=== PATIENT | male | born 1970 | race Hispanic/Latino ===

== ENCOUNTER 2019-02-14 12:53 | Inpatient (IN) | payer BC ==
[~2019-02-14] VITALS: Ht 172.7 cm; Wt 72.7 kg
[2019-02-14] MEDS ORDERED: GLIPIZIDE5 MG PO (13:34)
[2019-02-14] MEDS ORDERED: METFORMIN HCL1000 MG PO (13:34)
[2019-02-14] MEDS ORDERED: SODIUM CHLORIDE 0.9% 1000ML 1,000 ML IV STA ×4 (13:39→18:41)
[2019-02-14] MEDS ORDERED: PIPER-TAZ 3.375 GM 50 ML IV ONE (13:45)
[2019-02-14 14:05] LABS: BASOPHILS # (AUTO) 0.1 (0.0-0.1); BASOPHILS % 0.3 % (0.0-1.0); EOSINOPHILS # (AUTO) 0.1 (0.0-0.4); EOSINOPHILS % 0.4 % (0.0-6.0); HEMATOCRIT 36.3 % (38.2-49.6); HEMOGLOBIN 12.7 g/dL (14.0-18.0); LYMPHOCYTES # (AUTO) 1.1 (1.0-3.2); MEAN CORPUSCULAR HEMOGLOBIN 30.7 pg (28-32); MEAN CORPUSCULAR VOLUME 87.7 fL (81-99); MONOCYTES # (AUTO) 0.9 (0.2-0.8); MONOCYTES % 5.7 % (4.4-11.3); NEUTROPHILS # (AUTO) 13.9 (2.1-6.9); NEUTROPHILS % 85.9 % (38.7-80.0); PLATELET COUNT 245 x10e3/uL (140-360); RED BLOOD COUNT 4.14 x10e6/uL (4.3-5.7); RED CELL DISTRIBUTION WIDTH 11.2 % (11.7-14.4)
--- NOTE | 2019-02-14 14:12 | Diagnostic Imaging Report ---
Right foot, 3 views. History: Ulcer in the dorsolateral aspect of the foot. Findings: Vascular classifications are present. There is mild focal soft tissue swelling overlying the base of the fifth metatarsal. No air is seen within the soft tissues. Bone mineralization is normal. There is no evidence of fracture or dislocation. There is no visible erosion or periosteal reaction. The joint spaces are within normal limits. IMPRESSION: Lateral soft tissue swelling without underlying osseous abnormality. A nuclear medicine bone scan or MRI would be more sensitive for detection of early osteomyelitis. Signed by: Roverto Herrera on 02/14/2019 2:09 PM
[2019-02-14 14:23] LABS: ALANINE AMINOTRANSFERASE 28 IU/L (0-55); ALBUMIN 2.7 g/dL (3.5-5.0); ALBUMIN/GLOBULIN RATIO 0.6 (0.8-2.0); ALKALINE PHOSPHATASE 154 IU/L (40-150); ANION GAP 17.3 mmol/L (8-16); BLOOD UREA NITROGEN 17 mg/dL (7-26); BUN/CREATININE RATIO 13 (6-25); CALCIUM 9.3 mg/dL (8.4-10.2); CARBON DIOXIDE 23 mmol/L (22-29); CHLORIDE 94 mmol/L (98-107); CREATININE, SERUM 1.26 mg/dL (0.72-1.25); EST GLOMERULAR FILTRATION RATE > 60 ML/MIN (60-); POTASSIUM 4.3 mmol/L (3.5-5.1); SODIUM 130 mmol/L (136-145)
[2019-02-14 14:26] LABS: GLUCOSE 532 mg/dL (74-118)
[2019-02-14] MEDS ORDERED: MORPHINE SULFATE INJ 4 MG/ML INJ 1ML IV ONE (14:35)
[2019-02-14] MEDS ORDERED: VANCOMYCIN 1GM/NS 250 ML 250 ML IV ONE (14:35)
[2019-02-14] MEDS ORDERED: ONDANSETRON HCL INJ 2MG/ML 2ML 2 MG/ML VIAL IV ONE (14:35)
[2019-02-14] MEDS ORDERED: VANCOMYCIN 1GM/NS 250 ML 250 ML IV STA (14:38)
[2019-02-14] MEDS: SODIUM CHLORIDE 0.9% 1000ML 1,000 ML IV SCH (14:40)
[2019-02-14] MEDS ORDERED: ONDANSETRON HCL INJ 2MG/ML 2ML 2 MG/ML VIAL IV PRN (14:45)
[2019-02-14] MEDS ORDERED: TETANUS/DIPHTHERIA TOX ADULT 0.5 ML SYR IM ONE ×2 (14:45→19:30)
[2019-02-14] MEDS ORDERED: DEXTROSE 50% SYRINGE 50 ML IV PRN ×2 (14:45→17:30)
[2019-02-14] MEDS ORDERED: ACETAMINOPHEN 325 MG TAB PO PRN (14:45)
[2019-02-14] MEDS ORDERED: MORPHINE SULFATE 2 MG/ML SYR 1ML IV PRN (14:50)
[2019-02-14] MEDS ORDERED: INSULIN REGULAR, HUMAN 100 UNIT/1 ML 3ML VIAL IV ONE ×2 (15:00→16:30)
[2019-02-14] MEDS ORDERED: MORPHINE SULFATE INJ 4 MG/ML INJ 1ML IV PRN (15:00)
[2019-02-14 15:19] LABS: INR 1.02; PROTHROMBIN TIME 13.9 seconds (11.9-14.5)
[2019-02-14 15:20] LABS: PARTIAL THROMBOPLASTIN TIME 34.9 seconds (23.8-35.5)
--- NOTE | 2019-02-14 15:21 | Diagnostic Imaging Report ---
Chest, 1 view, 02/14/2019. History: Diabetic foot ulcer. Comparison: None available. Findings: The cardiomediastinal silhouette and pulmonary vasculature are within normal limits for a portable exam. There is no focal consolidation or pleural effusion. There are no acute osseous or soft tissue abnormalities. Impression: No acute cardiopulmonary abnormality. Signed by: Roverto Herrera on 02/14/2019 3:17 PM
[2019-02-14 15:23] LABS: MAGNESIUM 1.7 MG/DL (1.3-2.1)
[2019-02-14 15:30] LABS: CREATINE KINASE MB 2.5 ng/mL (0-5.0)
--- OUTSIDE RECORDS SUMMARY | 2019-02-14 15:46 | XMS REPORT ---
Author Author [facility] Address Unknown Phone Unavailable Care Team Providers Care Pot Liner Name Role Phone MJ WAGGONER Unavailable Unavailable Problems This patient has no known problems. Allergies, Adverse Reactions, Alerts This patient has no known allergies or adverse reactions. Medications This patient has no known medications. Results Test Description Test Time Test Comments Text Results Atomic Results Result Comments CHEST SINGLE (PORTABLE) 2019-02-14 15:17:00 [place] [address] Patient Name: HERBERTH DONIS MR #: [id number] : 1970 Age/Sex: 48/M Req #: [id number] Adm Physician: Ordered by: MJ WAGGONER MD, MD Report #: [id number] Location: ER Room/Bed: Procedure: [id number] DX/CHEST SINGLE (PORTABLE) Exam Date: 02/14/19 Exam Time: 1450 REPORT STATUS: Signed Chest, 1 view, 02/14/2019. History: Diabetic foot ulcer. Comparison: None available. Findings: The cardiomediastinal silhouette and pulmonary vasculature are within normal limits for a portable exam. There is no focal consolidation or pleural effusion. There are no acute osseous or soft tissue abnormalities. Impression: No acute cardiopulmonary abnormality. Signed by: Hernandez Herrera on 02/14/2019 3:17 PM Dictated By: HERNANDEZ HERRERA MD 16 Transcribed By: DAVI on 02/14/191516 COPY TO: MJ WAGGONER FOOT RIGHT COMPLETE 2019-02-14 14:05:00 [place] [address] Patient Name: HERBERTH DONIS MR #: [id number] : 1970 Age/Sex: 48/M Req #: [id number] Adm Physician: Ordered by: HERNANDEZ SHAW NP Report #: [id number] Location: ER Room/Bed: Procedure: [id number] DX/FOOT RIGHT COMPLETE Exam Date: 02/14/19 Exam Time: 1350 REPORT STATUS: Signed Right foot, 3 views. History: Ulcer in the dorsolateral aspect of the foot. Findings: Vascular classifications are present. There is mild focal soft tissue swelling overlying the base of the fifth metatarsal. No air is seen within the soft tissues. Bone mineralization is normal. There is no evidence of fracture or dislocation. There is no visible erosion or periosteal reaction. The joint spaces are within normal limits. IMPRESSION: Lateral soft tissue swelling without underlying osseous abnormality. A nuclear medicine bone scan or MRI would be more sensitive for detection of early osteomyelitis. Signed by: Hernandez Herrera on 02/14/2019 2:09 PM Dictated By: HERNANDEZ HERRERA MD 08 Transcribed By: DAVI on 02/14/191408 COPY TO: HERNANDEZ SHAW QUALITY OFFICER
[2019-02-14] MEDS: FAMOTIDINE 20 MG/2 ML VIAL IV SCH (17:02)
--- NOTE | 2019-02-14 17:05 | Consultation ---
DATE OF CONSULTATION: 02/14/2019 HISTORY OF PRESENT ILLNESS: The patient is a 48-year-old diabetic male, admitted to the hospital complaining of a blister in the right foot on the lateral part of the heel that developed about a week ago. The patient did not seek medical attention until today at which time he presented to the emergency room and was found to have a gangrenous patch of skin with full thickness in that location. His blood sugars were in the 500. The patient's white count was 16,000. PAST MEDICAL HISTORY: Significant for diabetes and hypertension. PAST SURGICAL HISTORY: He has no previous surgery. ALLERGIES: HE HAS NO KNOW ALLERGIES. PHYSICAL EXAMINATION: GENERAL: A 48-year-old male, awake, alert, is in no acute distress. VITAL SIGNS: temperature is 99.2. vital signs are stable. HEAD, EYES, EARS, NOSE AND THROAT: Reveals no acute process. ABDOMEN: Soft. EXTREMITIES: Examination of the extremities reveal palpable femoral and popliteal pulses. I can barely palpate any dorsalis pedis or tibialis posterior pulses. Examination of the feet reveals on the right side over the lateral upper after of the heel in the area of the malleolus and, lateral. There is full thickness necrosis. There is no abscess. There is surrounding erythema consistent with cellulitis. ASSESSMENT: Diabetic foot with gangrene of the right lateral aspect with full-thickness necrosis of skin and soft tissue. This is secondary to the diabetic neuropathy from ill-fitting shoes. PLAN: The plan is to admit the patient give intravenous antibiotics. Control his blood sugar which is over 500 again. We will get a and nuclear medicine scan to rule out the possibility of osteomyelitis. We will do arterial Dopplers to evaluate his peripheral disease. 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 This has been discussed with Dr. Lema and the patient and the family. MD KENNA Amato/ANTONY /[id number]
[2019-02-14] MEDS ORDERED: CLONIDINE HCL 0.1 MG TAB PO PRN (17:30)
[2019-02-14 17:44] LABS: BILIRUBIN,URINE NEGATIVE (NEGATIVE); CLARITY,URINE SL CLOUDY (CLEAR); COLOR,URINE YELLOW (YELLOW); KETONES,URINE NEGATIVE (NEGATIVE); LEUKOCYTE ESTERASE ,URINE NEGATIVE (NEGATIVE); NITRITE,URINE NEGATIVE (NEGATIVE); PROTEIN,URINE DIPSTICK NEGATIVE (NEGATIVE); URINE UROBILINOGEN 0.2 mg/dL (0.2 - 1)
[2019-02-14] MEDS ORDERED: PIPER-TAZ 3.375 GM 50 ML IV SCH (18:00)
[2019-02-14 18:04] LABS: BACTERIA,URINE FEW /HPF; RBC,URINE 0-5 /HPF (0-5)
--- NOTE | 2019-02-14 18:42 | NUR ---
HAD CONVERSATION WITH DR WAGGONER REGARDING LACTIC NOT CHANGING, DR WAGGONER ORDERED AN ADDITIONAL LITER OF NORMAL SALINE
--- NOTE | 2019-02-14 19:05 | NUR ---
MARGOT FROM NUCLEAR MEDICINE REMINDED OF STAT ORDERS FOR BONE SCAN
[2019-02-14] MEDS: INSULIN REGULAR, HUMAN 100 UNIT/1 ML 3ML VIAL SQ SCH (21:00)
[2019-02-14] MEDS: INSULIN GLARGINE 100 UNITS/ML VIAL SQ SCH (21:00)
[2019-02-14 22:03] VITALS: BP 156/87
--- NOTE | 2019-02-14 22:30 | NUR ---
RECEIVED PATIENT FROM ER AOX4, NO SIGNS OF DISTRESS NOTED. PATIENT'S IS AT BEDSIDE AND PATIENT VOICES NO PAIN AT THIS TIME. WOUND ON RIGHT FOOT HAS BEEN ASSESSED AND PATIENT IS AWARE OF NPO AFTER MIDNIGHT. BED IS IN LOWEST POSITION, BOTH SIDE RAILS ARE UP, CALL LIGHT WITHIN REACH, WILL CONTINUE TO MONITOR.
--- NOTE | 2019-02-14 23:00 | NUR ---
IR HAS COME TO CONSUMER ANALYST PATIENT FOR PROCEDURE.
[2019-02-15] VITALS (9 sets, daily range): BP systolic 117–197; BP diastolic 61–87
--- NOTE | 2019-02-15 | NUR ---
PATIENT HAS RETURNED FROM IR IN STABLE CONDITION.
--- NOTE | 2019-02-15 00:07 | History and Physical ---
PRIMARY CARE PHYSICIAN: Elbert Orellnaa MD CHIEF COMPLAINT: Right lower extremity diabetic ulcer. HISTORY OF PRESENT ILLNESS: This is a 48-year-old male with past medical history of diabetes and high cholesterol, presented with right foot, right lateral side diabetic ulcer. According to the patient, he does not have feeling in the foot due to his diabetes, but noted that he was having a small blister, which continued to worsen. He went to see his PCP, was not available, so went to the ER where they gave him Bactrim and increased his metformin to 1000 b.i.d. He has been soaking it and taking Bactrim for about 5-6 days with no improvement and now is black underneath the blister with increasing redness to the foot. No drainage noted. He reports subjective fever. He denies any chest pain, nausea, or vomiting. In the ER, surgeon has been consulted, and started on IV antibiotics. PAST MEDICAL HISTORY: 1. Diabetes. 2. High cholesterol. PAST SURGICAL HISTORY: None. FAMILY MEDICAL HISTORY: Both mother and father had diabetes and father of heart disease. SOCIAL HISTORY: He denies any tobacco, alcohol, or drug use. Currently employed and . ALLERGIES: NO KNOWN ALLERGIES. REVIEW OF SYSTEMS: GENERAL: Fatigue and subjective fever. HEENT: No head trauma. LUNGS: No shortness of breath. CARDIOVASCULAR: No chest pain or palpitations. GI: No abdominal pain. NEUROLOGIC: Alert and oriented. SKIN: Right foot ulcer, possible necrosis. PHYSICAL EXAMINATION: VITAL SIGNS: Temperature is 99.5, pulse is 113, respirations are 20, blood pressure is 152/88, pulse ox is 100% on room air. GENERAL: No acute distress. HEENT: Normocephalic and atraumatic. NECK: Supple. LUNGS: Clear to auscultation. CARDIOVASCULAR: Regular rate and rhythm. NEUROLOGIC: Alert, awake, and oriented x3. ABDOMEN: Soft and nontender. MUSCULOSKELETAL: Moves all extremities. SKIN: Noted right foot ulcer likely with eschar to the right lateral side underneath the blister and redness extending to the dorsalis pedis. PSYCH: Calm. LABORATORY DATA: WBC is 16.15, hemoglobin is 12.7, and platelet is 245. ESR is 90. Sodium is 130, potassium is 4.3, creatinine is 1.26, estimated GFR greater than 60, glucose is 532, lactic acid is 2.9, and magnesium is 1.7. AST 18, ALT 28, and alkaline phosphatase 154. Troponin is 0.003. BNP is 23.3. PT 13.9, INR 1.02, APTT 34.9. Foot x-ray shows lateral soft tissue swelling without underlying osseous abnormalities. Chest x-ray is no abnormality. IMPRESSION AND PLAN: 1. Severe sepsis due to right foot diabetic ulcer. We will continue with Zosyn and vancomycin renal dosed. Pending bone scan to rule out osteomyelitis. Venous Doppler to rule out DVT. Surgery has been consulted for debridement. 2. Uncontrolled diabetes. Blood sugar upon arrival is 532. We will continue with sliding scale insulin and add Lantus at bedtime. 3. Acute kidney injury. Creatinine is 1.26. We will hydrate and repeat blood work in the morning. 4. High cholesterol. We will continue statin per home dose. 5. Deep vein thrombosis prophylaxis. No chemical anticoagulation due to possible surgery tomorrow. Dictated by HINA Gupta Damien Josue MD MY/MODL /[id number] Seen and examined on 02/14/19, getting an arterial doppler instead of venous to rule out PVD, diabetes with hyperglycemia. Agree with the findings and plan as documented by HINA Hayes. MTDD
[2019-02-15] MEDS: PIPER-TAZ 3.375 GM 50 ML IV SCH ×4 (00:29→21:21)
[2019-02-15] MEDS: SODIUM CHLORIDE 0.9% 1000ML 1,000 ML IV SCH ×3 (00:29→13:47)
--- NOTE | 2019-02-15 00:47 | Diagnostic Imaging Report ---
Bone Scan, three-phase - feet and ankles Reason for exam: Cellulitis of right ankle Radiopharmaceutical: Tc-99m MDP 25 mCi IV LAC Comparison: Right foot radiograph 02/14/2019 Following intravenous administration of the radiopharmaceutical, dynamic flow and immediate blood pool images of the feet and ankles followed by delayed spot images were obtained. Flow and blood pool images show diffuse markedly increased tracer activity to the right foot and ankle compared to the left with focal increased tracer in the right ankle. The 3-hour delayed images focal increased tracer activity in the medial and lateral malleoli of the right ankle. Impression: Scan findings are very worrisome for osteomyelitis of the right ankle, however, 3-phase bone scan lacks specificity in the setting of cellulitis in the diabetic foot. A labeled white blood cell study is recommended to add specificity to the evaluation. Signed by: Dr. Cris Paula M.D. on 02/15/2019 6:32 PM
[2019-02-15 01:27] LABS: CREATINE KINASE MB 2.2 ng/mL (0-5.0)
[2019-02-15 05:04] LABS: BASOPHILS # (AUTO) 0.1 (0.0-0.1); BASOPHILS % 0.5 % (0.0-1.0); EOSINOPHILS # (AUTO) 0.2 (0.0-0.4); EOSINOPHILS % 1.9 % (0.0-6.0); HEMATOCRIT 31.5 % (38.2-49.6); HEMOGLOBIN 10.8 g/dL (14.0-18.0); LYMPHOCYTES # (AUTO) 1.4 (1.0-3.2); LYMPHOCYTES % 12.7 % (18.0-39.1); MEAN CORPUSCULAR HGB CONC 34.3 g/dL (31-35); MEAN CORPUSCULAR VOLUME 87.5 fL (81-99); MONOCYTES # (AUTO) 0.7 (0.2-0.8); MONOCYTES % 6.8 % (4.4-11.3); NEUTROPHILS # (AUTO) 8.3 (2.1-6.9); NEUTROPHILS % 77.5 % (38.7-80.0); PLATELET COUNT 232 x10e3/uL (140-360); RED CELL DISTRIBUTION WIDTH 11.1 % (11.7-14.4)
[2019-02-15] MEDS: VANCOMYCIN 1GM/NS 250 ML 250 ML IV SCH ×2 (05:17→14:30)
[2019-02-15 05:23] LABS: ALANINE AMINOTRANSFERASE 27 IU/L (0-55); ALBUMIN 2.1 g/dL (3.5-5.0); ALBUMIN/GLOBULIN RATIO 0.6 (0.8-2.0); ALKALINE PHOSPHATASE 136 IU/L (40-150); ANION GAP 12.7 mmol/L (8-16); BLOOD UREA NITROGEN 12 mg/dL (7-26); BUN/CREATININE RATIO 16 (6-25); CALCIUM 8.2 mg/dL (8.4-10.2); CARBON DIOXIDE 23 mmol/L (22-29); CHLORIDE 103 mmol/L (98-107); CREATININE, SERUM 0.75 mg/dL (0.72-1.25); EST GLOMERULAR FILTRATION RATE > 60 ML/MIN (60-); GLUCOSE 229 mg/dL (74-118); MAGNESIUM 1.7 MG/DL (1.3-2.1); PHOSPHORUS 2.8 MG/DL (2.3-4.7); POTASSIUM 3.7 mmol/L (3.5-5.1); SODIUM 135 mmol/L (136-145)
--- NOTE | 2019-02-15 07:07 | NUR ---
pt alert resp even and unlabored at this time no distress noted, pt able to make needs known, call light in reach , pt family member at bedside.
[2019-02-15] MEDS ORDERED: GABAPENTIN300 MG PO (08:14)
[2019-02-15] MEDS ORDERED: BACTRIM DS TAB1 EACH PO (08:14)
[2019-02-15] MEDS ORDERED: TRADJENTA5 MG PO (08:14)
[2019-02-15] MEDS: FAMOTIDINE 20 MG/2 ML VIAL IV SCH ×2 (08:39→17:00)
[2019-02-15] MEDS: INSULIN REGULAR, HUMAN 100 UNIT/1 ML 3ML VIAL SQ SCH ×4 (10:03→21:22)
[2019-02-15] MEDS ORDERED: HYDROGEN PEROXIDE 120 ML BTL ONE (10:24)
[2019-02-15] MEDS ORDERED: BACITRACIN 50,000 UNIT VIAL ONE (10:32)
[2019-02-15] MEDS ORDERED: ONDANSETRON HCL INJ 2MG/ML 2ML 2 MG/ML VIAL IV PRN (11:15)
[2019-02-15] MEDS ORDERED: HYDROCODONE/APAP 7.5MG-325MG 1 EA TAB PO PRN (11:15)
--- NOTE | 2019-02-15 12:20 | NUR ---
pt return to room resp even and unlabored at this time no distress , no pain when asked, call light in reach family member at bedside.
--- NOTE | 2019-02-15 15:50 | NUR ---
Spoke with Dr. Villareal who states he is going to try to set up IV abx thru his office.
[2019-02-15] MEDS ORDERED: DEXAMETHASONE SOD PHOS INJ 4 MG/ML VIAL ONE (18:05)
[2019-02-15] MEDS ORDERED: ONDANSETRON HCL INJ 2MG/ML 2ML 2 MG/ML VIAL ONE (18:05)
[2019-02-15] MEDS ORDERED: PROPOFOL IV EMULSION 10 MG/ML 20 ML VIAL ONE (18:05)
[2019-02-15] MEDS ORDERED: SEVOFLURANE INHAL SOLN 250 ML PEN BTL ONE (18:05)
[2019-02-15] MEDS ORDERED: LIDOCAINE HCL 2% LOCAL INJ 5 ML SDV VIAL INJ ONE (18:05)
[2019-02-15] MEDS ORDERED: ACETAMINOPHEN 1000 MG/100 ML IV ONE (18:05)
[2019-02-15] MEDS ORDERED: MIDAZOLAM HCL 2 MG/2 ML VIAL ONE (18:13)
[2019-02-15] MEDS ORDERED: FENTANYL CITRATE/PF 100MCG/2 ML INJ ONE (18:13)
[2019-02-15] MEDS ORDERED: SODIUM CHLORIDE 0.9% 1000ML 1,000 ML IV SCH (18:58)
--- NOTE | 2019-02-15 19:01 | NUR ---
Report given to oncoming nurse pt stable at this time.
--- NOTE | 2019-02-15 19:26 | Progress Note ---
DATE: 02/15/2019 CONSULTANTS: Dr. Sanchez with Cardiology, Dr. Villareal with Infectious Disease and Dr. Womack with Surgery. CHIEF COMPLAINT: Right foot diabetic ulcers. SUBJECTIVE: The patient seen sitting up in status post debridement by surgical team earlier. He denies any pain, any fever, chills. Right foot dressing is intact, able to move with no pain. OBJECTIVE: VITAL SIGNS: Temperature 97.8, pulse of 86, respirations 18, blood pressure 128/64, pulse ox is 98% on room air. GENERAL: No acute distress. HEENT: Normocephalic, atraumatic. NECK: Supple. CARDIOVASCULAR: Regular rate and rhythm. LUNGS: Clear to auscultation. ABDOMEN: Soft and nontender. NEUROLOGIC: Alert, awake, and oriented x3. MUSCULOSKELETAL: Moves all extremities. No edema. SKIN: Right foot diabetic ulcer, status post I and D. Dressing intact. LABORATORY DATA: WBC 10.63, hemoglobin is 10.8, hematocrit is 31, and platelets are 232. ESR is 90. Sodium is 135, potassium is 3.7, and creatinine 0.75. Estimated GFR greater than 60. Blood glucose 329. Hemoglobin A1c 13.2. Lactic acid is 0.7. Troponin negative x3. Urine is cloudy, but otherwise unremarkable. Wound culture and urine culture pending. ASSESSMENT/PLAN: 1. Severe sepsis due to right foot diabetic ulcer, status post debridement this morning. Continue with Zosyn and vancomycin. Bone scan and arterial Doppler done. Bone scan shows soft tissue and osseous uptake in the right heel, which is concerning for osteomyelitis. ID has been consulted. 2. Uncontrolled diabetes. Hemoglobin A1c is 13.2. We will continue with sliding scale insulin and add Lantus at bedtime 15 units. 3. Possible osteomyelitis per bone scan. We will continue with Zosyn and vancomycin. ID has been consulted. 4. Acute kidney injury. Resolved with IV fluid hydration. 5. High cholesterol. We will continue on statin. 6. Deep vein thrombosis prophylaxis. No chemical anticoagulation due to recent surgery. PLAN: We will continue with IV antibiotics. Await on wound culture. May need long-term IV antibiotics for osteomyelitis per ID. Dictated by HINA Gupta Damien Josue MD MY/MODL /[id number] Seen and examined, consulted Dr. Sanchez for PVD and possible peripheral revascularization, discussed with Dr. Sanchez. Agree with the findings and plan as documented by HINA Hayes. [facility]
[2019-02-15] MEDS: INSULIN GLARGINE 100 UNITS/ML VIAL SQ SCH (21:21)
[2019-02-15] MEDS: ASPIRIN 81 MG CHEW TAB PO SCH (21:21)
--- NOTE | 2019-02-15 23:42 | History and Physical ---
REASON FOR ADMISSION: Infection of the foot, osteomyelitis of the right foot, recommendation of antibiotic. HISTORY OF PRESENT ILLNESS: This patient who is a very pleasant 48-year-old Nigerian male, who has diabetes mellitus for more than 20 years, history of neuropathy. He developed an ulcer on his foot a few weeks ago. He went to see his PCP. He was given oral antibiotic. He had a small blister, but it was getting progressively worse. He went to the emergency room. He was given Bactrim and is still getting worse. Few days later, there was redness and swelling and drainage, he was sent to the emergency room where he was admitted on IV antibiotic, underwent debridement today, lying in bed comfortably. I was asked to see him. The patient is currently lying in bed comfortably. He had surgery this morning. The patient who does have a history of diabetes mellitus, hypercholesteremia, diabetes with neuropathy. PAST SURGICAL HISTORY: Denies. ALLERGIES: NKA. SOCIAL HISTORY: He denies smoking, drug abuse, or alcohol abuse. He is and has kids. MEDICATIONS: He is currently on Zosyn and vancomycin. So far the wound culture is still pending. The patient had a bone scan on February 14, 2019, which showed positive for osteomyelitis. He had a foot x-ray which showed left sacral tissue swelling without underlying deformity, but the bone scan was positive as mentioned above. Chest x-ray with no acute finding. REVIEW OF SYSTEMS: At the present time: HEENT: Negative. PULMONARY: Negative. CARDIAC: Negative. PHYSICAL EXAMINATION: GENERAL: He is currently alert, oriented, does not seem to be in acute distress. VITAL SIGNS: Stable, currently afebrile. HEENT: Normocephalic, not icteric. NECK: Supple. No JVD. No lymphadenopathy or thyromegaly. CHEST: Clear bilaterally. COR: S1 and S2. No S3, S4, or murmur. ABDOMEN: Soft. Bowel sounds present. No tenderness. No hepatosplenomegaly. EXTREMITIES: No edema. The right foot is wrapped. LABORATORY DATA: Reviewed. His white count when he first came was 16.4, it came down to 10. His sedimentation rate is 90. His sodium is 135, potassium 3.7 and creatinine 0.75. IMPRESSION: I think the patient has osteomyelitis, failing medical treatment, underwent debridement today. We will get a PICC line. We will arrange IV antibiotics. I agree with choice of antibiotic for the time being. He will probably end up with 6 weeks of IV antibiotic depending on clinical progress. We would need weekly CBC, weekly chem panel which we are going to arrange. We will follow with you. Further recommendations to follow. Discussed with the patient. Discussed with the family. MD ESTEFANI Fong/ANTONY /[id number]
[2019-02-16] VITALS (8 sets, daily range): BP systolic 121–180; BP diastolic 68–87
--- NOTE | 2019-02-16 00:09 | Diagnostic Imaging Report ---
EXAMINATION: CHEST XRAY LINE PLACEMENT INDICATION: ^NEW PICC LINE INSERTION ^[id number] ^[id number] COMPARISON: 02/14/2019 FINDINGS: AP view TUBES and LINES: Right PICC in place with tip projecting over cavoatrial junction. LUNGS: Low lung volumes. There is no evidence of pneumonia or pulmonary edema. PLEURA: No pleural effusion or pneumothorax. HEART AND MEDIASTINUM: The cardiomediastinal silhouette is unremarkable. BONES AND SOFT TISSUES: No acute osseous lesion. Soft tissues are unremarkable. UPPER ABDOMEN: No free air under the diaphragm. IMPRESSION: Status post right PICC placement with tip projecting over cavoatrial junction. No visible pneumothorax. Signed by: Dr. Devang Potter MD on 02/16/2019 12:06 AM
[2019-02-16] MEDS: VANCOMYCIN 1GM/NS 250 ML 250 ML IV SCH ×2 (02:20→15:35)
--- NOTE | 2019-02-16 04:39 | Operative Report ---
DATE OF PROCEDURE: 02/15/2019 SURGEON: Konrad Womack MD PREOPERATIVE DIAGNOSIS: Uncontrolled blood sugars with gangrene of the right foot and peripheral neuropathy. PROCEDURE PERFORMED: Debridement of necrotic tissue of the right foot. ANESTHESIA: General. ESTIMATED BLOOD LOSS: Minimal. DRAINS: None. COMPLICATIONS: None. INDICATION AND FINDINGS: The patient is a 48-year-old diabetic male, admitted with gangrene of the right foot and cellulitis. This started as a blister on the lateral aspect of the right heel region due to ill-fitting shoes. The patient upon admission had uncontrolled sugar of over 500. The patient was treated for his uncontrolled blood sugar, hydrated, stabilized, given intravenous antibiotic. He was taken urgently to the operating room the next morning for debridement of necrotic tissue. Preoperatively, he had a bone scan that revealed osteomyelitis of the right foot over the lateral aspect of the heel and ankle area. INTRAOPERATIVE FINDINGS: Necrotic tissue over the area of the lateral part of the right heel and ankle region with full necrosis and eschar formation all the way down to the soft tissues. There was minimal involvement of the fascia. This was all mainly confined to the soft tissues. There was a defect that probably measured at the end of the procedure, round about 5 cm in diameter. The wound was debrided down to viable tissue. The cultures and sensitivities were taken both of the tissue and then the deeper soft tissues were swabbed. DESCRIPTION OF PROCEDURE: With the patient lying on the operative table in the supine position after administration of general endotracheal anesthesia, he was prepped and draped for debridement of necrotic tissue of the right foot. The area with the necrotic tissue as previously described was debrided down to viable tissue with the resultant defect as previously noted. There was no gross involvement of the muscles of the foot in that area. The wound irrigated. Minor bleeding points were cauterized. Then, the wound was packed with Betadine sponge and dressed with sterile dressing. The patient tolerated the procedure well, taken to recovery room in stable condition. MD KENNA Amato/MATILDEL /[id number]
--- NOTE | 2019-02-16 05:05 | Consultation ---
DATE OF CONSULTATION: 02/15/2019 Cardiology Consultation. CONSULTING PHYSICIAN: Juan Kuo MD, Interventional Cardiology. REASON FOR CONSULTATION: Peripheral arterial disease. HISTORY OF PRESENT ILLNESS: A 48-year-old man with history of more than 10-year diabetes mellitus, uncontrolled number, hyperlipidemia, hypertension, presents with right lateral plantar aspect of foot diabetic ulceration for which he is undergoing debridement. Arterial Dopplers were remarkable for [id number] level significant disease. We have been asked to evaluate further. Cecilio denies any chest discomfort or shortness of breath. He has no current complaints other than mild discomfort at wound site. OBJECTIVE: VITAL SIGNS: Temperature 97.8, heart rate 86, respiratory rate 18, O2 saturation 98%, BMI 24, blood pressure 128/64. GENERAL: No acute distress. Alert. NECK: No JVD. No carotid bruit. CHEST: Clear to auscultation. CARDIOVASCULAR: Regular rate and rhythm. Normal S1, S2. No S3 or S4. No murmurs or rubs. ABDOMEN: Soft, nontender. Bowel sounds positive. EXTREMITIES: No cyanosis. No edema. Abnormal dorsalis pedis and posterior tibial pulses bilaterally. SKIN: With hyperpigmented spider lesions to lower extremities and lateral grade 4 ulceration with clean base, status post recent debridement approximately 1-1/2 to 2 inches diameter, exposed bone and tendons. CARDIOVASCULAR MEDICATIONS: Reviewed. Clonidine 0.1 mg t.i.d. Also on vancomycin and Zosyn antibiotics. STUDIES: Reviewed. Sodium 135, potassium 3.7, chloride 103, bicarbonate 23, BUN 12, creatinine 0.75, glucose 229. White blood cells 10.6, hemoglobin 10.8, platelets 232. PT 13.9, PTT 34.9, INR 1.02. AST 20, ALT 27, total bilirubin 0.7, alkaline phosphatase 136. ASSESSMENT AND PLAN: 1. A 48-year-old man with uncontrolled diabetes, dyslipidemia and anemia presents with right lateral foot wound status post debridement. Arterial Doppler is concerning for significant gyjbv-[id number] level PAD, which is also suspected by clinical grounds, on exam abnormal dorsalis pedis and posterior tibial pulses. 2. Significant neuropathy and retinopathy related to diabetes complications. Discussed the indications, alternatives, risks, and benefits for above and possible endovascular revascularization for limb salvage in the setting of critical limb ischemia. Aspirin 81 mg daily starting. 3. Hydration. 4. Diabetes optimization. 5. Guarded foot prognosis. Thank you for the opportunity to participate in the care of Mr. Canchola. MD LAXMI Hoffman/MODL /[id number]
--- NOTE | 2019-02-16 05:20 | NUR ---
Non-working left AC PIV discontinued, catheter tip intact, no bleeding noted.
[2019-02-16 06:14] LABS: BASOPHILS # (AUTO) 0.1 (0.0-0.1); BASOPHILS % 0.4 % (0.0-1.0); EOSINOPHILS # (AUTO) 0.1 (0.0-0.4); EOSINOPHILS % 0.5 % (0.0-6.0); HEMOGLOBIN 11.1 g/dL (14.0-18.0); LYMPHOCYTES # (AUTO) 1.5 (1.0-3.2); LYMPHOCYTES % 9.9 % (18.0-39.1); MEAN CORPUSCULAR HEMOGLOBIN 31.2 pg (28-32); MEAN CORPUSCULAR HGB CONC 35.8 g/dL (31-35); MEAN CORPUSCULAR VOLUME 87.1 fL (81-99); MONOCYTES # (AUTO) 0.8 (0.2-0.8); MONOCYTES % 5.1 % (4.4-11.3); NEUTROPHILS # (AUTO) 13.1 (2.1-6.9); NEUTROPHILS % 83.6 % (38.7-80.0); PLATELET COUNT 253 x10e3/uL (140-360); RED BLOOD COUNT 3.56 x10e6/uL (4.3-5.7)
[2019-02-16] MEDS: PIPER-TAZ 3.375 GM 50 ML IV SCH ×3 (06:22→21:15)
[2019-02-16 06:33] LABS: ALANINE AMINOTRANSFERASE 24 IU/L (0-55); ALBUMIN 2.1 g/dL (3.5-5.0); ALBUMIN/GLOBULIN RATIO 0.6 (0.8-2.0); ALKALINE PHOSPHATASE 155 IU/L (40-150); ANION GAP 10.4 mmol/L (8-16); BLOOD UREA NITROGEN 13 mg/dL (7-26); BUN/CREATININE RATIO 19 (6-25); CALCIUM 8.5 mg/dL (8.4-10.2); CARBON DIOXIDE 24 mmol/L (22-29); CHLORIDE 104 mmol/L (98-107); EST GLOMERULAR FILTRATION RATE > 60 ML/MIN (60-); GLUCOSE 211 mg/dL (74-118); POTASSIUM 3.4 mmol/L (3.5-5.1); SODIUM 135 mmol/L (136-145)
--- NOTE | 2019-02-16 06:50 | NUR ---
Received patient lying in bed with eyes open. Respiration even and unlabored without SOB. Call light in reach.
[2019-02-16] MEDS: INSULIN REGULAR, HUMAN 100 UNIT/1 ML 3ML VIAL SQ SCH (07:30)
[2019-02-16] MEDS: ASPIRIN 81 MG CHEW TAB PO SCH (09:00)
[2019-02-16] MEDS ORDERED: VERAPAMIL HCL 2.5 MG/ML 2 ML VIAL ONE (09:03)
[2019-02-16] MEDS ORDERED: HEPARIN SOD (PORCINE) 1000 UNIT/ML 30ML ONE (09:03)
[2019-02-16] MEDS ORDERED: FENTANYL CITRATE/PF 100MCG/2 ML INJ ONE (09:04)
[2019-02-16] MEDS ORDERED: MIDAZOLAM HCL 2 MG/2 ML VIAL ONE (09:04)
[2019-02-16] MEDS ORDERED: LIDOCAINE HCL 2% LOCAL 20 ML VIAL ONE (09:04)
[2019-02-16] MEDS ORDERED: HEPARIN SOD/SOD CHLORIDE 2,000 ML ONE (09:05)
[2019-02-16] MEDS ORDERED: NITROGLYCERIN/D5W 200 MCG/ML 250 ML ONE (09:05)
[2019-02-16] MEDS ORDERED: IOPAMIDOL 370 MG/ML 200 ML INFUS..BTL INJ ONE (09:05)
[2019-02-16] MEDS ORDERED: SODIUM CHLORIDE 0.9% 1000ML 1,000 ML ONE ×2 (09:05→09:16)
--- NOTE | 2019-02-16 09:10 | NUR ---
Patient is transported for procedure at this time.
--- NOTE | 2019-02-16 09:15 | NUR ---
Patient is transported for angiogram at this time.
[2019-02-16] MEDS ORDERED: ASPIRIN 325 MG TAB ONE (10:26)
[2019-02-16] MEDS ORDERED: CLOPIDOGREL BISULFATE 75 MG TAB ONE (10:26)
[2019-02-16] MEDS: SODIUM CHLORIDE 0.9% 1000ML 1,000 ML IV SCH (10:28)
--- NOTE | 2019-02-16 10:45 | NUR ---
Patient is back from the procedure. left groin dressing intact, no bleeding noted, no hematoma noted. Patient is advised to lay flat for 3 hours as ordered.
[2019-02-16] MEDS ORDERED: POTASSIUM CHLORIDE 20 MEQ TAB CR PO NR (13:00)
--- NOTE | 2019-02-16 13:12 | Progress Note ---
DATE: Cardiology Progress Note SUBJECTIVE: Denies any chest pain or shortness of breath. OBJECTIVE: VITAL SIGNS: Temperature 99.1, heart rate 83, blood pressure 172/72, respiratory rate 18, O2 saturation 95%. GENERAL: In no acute distress, alert. NECK: No JVD. CHEST: Clear to auscultation. CARDIOVASCULAR: Regular rate and rhythm. Normal S1, S2. No S3 or S4. ABDOMEN: Soft. Bowel sounds positive. EXTREMITIES: No edema. Right foot wound covered with dressings. CARDIOVASCULAR MEDICATIONS: Reviewed. Aspirin 81 mg daily, clopidogrel 75 mg daily, atorvastatin 40 mg at bedtime, clonidine 0.1 mg t.i.d. p.r.n. LABORATORY STUDIES: Reviewed. Sodium 135, potassium 3.4, chloride 104, bicarbonate 24, BUN 13, creatinine 0.7, glucose 211. White blood cells 15.6, hemoglobin 11.1, platelets 253. INR 1, PT 13.9, PTT 34.9. AST 16, ALT 24, alkaline phosphatase 155, total bilirubin 0.4. ASSESSMENT AND PLAN: 1. A 48-year-old man presents with right diabetic foot wound, status post debridement. 2. Peripheral artery disease, status post right anterior tibial NET DEVELOPER today with severe outflow disease, small vessel disease at foot level. 3. Uncontrolled diabetes mellitus type 2. 4. Dyslipidemia, recommend IV fluids. 5. Aspirin and Plavix. 6. Guarded limb and overall prognosis. 7. Intensive diabetes optimization strongly encouraged. MD LAXMI Hoffman/ANTONY /[id number]
--- NOTE | 2019-02-16 14:29 | NUR ---
Spoke to Dr. Jani Womack regarding outpatient wound care. He states pt may need to follow up at outpatient clinic with Dr. Ramon and he has already spoke to him about pt. Dr. Womack said he will set up outpatient wound care, if needed. He will teach pt's how to do dressing changes. He will let CM know if anything needs to be set up.
[2019-02-16] MEDS: INSULIN LISPRO 100 UNIT/1 ML 3ML VIAL SQ SCH ×2 (17:00→21:30)
--- NOTE | 2019-02-16 17:01 | NUR ---
RD received consult for diabetic diet education Nutrition Education Learner(s): pt Time spent: 5 minutes Barriers: No barriers identified. Cultural/Language Modifications: Pt speaks Belarusian; therefore, a handout in the Belarusian language was provided. Readiness: acceptance Method: handout/verbal explanation Topics: Diabetic diet/Carbohydrate counting handouts Understanding/Compliance: Pt verbalized understanding
--- NOTE | 2019-02-16 19:00 | NUR ---
Received patient awake, not in distress, call light within easy reach, advised to call for assistance anytime when needed. Will continue to monitor
--- NOTE | 2019-02-16 19:27 | NUR ---
Report given to cheese production supervisor. Patient lying in bed with eyes open. Respiration even and unlabored without SOB. Call light in reach
[2019-02-16] MEDS: INSULIN GLARGINE 100 UNITS/ML VIAL SQ SCH (21:30)
[2019-02-16] MEDS: ATORVASTATIN 40 MG TAB PO SCH (21:51)
[2019-02-17] VITALS (12 sets, daily range): BP systolic 129–163; BP diastolic 72–86
--- NOTE | 2019-02-17 00:20 | NUR ---
patient called, assess left groin site, noted a golf ball size hematoma, hard, pressure applied, pedal pulses intact, BP 155/79, HR 83
--- NOTE | 2019-02-17 00:23 | NUR ---
paged Dr. Sanchez thru answering service to relay events, awaiting call back
--- NOTE | 2019-02-17 00:30 | NUR ---
Continues pressure applied to the left groin access site, hematoma is slightly resolving, BURLESQUE DANCER came and assess patient, pressure applied continuously
--- NOTE | 2019-02-17 00:38 | NUR ---
Pressure wedge applied to site with foam tape applied tightly for effective pressure, patient instructed to lay flat for 2 hours more, patient verbalized understanding and agreed. Will continue to monitor patient closely
--- NOTE | 2019-02-17 00:45 | Operative Report ---
DATE OF PROCEDURE: 02/16/2019 SURGEON: Juan Kuo MD STUDY: Cardiac catheterization PROCEDURE INDICATION: Critical limb ischemia with diabetic foot wound, status post on debridement and abnormal arterial Dopplers. IRRIGATOR GRAVITY FLOW: Juan Kuo MD, Interventional Cardiology. PROCEDURE PERFORMED: 1. Abdominal aortogram. 2. Selective lower extremity angiography, bilateral. 3. Third-order catheter placement from left common femoral artery to right common femoral artery. 4. Additional third-order catheter placement from left common femoral artery to right popliteal artery. 5. Additional third-order catheter placement from left common femoral artery to the left anterior tibial artery. 6. Right anterior tibial artery MARKETING LIAISON with 2.5 x 220 Ultraverse balloon with serial inflations. 7. Left common femoral artery 6-Bur[place]ian Angio-Seal closure. PROCEDURE COMPLICATIONS: None. ESTIMATED BLOOD LOSS: Less than 15 mL. PROCEDURE SUMMARY: After consent was obtained, the patient was prepped and draped in a sterile fashion. The left femoral site was locally infiltrated with 2% lidocaine and access was obtained with micropuncture kit. A 6-Bur[place]ian sheath was placed. An Omni Flush catheter was positioned in the distal descending abdominal aorta and abdominal aortogram with digital subtraction was performed revealing patent renal arteries and less than 30% stenosis across the infrarenal aorta and iliac vessels. Each of the lower extremity were separately evaluated with selective angiography. Catheter positioned in the right femoral artery, right popliteal artery, right anterior tibial artery and left external iliac artery. The following findings were noted. Common femoral arteries, profunda femoris and SFA and popliteal arteries bilaterally revealed less than 30% calcific stenosis. There was severe tandem 90% areas of stenosis with mild to moderate calcifications of the right anterior tibial, the TP trunk peroneal artery and the posterior tibial artery have less than 30% stenosis. There was severe outflow of small vessel disease to the digital arteries, DP artery, inflammatory arteries of the right lower extremity. The left lower extremity [id number] vessels are briefly seen, not well visualized, seemed to be proximally at least patent in the anterior tibial and peroneal. An 0.14 wire was used with 0.35 support catheter to cross the anterior tibial artery areas of stenosis and exchanged for a Ultraverse 2.5 x 220 balloon inflation was performed, 12 atmospheres serially inflated with residual less than 10% stenosis, BLAIR-3 flow, no flow-limiting dissections or perforations and good result across the treated vessel however with severe residual diabetic foot outflow disease. Of note, heparin was used to maintain an ACT over 250. Aspirin and Plavix already were administered. CONCLUSIONS: 1. The patient is status post right anterior tibial artery MARKETING LIAISON with residual severe outflow disease. 2. Continue aspirin and Plavix for diabetes optimization and aggressive wound care. Juan Kuo MD AFV/MODL /[id number] MTDD
--- NOTE | 2019-02-17 01:52 | NUR ---
Dr. Sanchez called back, updated with the events. Continue pressure to the left groin, will closely monitor the patient
[2019-02-17] MEDS: VANCOMYCIN 1GM/NS 250 ML 250 ML IV SCH ×2 (02:35→13:56)
[2019-02-17] MEDS: SODIUM CHLORIDE 0.9% 1000ML 1,000 ML IV SCH (02:36)
--- NOTE | 2019-02-17 04:25 | NUR ---
took off pressure wedge, hematoma subsided, no complaints of pain, VS stable, will continue to monitor
[2019-02-17] MEDS: PIPER-TAZ 3.375 GM 50 ML IV SCH ×3 (05:48→21:49)
--- NOTE | 2019-02-17 07:00 | NUR ---
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 No complaints of pain, Will continue to monitor closely
[2019-02-17] MEDS: INSULIN LISPRO 100 UNIT/1 ML 3ML VIAL SQ SCH ×4 (07:30→21:00)
[2019-02-17 08:09] LABS: BASOPHILS # (AUTO) 0.1 (0.0-0.1); BASOPHILS % 0.4 % (0.0-1.0); EOSINOPHILS # (AUTO) 0.1 (0.0-0.4); EOSINOPHILS % 1.2 % (0.0-6.0); HEMOGLOBIN 10.8 g/dL (14.0-18.0); LYMPHOCYTES # (AUTO) 1.4 (1.0-3.2); MEAN CORPUSCULAR HEMOGLOBIN 31.2 pg (28-32); MEAN CORPUSCULAR VOLUME 86.7 fL (81-99); MONOCYTES # (AUTO) 0.7 (0.2-0.8); MONOCYTES % 5.6 % (4.4-11.3); NEUTROPHILS # (AUTO) 9.3 (2.1-6.9); NEUTROPHILS % 79.9 % (38.7-80.0); PLATELET COUNT 273 x10e3/uL (140-360); RED BLOOD COUNT 3.46 x10e6/uL (4.3-5.7); RED CELL DISTRIBUTION WIDTH 11.3 % (11.7-14.4)
[2019-02-17 08:30] LABS: ANION GAP 11.5 mmol/L (8-16); BLOOD UREA NITROGEN 7 mg/dL (7-26); BUN/CREATININE RATIO 10 (6-25); CALCIUM 8.4 mg/dL (8.4-10.2); CARBON DIOXIDE 26 mmol/L (22-29); CHLORIDE 103 mmol/L (98-107); CREATININE, SERUM 0.68 mg/dL (0.72-1.25); EST GLOMERULAR FILTRATION RATE > 60 ML/MIN (60-); GLUCOSE 169 mg/dL (74-118); POTASSIUM 3.5 mmol/L (3.5-5.1); SODIUM 137 mmol/L (136-145)
[2019-02-17] MEDS: ASPIRIN 81 MG CHEW TAB PO SCH (08:46)
[2019-02-17] MEDS: CLOPIDOGREL BISULFATE 75 MG TAB PO SCH (08:46)
[2019-02-17] MEDS ORDERED: ATORVASTATIN 20 MG TAB PO SCH (09:00)
[2019-02-17] MEDS ORDERED: LACTULOSE SYRUP 20 GM/30 ML UDC PO ONE (13:00)
--- NOTE | 2019-02-17 13:11 | Progress Note ---
DATE: 02/17/2019 Cardiology progress note. SUBJECTIVE: Has no chest pain or shortness of breath. Minor bleeding at the left femoral site treated with additional manual pressure. No residual hematoma. OBJECTIVE: VITAL SIGNS: Temperature 99.1, heart rate 89, respiratory rate 20, blood pressure 156/81, O2 saturation 97%. GENERAL: In no acute distress, alert. NECK: No JVD. CHEST: Clear to auscultation. CARDIOVASCULAR: Regular rate and rhythm. Normal S1, S2. No S3 or S4. ABDOMEN: Soft. Bowel sounds positive. EXTREMITIES: No edema. abnormal dorsalis pedis and posterior tibial pulses. Right foot wound covered with dressings. CARDIOVASCULAR MEDICATIONS: Reviewed. Aspirin 81 mg daily, clopidogrel 75 mg daily, clonidine 0.1 mg p.r.n. and has not been administered so far in the hospital, atorvastatin 40 mg at bedtime. STUDIES: Reviewed. Sodium 137, potassium 3.5, chloride 103, bicarbonate 26, BUN 7, creatinine 0.68, glucose 169. White blood cells 11.6, hemoglobin 10.8, platelets 273. PT 13.9, PTT 34.9, INR 1.02. AST 16, ALT 24, alkaline phosphatase 155, total bilirubin 0.4. ASSESSMENT AND PLAN: A 48-year-old man presents with, 1. Right diabetic foot, status post debridement, PAD, status post right anterior tibial revascularization, uncontrolled diabetes mellitus and dyslipidemia. Recommend obtain echocardiogram to assess ventricular systolic function in the setting of considering hyperbaric candidacy. 2. Continue wound care. 3. Antibiotics per primary service. 4. Dual antiplatelet therapy and statin therapy. 5. Diabetes optimization. MD LAXMI Hoffman/ANTONY /[id number]
[2019-02-17] MEDS: LOSARTAN POTASSIUM 100 MG TAB PO SCH (14:14)
--- NOTE | 2019-02-17 19:05 | NUR ---
Bedside report completed with morning nurse. Pt alert and orient to name, lying in bed HOB 60 degrees. Denies pain at this time. Call light within reach. Bed low and locked.
[2019-02-17] MEDS: ATORVASTATIN 40 MG TAB PO SCH (20:52)
[2019-02-17] MEDS: INSULIN GLARGINE 100 UNITS/ML VIAL SQ SCH (21:00)
--- NOTE | 2019-02-17 23:30 | NUR ---
Report given to oncoming night nurse. Pt alert and orient. Lying in bed. No acute distress noted.
[2019-02-18] VITALS (7 sets, daily range): BP systolic 140–159; BP diastolic 80–87
[2019-02-18] MEDS: VANCOMYCIN 1GM/NS 250 ML 250 ML IV SCH (02:58)
[2019-02-18] MEDS: PIPER-TAZ 3.375 GM 50 ML IV SCH ×3 (05:13→21:46)
--- NOTE | 2019-02-18 06:53 | NUR ---
report given to morning nurse. patient is resting comfortably in bed. bed is in lowest position and call cee is within reach. will continue to monitor patient.
[2019-02-18] MEDS: LOSARTAN POTASSIUM 100 MG TAB PO SCH (09:15)
[2019-02-18] MEDS: ASPIRIN 81 MG CHEW TAB PO SCH (09:15)
[2019-02-18] MEDS: CLOPIDOGREL BISULFATE 75 MG TAB PO SCH (09:15)
[2019-02-18] MEDS: INSULIN LISPRO 100 UNIT/1 ML 3ML VIAL SQ SCH ×4 (09:19→21:47)
[2019-02-18] MEDS ORDERED: CITRATE OF MAGNESIA 300ML BOTTLE PO ONE (11:30)
[2019-02-18] MEDS: METFORMIN HCL 500 MG TAB CR PO SCH ×2 (11:52→17:01)
[2019-02-18] MEDS: LOSARTAN POTASSIUM 25 MG TAB PO SCH (17:01)
--- NOTE | 2019-02-18 19:05 | NUR ---
Received report from day nurse. Patient is resting comfortably in bed. Bed is in lowest position and call cee is within reach. Will continue to monitor patient.
[2019-02-18] MEDS: ATORVASTATIN 40 MG TAB PO SCH (21:46)
[2019-02-19] VITALS: BP 126/77
--- NOTE | 2019-02-19 03:51 | Progress Note ---
DATE: 02/18/2019 Cardiology Progress Note SUBJECTIVE: Denies chest pain or shortness of breath. No new complaints. OBJECTIVE: VITAL SIGNS: Temperature 98.4, heart rate is 79, blood pressure 153/87, O2 saturation 99%, respiratory rate 18. GENERAL: No acute distress, alert. NECK: No JVD. CHEST: Clear to auscultation. CARDIOVASCULAR: Regular rate and rhythm. Normal S1 and S2. ABDOMEN: Soft. Bowel sounds positive. EXTREMITIES: No edema. Right foot covered with dressings. CARDIOVASCULAR MEDICATIONS: Reviewed; clopidogrel, clonidine, atorvastatin, losartan, aspirin. STUDIES: Reviewed, remarkable for creatinine of 0.6. Hemoglobin 10.8, platelets 273. ASSESSMENT AND PLAN: A 48-year-old man presents with, 1. Peripheral artery disease, status post right. 2. anterior tibial percutaneous transluminal angioplasty with severe residual small vessel outflow disease, status post diabetic foot wound debridement. 3. Diabetes mellitus, uncontrolled. 4. Hypertension. 5. Dyslipidemia. RECOMMEND: Continue current cardiovascular medications. Outpatient followup advised in 3 to 4 weeks post discharge. MD MayV/MATILDEL /[id number]
[2019-02-19 04:00] VITALS: BP 138/78
[2019-02-19] MEDS: PIPER-TAZ 3.375 GM 50 ML IV SCH ×2 (05:28→14:00)
--- NOTE | 2019-02-19 07:04 | NUR ---
report given to day nurse. patient is resting comfortably in bed. bed is in lowest position and call cee is within reach.
--- NOTE | 2019-02-19 07:05 | NUR ---
RCD PT AT BED PT IS ALERT AND ORIENTED PT RESTING ON BED NO SIGNS OF ANY DISTRESS NOTED IV PATENT BY SALINE FLUSH BED LOW AND LOCKED CALL LIGHT IN REACH
[2019-02-19] MEDS ORDERED: INSULIN GLARGINE 100 UNITS/ML VIAL SQ SCH (07:30)
[2019-02-19] MEDS: INSULIN LISPRO 100 UNIT/1 ML 3ML VIAL SQ SCH ×3 (07:30→16:16)
[2019-02-19] MEDS: METFORMIN HCL 500 MG TAB CR PO SCH ×2 (08:00→16:16)
[2019-02-19 08:02] VITALS: BP 130/69
[2019-02-19 08:41] VITALS: BP 130/69
[2019-02-19] MEDS: ASPIRIN 81 MG CHEW TAB PO SCH (09:00)
[2019-02-19] MEDS: LOSARTAN POTASSIUM 25 MG TAB PO SCH ×2 (09:00→16:16)
[2019-02-19] MEDS: CLOPIDOGREL BISULFATE 75 MG TAB PO SCH (09:00)
--- NOTE | 2019-02-19 10:18 | NUR ---
Spoke with Dr. Womack this morning regarding outpatient wound care. He stated he would like for CM to set up outpatient wound care at the clinic with Dr. Ramon. He also stated that pt will possibly need HBO. CM spoke to pt at bedside and pt is agreeable to wound care at [facility] outpatient wound clinic. Choice letter signed and placed in front of chart. Copy given to pt with wound clinic's office number. CM business card given to pt for any questions/concerns. Pt's facesheet and order was faxed. Yary with wound care informed of referral.
--- NOTE | 2019-02-19 10:39 | NUR ---
Spoke with Dr. Villareal's nurse Mikala regarding IV abx. She states they have received auth, but pt has a $1k deductible. CM spoke to pt at bedside and pt stated deductible is not a problem. Mikala states if pt discharges today, he can come to the clinic at 2pm or tomorrow at 10am. CM will update her with discharge date after MDs round.
[2019-02-19 12:00] VITALS: BP 116/65
--- NOTE | 2019-02-19 12:00 | Progress Note ---
DATE: 02/19/2019 Cardiology Progress Note SUBJECTIVE: No complaints. OBJECTIVE: VITAL SIGNS: Temperature 98.5, heart rate 98, respiratory rate 20, blood pressure 130/69, and O2 saturation 94%. GENERAL: In no acute distress, alert. NECK: No JVD. CHEST: Clear to auscultation. CARDIOVASCULAR: Regular rate and rhythm. Normal S1, S2. ABDOMEN: Soft. Bowel sounds positive. EXTREMITIES: No edema. Right foot covered with dressings. CARDIOVASCULAR MEDICATIONS: Reviewed. Clonidine 0.1 mg t.i.d., clopidogrel 75 mg daily, atorvastatin 40 mg at bedtime, losartan 50 mg b.i.d., and aspirin 81 mg daily. STUDIES: Reviewed. Sodium 137, potassium 3.5, creatinine 0.6, hemoglobin 10.8, and platelets 273. White blood cells 11.6. Normal transaminases. ASSESSMENT AND PLAN: 1. A 48-year-old man with peripheral vascular disease, status post right anterior tibial revascularization, severe outflow disease in the setting of uncontrolled diabetes and diabetic foot. 2. Hypertension. 3. Dyslipidemia. RECOMMEND: 1. Continue current cardiovascular medication. 2. Wound care. 3. Consider hyperbarics as outpatient. MD LAXMI Hoffman/ANTONY /[id number]
[2019-02-19] MEDS ORDERED: Atorvastatin PO (14:36)
[2019-02-19] MEDS ORDERED: PLAVIX75 MG PO (14:36)
[2019-02-19] MEDS ORDERED: COZAAR25 MG PO (14:36)
--- NOTE | 2019-02-19 15:40 | NUR ---
AC TO DR COLLADO PT IS NOT A CANDIDATE FOR HYPERBARIC O2 EVALUATION
--- NOTE | 2019-02-19 15:49 | NUR ---
Spoke with Dr. Jani Womack and informed him that wound clinic said Dr. Ramon will not be in clinic again until Tuesday. Dr. Womack said he spoke with Dr. Ramon himself and he will come by the hospital today to evaluate to see if pt is a candidate for HBO therapy. If Dr. Ramon does not think pt needs HBO, then Dr. Womack states to cancel outpatient wound clinic referral and he will follow up with him in clinic on . Dr. Ramon came and evaluated pt. He informed CM that pt is not a HBO therapy pt at this time since the wound has not been there at least 30 days. Pt to follow up with in in clinic. CM called and spoke to Yolis at outpatient wound clinic. She stated that Dr. Ramon notified them that he wants to see pt at the wound clinic. Appointment for next Tuesday at 8am. Dr. Villareal to pt's bedside. Dr. Villareal informed pt of $[address] Villareal said can be made in 4 payments. Pt wants us to talk to his to make sure they can pay that. CM called pt's Daniella [phone]. Spoke with her regarding copay. Pt's agreeable to copays. CM informed pt's of appointments and times. Informed her that CM will print out all appointment information and give it to her . Follow up for IV abx at Dr. Villareal's office, tomorrow 02/20/19 @ 3pm [address] [facility] [address] [place] [address] Jani Womack on 10/23/[address], [facility] [address] [place] [address] Pt instructed to call the office for an appointment time Follow up wound care appointment on 02/26/19 @ 8am [address] [place] [address] All appointment information was printed and given to pt at bedside. Addendum: 02/19/19 at [address] Jani Womack called and CM updated him on dc follow ups. He states he will talk to Dr. Ramon and they will discuss outpatient treatment plan for pt.
[2019-02-19 16:00] VITALS: BP 132/63
[2019-02-19] MEDS ORDERED: CEFTRIAXONE SOD 2 GM/NS 100 ML 100 ML IV SCH (16:15)
--- NOTE | 2019-02-19 18:40 | NUR ---
PT WENT HOME IN SAFE CONDITION WITH HIS
--- NOTE | 2019-02-19 18:40 | NUR ---
FOLLOW UP INSTRUCTION GIVEN TO LUXEMBOURGISH BY CRISTI TO THE PT HE SAID HE UNDERSTOOD
--- NOTE | 2019-02-19 19:00 | NUR ---
Nutrition Screen Note RD Recommendation for Physician: -Continue ADA diet Plan of Care: RD following, monitoring for tolerance and adequacy Nutrition reason for involvement: length of stay Primary Diagnose(s): cellulitis and diabetic ulcer right foot, diabetes, type 2 multiple endocrine neoplasia, and fever PMH: diabetes, high cholesterol Ht:68 in Wt:160.38lb BMI: 24.4 kg/m2 IBW:[address] Assessment: (02/19/19) Chart reviewed. Labs and meds reviewed. Unable to gather much information from patient due to language barrier. Pt reports he has been eating well. It is documented that pt has been eating 75-100% of meals during admission. There are no previous weights in chart. Will continue to monitor. Current Diet: ADA diet Malnutrition Evaluation (02/19/19) The patient does not meet criteria for a specified degree of malnutrition at this time. Will re-evaluate at follow-up as appropriate. Diet Education Needs Assessment: Diabetic diet education was provided on 02/16/19 Nutrition Care Level: low Signed: Lee Ann Lim, RD, LD
--- NOTE | 2019-02-19 19:13 | Progress Note ---
DATE: SUBJECTIVE: Mr. Canchola is feeling better. No new complaint. Discussed with surgery the patient who underwent debridement. He does have osteomyelitis of his foot, underwent debridement. IMPRESSION: Right osteo of the ankle. The patient with diabetes mellitus, peripheral vascular disease. His culture is showing Serratia marcescens. We will put him on cefepime 2 g daily. We will panel on 6 weeks. We will discuss with the patient. We will arrange for IV antibiotic and to be discharged home soon. MD ESTEFANI Fong/MODL /[id number]
--- NOTE | 2019-02-20 13:22 | Discharge Summary ---
PRIMARY CARE PHYSICIAN: Elbert Orellana MD FINAL DIAGNOSES: 1. Severe sepsis due to right foot diabetic ulcer. 2. Peripheral vascular disease status post angioplasty. 3. Uncontrolled diabetes. 4. Uncontrolled hypertension. 5. Acute kidney injury. 6. Osteomyelitis, acute. CONSULTANTS: 1. Dr. Womack with Surgery. 2. Dr. Sanchez with Cardiovascular. 3. Dr. Villareal with Infectious Disease. PROCEDURES: 1. Angioplasty of the right lower extremity. 2. Debridement of right heel. HISTORY: Per HPI. HOSPITAL COURSE: This is a 48-year-old male with past medical history of hypertension, diabetes, high cholesterol, presented with right heel ulcer that has been present for a few weeks. He was noted to be on severe sepsis. Surgical team was consulted and Cardiology for vascular workup. He also underwent debridement in the OR by the surgical team. Recommended IV antibiotics, guarded limb overall, imaging showed acute osteomyelitis. We will continue with IV Zosyn per ID and wound care daily at the patient [facility]. Echo was normal with estimated EF of 60%. We will discharge home on aspirin, Plavix, statin, and IV antibiotics at Dr. Villareal's office. PHYSICAL EXAMINATION: VITAL SIGNS: Temperature 97.6, pulse is 89, respirations 19, blood pressure 116/65, pulse ox is 98% on room air. GENERAL: No acute distress. HEENT: Normocephalic, atraumatic. NECK: Supple. LUNGS: Clear to auscultation. CARDIOVASCULAR: Regular rate and rhythm. ABDOMEN: Soft and nontender. MUSCULOSKELETAL: Moves all extremities. SKIN: Right foot ulcer. Dressing intact. PSYCH: Calm. CONDITION AT DISCHARGE: Improved. DISCHARGE MEDICATIONS: See medication reconciliation list. FOLLOWUP: Follow up with PCP and Dr. Villareal tomorrow. TIME SPENT: Total discharge time is 35 minutes. Dictated by HINA Gupta Damien Josue MD MY/MODL /[id number]
== END 2019-02-19 18:40 | disposition home or self-care (01) | DRG 854 ==
LOC: ER 12:53 → ERHOLD 15:43 → MED/SURG2 21:56
PROVIDERS: ADMIT Internal Medicine; ATTEND Internal Medicine
PROC: 02HV33Z Insertion of Infusion Device into Superior Vena Cava, Percutaneous Approach (ICD-10-PCS; principal; 2019-02-14)
PROC: 0JBQ0ZZ Excision of Right Foot Subcutaneous Tissue and Fascia, Open Approach (ICD-10-PCS; 2019-02-15)
PROC: 047P3Z1 Dilation of Right Anterior Tibial Artery using Drug-Coated Balloon, Percutaneous Approach (ICD-10-PCS; 2019-02-16)
PROC: B41D1ZZ Fluoroscopy of Aorta and Bilateral Lower Extremity Arteries using Low Osmolar Contrast (ICD-10-PCS; 2019-02-16)
DX: A41.9 Sepsis, unspecified organism (principal); E87.0 Hyperosmolality and hypernatremia; N17.9 Acute kidney failure, unspecified; M86.171 Other acute osteomyelitis, right ankle and foot; E11.69 Type 2 diabetes mellitus with other specified complication; R65.20 Severe sepsis without septic shock; Z79.4 Long term (current) use of insulin; E78.00 Pure hypercholesterolemia, unspecified; E11.40 Type 2 diabetes mellitus with diabetic neuropathy, unspecified; E87.5 Hyperkalemia; E11.51 Type 2 diabetes mellitus with diabetic peripheral angiopathy without gangrene; I70.211 Atherosclerosis of native arteries of extremities with intermittent claudication, right leg; E11.65 Type 2 diabetes mellitus with hyperglycemia; I10 Essential (primary) hypertension
CPT/HCPCS: 36415; 36569; 37228; 71045; 75625; 75710; 78315; 80048; 80053; 80202; 81001; 82550; 82553; 82948; 83036; 83605; 83735; 83880; 84100; 84484; 85025; 85610; 85651; 85730; 87071; 87075; 87086; 87186; 87205; 88304; 90471; 90714; 93306; 93925; 99152; 99153; 99284; A9503; C1725; C1760; C1769; C1887; J0696; J1100; J1644; J1815; J1817; J2001; J2250; J2405; J2543; J3010; J3370; J7030; Q9967

== ENCOUNTER → 2019-02-26 | Outpatient (CLI) | payer BC ==
[~2019-02-26] MED LIST: Atorvastatin PO; BACTRIM DS TAB1 EACH PO; COZAAR25 MG PO; GABAPENTIN300 MG PO; GLIPIZIDE5 MG PO; HUMALOG100 UNIT/1 SQ; LOSARTAN POTASS50 MG PO; METFORMIN HCL1000 MG PO; PLAVIX75 MG PO; TOUJEO SOL300 UNIT/1 SQ; TRADJENTA5 MG PO
== END ==
LOC: WCC 15:56
PROVIDERS: ATTEND Plastic Surgery
DX: T81.89XA Other complications of procedures, not elsewhere classified, initial encounter (principal); Y84.8 Other medical procedures as the cause of abnormal reaction of the patient, or of later complication, without mention of misadventure at the time of the procedure; E11.65 Type 2 diabetes mellitus with hyperglycemia; M86.171 Other acute osteomyelitis, right ankle and foot; A41.9 Sepsis, unspecified organism; I10 Essential (primary) hypertension; I73.89 Other specified peripheral vascular diseases; S90.821A Blister (nonthermal), right foot, initial encounter; A49.8 Other bacterial infections of unspecified site; E78.00 Pure hypercholesterolemia, unspecified; L08.89 Other specified local infections of the skin and subcutaneous tissue
CPT/HCPCS: 36415; 82948

== ENCOUNTER → 2019-03-05 | Outpatient (CLI) | payer BC | LOC: WCC 10:23 | PROVIDERS: ATTEND Plastic Surgery | DX: T81.89XA Other complications of procedures, not elsewhere classified, initial encounter (principal); Y84.8 Other medical procedures as the cause of abnormal reaction of the patient, or of later complication, without mention of misadventure at the time of the procedure; A41.9 Sepsis, unspecified organism; M86.171 Other acute osteomyelitis, right ankle and foot; E11.65 Type 2 diabetes mellitus with hyperglycemia; L08.89 Other specified local infections of the skin and subcutaneous tissue; I10 Essential (primary) hypertension; I73.89 Other specified peripheral vascular diseases; A49.8 Other bacterial infections of unspecified site; G90.09 Other idiopathic peripheral autonomic neuropathy; E78.00 Pure hypercholesterolemia, unspecified; S90.821A Blister (nonthermal), right foot, initial encounter ==

== ENCOUNTER → 2019-04-11 | Outpatient (CLI) | payer BC | LOC: WCC 14:24 | PROVIDERS: ATTEND Plastic Surgery | DX: T81.89XA Other complications of procedures, not elsewhere classified, initial encounter (principal); Y84.8 Other medical procedures as the cause of abnormal reaction of the patient, or of later complication, without mention of misadventure at the time of the procedure; M86.171 Other acute osteomyelitis, right ankle and foot; A41.9 Sepsis, unspecified organism; E11.65 Type 2 diabetes mellitus with hyperglycemia; G90.09 Other idiopathic peripheral autonomic neuropathy; I73.89 Other specified peripheral vascular diseases; L08.9 Local infection of the skin and subcutaneous tissue, unspecified; S90.821A Blister (nonthermal), right foot, initial encounter; I10 Essential (primary) hypertension; A49.8 Other bacterial infections of unspecified site; E78.00 Pure hypercholesterolemia, unspecified ==

== ENCOUNTER → 2019-04-13 | Outpatient (CLI) | payer BC | LOC: WCC 13:41 | PROVIDERS: ATTEND Plastic Surgery | DX: T81.89XA Other complications of procedures, not elsewhere classified, initial encounter (principal); Y84.8 Other medical procedures as the cause of abnormal reaction of the patient, or of later complication, without mention of misadventure at the time of the procedure; A41.9 Sepsis, unspecified organism; M86.171 Other acute osteomyelitis, right ankle and foot; E11.65 Type 2 diabetes mellitus with hyperglycemia; L08.9 Local infection of the skin and subcutaneous tissue, unspecified; S90.821A Blister (nonthermal), right foot, initial encounter; I10 Essential (primary) hypertension; G90.09 Other idiopathic peripheral autonomic neuropathy; A49.8 Other bacterial infections of unspecified site; I73.89 Other specified peripheral vascular diseases; E78.00 Pure hypercholesterolemia, unspecified ==

== ENCOUNTER → 2019-04-16 | Outpatient (CLI) | payer BC | LOC: WCC 15:45 | PROVIDERS: ATTEND Plastic Surgery | DX: T81.89XA Other complications of procedures, not elsewhere classified, initial encounter (principal); Y84.8 Other medical procedures as the cause of abnormal reaction of the patient, or of later complication, without mention of misadventure at the time of the procedure; E11.65 Type 2 diabetes mellitus with hyperglycemia; M86.171 Other acute osteomyelitis, right ankle and foot; A41.9 Sepsis, unspecified organism; S90.821A Blister (nonthermal), right foot, initial encounter; L08.9 Local infection of the skin and subcutaneous tissue, unspecified; I73.89 Other specified peripheral vascular diseases; G90.09 Other idiopathic peripheral autonomic neuropathy; A49.8 Other bacterial infections of unspecified site; I10 Essential (primary) hypertension; E78.00 Pure hypercholesterolemia, unspecified | CPT/HCPCS: 36415; 82948 ==

== ENCOUNTER → 2019-04-18 | Outpatient (CLI) | payer BC | LOC: WCC 14:28 | PROVIDERS: ATTEND Plastic Surgery | DX: T81.89XA Other complications of procedures, not elsewhere classified, initial encounter (principal); Y84.8 Other medical procedures as the cause of abnormal reaction of the patient, or of later complication, without mention of misadventure at the time of the procedure; A41.9 Sepsis, unspecified organism; M86.171 Other acute osteomyelitis, right ankle and foot; E11.65 Type 2 diabetes mellitus with hyperglycemia; L08.9 Local infection of the skin and subcutaneous tissue, unspecified; I73.89 Other specified peripheral vascular diseases; S90.821A Blister (nonthermal), right foot, initial encounter; I10 Essential (primary) hypertension; G90.09 Other idiopathic peripheral autonomic neuropathy; A49.8 Other bacterial infections of unspecified site; E78.00 Pure hypercholesterolemia, unspecified ==

== ENCOUNTER → 2019-04-20 | Outpatient (CLI) | payer BC | LOC: WCC 13:02 | PROVIDERS: ATTEND Plastic Surgery | DX: T81.89XA Other complications of procedures, not elsewhere classified, initial encounter (principal); Y84.8 Other medical procedures as the cause of abnormal reaction of the patient, or of later complication, without mention of misadventure at the time of the procedure; A41.9 Sepsis, unspecified organism; M86.171 Other acute osteomyelitis, right ankle and foot; E11.65 Type 2 diabetes mellitus with hyperglycemia; G90.09 Other idiopathic peripheral autonomic neuropathy; L08.9 Local infection of the skin and subcutaneous tissue, unspecified; I73.89 Other specified peripheral vascular diseases; S90.821A Blister (nonthermal), right foot, initial encounter; I10 Essential (primary) hypertension; A49.8 Other bacterial infections of unspecified site; E78.00 Pure hypercholesterolemia, unspecified ==

== ENCOUNTER → 2019-04-23 | Outpatient (CLI) | payer BC | LOC: WCC 15:29 | PROVIDERS: ATTEND Plastic Surgery | DX: T81.89XA Other complications of procedures, not elsewhere classified, initial encounter (principal); Y84.8 Other medical procedures as the cause of abnormal reaction of the patient, or of later complication, without mention of misadventure at the time of the procedure; M86.171 Other acute osteomyelitis, right ankle and foot; A41.9 Sepsis, unspecified organism; I73.89 Other specified peripheral vascular diseases; L08.89 Other specified local infections of the skin and subcutaneous tissue; S90.821A Blister (nonthermal), right foot, initial encounter; E11.65 Type 2 diabetes mellitus with hyperglycemia; I10 Essential (primary) hypertension; A49.8 Other bacterial infections of unspecified site; G90.09 Other idiopathic peripheral autonomic neuropathy; E78.00 Pure hypercholesterolemia, unspecified ==

== ENCOUNTER → 2019-04-25 | Outpatient (CLI) | payer BC | LOC: WCC 14:54 | PROVIDERS: ATTEND Plastic Surgery | DX: T81.89XA Other complications of procedures, not elsewhere classified, initial encounter (principal); Y84.8 Other medical procedures as the cause of abnormal reaction of the patient, or of later complication, without mention of misadventure at the time of the procedure; A41.9 Sepsis, unspecified organism; M86.171 Other acute osteomyelitis, right ankle and foot; E11.65 Type 2 diabetes mellitus with hyperglycemia; S90.821A Blister (nonthermal), right foot, initial encounter; L08.9 Local infection of the skin and subcutaneous tissue, unspecified; I10 Essential (primary) hypertension; G90.09 Other idiopathic peripheral autonomic neuropathy; A49.8 Other bacterial infections of unspecified site; I73.89 Other specified peripheral vascular diseases; E78.00 Pure hypercholesterolemia, unspecified ==

== ENCOUNTER → 2019-04-27 | Outpatient (CLI) | payer BC | LOC: WCC 15:25 | PROVIDERS: ATTEND Plastic Surgery | DX: T81.89XA Other complications of procedures, not elsewhere classified, initial encounter (principal); Y84.8 Other medical procedures as the cause of abnormal reaction of the patient, or of later complication, without mention of misadventure at the time of the procedure; A41.9 Sepsis, unspecified organism; E11.65 Type 2 diabetes mellitus with hyperglycemia; M86.171 Other acute osteomyelitis, right ankle and foot; G90.09 Other idiopathic peripheral autonomic neuropathy; A49.8 Other bacterial infections of unspecified site; S90.821A Blister (nonthermal), right foot, initial encounter; L08.9 Local infection of the skin and subcutaneous tissue, unspecified; I73.89 Other specified peripheral vascular diseases; I10 Essential (primary) hypertension; E78.00 Pure hypercholesterolemia, unspecified ==

== ENCOUNTER → 2019-04-30 | Outpatient (CLI) | payer BC | LOC: WCC 13:03 | PROVIDERS: ATTEND Plastic Surgery | DX: T81.89XA Other complications of procedures, not elsewhere classified, initial encounter (principal); Y84.8 Other medical procedures as the cause of abnormal reaction of the patient, or of later complication, without mention of misadventure at the time of the procedure; A41.9 Sepsis, unspecified organism; M86.171 Other acute osteomyelitis, right ankle and foot; E11.65 Type 2 diabetes mellitus with hyperglycemia; I10 Essential (primary) hypertension; S90.821A Blister (nonthermal), right foot, initial encounter; A49.8 Other bacterial infections of unspecified site; G90.09 Other idiopathic peripheral autonomic neuropathy; E78.00 Pure hypercholesterolemia, unspecified; I73.89 Other specified peripheral vascular diseases; Z01.810 Encounter for preprocedural cardiovascular examination ==

== ENCOUNTER → 2019-05-02 | Outpatient (CLI) | payer BC ==
--- NOTE | 2019-05-02 12:01 | Diagnostic Imaging Report ---
EXAM: CHEST 2 VIEWS DATE: 05/02/2019 10:16 AM INDICATION: Preprocedure evaluation COMPARISON: 02/15/2019 FINDINGS: The trachea is midline. The lungs are symmetrically expanded without evidence for large focal consolidation, pneumothorax, or significant pleural effusion. The cardiomediastinal silhouette and pulmonary vasculature are within normal limits. No acute osseous abnormality is identified. The surrounding soft tissues are unremarkable. IMPRESSION: No acute cardiopulmonary process identified. Signed by: Dr. Chong Lindsay MD on 05/02/2019 11:59 AM
== END ==
LOC: RAD 10:00
PROVIDERS: ATTEND Plastic Surgery
DX: Z01.810 Encounter for preprocedural cardiovascular examination (principal)
CPT/HCPCS: 71046; 93005; 93306

== ENCOUNTER → 2019-05-02 | Outpatient (CLI) | payer BC | LOC: WCC 15:16 | PROVIDERS: ATTEND Plastic Surgery | DX: T81.89XA Other complications of procedures, not elsewhere classified, initial encounter (principal); Y84.8 Other medical procedures as the cause of abnormal reaction of the patient, or of later complication, without mention of misadventure at the time of the procedure; E11.65 Type 2 diabetes mellitus with hyperglycemia; A41.9 Sepsis, unspecified organism; M86.171 Other acute osteomyelitis, right ankle and foot; I73.89 Other specified peripheral vascular diseases; S90.821A Blister (nonthermal), right foot, initial encounter; L08.9 Local infection of the skin and subcutaneous tissue, unspecified; G90.09 Other idiopathic peripheral autonomic neuropathy; I10 Essential (primary) hypertension; A49.8 Other bacterial infections of unspecified site; E78.00 Pure hypercholesterolemia, unspecified; Z01.810 Encounter for preprocedural cardiovascular examination ==

== ENCOUNTER → 2019-05-04 | Outpatient (CLI) | payer BC | LOC: WCC 15:23 | PROVIDERS: ATTEND Plastic Surgery | DX: T81.89XA Other complications of procedures, not elsewhere classified, initial encounter (principal); Y84.8 Other medical procedures as the cause of abnormal reaction of the patient, or of later complication, without mention of misadventure at the time of the procedure; A41.9 Sepsis, unspecified organism; E11.65 Type 2 diabetes mellitus with hyperglycemia; M86.171 Other acute osteomyelitis, right ankle and foot; S90.821A Blister (nonthermal), right foot, initial encounter; L08.9 Local infection of the skin and subcutaneous tissue, unspecified; I73.89 Other specified peripheral vascular diseases; A49.8 Other bacterial infections of unspecified site; G90.09 Other idiopathic peripheral autonomic neuropathy; I10 Essential (primary) hypertension; E78.00 Pure hypercholesterolemia, unspecified; Z01.810 Encounter for preprocedural cardiovascular examination ==

== ENCOUNTER → 2019-05-07 | Outpatient (CLI) | payer BC | LOC: WCC 13:47 | PROVIDERS: ATTEND Plastic Surgery | DX: T81.89XA Other complications of procedures, not elsewhere classified, initial encounter (principal); Y84.8 Other medical procedures as the cause of abnormal reaction of the patient, or of later complication, without mention of misadventure at the time of the procedure; M86.171 Other acute osteomyelitis, right ankle and foot; A41.9 Sepsis, unspecified organism; E11.65 Type 2 diabetes mellitus with hyperglycemia; L08.89 Other specified local infections of the skin and subcutaneous tissue; I73.89 Other specified peripheral vascular diseases; S90.821A Blister (nonthermal), right foot, initial encounter; I10 Essential (primary) hypertension; A49.8 Other bacterial infections of unspecified site; G90.09 Other idiopathic peripheral autonomic neuropathy; E78.00 Pure hypercholesterolemia, unspecified; Z01.810 Encounter for preprocedural cardiovascular examination ==

== ENCOUNTER → 2019-05-09 | Outpatient (CLI) | payer BC | LOC: WCC 14:40 | PROVIDERS: ATTEND Plastic Surgery | DX: T81.89XA Other complications of procedures, not elsewhere classified, initial encounter (principal); Y84.8 Other medical procedures as the cause of abnormal reaction of the patient, or of later complication, without mention of misadventure at the time of the procedure; E11.65 Type 2 diabetes mellitus with hyperglycemia; A41.9 Sepsis, unspecified organism; M86.171 Other acute osteomyelitis, right ankle and foot; G90.09 Other idiopathic peripheral autonomic neuropathy; S90.821A Blister (nonthermal), right foot, initial encounter; L08.9 Local infection of the skin and subcutaneous tissue, unspecified; A49.8 Other bacterial infections of unspecified site; I73.89 Other specified peripheral vascular diseases; I10 Essential (primary) hypertension; E78.00 Pure hypercholesterolemia, unspecified; Z01.810 Encounter for preprocedural cardiovascular examination ==

== ENCOUNTER → 2019-05-14 | Outpatient (CLI) | payer BC ==
[~2019-05-14] MED LIST changes: +COLLAGENASE OINTMENT 30 GM TUBE ONE
== END ==
LOC: WCC 13:41
PROVIDERS: ATTEND Plastic Surgery
DX: T81.89XA Other complications of procedures, not elsewhere classified, initial encounter (principal); Y84.8 Other medical procedures as the cause of abnormal reaction of the patient, or of later complication, without mention of misadventure at the time of the procedure; A41.9 Sepsis, unspecified organism; M86.171 Other acute osteomyelitis, right ankle and foot; E11.65 Type 2 diabetes mellitus with hyperglycemia; E11.621 Type 2 diabetes mellitus with foot ulcer; L97.416 Non-pressure chronic ulcer of right heel and midfoot with bone involvement without evidence of necrosis; S90.821A Blister (nonthermal), right foot, initial encounter; I73.89 Other specified peripheral vascular diseases; L08.89 Other specified local infections of the skin and subcutaneous tissue; A49.8 Other bacterial infections of unspecified site; G90.09 Other idiopathic peripheral autonomic neuropathy; E78.00 Pure hypercholesterolemia, unspecified; I10 Essential (primary) hypertension; Z01.810 Encounter for preprocedural cardiovascular examination

== ENCOUNTER → 2019-05-21 | Outpatient (CLI) | payer BC ==
[~2019-05-21] MED LIST changes: -COLLAGENASE OINTMENT 30 GM TUBE ONE
== END ==
LOC: WCC 09:32
PROVIDERS: ATTEND Plastic Surgery
DX: E11.621 Type 2 diabetes mellitus with foot ulcer (principal); E11.65 Type 2 diabetes mellitus with hyperglycemia; A41.9 Sepsis, unspecified organism; M86.171 Other acute osteomyelitis, right ankle and foot; Y84.8 Other medical procedures as the cause of abnormal reaction of the patient, or of later complication, without mention of misadventure at the time of the procedure; L97.416 Non-pressure chronic ulcer of right heel and midfoot with bone involvement without evidence of necrosis; I73.89 Other specified peripheral vascular diseases; L08.89 Other specified local infections of the skin and subcutaneous tissue; S90.821A Blister (nonthermal), right foot, initial encounter; G90.09 Other idiopathic peripheral autonomic neuropathy; I10 Essential (primary) hypertension; A49.8 Other bacterial infections of unspecified site; E78.00 Pure hypercholesterolemia, unspecified; Z01.810 Encounter for preprocedural cardiovascular examination

== ENCOUNTER → 2019-05-23 | Outpatient (CLI) | payer BC | LOC: WCC 08:49 | PROVIDERS: ATTEND Plastic Surgery | DX: E11.621 Type 2 diabetes mellitus with foot ulcer (principal); E11.65 Type 2 diabetes mellitus with hyperglycemia; A41.9 Sepsis, unspecified organism; M86.171 Other acute osteomyelitis, right ankle and foot; Y84.8 Other medical procedures as the cause of abnormal reaction of the patient, or of later complication, without mention of misadventure at the time of the procedure; L97.416 Non-pressure chronic ulcer of right heel and midfoot with bone involvement without evidence of necrosis; L08.9 Local infection of the skin and subcutaneous tissue, unspecified; A49.8 Other bacterial infections of unspecified site; S90.821A Blister (nonthermal), right foot, initial encounter; I73.89 Other specified peripheral vascular diseases; G90.09 Other idiopathic peripheral autonomic neuropathy; I10 Essential (primary) hypertension; E78.00 Pure hypercholesterolemia, unspecified; Z01.810 Encounter for preprocedural cardiovascular examination | CPT/HCPCS: 97605; G0277 ==

== ENCOUNTER → 2019-05-24 | Outpatient (CLI) | payer BC | LOC: WCC 09:13 | PROVIDERS: ATTEND Plastic Surgery | DX: E11.621 Type 2 diabetes mellitus with foot ulcer (principal); E11.65 Type 2 diabetes mellitus with hyperglycemia; M86.171 Other acute osteomyelitis, right ankle and foot; A41.9 Sepsis, unspecified organism; L97.416 Non-pressure chronic ulcer of right heel and midfoot with bone involvement without evidence of necrosis; I73.89 Other specified peripheral vascular diseases; S90.821A Blister (nonthermal), right foot, initial encounter; L08.9 Local infection of the skin and subcutaneous tissue, unspecified; G90.09 Other idiopathic peripheral autonomic neuropathy; A49.8 Other bacterial infections of unspecified site; I10 Essential (primary) hypertension; E78.00 Pure hypercholesterolemia, unspecified ==

== ENCOUNTER → 2019-05-25 | Outpatient (CLI) | payer BC | LOC: WCC 09:30 | PROVIDERS: ATTEND Plastic Surgery | DX: E11.621 Type 2 diabetes mellitus with foot ulcer (principal); E11.65 Type 2 diabetes mellitus with hyperglycemia; Y84.8 Other medical procedures as the cause of abnormal reaction of the patient, or of later complication, without mention of misadventure at the time of the procedure; M86.171 Other acute osteomyelitis, right ankle and foot; A41.9 Sepsis, unspecified organism; L97.416 Non-pressure chronic ulcer of right heel and midfoot with bone involvement without evidence of necrosis; S90.821A Blister (nonthermal), right foot, initial encounter; L08.9 Local infection of the skin and subcutaneous tissue, unspecified; A49.8 Other bacterial infections of unspecified site; I73.89 Other specified peripheral vascular diseases; I10 Essential (primary) hypertension; G90.09 Other idiopathic peripheral autonomic neuropathy; E78.00 Pure hypercholesterolemia, unspecified | CPT/HCPCS: 97605; G0277 ==

== ENCOUNTER → 2019-05-28 | Outpatient (CLI) | payer BC | LOC: WCC 13:30 | PROVIDERS: ATTEND Plastic Surgery | DX: E11.621 Type 2 diabetes mellitus with foot ulcer (principal); E11.65 Type 2 diabetes mellitus with hyperglycemia; A41.9 Sepsis, unspecified organism; M86.171 Other acute osteomyelitis, right ankle and foot; Y84.8 Other medical procedures as the cause of abnormal reaction of the patient, or of later complication, without mention of misadventure at the time of the procedure; L97.416 Non-pressure chronic ulcer of right heel and midfoot with bone involvement without evidence of necrosis; G90.09 Other idiopathic peripheral autonomic neuropathy; S90.821A Blister (nonthermal), right foot, initial encounter; I73.89 Other specified peripheral vascular diseases; L08.9 Local infection of the skin and subcutaneous tissue, unspecified; A49.8 Other bacterial infections of unspecified site; I10 Essential (primary) hypertension; E78.00 Pure hypercholesterolemia, unspecified; Z01.810 Encounter for preprocedural cardiovascular examination ==

== ENCOUNTER → 2019-05-29 | Outpatient (CLI) | payer BC | LOC: WCC 12:25 | PROVIDERS: ATTEND Plastic Surgery | DX: E11.621 Type 2 diabetes mellitus with foot ulcer (principal); E11.65 Type 2 diabetes mellitus with hyperglycemia; M86.171 Other acute osteomyelitis, right ankle and foot; A41.9 Sepsis, unspecified organism; L97.416 Non-pressure chronic ulcer of right heel and midfoot with bone involvement without evidence of necrosis; S90.821A Blister (nonthermal), right foot, initial encounter; L08.9 Local infection of the skin and subcutaneous tissue, unspecified; I73.89 Other specified peripheral vascular diseases; G90.09 Other idiopathic peripheral autonomic neuropathy; A49.8 Other bacterial infections of unspecified site; Y84.8 Other medical procedures as the cause of abnormal reaction of the patient, or of later complication, without mention of misadventure at the time of the procedure; I10 Essential (primary) hypertension; E78.00 Pure hypercholesterolemia, unspecified; Z01.810 Encounter for preprocedural cardiovascular examination ==

== ENCOUNTER → 2019-05-30 | Outpatient (CLI) | payer BC | LOC: WCC 15:14 | PROVIDERS: ATTEND Plastic Surgery | DX: E11.621 Type 2 diabetes mellitus with foot ulcer (principal); E11.65 Type 2 diabetes mellitus with hyperglycemia; Y84.8 Other medical procedures as the cause of abnormal reaction of the patient, or of later complication, without mention of misadventure at the time of the procedure; A41.9 Sepsis, unspecified organism; M86.171 Other acute osteomyelitis, right ankle and foot; L97.416 Non-pressure chronic ulcer of right heel and midfoot with bone involvement without evidence of necrosis; S90.821A Blister (nonthermal), right foot, initial encounter; I73.89 Other specified peripheral vascular diseases; L08.9 Local infection of the skin and subcutaneous tissue, unspecified; A49.8 Other bacterial infections of unspecified site; I10 Essential (primary) hypertension; G90.09 Other idiopathic peripheral autonomic neuropathy; E78.00 Pure hypercholesterolemia, unspecified; Z01.810 Encounter for preprocedural cardiovascular examination | CPT/HCPCS: 97602; G0277 ==

== ENCOUNTER → 2019-05-31 | Outpatient (CLI) | payer BC | LOC: WCC 11:03 | PROVIDERS: ATTEND Plastic Surgery | DX: E11.621 Type 2 diabetes mellitus with foot ulcer (principal); E11.65 Type 2 diabetes mellitus with hyperglycemia; Y84.8 Other medical procedures as the cause of abnormal reaction of the patient, or of later complication, without mention of misadventure at the time of the procedure; A41.9 Sepsis, unspecified organism; M86.171 Other acute osteomyelitis, right ankle and foot; L97.416 Non-pressure chronic ulcer of right heel and midfoot with bone involvement without evidence of necrosis; I73.89 Other specified peripheral vascular diseases; L08.9 Local infection of the skin and subcutaneous tissue, unspecified; A49.8 Other bacterial infections of unspecified site; S90.821A Blister (nonthermal), right foot, initial encounter; I10 Essential (primary) hypertension; G90.09 Other idiopathic peripheral autonomic neuropathy; Z01.810 Encounter for preprocedural cardiovascular examination; E78.00 Pure hypercholesterolemia, unspecified | CPT/HCPCS: 97602; G0277 ==

== ENCOUNTER → 2019-06-01 | Outpatient (CLI) | payer BC | LOC: WCC 14:14 | PROVIDERS: ATTEND Plastic Surgery | DX: E11.621 Type 2 diabetes mellitus with foot ulcer (principal); E11.65 Type 2 diabetes mellitus with hyperglycemia; M86.171 Other acute osteomyelitis, right ankle and foot; A41.9 Sepsis, unspecified organism; Y84.8 Other medical procedures as the cause of abnormal reaction of the patient, or of later complication, without mention of misadventure at the time of the procedure; L97.416 Non-pressure chronic ulcer of right heel and midfoot with bone involvement without evidence of necrosis; S90.821A Blister (nonthermal), right foot, initial encounter; L08.9 Local infection of the skin and subcutaneous tissue, unspecified; I73.89 Other specified peripheral vascular diseases; G90.09 Other idiopathic peripheral autonomic neuropathy; A49.8 Other bacterial infections of unspecified site; I10 Essential (primary) hypertension; E78.00 Pure hypercholesterolemia, unspecified ==

== ENCOUNTER → 2019-06-06 | Outpatient (CLI) | payer BC | LOC: WCC 09:56 | PROVIDERS: ATTEND Plastic Surgery | DX: E11.621 Type 2 diabetes mellitus with foot ulcer (principal); E11.65 Type 2 diabetes mellitus with hyperglycemia; Y84.8 Other medical procedures as the cause of abnormal reaction of the patient, or of later complication, without mention of misadventure at the time of the procedure; A41.9 Sepsis, unspecified organism; M86.171 Other acute osteomyelitis, right ankle and foot; L97.416 Non-pressure chronic ulcer of right heel and midfoot with bone involvement without evidence of necrosis; L08.9 Local infection of the skin and subcutaneous tissue, unspecified; A49.8 Other bacterial infections of unspecified site; S90.821A Blister (nonthermal), right foot, initial encounter; G90.09 Other idiopathic peripheral autonomic neuropathy; I73.89 Other specified peripheral vascular diseases; I10 Essential (primary) hypertension; E78.00 Pure hypercholesterolemia, unspecified | CPT/HCPCS: 97605; 99213; G0277 ==

== ENCOUNTER → 2019-06-07 | Outpatient (CLI) | payer BC | LOC: WCC 08:37 | PROVIDERS: ATTEND Plastic Surgery | DX: E11.621 Type 2 diabetes mellitus with foot ulcer (principal); E11.65 Type 2 diabetes mellitus with hyperglycemia; A41.9 Sepsis, unspecified organism; M86.171 Other acute osteomyelitis, right ankle and foot; Y84.8 Other medical procedures as the cause of abnormal reaction of the patient, or of later complication, without mention of misadventure at the time of the procedure; L97.416 Non-pressure chronic ulcer of right heel and midfoot with bone involvement without evidence of necrosis; G90.09 Other idiopathic peripheral autonomic neuropathy; A49.8 Other bacterial infections of unspecified site; L08.9 Local infection of the skin and subcutaneous tissue, unspecified; S90.821A Blister (nonthermal), right foot, initial encounter; I73.89 Other specified peripheral vascular diseases; I10 Essential (primary) hypertension; E78.00 Pure hypercholesterolemia, unspecified ==

== ENCOUNTER → 2019-06-08 | Outpatient (CLI) | payer BC | LOC: WCC 14:25 | PROVIDERS: ATTEND Plastic Surgery | DX: E11.621 Type 2 diabetes mellitus with foot ulcer (principal); E11.65 Type 2 diabetes mellitus with hyperglycemia; A41.9 Sepsis, unspecified organism; M86.171 Other acute osteomyelitis, right ankle and foot; Y84.8 Other medical procedures as the cause of abnormal reaction of the patient, or of later complication, without mention of misadventure at the time of the procedure; L08.9 Local infection of the skin and subcutaneous tissue, unspecified; L97.416 Non-pressure chronic ulcer of right heel and midfoot with bone involvement without evidence of necrosis; G90.09 Other idiopathic peripheral autonomic neuropathy; I73.89 Other specified peripheral vascular diseases; S90.821A Blister (nonthermal), right foot, initial encounter; I10 Essential (primary) hypertension; A49.8 Other bacterial infections of unspecified site; E78.00 Pure hypercholesterolemia, unspecified; Z01.810 Encounter for preprocedural cardiovascular examination | CPT/HCPCS: 97602; 99212; G0277 ==

== ENCOUNTER → 2019-06-11 | Outpatient (CLI) | payer BC | LOC: WCC 13:13 | PROVIDERS: ATTEND Plastic Surgery | DX: E11.621 Type 2 diabetes mellitus with foot ulcer (principal); E11.65 Type 2 diabetes mellitus with hyperglycemia; A41.9 Sepsis, unspecified organism; M86.171 Other acute osteomyelitis, right ankle and foot; Y84.8 Other medical procedures as the cause of abnormal reaction of the patient, or of later complication, without mention of misadventure at the time of the procedure; L97.416 Non-pressure chronic ulcer of right heel and midfoot with bone involvement without evidence of necrosis; I73.89 Other specified peripheral vascular diseases; L08.9 Local infection of the skin and subcutaneous tissue, unspecified; S90.821A Blister (nonthermal), right foot, initial encounter; I10 Essential (primary) hypertension; G90.09 Other idiopathic peripheral autonomic neuropathy; A49.8 Other bacterial infections of unspecified site; E78.00 Pure hypercholesterolemia, unspecified; Z01.810 Encounter for preprocedural cardiovascular examination | CPT/HCPCS: 97602; 97605; 99213; G0277 ==

== ENCOUNTER → 2019-06-12 | Outpatient (CLI) | payer BC | LOC: WCC 13:47 | PROVIDERS: ATTEND Plastic Surgery | DX: E11.621 Type 2 diabetes mellitus with foot ulcer (principal); E11.65 Type 2 diabetes mellitus with hyperglycemia; A41.9 Sepsis, unspecified organism; L97.416 Non-pressure chronic ulcer of right heel and midfoot with bone involvement without evidence of necrosis; Y84.8 Other medical procedures as the cause of abnormal reaction of the patient, or of later complication, without mention of misadventure at the time of the procedure; M86.171 Other acute osteomyelitis, right ankle and foot; I73.89 Other specified peripheral vascular diseases; G90.09 Other idiopathic peripheral autonomic neuropathy; L08.9 Local infection of the skin and subcutaneous tissue, unspecified; A49.8 Other bacterial infections of unspecified site; S90.821A Blister (nonthermal), right foot, initial encounter; I10 Essential (primary) hypertension; E78.00 Pure hypercholesterolemia, unspecified ==

== ENCOUNTER → 2019-06-13 | Outpatient (CLI) | payer BC ==
[~2019-06-13] MED LIST changes: +COLLAGENASE OINTMENT 30 GM TUBE ONE; +MUPIROCIN 2% OINT 22 GM TUBE ONE
== END ==
LOC: WCC 10:04
PROVIDERS: ATTEND Plastic Surgery
DX: E11.621 Type 2 diabetes mellitus with foot ulcer (principal); E11.65 Type 2 diabetes mellitus with hyperglycemia; A41.9 Sepsis, unspecified organism; M86.171 Other acute osteomyelitis, right ankle and foot; Y84.8 Other medical procedures as the cause of abnormal reaction of the patient, or of later complication, without mention of misadventure at the time of the procedure; L97.416 Non-pressure chronic ulcer of right heel and midfoot with bone involvement without evidence of necrosis; L08.9 Local infection of the skin and subcutaneous tissue, unspecified; S90.821A Blister (nonthermal), right foot, initial encounter; I73.89 Other specified peripheral vascular diseases; A49.8 Other bacterial infections of unspecified site; I10 Essential (primary) hypertension; G90.09 Other idiopathic peripheral autonomic neuropathy; E78.00 Pure hypercholesterolemia, unspecified; Z01.810 Encounter for preprocedural cardiovascular examination
CPT/HCPCS: 36415; 82948; 97605; 99212; G0277 ×2

== ENCOUNTER → 2019-06-20 | Outpatient (CLI) | payer BC ==
[~2019-06-20] MED LIST changes: -COLLAGENASE OINTMENT 30 GM TUBE ONE; -MUPIROCIN 2% OINT 22 GM TUBE ONE
== END ==
LOC: WCC 10:46
PROVIDERS: ATTEND Plastic Surgery
DX: E11.621 Type 2 diabetes mellitus with foot ulcer (principal); E11.65 Type 2 diabetes mellitus with hyperglycemia; A41.9 Sepsis, unspecified organism; M86.171 Other acute osteomyelitis, right ankle and foot; Y84.8 Other medical procedures as the cause of abnormal reaction of the patient, or of later complication, without mention of misadventure at the time of the procedure; L97.416 Non-pressure chronic ulcer of right heel and midfoot with bone involvement without evidence of necrosis; L08.9 Local infection of the skin and subcutaneous tissue, unspecified; A49.8 Other bacterial infections of unspecified site; S90.821A Blister (nonthermal), right foot, initial encounter; I73.89 Other specified peripheral vascular diseases; I10 Essential (primary) hypertension; G90.09 Other idiopathic peripheral autonomic neuropathy; E78.00 Pure hypercholesterolemia, unspecified; Z01.810 Encounter for preprocedural cardiovascular examination
CPT/HCPCS: 97602; 99212; G0277

== ENCOUNTER → 2019-06-21 | Outpatient (CLI) | payer BC | LOC: WCC 14:09 | PROVIDERS: ATTEND Plastic Surgery | DX: E11.621 Type 2 diabetes mellitus with foot ulcer (principal); E11.65 Type 2 diabetes mellitus with hyperglycemia; A41.9 Sepsis, unspecified organism; M86.171 Other acute osteomyelitis, right ankle and foot; Y84.8 Other medical procedures as the cause of abnormal reaction of the patient, or of later complication, without mention of misadventure at the time of the procedure; L97.416 Non-pressure chronic ulcer of right heel and midfoot with bone involvement without evidence of necrosis; I73.89 Other specified peripheral vascular diseases; S90.821A Blister (nonthermal), right foot, initial encounter; L08.9 Local infection of the skin and subcutaneous tissue, unspecified; A49.8 Other bacterial infections of unspecified site; I10 Essential (primary) hypertension; G90.09 Other idiopathic peripheral autonomic neuropathy; E78.00 Pure hypercholesterolemia, unspecified ==

== ENCOUNTER → 2019-06-22 | Outpatient (CLI) | payer BC | LOC: WCC 11:39 | PROVIDERS: ATTEND Plastic Surgery | DX: E11.621 Type 2 diabetes mellitus with foot ulcer (principal); E11.65 Type 2 diabetes mellitus with hyperglycemia; M86.171 Other acute osteomyelitis, right ankle and foot; A41.9 Sepsis, unspecified organism; Y84.8 Other medical procedures as the cause of abnormal reaction of the patient, or of later complication, without mention of misadventure at the time of the procedure; L97.416 Non-pressure chronic ulcer of right heel and midfoot with bone involvement without evidence of necrosis; S90.821A Blister (nonthermal), right foot, initial encounter; L08.9 Local infection of the skin and subcutaneous tissue, unspecified; A49.8 Other bacterial infections of unspecified site; I73.89 Other specified peripheral vascular diseases; I10 Essential (primary) hypertension; G90.09 Other idiopathic peripheral autonomic neuropathy; E78.00 Pure hypercholesterolemia, unspecified | CPT/HCPCS: 97605; G0277 ×2 ==

== ENCOUNTER → 2019-06-25 | Outpatient (CLI) | payer BC | LOC: WCC 12:52 | PROVIDERS: ATTEND Plastic Surgery | DX: E11.621 Type 2 diabetes mellitus with foot ulcer (principal); E11.65 Type 2 diabetes mellitus with hyperglycemia; A41.9 Sepsis, unspecified organism; M86.171 Other acute osteomyelitis, right ankle and foot; Y84.8 Other medical procedures as the cause of abnormal reaction of the patient, or of later complication, without mention of misadventure at the time of the procedure; L97.416 Non-pressure chronic ulcer of right heel and midfoot with bone involvement without evidence of necrosis; S90.821A Blister (nonthermal), right foot, initial encounter; L08.9 Local infection of the skin and subcutaneous tissue, unspecified; G90.09 Other idiopathic peripheral autonomic neuropathy; A49.8 Other bacterial infections of unspecified site; I73.89 Other specified peripheral vascular diseases; I10 Essential (primary) hypertension; E78.00 Pure hypercholesterolemia, unspecified | CPT/HCPCS: 97605; G0277 ==

== ENCOUNTER → 2019-06-27 | Outpatient (CLI) | payer BC | LOC: WCC 11:01 | PROVIDERS: ATTEND Plastic Surgery | DX: E11.621 Type 2 diabetes mellitus with foot ulcer (principal); E11.65 Type 2 diabetes mellitus with hyperglycemia; A41.9 Sepsis, unspecified organism; Y84.8 Other medical procedures as the cause of abnormal reaction of the patient, or of later complication, without mention of misadventure at the time of the procedure; M86.171 Other acute osteomyelitis, right ankle and foot; L97.416 Non-pressure chronic ulcer of right heel and midfoot with bone involvement without evidence of necrosis; S90.821A Blister (nonthermal), right foot, initial encounter; L08.9 Local infection of the skin and subcutaneous tissue, unspecified; I73.89 Other specified peripheral vascular diseases; G90.09 Other idiopathic peripheral autonomic neuropathy; A49.8 Other bacterial infections of unspecified site; I10 Essential (primary) hypertension; E78.00 Pure hypercholesterolemia, unspecified; Z01.810 Encounter for preprocedural cardiovascular examination | CPT/HCPCS: 97605; G0277 ==

== ENCOUNTER → 2019-06-28 | Outpatient (CLI) | payer BC | LOC: WCC 09:59 | PROVIDERS: ATTEND Plastic Surgery | DX: E11.621 Type 2 diabetes mellitus with foot ulcer (principal); E11.65 Type 2 diabetes mellitus with hyperglycemia; Y84.8 Other medical procedures as the cause of abnormal reaction of the patient, or of later complication, without mention of misadventure at the time of the procedure; A41.9 Sepsis, unspecified organism; M86.171 Other acute osteomyelitis, right ankle and foot; L97.416 Non-pressure chronic ulcer of right heel and midfoot with bone involvement without evidence of necrosis; I73.89 Other specified peripheral vascular diseases; G90.09 Other idiopathic peripheral autonomic neuropathy; A49.8 Other bacterial infections of unspecified site; S90.821A Blister (nonthermal), right foot, initial encounter; L08.9 Local infection of the skin and subcutaneous tissue, unspecified; I10 Essential (primary) hypertension; E78.00 Pure hypercholesterolemia, unspecified; Z01.810 Encounter for preprocedural cardiovascular examination ==

== ENCOUNTER → 2019-06-29 | Outpatient (CLI) | payer BC | LOC: WCC 10:50 | PROVIDERS: ATTEND Plastic Surgery | DX: E11.621 Type 2 diabetes mellitus with foot ulcer (principal); E11.65 Type 2 diabetes mellitus with hyperglycemia; A41.9 Sepsis, unspecified organism; M86.171 Other acute osteomyelitis, right ankle and foot; Y84.8 Other medical procedures as the cause of abnormal reaction of the patient, or of later complication, without mention of misadventure at the time of the procedure; L97.416 Non-pressure chronic ulcer of right heel and midfoot with bone involvement without evidence of necrosis; L08.9 Local infection of the skin and subcutaneous tissue, unspecified; A49.8 Other bacterial infections of unspecified site; S90.821A Blister (nonthermal), right foot, initial encounter; I73.89 Other specified peripheral vascular diseases; I10 Essential (primary) hypertension; G90.09 Other idiopathic peripheral autonomic neuropathy; E78.00 Pure hypercholesterolemia, unspecified; Z01.810 Encounter for preprocedural cardiovascular examination | CPT/HCPCS: 97605; G0277 ==

== ENCOUNTER → 2019-07-02 | Outpatient (CLI) | payer BC | LOC: WCC 09:16 | PROVIDERS: ATTEND Plastic Surgery | DX: E11.621 Type 2 diabetes mellitus with foot ulcer (principal); E11.65 Type 2 diabetes mellitus with hyperglycemia; A41.9 Sepsis, unspecified organism; M86.171 Other acute osteomyelitis, right ankle and foot; Y84.8 Other medical procedures as the cause of abnormal reaction of the patient, or of later complication, without mention of misadventure at the time of the procedure; L97.416 Non-pressure chronic ulcer of right heel and midfoot with bone involvement without evidence of necrosis; S90.821A Blister (nonthermal), right foot, initial encounter; L08.9 Local infection of the skin and subcutaneous tissue, unspecified; A49.8 Other bacterial infections of unspecified site; I73.89 Other specified peripheral vascular diseases; G90.09 Other idiopathic peripheral autonomic neuropathy; I10 Essential (primary) hypertension; E78.00 Pure hypercholesterolemia, unspecified; Z01.810 Encounter for preprocedural cardiovascular examination | CPT/HCPCS: 97607; G0277 ==

== ENCOUNTER → 2019-07-04 | Outpatient (CLI) | payer BC | LOC: WCC 09:16 | PROVIDERS: ATTEND Plastic Surgery | DX: E11.621 Type 2 diabetes mellitus with foot ulcer (principal); E11.65 Type 2 diabetes mellitus with hyperglycemia; M86.171 Other acute osteomyelitis, right ankle and foot; A41.9 Sepsis, unspecified organism; Y84.8 Other medical procedures as the cause of abnormal reaction of the patient, or of later complication, without mention of misadventure at the time of the procedure; L97.416 Non-pressure chronic ulcer of right heel and midfoot with bone involvement without evidence of necrosis; L08.9 Local infection of the skin and subcutaneous tissue, unspecified; S90.821A Blister (nonthermal), right foot, initial encounter; I73.89 Other specified peripheral vascular diseases; A49.8 Other bacterial infections of unspecified site; I10 Essential (primary) hypertension; E78.00 Pure hypercholesterolemia, unspecified; Z01.810 Encounter for preprocedural cardiovascular examination ==

== ENCOUNTER → 2019-07-05 | Outpatient (CLI) | payer BC | LOC: WCC 11:17 | PROVIDERS: ATTEND Plastic Surgery | DX: E11.621 Type 2 diabetes mellitus with foot ulcer (principal); E11.65 Type 2 diabetes mellitus with hyperglycemia; A41.9 Sepsis, unspecified organism; M86.171 Other acute osteomyelitis, right ankle and foot; Y84.8 Other medical procedures as the cause of abnormal reaction of the patient, or of later complication, without mention of misadventure at the time of the procedure; L97.416 Non-pressure chronic ulcer of right heel and midfoot with bone involvement without evidence of necrosis; I73.89 Other specified peripheral vascular diseases; S90.821A Blister (nonthermal), right foot, initial encounter; L08.9 Local infection of the skin and subcutaneous tissue, unspecified; A49.8 Other bacterial infections of unspecified site; G90.09 Other idiopathic peripheral autonomic neuropathy; I10 Essential (primary) hypertension; E78.00 Pure hypercholesterolemia, unspecified; Z01.810 Encounter for preprocedural cardiovascular examination | CPT/HCPCS: 97605; G0277 ==

== ENCOUNTER → 2019-07-06 | Outpatient (CLI) | payer BC | LOC: WCC 11:03 | PROVIDERS: ATTEND Plastic Surgery | DX: E11.621 Type 2 diabetes mellitus with foot ulcer (principal); E11.65 Type 2 diabetes mellitus with hyperglycemia; A41.9 Sepsis, unspecified organism; M86.171 Other acute osteomyelitis, right ankle and foot; Y84.8 Other medical procedures as the cause of abnormal reaction of the patient, or of later complication, without mention of misadventure at the time of the procedure; L97.416 Non-pressure chronic ulcer of right heel and midfoot with bone involvement without evidence of necrosis; L08.9 Local infection of the skin and subcutaneous tissue, unspecified; S90.521A Blister (nonthermal), right ankle, initial encounter; S90.821A Blister (nonthermal), right foot, initial encounter; I73.89 Other specified peripheral vascular diseases; G90.09 Other idiopathic peripheral autonomic neuropathy; A49.8 Other bacterial infections of unspecified site; I10 Essential (primary) hypertension; E78.00 Pure hypercholesterolemia, unspecified; Z01.810 Encounter for preprocedural cardiovascular examination ==

== ENCOUNTER → 2019-07-09 | Outpatient (CLI) | payer BC | LOC: WCC 11:16 | PROVIDERS: ATTEND Plastic Surgery | DX: E11.621 Type 2 diabetes mellitus with foot ulcer (principal); E11.65 Type 2 diabetes mellitus with hyperglycemia; A41.9 Sepsis, unspecified organism; Y84.8 Other medical procedures as the cause of abnormal reaction of the patient, or of later complication, without mention of misadventure at the time of the procedure; M86.171 Other acute osteomyelitis, right ankle and foot; L97.416 Non-pressure chronic ulcer of right heel and midfoot with bone involvement without evidence of necrosis; I73.89 Other specified peripheral vascular diseases; S90.821A Blister (nonthermal), right foot, initial encounter; S90.521A Blister (nonthermal), right ankle, initial encounter; L08.9 Local infection of the skin and subcutaneous tissue, unspecified; A49.8 Other bacterial infections of unspecified site; G90.09 Other idiopathic peripheral autonomic neuropathy; I10 Essential (primary) hypertension; E78.00 Pure hypercholesterolemia, unspecified; Z01.810 Encounter for preprocedural cardiovascular examination | CPT/HCPCS: 97602; G0277 ==

== ENCOUNTER → 2019-07-10 | Outpatient (CLI) | payer BC | LOC: WCC 11:44 | PROVIDERS: ATTEND Plastic Surgery | DX: E11.621 Type 2 diabetes mellitus with foot ulcer (principal); E11.65 Type 2 diabetes mellitus with hyperglycemia; A41.9 Sepsis, unspecified organism; Y84.8 Other medical procedures as the cause of abnormal reaction of the patient, or of later complication, without mention of misadventure at the time of the procedure; M86.171 Other acute osteomyelitis, right ankle and foot; L97.416 Non-pressure chronic ulcer of right heel and midfoot with bone involvement without evidence of necrosis; S90.521A Blister (nonthermal), right ankle, initial encounter; L08.9 Local infection of the skin and subcutaneous tissue, unspecified; A49.8 Other bacterial infections of unspecified site; G90.09 Other idiopathic peripheral autonomic neuropathy; S90.821A Blister (nonthermal), right foot, initial encounter; I73.89 Other specified peripheral vascular diseases; I10 Essential (primary) hypertension; E78.00 Pure hypercholesterolemia, unspecified; Z01.810 Encounter for preprocedural cardiovascular examination | CPT/HCPCS: 97602; G0277 ==

== ENCOUNTER → 2019-07-11 | Outpatient (CLI) | payer BC | LOC: WCC 08:58 | PROVIDERS: ATTEND Plastic Surgery | DX: E11.621 Type 2 diabetes mellitus with foot ulcer (principal); E11.65 Type 2 diabetes mellitus with hyperglycemia; A41.9 Sepsis, unspecified organism; Y84.8 Other medical procedures as the cause of abnormal reaction of the patient, or of later complication, without mention of misadventure at the time of the procedure; M86.171 Other acute osteomyelitis, right ankle and foot; L97.416 Non-pressure chronic ulcer of right heel and midfoot with bone involvement without evidence of necrosis; I73.89 Other specified peripheral vascular diseases; S90.521A Blister (nonthermal), right ankle, initial encounter; S90.821A Blister (nonthermal), right foot, initial encounter; L08.9 Local infection of the skin and subcutaneous tissue, unspecified; A49.8 Other bacterial infections of unspecified site; G90.09 Other idiopathic peripheral autonomic neuropathy; I10 Essential (primary) hypertension; E78.00 Pure hypercholesterolemia, unspecified; Z01.810 Encounter for preprocedural cardiovascular examination ==

== ENCOUNTER → 2019-07-12 | Outpatient (CLI) | payer BC | LOC: WCC 10:36 | PROVIDERS: ATTEND Plastic Surgery | DX: E11.621 Type 2 diabetes mellitus with foot ulcer (principal); E11.65 Type 2 diabetes mellitus with hyperglycemia; Y84.8 Other medical procedures as the cause of abnormal reaction of the patient, or of later complication, without mention of misadventure at the time of the procedure; M86.171 Other acute osteomyelitis, right ankle and foot; A41.9 Sepsis, unspecified organism; L97.416 Non-pressure chronic ulcer of right heel and midfoot with bone involvement without evidence of necrosis; I73.89 Other specified peripheral vascular diseases; S90.521A Blister (nonthermal), right ankle, initial encounter; S90.821A Blister (nonthermal), right foot, initial encounter; L08.9 Local infection of the skin and subcutaneous tissue, unspecified; A49.8 Other bacterial infections of unspecified site; G90.09 Other idiopathic peripheral autonomic neuropathy; I10 Essential (primary) hypertension; E78.00 Pure hypercholesterolemia, unspecified; Z01.810 Encounter for preprocedural cardiovascular examination | CPT/HCPCS: 97602 ×2; 99213; G0277 ==

== ENCOUNTER → 2019-07-13 | Outpatient (CLI) | payer BC ==
[~2019-07-13] MED LIST changes: +COLLAGENASE OINTMENT 30 GM TUBE ONE; +MUPIROCIN 2% OINT 22 GM TUBE ONE
== END ==
LOC: WCC 11:05
PROVIDERS: ATTEND Plastic Surgery
DX: E11.621 Type 2 diabetes mellitus with foot ulcer (principal); E11.65 Type 2 diabetes mellitus with hyperglycemia; A41.9 Sepsis, unspecified organism; Y84.8 Other medical procedures as the cause of abnormal reaction of the patient, or of later complication, without mention of misadventure at the time of the procedure; M86.171 Other acute osteomyelitis, right ankle and foot; L97.416 Non-pressure chronic ulcer of right heel and midfoot with bone involvement without evidence of necrosis; S90.521A Blister (nonthermal), right ankle, initial encounter; S90.821A Blister (nonthermal), right foot, initial encounter; I73.89 Other specified peripheral vascular diseases; L08.9 Local infection of the skin and subcutaneous tissue, unspecified; A49.8 Other bacterial infections of unspecified site; I10 Essential (primary) hypertension; G90.09 Other idiopathic peripheral autonomic neuropathy; E78.00 Pure hypercholesterolemia, unspecified
CPT/HCPCS: 36415; 82948; G0277

== ENCOUNTER → 2019-07-16 | Outpatient (CLI) | payer BC ==
[~2019-07-16] MED LIST changes: -COLLAGENASE OINTMENT 30 GM TUBE ONE; -MUPIROCIN 2% OINT 22 GM TUBE ONE
== END ==
LOC: WCC 14:27
PROVIDERS: ATTEND Plastic Surgery
DX: E11.621 Type 2 diabetes mellitus with foot ulcer (principal); E11.65 Type 2 diabetes mellitus with hyperglycemia; A41.9 Sepsis, unspecified organism; M86.171 Other acute osteomyelitis, right ankle and foot; L97.416 Non-pressure chronic ulcer of right heel and midfoot with bone involvement without evidence of necrosis; S90.821A Blister (nonthermal), right foot, initial encounter; I73.89 Other specified peripheral vascular diseases; I10 Essential (primary) hypertension; A49.8 Other bacterial infections of unspecified site; G90.09 Other idiopathic peripheral autonomic neuropathy; Y81.8 Miscellaneous general- and plastic-surgery devices associated with adverse incidents, not elsewhere classified; E78.00 Pure hypercholesterolemia, unspecified; Z01.810 Encounter for preprocedural cardiovascular examination
CPT/HCPCS: 97602; 97605; 99212; G0277

== ENCOUNTER → 2019-07-17 | Outpatient (CLI) | payer BC | LOC: WCC 13:26 | PROVIDERS: ATTEND Plastic Surgery | DX: E11.621 Type 2 diabetes mellitus with foot ulcer (principal); E11.65 Type 2 diabetes mellitus with hyperglycemia; A41.9 Sepsis, unspecified organism; M86.171 Other acute osteomyelitis, right ankle and foot; Y84.8 Other medical procedures as the cause of abnormal reaction of the patient, or of later complication, without mention of misadventure at the time of the procedure; L97.416 Non-pressure chronic ulcer of right heel and midfoot with bone involvement without evidence of necrosis; S90.821A Blister (nonthermal), right foot, initial encounter; I73.89 Other specified peripheral vascular diseases; L08.9 Local infection of the skin and subcutaneous tissue, unspecified; A49.8 Other bacterial infections of unspecified site; I10 Essential (primary) hypertension; G90.09 Other idiopathic peripheral autonomic neuropathy; E78.00 Pure hypercholesterolemia, unspecified; Z01.810 Encounter for preprocedural cardiovascular examination ==

== ENCOUNTER → 2019-07-18 | Outpatient (CLI) | payer BC | LOC: WCC 07-17 13:30 | PROVIDERS: ATTEND Plastic Surgery | DX: E11.621 Type 2 diabetes mellitus with foot ulcer (principal); E11.65 Type 2 diabetes mellitus with hyperglycemia; A41.9 Sepsis, unspecified organism; Y84.8 Other medical procedures as the cause of abnormal reaction of the patient, or of later complication, without mention of misadventure at the time of the procedure; M86.171 Other acute osteomyelitis, right ankle and foot; L97.416 Non-pressure chronic ulcer of right heel and midfoot with bone involvement without evidence of necrosis; I73.89 Other specified peripheral vascular diseases; S90.821A Blister (nonthermal), right foot, initial encounter; L08.9 Local infection of the skin and subcutaneous tissue, unspecified; A49.8 Other bacterial infections of unspecified site; I10 Essential (primary) hypertension; G90.09 Other idiopathic peripheral autonomic neuropathy; E78.00 Pure hypercholesterolemia, unspecified; Z01.810 Encounter for preprocedural cardiovascular examination | CPT/HCPCS: 97605; G0277 ==

== ENCOUNTER → 2019-07-19 | Outpatient (CLI) | payer BC | LOC: WCC 13:07 | PROVIDERS: ATTEND Plastic Surgery | DX: E11.621 Type 2 diabetes mellitus with foot ulcer (principal); E11.65 Type 2 diabetes mellitus with hyperglycemia; A41.9 Sepsis, unspecified organism; Y84.8 Other medical procedures as the cause of abnormal reaction of the patient, or of later complication, without mention of misadventure at the time of the procedure; M86.171 Other acute osteomyelitis, right ankle and foot; L97.416 Non-pressure chronic ulcer of right heel and midfoot with bone involvement without evidence of necrosis; S90.821A Blister (nonthermal), right foot, initial encounter; L08.9 Local infection of the skin and subcutaneous tissue, unspecified; I73.89 Other specified peripheral vascular diseases; A49.8 Other bacterial infections of unspecified site; I10 Essential (primary) hypertension; G90.09 Other idiopathic peripheral autonomic neuropathy; E78.00 Pure hypercholesterolemia, unspecified; Z01.810 Encounter for preprocedural cardiovascular examination ==

== ENCOUNTER → 2019-07-20 | Outpatient (CLI) | payer BC | LOC: WCC 14:58 | PROVIDERS: ATTEND Plastic Surgery | DX: E11.621 Type 2 diabetes mellitus with foot ulcer (principal); E11.65 Type 2 diabetes mellitus with hyperglycemia; A41.9 Sepsis, unspecified organism; M86.171 Other acute osteomyelitis, right ankle and foot; Y84.8 Other medical procedures as the cause of abnormal reaction of the patient, or of later complication, without mention of misadventure at the time of the procedure; L97.416 Non-pressure chronic ulcer of right heel and midfoot with bone involvement without evidence of necrosis; S90.821A Blister (nonthermal), right foot, initial encounter; I73.89 Other specified peripheral vascular diseases; L08.9 Local infection of the skin and subcutaneous tissue, unspecified; A49.8 Other bacterial infections of unspecified site; G90.09 Other idiopathic peripheral autonomic neuropathy; I10 Essential (primary) hypertension; E78.00 Pure hypercholesterolemia, unspecified; Z01.810 Encounter for preprocedural cardiovascular examination | CPT/HCPCS: 97605; G0277 ==

== ENCOUNTER → 2019-07-23 | Outpatient (CLI) | payer BC | LOC: WCC 09:48 | PROVIDERS: ATTEND Plastic Surgery | DX: E11.621 Type 2 diabetes mellitus with foot ulcer (principal); E11.65 Type 2 diabetes mellitus with hyperglycemia; A41.9 Sepsis, unspecified organism; M86.171 Other acute osteomyelitis, right ankle and foot; Y84.8 Other medical procedures as the cause of abnormal reaction of the patient, or of later complication, without mention of misadventure at the time of the procedure; L97.416 Non-pressure chronic ulcer of right heel and midfoot with bone involvement without evidence of necrosis; I73.89 Other specified peripheral vascular diseases; S90.821A Blister (nonthermal), right foot, initial encounter; L08.9 Local infection of the skin and subcutaneous tissue, unspecified; A49.8 Other bacterial infections of unspecified site; I10 Essential (primary) hypertension; G90.09 Other idiopathic peripheral autonomic neuropathy; E78.00 Pure hypercholesterolemia, unspecified; Z01.810 Encounter for preprocedural cardiovascular examination | CPT/HCPCS: 97605; G0277 ==

== ENCOUNTER → 2019-07-25 | Outpatient (CLI) | payer BC | LOC: WCC 13:42 | PROVIDERS: ATTEND Plastic Surgery | DX: E11.621 Type 2 diabetes mellitus with foot ulcer (principal); E11.65 Type 2 diabetes mellitus with hyperglycemia; A41.9 Sepsis, unspecified organism; M86.171 Other acute osteomyelitis, right ankle and foot; Y84.8 Other medical procedures as the cause of abnormal reaction of the patient, or of later complication, without mention of misadventure at the time of the procedure; L97.416 Non-pressure chronic ulcer of right heel and midfoot with bone involvement without evidence of necrosis; S90.821A Blister (nonthermal), right foot, initial encounter; L08.9 Local infection of the skin and subcutaneous tissue, unspecified; G90.09 Other idiopathic peripheral autonomic neuropathy; A49.8 Other bacterial infections of unspecified site; I73.89 Other specified peripheral vascular diseases; I10 Essential (primary) hypertension; E78.00 Pure hypercholesterolemia, unspecified; Z01.810 Encounter for preprocedural cardiovascular examination | CPT/HCPCS: 97605; G0277 ==

== ENCOUNTER → 2019-07-26 | Outpatient (CLI) | payer BC | LOC: WCC 11:06 | PROVIDERS: ATTEND Plastic Surgery | DX: E11.621 Type 2 diabetes mellitus with foot ulcer (principal); E11.65 Type 2 diabetes mellitus with hyperglycemia; A41.9 Sepsis, unspecified organism; M86.171 Other acute osteomyelitis, right ankle and foot; Y84.8 Other medical procedures as the cause of abnormal reaction of the patient, or of later complication, without mention of misadventure at the time of the procedure; L97.416 Non-pressure chronic ulcer of right heel and midfoot with bone involvement without evidence of necrosis; I73.89 Other specified peripheral vascular diseases; S90.821A Blister (nonthermal), right foot, initial encounter; L08.9 Local infection of the skin and subcutaneous tissue, unspecified; A49.8 Other bacterial infections of unspecified site; I10 Essential (primary) hypertension; G90.09 Other idiopathic peripheral autonomic neuropathy; E78.00 Pure hypercholesterolemia, unspecified; Z01.810 Encounter for preprocedural cardiovascular examination ==

== ENCOUNTER → 2019-07-27 | Outpatient (CLI) | payer BC | LOC: WCC 10:58 | PROVIDERS: ATTEND Plastic Surgery | DX: E11.621 Type 2 diabetes mellitus with foot ulcer (principal); E11.65 Type 2 diabetes mellitus with hyperglycemia; A41.9 Sepsis, unspecified organism; M86.171 Other acute osteomyelitis, right ankle and foot; Y84.8 Other medical procedures as the cause of abnormal reaction of the patient, or of later complication, without mention of misadventure at the time of the procedure; L97.416 Non-pressure chronic ulcer of right heel and midfoot with bone involvement without evidence of necrosis; S90.821A Blister (nonthermal), right foot, initial encounter; L08.9 Local infection of the skin and subcutaneous tissue, unspecified; A49.8 Other bacterial infections of unspecified site; I73.89 Other specified peripheral vascular diseases; G90.09 Other idiopathic peripheral autonomic neuropathy; I10 Essential (primary) hypertension; E78.00 Pure hypercholesterolemia, unspecified; Z01.810 Encounter for preprocedural cardiovascular examination | CPT/HCPCS: 97602; G0277 ==

== ENCOUNTER → 2019-07-30 | Outpatient (CLI) | payer BC | LOC: WCC 13:21 | PROVIDERS: ATTEND Plastic Surgery | DX: E11.621 Type 2 diabetes mellitus with foot ulcer (principal); E11.65 Type 2 diabetes mellitus with hyperglycemia; A41.9 Sepsis, unspecified organism; Y84.8 Other medical procedures as the cause of abnormal reaction of the patient, or of later complication, without mention of misadventure at the time of the procedure; M86.171 Other acute osteomyelitis, right ankle and foot; L97.416 Non-pressure chronic ulcer of right heel and midfoot with bone involvement without evidence of necrosis; S90.821A Blister (nonthermal), right foot, initial encounter; I73.89 Other specified peripheral vascular diseases; L08.89 Other specified local infections of the skin and subcutaneous tissue; A49.8 Other bacterial infections of unspecified site; G90.09 Other idiopathic peripheral autonomic neuropathy; I10 Essential (primary) hypertension; E78.00 Pure hypercholesterolemia, unspecified; Z01.810 Encounter for preprocedural cardiovascular examination | CPT/HCPCS: 97602; 99213; G0277 ==

== ENCOUNTER → 2019-07-31 | Outpatient (CLI) | payer BC ==
[~2019-07-31] MED LIST changes: +ASPIR 8181 MG PO; +LIPITOR10 MG PO
== END ==
LOC: WCC 13:05
PROVIDERS: ATTEND Plastic Surgery
DX: E11.621 Type 2 diabetes mellitus with foot ulcer (principal); E11.65 Type 2 diabetes mellitus with hyperglycemia; Y84.8 Other medical procedures as the cause of abnormal reaction of the patient, or of later complication, without mention of misadventure at the time of the procedure; A41.9 Sepsis, unspecified organism; M86.171 Other acute osteomyelitis, right ankle and foot; L97.416 Non-pressure chronic ulcer of right heel and midfoot with bone involvement without evidence of necrosis; S90.821A Blister (nonthermal), right foot, initial encounter; L08.9 Local infection of the skin and subcutaneous tissue, unspecified; A49.8 Other bacterial infections of unspecified site; I10 Essential (primary) hypertension; G90.09 Other idiopathic peripheral autonomic neuropathy; I73.89 Other specified peripheral vascular diseases; E78.00 Pure hypercholesterolemia, unspecified; Z01.810 Encounter for preprocedural cardiovascular examination
CPT/HCPCS: 97602; G0277

== ENCOUNTER → 2019-08-01 | Outpatient (CLI) | payer BC | LOC: WCC 13:18 | PROVIDERS: ATTEND Plastic Surgery | DX: E11.621 Type 2 diabetes mellitus with foot ulcer (principal); E11.65 Type 2 diabetes mellitus with hyperglycemia; A41.9 Sepsis, unspecified organism; M86.171 Other acute osteomyelitis, right ankle and foot; Y84.8 Other medical procedures as the cause of abnormal reaction of the patient, or of later complication, without mention of misadventure at the time of the procedure; L97.416 Non-pressure chronic ulcer of right heel and midfoot with bone involvement without evidence of necrosis; I73.89 Other specified peripheral vascular diseases; S90.821A Blister (nonthermal), right foot, initial encounter; L08.9 Local infection of the skin and subcutaneous tissue, unspecified; A49.8 Other bacterial infections of unspecified site; G90.09 Other idiopathic peripheral autonomic neuropathy; I10 Essential (primary) hypertension; E78.00 Pure hypercholesterolemia, unspecified; Z01.810 Encounter for preprocedural cardiovascular examination | CPT/HCPCS: 97605; G0277 ==

== ENCOUNTER → 2019-08-02 | Outpatient (CLI) | payer BC | LOC: WCC 10:41 | PROVIDERS: ATTEND Plastic Surgery | DX: E11.621 Type 2 diabetes mellitus with foot ulcer (principal); E11.65 Type 2 diabetes mellitus with hyperglycemia; A41.9 Sepsis, unspecified organism; M86.171 Other acute osteomyelitis, right ankle and foot; Y84.8 Other medical procedures as the cause of abnormal reaction of the patient, or of later complication, without mention of misadventure at the time of the procedure; L97.416 Non-pressure chronic ulcer of right heel and midfoot with bone involvement without evidence of necrosis; S90.821A Blister (nonthermal), right foot, initial encounter; I73.89 Other specified peripheral vascular diseases; L08.9 Local infection of the skin and subcutaneous tissue, unspecified; A49.8 Other bacterial infections of unspecified site; I10 Essential (primary) hypertension; G90.09 Other idiopathic peripheral autonomic neuropathy; E78.00 Pure hypercholesterolemia, unspecified ==

== ENCOUNTER → 2019-08-03 | Outpatient (CLI) | payer BC | LOC: WCC 12:14 | PROVIDERS: ATTEND Plastic Surgery | DX: E11.621 Type 2 diabetes mellitus with foot ulcer (principal); E11.65 Type 2 diabetes mellitus with hyperglycemia; A41.9 Sepsis, unspecified organism; Y84.8 Other medical procedures as the cause of abnormal reaction of the patient, or of later complication, without mention of misadventure at the time of the procedure; M86.171 Other acute osteomyelitis, right ankle and foot; L97.416 Non-pressure chronic ulcer of right heel and midfoot with bone involvement without evidence of necrosis; G90.09 Other idiopathic peripheral autonomic neuropathy; A49.8 Other bacterial infections of unspecified site; L08.9 Local infection of the skin and subcutaneous tissue, unspecified; S90.821A Blister (nonthermal), right foot, initial encounter; I73.89 Other specified peripheral vascular diseases; I10 Essential (primary) hypertension; E78.00 Pure hypercholesterolemia, unspecified; Z01.810 Encounter for preprocedural cardiovascular examination ==

== ENCOUNTER → 2019-08-07 | Day surgery (SDC) | payer BC ==
[2019-08-03 14:04] LABS: BASOPHILS # (AUTO) 0.1 (0.0-0.1); BASOPHILS % 0.9 % (0.0-1.0); EOSINOPHILS # (AUTO) 0.3 (0.0-0.4); EOSINOPHILS % 4.3 % (0.0-6.0); HEMATOCRIT 32.9 % (38.2-49.6); HEMOGLOBIN 11.1 g/dL (14.0-18.0); LYMPHOCYTES # (AUTO) 1.8 (1.0-3.2); LYMPHOCYTES % 23.8 % (18.0-39.1); MEAN CORPUSCULAR HEMOGLOBIN 29.6 pg (28-32); MEAN CORPUSCULAR HGB CONC 33.7 g/dL (31-35); MEAN CORPUSCULAR VOLUME 87.7 fL (81-99); MONOCYTES # (AUTO) 0.5 (0.2-0.8); MONOCYTES % 6.2 % (4.4-11.3); NEUTROPHILS # (AUTO) 4.8 (2.1-6.9); NEUTROPHILS % 64.4 % (38.7-80.0); PLATELET COUNT 235 x10e3/uL (140-360); RED BLOOD COUNT 3.75 x10e6/uL (4.3-5.7); RED CELL DISTRIBUTION WIDTH 12.5 % (11.7-14.4)
[~2019-08-07] MED LIST changes: +CEFAZOLIN SOD 1 GM/NS 50ML 50 ML IV ONE; +EPHEDRINE SULFATE INJ 50 MG/ML VIAL ONE; +LIDOCAINE HCL 2% LOCAL INJ 5 ML SDV VIAL INJ ONE; +PROPOFOL IV EMULSION 10 MG/ML 20 ML VIAL ONE; +SEVOFLURANE INHAL SOLN 250 ML PEN BTL ONE
[2019-08-07 11:15] VITALS: BP 154/90
--- NOTE | 2019-08-07 14:30 | Operative Report ---
DATE OF PROCEDURE: 08/07/2019 SURGEON: Roney Ramon MD PREOPERATIVE DIAGNOSIS: Wound, right foot 25 cm2. POSTOPERATIVE DIAGNOSIS: Wound, right foot 25 cm2. PROCEDURES: 1. Excisional preparation of wound, right foot 25 cm2 for split-thickness skin grafting. 2. Split-thickness skin grafting right foot wound, 25 cm2. ANESTHESIA: General. HISTORY: The patient is a 49-year-old male who is diabetic and underwent debridement of a diabetic foot ulcer back in March of 2019. The patient's wound has been treated at the [facility] with hyperbaric oxygen and is now amenable for split-thickness skin grafting. The risks, benefits, and alternatives of treatment were discussed with the patient and he is prepared to undergo the procedure as outlined. PROCEDURE IN DETAIL: The patient was marked preoperatively in the holding area. He was brought to the operating theater and after the induction of adequate general anesthesia, he was prepped and draped in a supine position. A time-out was performed. The procedure was begun by excising the edge of the wound first for approximately 0.5 cm and then curetting the wound of all the colonized granulation tissue. The wound was then pulse lavaged with antibiotic-containing solution. At this point, the wound was made hemostatic using the electrocautery. A split-thickness skin graft was then harvested from the right anterior lateral thigh of approximately 12 to 13 thousands of an inch thickness. It was then meshed in a 1-1/2 to 1 fashion and placed onto the wound and secured using surgical clips. Bactroban ointment and Xeroform gauze were applied. The wound Care team comes in and places a VAC set at 125 mm of continuous negative pressure. The donor site on the thigh is dressed with Bactroban ointment, Xeroform gauze, sterile dressings. The estimated blood loss of procedure is 10 to 20 mL. The patient tolerated the procedure well and was brought to recovery room in satisfactory condition and discharged with a postoperative instruction sheet as well as a followup appointment. MD NICK Banks/MODL /[id number]
--- NOTE | 2019-08-07 14:42 | NUR ---
WOUNDCARE CONSULT FOR VAC PLACEMENT TO RIGHT HEEL POST GRAFT PLACEMENT IN PACU VAC APPLIED TO RT HEEL XEROFORM COVERING WOUND BASE BLACK FOAM PLACED SETTING 125MMHG CONTINUOUS PATIENT WITHOUT C/O PAIN AND UNDERSTANDS DRESSING TO STAY IN PLACE UNTIL WOUND CLINIC ON TUESDAY Addendum: 08/07/19 at 1447 by Erasto Arevalo RN Amended: Links added.
== END | disposition home or self-care (01) ==
LOC: OR 05:14
PROVIDERS: ATTEND Plastic Surgery
DX: E11.621 Type 2 diabetes mellitus with foot ulcer (principal); I10 Essential (primary) hypertension; K21.9 Gastro-esophageal reflux disease without esophagitis; F41.9 Anxiety disorder, unspecified; Z01.810 Encounter for preprocedural cardiovascular examination; Z01.812 Encounter for preprocedural laboratory examination; Z11.59 Encounter for screening for other viral diseases; Z79.84 Long term (current) use of oral hypoglycemic drugs; Z79.02 Long term (current) use of antithrombotics/antiplatelets; Z79.82 Long term (current) use of aspirin; Z79.4 Long term (current) use of insulin
CPT/HCPCS: 15004; 15120; 36415 ×2; 82948; 85025; 87635; 93005; 97605; 99251; J0690; J2001; J2704

== ENCOUNTER → 2019-08-08 | Outpatient (CLI) | payer BC ==
[~2019-08-08] MED LIST changes: -CEFAZOLIN SOD 1 GM/NS 50ML 50 ML IV ONE; -EPHEDRINE SULFATE INJ 50 MG/ML VIAL ONE; -LIDOCAINE HCL 2% LOCAL INJ 5 ML SDV VIAL INJ ONE; -PROPOFOL IV EMULSION 10 MG/ML 20 ML VIAL ONE; -SEVOFLURANE INHAL SOLN 250 ML PEN BTL ONE
== END ==
LOC: WCC 14:19
PROVIDERS: ATTEND Plastic Surgery
DX: E11.621 Type 2 diabetes mellitus with foot ulcer (principal); E11.65 Type 2 diabetes mellitus with hyperglycemia; A41.9 Sepsis, unspecified organism; M86.171 Other acute osteomyelitis, right ankle and foot; Y84.8 Other medical procedures as the cause of abnormal reaction of the patient, or of later complication, without mention of misadventure at the time of the procedure; L97.416 Non-pressure chronic ulcer of right heel and midfoot with bone involvement without evidence of necrosis; S90.821A Blister (nonthermal), right foot, initial encounter; I73.89 Other specified peripheral vascular diseases; L08.9 Local infection of the skin and subcutaneous tissue, unspecified; A49.8 Other bacterial infections of unspecified site; I10 Essential (primary) hypertension; G90.09 Other idiopathic peripheral autonomic neuropathy; E78.00 Pure hypercholesterolemia, unspecified; Z01.810 Encounter for preprocedural cardiovascular examination
CPT/HCPCS: 99212; G0277

== ENCOUNTER → 2019-08-09 | Outpatient (CLI) | payer BC | LOC: WCC 10:49 | PROVIDERS: ATTEND Plastic Surgery | DX: E11.621 Type 2 diabetes mellitus with foot ulcer (principal); E11.65 Type 2 diabetes mellitus with hyperglycemia; A41.9 Sepsis, unspecified organism; M86.171 Other acute osteomyelitis, right ankle and foot; Y84.8 Other medical procedures as the cause of abnormal reaction of the patient, or of later complication, without mention of misadventure at the time of the procedure; L97.416 Non-pressure chronic ulcer of right heel and midfoot with bone involvement without evidence of necrosis; S90.821A Blister (nonthermal), right foot, initial encounter; I73.89 Other specified peripheral vascular diseases; L08.9 Local infection of the skin and subcutaneous tissue, unspecified; A49.8 Other bacterial infections of unspecified site; I10 Essential (primary) hypertension; G90.09 Other idiopathic peripheral autonomic neuropathy; E78.00 Pure hypercholesterolemia, unspecified; Z01.810 Encounter for preprocedural cardiovascular examination ==

== ENCOUNTER → 2019-08-10 | Outpatient (CLI) | payer BC | LOC: WCC 13:06 | PROVIDERS: ATTEND Plastic Surgery | DX: E11.621 Type 2 diabetes mellitus with foot ulcer (principal); E11.65 Type 2 diabetes mellitus with hyperglycemia; A41.9 Sepsis, unspecified organism; M86.171 Other acute osteomyelitis, right ankle and foot; Y84.8 Other medical procedures as the cause of abnormal reaction of the patient, or of later complication, without mention of misadventure at the time of the procedure; L97.416 Non-pressure chronic ulcer of right heel and midfoot with bone involvement without evidence of necrosis; S90.821A Blister (nonthermal), right foot, initial encounter; L08.9 Local infection of the skin and subcutaneous tissue, unspecified; I73.89 Other specified peripheral vascular diseases; A49.8 Other bacterial infections of unspecified site; I10 Essential (primary) hypertension; G90.09 Other idiopathic peripheral autonomic neuropathy; E78.00 Pure hypercholesterolemia, unspecified; Z01.810 Encounter for preprocedural cardiovascular examination ==

== ENCOUNTER → 2019-08-13 | Outpatient (CLI) | payer BC | LOC: WCC 11:10 | PROVIDERS: ATTEND Plastic Surgery | DX: E11.621 Type 2 diabetes mellitus with foot ulcer (principal); E11.65 Type 2 diabetes mellitus with hyperglycemia; A41.9 Sepsis, unspecified organism; M86.171 Other acute osteomyelitis, right ankle and foot; Z94.5 Skin transplant status; Y84.8 Other medical procedures as the cause of abnormal reaction of the patient, or of later complication, without mention of misadventure at the time of the procedure; L97.416 Non-pressure chronic ulcer of right heel and midfoot with bone involvement without evidence of necrosis; I73.89 Other specified peripheral vascular diseases; S90.821A Blister (nonthermal), right foot, initial encounter; L08.89 Other specified local infections of the skin and subcutaneous tissue; A49.8 Other bacterial infections of unspecified site; I10 Essential (primary) hypertension; G90.09 Other idiopathic peripheral autonomic neuropathy; E78.00 Pure hypercholesterolemia, unspecified; Z01.810 Encounter for preprocedural cardiovascular examination | CPT/HCPCS: 36415; 82948; 97605; 99212; G0277 ==

== ENCOUNTER → 2019-08-14 | Outpatient (CLI) | payer BC | LOC: WCC 12:18 | PROVIDERS: ATTEND Plastic Surgery | DX: E11.621 Type 2 diabetes mellitus with foot ulcer (principal); E11.65 Type 2 diabetes mellitus with hyperglycemia; Z94.5 Skin transplant status; Y84.8 Other medical procedures as the cause of abnormal reaction of the patient, or of later complication, without mention of misadventure at the time of the procedure; A41.9 Sepsis, unspecified organism; M86.171 Other acute osteomyelitis, right ankle and foot; L97.416 Non-pressure chronic ulcer of right heel and midfoot with bone involvement without evidence of necrosis; I73.89 Other specified peripheral vascular diseases; S90.821A Blister (nonthermal), right foot, initial encounter; L08.89 Other specified local infections of the skin and subcutaneous tissue; I10 Essential (primary) hypertension; A49.8 Other bacterial infections of unspecified site; G90.09 Other idiopathic peripheral autonomic neuropathy; E78.00 Pure hypercholesterolemia, unspecified; Z01.810 Encounter for preprocedural cardiovascular examination ==

== ENCOUNTER → 2019-08-15 | Outpatient (CLI) | payer BC | LOC: WCC 10:46 | PROVIDERS: ATTEND Plastic Surgery | DX: E11.65 Type 2 diabetes mellitus with hyperglycemia (principal); Z94.5 Skin transplant status; A41.9 Sepsis, unspecified organism; Y84.8 Other medical procedures as the cause of abnormal reaction of the patient, or of later complication, without mention of misadventure at the time of the procedure; M86.171 Other acute osteomyelitis, right ankle and foot; G90.09 Other idiopathic peripheral autonomic neuropathy; A49.8 Other bacterial infections of unspecified site; S90.821A Blister (nonthermal), right foot, initial encounter; L08.9 Local infection of the skin and subcutaneous tissue, unspecified; I73.89 Other specified peripheral vascular diseases; I10 Essential (primary) hypertension; E78.00 Pure hypercholesterolemia, unspecified; Z01.810 Encounter for preprocedural cardiovascular examination ==

== ENCOUNTER → 2019-08-16 | Outpatient (CLI) | payer BC | LOC: WCC 14:34 | PROVIDERS: ATTEND Plastic Surgery | DX: E11.65 Type 2 diabetes mellitus with hyperglycemia (principal); Z94.5 Skin transplant status; A41.9 Sepsis, unspecified organism; Y84.8 Other medical procedures as the cause of abnormal reaction of the patient, or of later complication, without mention of misadventure at the time of the procedure; M86.171 Other acute osteomyelitis, right ankle and foot; I73.89 Other specified peripheral vascular diseases; S90.821A Blister (nonthermal), right foot, initial encounter; L08.9 Local infection of the skin and subcutaneous tissue, unspecified; A49.8 Other bacterial infections of unspecified site; I10 Essential (primary) hypertension; G90.09 Other idiopathic peripheral autonomic neuropathy; E78.00 Pure hypercholesterolemia, unspecified; Z01.810 Encounter for preprocedural cardiovascular examination ==

== ENCOUNTER → 2019-08-17 | Outpatient (CLI) | payer BC | LOC: WCC 12:21 | PROVIDERS: ATTEND Plastic Surgery | DX: E11.65 Type 2 diabetes mellitus with hyperglycemia (principal); Z94.5 Skin transplant status; A41.9 Sepsis, unspecified organism; M86.171 Other acute osteomyelitis, right ankle and foot; Y84.8 Other medical procedures as the cause of abnormal reaction of the patient, or of later complication, without mention of misadventure at the time of the procedure; G90.09 Other idiopathic peripheral autonomic neuropathy; A49.8 Other bacterial infections of unspecified site; S90.821A Blister (nonthermal), right foot, initial encounter; L08.9 Local infection of the skin and subcutaneous tissue, unspecified; I73.89 Other specified peripheral vascular diseases; I10 Essential (primary) hypertension; E78.00 Pure hypercholesterolemia, unspecified; Z01.810 Encounter for preprocedural cardiovascular examination | CPT/HCPCS: 97605; G0277 ==

== ENCOUNTER → 2019-08-20 | Outpatient (CLI) | payer BC ==
[2019-08-20 14:49] LABS: BASOPHILS # (AUTO) 0.1 (0.0-0.1); BASOPHILS % 0.8 % (0.0-1.0); EOSINOPHILS # (AUTO) 0.3 (0.0-0.4); EOSINOPHILS % 4.3 % (0.0-6.0); HEMATOCRIT 34.7 % (38.2-49.6); HEMOGLOBIN 11.6 g/dL (14.0-18.0); LYMPHOCYTES # (AUTO) 1.6 (1.0-3.2); LYMPHOCYTES % 21.8 % (18.0-39.1); MEAN CORPUSCULAR HEMOGLOBIN 29.4 pg (28-32); MEAN CORPUSCULAR HGB CONC 33.4 g/dL (31-35); MEAN CORPUSCULAR VOLUME 87.8 fL (81-99); MONOCYTES # (AUTO) 0.4 (0.2-0.8); MONOCYTES % 5.6 % (4.4-11.3); NEUTROPHILS # (AUTO) 4.8 (2.1-6.9); NEUTROPHILS % 67.1 % (38.7-80.0); PLATELET COUNT 232 x10e3/uL (140-360); RED BLOOD COUNT 3.95 x10e6/uL (4.3-5.7); RED CELL DISTRIBUTION WIDTH 12.5 % (11.7-14.4)
[2019-08-20 15:10] LABS: ALBUMIN 3.6 g/dL (3.5-5.0); ALBUMIN/GLOBULIN RATIO 0.9 (0.8-2.0); ANION GAP 16.5 mmol/L (8-16); CALCIUM 9.6 mg/dL (8.4-10.2); CREATININE, SERUM 1.4 mg/dL (0.72-1.25); POTASSIUM 4.5 mmol/L (3.5-5.1)
== END ==
LOC: WCC 13:03
PROVIDERS: ATTEND Plastic Surgery
DX: E11.621 Type 2 diabetes mellitus with foot ulcer (principal); E11.65 Type 2 diabetes mellitus with hyperglycemia; A41.9 Sepsis, unspecified organism; M86.171 Other acute osteomyelitis, right ankle and foot; Z94.5 Skin transplant status; Y84.8 Other medical procedures as the cause of abnormal reaction of the patient, or of later complication, without mention of misadventure at the time of the procedure; L97.421 Non-pressure chronic ulcer of left heel and midfoot limited to breakdown of skin; I73.89 Other specified peripheral vascular diseases; S90.821A Blister (nonthermal), right foot, initial encounter; I10 Essential (primary) hypertension; L08.89 Other specified local infections of the skin and subcutaneous tissue; A49.8 Other bacterial infections of unspecified site; G90.09 Other idiopathic peripheral autonomic neuropathy; E78.00 Pure hypercholesterolemia, unspecified; Z01.810 Encounter for preprocedural cardiovascular examination
CPT/HCPCS: 36415; 80053; 83036; 84134; 85025; 85651; 86140; 87071; 87075; 87205; 97605; 99212; G0277; 87186

== ENCOUNTER → 2019-08-20 | Outpatient (CLI) | payer BC ==
[~2019-08-20] MED LIST changes: +COLLAGENASE OINTMENT 30 GM TUBE ONE; +MUPIROCIN 2% OINT 22 GM TUBE ONE
== END ==
LOC: WCC 13:11 → EDSTATUS 13:29 → WCC 13:29
PROVIDERS: ATTEND Podiatrist Foot & Ankle Surgery
DX: E11.621 Type 2 diabetes mellitus with foot ulcer (principal); E11.65 Type 2 diabetes mellitus with hyperglycemia; A41.9 Sepsis, unspecified organism; M86.171 Other acute osteomyelitis, right ankle and foot; Z94.5 Skin transplant status; Y84.8 Other medical procedures as the cause of abnormal reaction of the patient, or of later complication, without mention of misadventure at the time of the procedure; L97.421 Non-pressure chronic ulcer of left heel and midfoot limited to breakdown of skin; I73.89 Other specified peripheral vascular diseases; S90.821A Blister (nonthermal), right foot, initial encounter; L08.89 Other specified local infections of the skin and subcutaneous tissue; A49.8 Other bacterial infections of unspecified site; I10 Essential (primary) hypertension; G90.09 Other idiopathic peripheral autonomic neuropathy; E78.00 Pure hypercholesterolemia, unspecified; Z01.810 Encounter for preprocedural cardiovascular examination

== ENCOUNTER → 2019-08-21 | Outpatient (CLI) | payer BC ==
[~2019-08-21] MED LIST changes: -COLLAGENASE OINTMENT 30 GM TUBE ONE; -MUPIROCIN 2% OINT 22 GM TUBE ONE
== END ==
LOC: WCC 13:08
PROVIDERS: ATTEND Plastic Surgery
DX: E11.621 Type 2 diabetes mellitus with foot ulcer (principal); E11.65 Type 2 diabetes mellitus with hyperglycemia; A41.9 Sepsis, unspecified organism; Z94.5 Skin transplant status; M86.171 Other acute osteomyelitis, right ankle and foot; Y84.8 Other medical procedures as the cause of abnormal reaction of the patient, or of later complication, without mention of misadventure at the time of the procedure; L97.421 Non-pressure chronic ulcer of left heel and midfoot limited to breakdown of skin; S90.821A Blister (nonthermal), right foot, initial encounter; I73.89 Other specified peripheral vascular diseases; L08.9 Local infection of the skin and subcutaneous tissue, unspecified; A49.8 Other bacterial infections of unspecified site; G90.09 Other idiopathic peripheral autonomic neuropathy; I10 Essential (primary) hypertension; E78.00 Pure hypercholesterolemia, unspecified; Z01.810 Encounter for preprocedural cardiovascular examination
CPT/HCPCS: 99212; G0277

== ENCOUNTER → 2019-08-22 | Outpatient (CLI) | payer BC | LOC: WCC 10:37 | PROVIDERS: ATTEND Plastic Surgery | DX: E11.621 Type 2 diabetes mellitus with foot ulcer (principal); E11.65 Type 2 diabetes mellitus with hyperglycemia; Z94.5 Skin transplant status; A41.9 Sepsis, unspecified organism; M86.171 Other acute osteomyelitis, right ankle and foot; Y84.8 Other medical procedures as the cause of abnormal reaction of the patient, or of later complication, without mention of misadventure at the time of the procedure; L97.421 Non-pressure chronic ulcer of left heel and midfoot limited to breakdown of skin; I73.89 Other specified peripheral vascular diseases; S90.821A Blister (nonthermal), right foot, initial encounter; L08.9 Local infection of the skin and subcutaneous tissue, unspecified; A49.8 Other bacterial infections of unspecified site; I10 Essential (primary) hypertension; G90.09 Other idiopathic peripheral autonomic neuropathy; E78.00 Pure hypercholesterolemia, unspecified; Z01.810 Encounter for preprocedural cardiovascular examination | CPT/HCPCS: 97605; 99213; G0277 ==

== ENCOUNTER → 2019-08-23 | Outpatient (CLI) | payer BC | LOC: WCC 10:51 | PROVIDERS: ATTEND Plastic Surgery | DX: E11.621 Type 2 diabetes mellitus with foot ulcer (principal); E11.65 Type 2 diabetes mellitus with hyperglycemia; Z94.5 Skin transplant status; A41.9 Sepsis, unspecified organism; M86.171 Other acute osteomyelitis, right ankle and foot; Y84.8 Other medical procedures as the cause of abnormal reaction of the patient, or of later complication, without mention of misadventure at the time of the procedure; L97.421 Non-pressure chronic ulcer of left heel and midfoot limited to breakdown of skin; S90.821A Blister (nonthermal), right foot, initial encounter; L08.9 Local infection of the skin and subcutaneous tissue, unspecified; A49.8 Other bacterial infections of unspecified site; G90.09 Other idiopathic peripheral autonomic neuropathy; I73.89 Other specified peripheral vascular diseases; I10 Essential (primary) hypertension; E78.00 Pure hypercholesterolemia, unspecified; Z01.810 Encounter for preprocedural cardiovascular examination ==

== ENCOUNTER → 2019-08-27 | Outpatient (CLI) | payer BC | LOC: WCC 12:25 | PROVIDERS: ATTEND Plastic Surgery | DX: E11.621 Type 2 diabetes mellitus with foot ulcer (principal); E11.65 Type 2 diabetes mellitus with hyperglycemia; A41.9 Sepsis, unspecified organism; M86.171 Other acute osteomyelitis, right ankle and foot; Z94.5 Skin transplant status; Y84.8 Other medical procedures as the cause of abnormal reaction of the patient, or of later complication, without mention of misadventure at the time of the procedure; L97.421 Non-pressure chronic ulcer of left heel and midfoot limited to breakdown of skin; I73.89 Other specified peripheral vascular diseases; S90.821A Blister (nonthermal), right foot, initial encounter; L08.89 Other specified local infections of the skin and subcutaneous tissue; A49.8 Other bacterial infections of unspecified site; I10 Essential (primary) hypertension; A49.02 Methicillin resistant Staphylococcus aureus infection, unspecified site; G90.09 Other idiopathic peripheral autonomic neuropathy; E78.00 Pure hypercholesterolemia, unspecified; Z01.810 Encounter for preprocedural cardiovascular examination | CPT/HCPCS: 99212; G0277 ==

== ENCOUNTER → 2019-08-28 | Outpatient (CLI) | payer BC | LOC: WCC 14:05 | PROVIDERS: ATTEND Plastic Surgery | DX: E11.621 Type 2 diabetes mellitus with foot ulcer (principal); E11.65 Type 2 diabetes mellitus with hyperglycemia; L97.421 Non-pressure chronic ulcer of left heel and midfoot limited to breakdown of skin; A41.9 Sepsis, unspecified organism; Y84.8 Other medical procedures as the cause of abnormal reaction of the patient, or of later complication, without mention of misadventure at the time of the procedure; Z94.5 Skin transplant status; M86.171 Other acute osteomyelitis, right ankle and foot; I73.89 Other specified peripheral vascular diseases; S90.821A Blister (nonthermal), right foot, initial encounter; L08.9 Local infection of the skin and subcutaneous tissue, unspecified; A49.8 Other bacterial infections of unspecified site; I10 Essential (primary) hypertension; G90.09 Other idiopathic peripheral autonomic neuropathy; A49.02 Methicillin resistant Staphylococcus aureus infection, unspecified site; E78.00 Pure hypercholesterolemia, unspecified; Z01.810 Encounter for preprocedural cardiovascular examination | CPT/HCPCS: 99212; G0277 ==

== ENCOUNTER → 2019-08-29 | Outpatient (CLI) | payer BC | LOC: WCC 14:09 | PROVIDERS: ATTEND Plastic Surgery | DX: E11.621 Type 2 diabetes mellitus with foot ulcer (principal); E11.65 Type 2 diabetes mellitus with hyperglycemia; Z94.5 Skin transplant status; M86.171 Other acute osteomyelitis, right ankle and foot; A41.9 Sepsis, unspecified organism; Y84.8 Other medical procedures as the cause of abnormal reaction of the patient, or of later complication, without mention of misadventure at the time of the procedure; L97.421 Non-pressure chronic ulcer of left heel and midfoot limited to breakdown of skin; S90.821A Blister (nonthermal), right foot, initial encounter; I73.89 Other specified peripheral vascular diseases; L08.9 Local infection of the skin and subcutaneous tissue, unspecified; A49.8 Other bacterial infections of unspecified site; I10 Essential (primary) hypertension; A49.02 Methicillin resistant Staphylococcus aureus infection, unspecified site; G90.09 Other idiopathic peripheral autonomic neuropathy; E78.00 Pure hypercholesterolemia, unspecified; Z01.810 Encounter for preprocedural cardiovascular examination ==

== ENCOUNTER → 2019-08-30 | Outpatient (CLI) | payer BC | LOC: WCC 10:45 | PROVIDERS: ATTEND Plastic Surgery | DX: E11.621 Type 2 diabetes mellitus with foot ulcer (principal); E11.65 Type 2 diabetes mellitus with hyperglycemia; Z94.5 Skin transplant status; M86.171 Other acute osteomyelitis, right ankle and foot; A41.9 Sepsis, unspecified organism; Y84.8 Other medical procedures as the cause of abnormal reaction of the patient, or of later complication, without mention of misadventure at the time of the procedure; L97.421 Non-pressure chronic ulcer of left heel and midfoot limited to breakdown of skin; I73.89 Other specified peripheral vascular diseases; S90.821A Blister (nonthermal), right foot, initial encounter; L08.9 Local infection of the skin and subcutaneous tissue, unspecified; A49.8 Other bacterial infections of unspecified site; I10 Essential (primary) hypertension; A49.02 Methicillin resistant Staphylococcus aureus infection, unspecified site; G90.09 Other idiopathic peripheral autonomic neuropathy; E78.00 Pure hypercholesterolemia, unspecified; Z01.810 Encounter for preprocedural cardiovascular examination ==

== ENCOUNTER → 2019-08-31 | Outpatient (CLI) | payer BC | LOC: WCC 13:07 | PROVIDERS: ATTEND Plastic Surgery | DX: E11.621 Type 2 diabetes mellitus with foot ulcer (principal); E11.65 Type 2 diabetes mellitus with hyperglycemia; A41.9 Sepsis, unspecified organism; M86.171 Other acute osteomyelitis, right ankle and foot; Z94.5 Skin transplant status; Y84.8 Other medical procedures as the cause of abnormal reaction of the patient, or of later complication, without mention of misadventure at the time of the procedure; L97.421 Non-pressure chronic ulcer of left heel and midfoot limited to breakdown of skin; I73.89 Other specified peripheral vascular diseases; S90.821A Blister (nonthermal), right foot, initial encounter; L08.89 Other specified local infections of the skin and subcutaneous tissue; I10 Essential (primary) hypertension; A49.02 Methicillin resistant Staphylococcus aureus infection, unspecified site; A49.8 Other bacterial infections of unspecified site; G90.09 Other idiopathic peripheral autonomic neuropathy; E78.00 Pure hypercholesterolemia, unspecified; Z01.810 Encounter for preprocedural cardiovascular examination ==

== ENCOUNTER → 2019-09-03 | Outpatient (CLI) | payer BC | LOC: WCC 13:14 | PROVIDERS: ATTEND Plastic Surgery | DX: E11.621 Type 2 diabetes mellitus with foot ulcer (principal); E11.65 Type 2 diabetes mellitus with hyperglycemia; A41.9 Sepsis, unspecified organism; M86.171 Other acute osteomyelitis, right ankle and foot; Z94.5 Skin transplant status; Y84.8 Other medical procedures as the cause of abnormal reaction of the patient, or of later complication, without mention of misadventure at the time of the procedure; L97.421 Non-pressure chronic ulcer of left heel and midfoot limited to breakdown of skin; S90.821A Blister (nonthermal), right foot, initial encounter; I73.89 Other specified peripheral vascular diseases; G90.09 Other idiopathic peripheral autonomic neuropathy; L08.9 Local infection of the skin and subcutaneous tissue, unspecified; A49.8 Other bacterial infections of unspecified site; I10 Essential (primary) hypertension; A49.02 Methicillin resistant Staphylococcus aureus infection, unspecified site; E78.00 Pure hypercholesterolemia, unspecified; Z01.810 Encounter for preprocedural cardiovascular examination ==

== ENCOUNTER → 2019-09-04 | Outpatient (CLI) | payer BC ==
--- NOTE | 2019-09-04 12:19 | NUR ---
arrived at [address] scheduled PICC line, pt just arrived, nurse still needs to consent pt with interpreting services, no current lab work, nurse just now sending off labs, anticipated wait time greater than 45 minutes, educated nurse Tiffany Dhillon to call DIT back once consent obtained, labs results, and pt ready and appropriate for PICC placement
[2019-09-04 12:24] LABS: INR 0.93
[2019-09-04 12:25] LABS: PARTIAL THROMBOPLASTIN TIME 28.6 seconds (23.8-35.5)
[2019-09-04 12:28] LABS: CREATININE, SERUM 1.97 mg/dL (0.72-1.25)
== END ==
LOC: DX 11:44
PROVIDERS: ATTEND Internal Medicine Infectious Disease
DX: E11.621 Type 2 diabetes mellitus with foot ulcer (principal); L97.421 Non-pressure chronic ulcer of left heel and midfoot limited to breakdown of skin
CPT/HCPCS: 36415; 82565; 84520; 85610; 85730

== ENCOUNTER → 2019-09-04 | Outpatient (CLI) | payer BC | LOC: WCC 09:23 | PROVIDERS: ATTEND Plastic Surgery | DX: E11.621 Type 2 diabetes mellitus with foot ulcer (principal); E11.65 Type 2 diabetes mellitus with hyperglycemia; A41.9 Sepsis, unspecified organism; M86.171 Other acute osteomyelitis, right ankle and foot; Z94.5 Skin transplant status; L97.421 Non-pressure chronic ulcer of left heel and midfoot limited to breakdown of skin; I73.89 Other specified peripheral vascular diseases; S90.821A Blister (nonthermal), right foot, initial encounter; A49.8 Other bacterial infections of unspecified site; L08.89 Other specified local infections of the skin and subcutaneous tissue; I10 Essential (primary) hypertension; G90.09 Other idiopathic peripheral autonomic neuropathy; A49.02 Methicillin resistant Staphylococcus aureus infection, unspecified site; E78.00 Pure hypercholesterolemia, unspecified; Y84.8 Other medical procedures as the cause of abnormal reaction of the patient, or of later complication, without mention of misadventure at the time of the procedure; Z01.810 Encounter for preprocedural cardiovascular examination ==

== ENCOUNTER → 2019-09-05 | Outpatient (CLI) | payer BC | LOC: WCC 10:12 | PROVIDERS: ATTEND Plastic Surgery | DX: E11.621 Type 2 diabetes mellitus with foot ulcer (principal); E11.65 Type 2 diabetes mellitus with hyperglycemia; Z94.5 Skin transplant status; M86.171 Other acute osteomyelitis, right ankle and foot; Y84.8 Other medical procedures as the cause of abnormal reaction of the patient, or of later complication, without mention of misadventure at the time of the procedure; A41.9 Sepsis, unspecified organism; L97.421 Non-pressure chronic ulcer of left heel and midfoot limited to breakdown of skin; I73.89 Other specified peripheral vascular diseases; S90.821A Blister (nonthermal), right foot, initial encounter; L08.9 Local infection of the skin and subcutaneous tissue, unspecified; A49.8 Other bacterial infections of unspecified site; A49.02 Methicillin resistant Staphylococcus aureus infection, unspecified site; G90.09 Other idiopathic peripheral autonomic neuropathy; I10 Essential (primary) hypertension; E78.00 Pure hypercholesterolemia, unspecified; Z01.810 Encounter for preprocedural cardiovascular examination ==

== ENCOUNTER → 2019-09-05 | Outpatient (CLI) | payer BC ==
[2019-09-05 08:35] LABS: CREATININE, SERUM 1.8 mg/dL (0.72-1.25)
--- NOTE | 2019-09-05 09:35 | Diagnostic Imaging Report ---
EXAM: CHEST X-RAY LINE PLACEMENT DATE: 09/05/2019 8:45 AM INDICATION: PICC line placement COMPARISON: 05/02/2019 FINDINGS: There is been interval placement of a right-sided PICC line with catheter tip terminating appropriately over the mid SVC. The trachea is midline. The lungs are symmetrically expanded without evidence for large focal consolidation, pneumothorax, or significant pleural effusion. The cardiomediastinal silhouette is stable in appearance. No acute osseous abnormality is identified. IMPRESSION: Right-sided PICC line identified with tip projecting over the SVC. Signed by: Dr. Chong Lindsay MD on 09/05/2019 9:32 AM
== END ==
LOC: DX 07:13
PROVIDERS: ATTEND Internal Medicine Infectious Disease
DX: E11.621 Type 2 diabetes mellitus with foot ulcer (principal); L97.421 Non-pressure chronic ulcer of left heel and midfoot limited to breakdown of skin
CPT/HCPCS: 36415; 36569; 71045; 82565; 84520

== ENCOUNTER → 2019-09-06 | Outpatient (CLI) | payer BC | LOC: WCC 11:53 | PROVIDERS: ATTEND Plastic Surgery | DX: E11.621 Type 2 diabetes mellitus with foot ulcer (principal); E11.65 Type 2 diabetes mellitus with hyperglycemia; A41.9 Sepsis, unspecified organism; Z94.5 Skin transplant status; Y84.8 Other medical procedures as the cause of abnormal reaction of the patient, or of later complication, without mention of misadventure at the time of the procedure; M86.171 Other acute osteomyelitis, right ankle and foot; L97.421 Non-pressure chronic ulcer of left heel and midfoot limited to breakdown of skin; I73.89 Other specified peripheral vascular diseases; S90.821A Blister (nonthermal), right foot, initial encounter; L08.9 Local infection of the skin and subcutaneous tissue, unspecified; A49.8 Other bacterial infections of unspecified site; I10 Essential (primary) hypertension; A49.02 Methicillin resistant Staphylococcus aureus infection, unspecified site; G90.09 Other idiopathic peripheral autonomic neuropathy; Z01.810 Encounter for preprocedural cardiovascular examination; E78.00 Pure hypercholesterolemia, unspecified ==

== ENCOUNTER → 2019-09-07 | Outpatient (CLI) | payer BC ==
--- NOTE | 2019-09-07 11:21 | Diagnostic Imaging Report ---
MRI of the left forefoot without contrast. History: Foot pain. Diabetic ulcer. Osteomyelitis of the big toe. Ulcer. Decreased range of motion. Technique: Multiplanar multisequence MRI of the forefoot without contrast Comparison: None Findings: Skin ulceration with abnormal soft tissue edema and underlying bone marrow edema in the distal medial aspect of the first metatarsal and adjacent proximal first toe. No well-formed drainable fluid collection/abscess is seen. The findings are consistent with osteomyelitis. Scattered degenerative change about the remaining visualized osseous structures. No acute fracture, dislocation or evidence of avascular necrosis. No ligamentous or tendon tear. The visualized muscles are normal in size, signal intensity and morphology. The visualized neurovascular bundles are intact. The hindfoot was not imaged. Impression: Skin ulceration with abnormal soft tissue edema and underlying bone marrow edema in the distal medial aspect of the first metatarsal and adjacent proximal first toe. No well-formed drainable fluid collection/abscess is seen. The findings are consistent with osteomyelitis. The hindfoot was not imaged. Signed by: Dr. Tristan Saravia M.D. on 09/07/2019 11:18 AM
== END ==
LOC: MRI 10:15
PROVIDERS: ATTEND Internal Medicine Infectious Disease
DX: E11.621 Type 2 diabetes mellitus with foot ulcer (principal); L97.421 Non-pressure chronic ulcer of left heel and midfoot limited to breakdown of skin

== ENCOUNTER → 2019-09-07 | Outpatient (CLI) | payer BC | LOC: WCC 10:52 | PROVIDERS: ATTEND Plastic Surgery | DX: E11.621 Type 2 diabetes mellitus with foot ulcer (principal); E11.65 Type 2 diabetes mellitus with hyperglycemia; Z94.5 Skin transplant status; A41.9 Sepsis, unspecified organism; Y84.8 Other medical procedures as the cause of abnormal reaction of the patient, or of later complication, without mention of misadventure at the time of the procedure; M86.171 Other acute osteomyelitis, right ankle and foot; L97.421 Non-pressure chronic ulcer of left heel and midfoot limited to breakdown of skin; S90.821A Blister (nonthermal), right foot, initial encounter; I73.89 Other specified peripheral vascular diseases; L08.9 Local infection of the skin and subcutaneous tissue, unspecified; A49.8 Other bacterial infections of unspecified site; I10 Essential (primary) hypertension; A49.02 Methicillin resistant Staphylococcus aureus infection, unspecified site; G90.09 Other idiopathic peripheral autonomic neuropathy; E78.00 Pure hypercholesterolemia, unspecified; Z01.810 Encounter for preprocedural cardiovascular examination ==

== ENCOUNTER → 2019-09-10 | Outpatient (CLI) | payer BC | LOC: WCC 10:11 | PROVIDERS: ATTEND Plastic Surgery | DX: E11.621 Type 2 diabetes mellitus with foot ulcer (principal); E11.65 Type 2 diabetes mellitus with hyperglycemia; Z94.5 Skin transplant status; M86.171 Other acute osteomyelitis, right ankle and foot; Y84.8 Other medical procedures as the cause of abnormal reaction of the patient, or of later complication, without mention of misadventure at the time of the procedure; L97.421 Non-pressure chronic ulcer of left heel and midfoot limited to breakdown of skin; I73.89 Other specified peripheral vascular diseases; S90.821A Blister (nonthermal), right foot, initial encounter; L08.9 Local infection of the skin and subcutaneous tissue, unspecified; A49.8 Other bacterial infections of unspecified site; I10 Essential (primary) hypertension; A49.02 Methicillin resistant Staphylococcus aureus infection, unspecified site; G90.09 Other idiopathic peripheral autonomic neuropathy; E78.00 Pure hypercholesterolemia, unspecified ==

== ENCOUNTER → 2019-09-11 | Outpatient (CLI) | payer BC, OTHER | LOC: WCC 10:10 | PROVIDERS: ATTEND Plastic Surgery | DX: E11.621 Type 2 diabetes mellitus with foot ulcer (principal); E11.65 Type 2 diabetes mellitus with hyperglycemia; A41.9 Sepsis, unspecified organism; Z94.5 Skin transplant status; Y84.8 Other medical procedures as the cause of abnormal reaction of the patient, or of later complication, without mention of misadventure at the time of the procedure; M86.171 Other acute osteomyelitis, right ankle and foot; L97.421 Non-pressure chronic ulcer of left heel and midfoot limited to breakdown of skin; S90.821A Blister (nonthermal), right foot, initial encounter; I73.89 Other specified peripheral vascular diseases; L08.9 Local infection of the skin and subcutaneous tissue, unspecified; A49.8 Other bacterial infections of unspecified site; G90.09 Other idiopathic peripheral autonomic neuropathy; I10 Essential (primary) hypertension; A49.02 Methicillin resistant Staphylococcus aureus infection, unspecified site; E78.00 Pure hypercholesterolemia, unspecified; Z01.810 Encounter for preprocedural cardiovascular examination ==

== ENCOUNTER → 2019-09-12 | Outpatient (CLI) | payer BC, OTHER ==
[~2019-09-12] MED LIST changes: +MINERAL OIL/PETROLAT/GLYCERI 6OZ BTL ONE
== END ==
LOC: WCC 10:59
PROVIDERS: ATTEND Plastic Surgery
DX: E11.621 Type 2 diabetes mellitus with foot ulcer (principal); E11.65 Type 2 diabetes mellitus with hyperglycemia; A41.9 Sepsis, unspecified organism; Z94.5 Skin transplant status; Y84.8 Other medical procedures as the cause of abnormal reaction of the patient, or of later complication, without mention of misadventure at the time of the procedure; M86.171 Other acute osteomyelitis, right ankle and foot; M86.8X7 Other osteomyelitis, ankle and foot; L97.421 Non-pressure chronic ulcer of left heel and midfoot limited to breakdown of skin; S90.821A Blister (nonthermal), right foot, initial encounter; I73.89 Other specified peripheral vascular diseases; L08.9 Local infection of the skin and subcutaneous tissue, unspecified; I10 Essential (primary) hypertension; A49.02 Methicillin resistant Staphylococcus aureus infection, unspecified site; G90.09 Other idiopathic peripheral autonomic neuropathy; E78.00 Pure hypercholesterolemia, unspecified; Z01.810 Encounter for preprocedural cardiovascular examination

== ENCOUNTER → 2019-09-13 | Outpatient (CLI) | payer BC, OTHER ==
[~2019-09-13] MED LIST changes: -MINERAL OIL/PETROLAT/GLYCERI 6OZ BTL ONE
== END ==
LOC: WCC 10:39
PROVIDERS: ATTEND Plastic Surgery
DX: E11.621 Type 2 diabetes mellitus with foot ulcer (principal); E11.65 Type 2 diabetes mellitus with hyperglycemia; Z94.5 Skin transplant status; A41.9 Sepsis, unspecified organism; Y84.8 Other medical procedures as the cause of abnormal reaction of the patient, or of later complication, without mention of misadventure at the time of the procedure; M86.8X7 Other osteomyelitis, ankle and foot; L97.421 Non-pressure chronic ulcer of left heel and midfoot limited to breakdown of skin; I73.89 Other specified peripheral vascular diseases; S90.821A Blister (nonthermal), right foot, initial encounter; L08.9 Local infection of the skin and subcutaneous tissue, unspecified; A49.8 Other bacterial infections of unspecified site; I10 Essential (primary) hypertension; A49.02 Methicillin resistant Staphylococcus aureus infection, unspecified site; G90.09 Other idiopathic peripheral autonomic neuropathy; E78.00 Pure hypercholesterolemia, unspecified; Z01.810 Encounter for preprocedural cardiovascular examination

== ENCOUNTER → 2019-09-14 | Day surgery (SDC) | payer BC, OTHER ==
[2019-09-10 13:37] LABS: BASOPHILS # (AUTO) 0.1 (0.0-0.1); BASOPHILS % 0.6 % (0.0-1.0); EOSINOPHILS # (AUTO) 0.3 (0.0-0.4); EOSINOPHILS % 2.7 % (0.0-6.0); HEMATOCRIT 29.7 % (38.2-49.6); HEMOGLOBIN 9.7 g/dL (14.0-18.0); LYMPHOCYTES # (AUTO) 1.6 (1.0-3.2); LYMPHOCYTES % 12.4 % (18.0-39.1); MEAN CORPUSCULAR HEMOGLOBIN 29.2 pg (28-32); MEAN CORPUSCULAR HGB CONC 32.7 g/dL (31-35); MEAN CORPUSCULAR VOLUME 89.5 fL (81-99); MONOCYTES # (AUTO) 0.7 (0.2-0.8); MONOCYTES % 5.9 % (4.4-11.3); NEUTROPHILS # (AUTO) 9.8 (2.1-6.9); NEUTROPHILS % 77.7 % (38.7-80.0); PLATELET COUNT 338 x10e3/uL (140-360); RED BLOOD COUNT 3.32 x10e6/uL (4.3-5.7); RED CELL DISTRIBUTION WIDTH 11.9 % (11.7-14.4)
[2019-09-10 14:04] LABS: ALANINE AMINOTRANSFERASE 16 IU/L (0-55); ALBUMIN/GLOBULIN RATIO 0.6 (0.8-2.0); ALKALINE PHOSPHATASE 140 IU/L (40-150); BLOOD UREA NITROGEN 27 mg/dL (7-26); BUN/CREATININE RATIO 22 (6-25); CARBON DIOXIDE 27 mmol/L (22-29); CHLORIDE 103 mmol/L (98-107); CREATININE, SERUM 1.25 mg/dL (0.72-1.25); EST GLOMERULAR FILTRATION RATE > 60 ML/MIN (60-); GLUCOSE 264 mg/dL (74-118); SODIUM 139 mmol/L (136-145)
[2019-09-14] VITALS (16 sets, daily range): BP systolic 128–180; BP diastolic 66–108
[~2019-09-14] VITALS: Ht 172.7 cm; Wt 71.7 kg
[~2019-09-14] MED LIST changes: +ADENOSINE 6MG/2ML 1 ML ONE; +ALPRAZOLAM 0.5 MG TAB ONE; +ASPIRIN 325 MG TAB ONE; +CEFAZOLIN SOD 1 GM VIAL ONE; +DIPHENHYDRAMINE HCL 25 MG CAP ONE; +FENTANYL CITRATE/PF 100MCG/2 ML INJ ONE; +HEPARIN SOD/SOD CHLORIDE 2,000 ML ONE; +IOPAMIDOL 300MG/ML 100 ML INFUS..BTL IV ONE; +LIDOCAINE HCL 2% LOCAL 20 ML VIAL ONE; +MIDAZOLAM HCL 2 MG/2 ML VIAL ONE; +PRASUGREL 10 MG TAB ONE; +SODIUM CHLORIDE 0.9% 1000ML 1,000 ML ONE; +SODIUM CHLORIDE 0.9% 50ML 50 ML ONE; +VERAPAMIL HCL 2.5 MG/ML 2 ML VIAL ONE
--- NOTE | 2019-09-14 12:12 | NUR ---
1212pm RECEIVING NOTE UTILITY LOCATE TECHNICIAN RECOVERY DEPT............................................................... Bedside report received from Laurie SILVA. Identifierx2. Alert oriented and appropriate, PERRLA, respirations even and unlabored to room air. Pulses x4 extremities equal and strong. Pedal pulses PT/DP X4 and marked. Cap fill brisk < 3 sec. Left sheath on place No gross issues pain pallor pressure or dysrhythmia.Act due at 1245 then sheath pull and dc 5hrs post stasis. Skin warm and dry integrity appears D/I IV 20g to left arm iv infusing, presents healthy w/o s/s of infiltration or complaint.Rt picc line intact w/o s/s of issues.1 gram ANCEF ivpb.. Abdomen soft and supple. pt offered toileting, denies need to urinate or defecate. No personal affects with patient. Family at bedside.. Pt and family verbalizes understanding of POC. Currently w/o complaint of pain or need. ds/rn
--- NOTE | 2019-09-14 12:29 | Operative Report ---
DATE OF PROCEDURE: 09/14/2019 SURGEON: Rolando Davenport MD INDICATION: Peripheral arterial disease, ulceration, and critical limb ischemia of the left lower extremity. PROCEDURES PERFORMED: 1. Conscious sedation, 65 minutes. 2. Ultrasound-guided access with sheath placement. 3. Angiographic third-order catheter placement in the left lower extremity with unilateral extremity angiogram. 4. Atherectomy and angioplasty of the left anterior tibial artery. 5. Secondary thrombectomy of the left anterior tibial artery. COMPLICATIONS: None. BLOOD LOSS: 5 mL. RECOMMENDATIONS: Dual antiplatelet therapy for life. DESCRIPTION OF PROCEDURE: Access obtained in the left common femoral artery using ultrasound guidance. A 6-Chinese 23 cm sheath was placed. The patient received 8000 units of intravenous heparin, oral aspirin, and prasugrel for anticoagulation. Complete occlusion of the distal left posterior tibial artery, complete occlusion of the entire length of the left anterior tibial artery. Femoral-popliteal arteries had no peripheral arterial disease. The chronic total occlusion of the left anterior tibial artery was crossed using a whisper wire. The wire was exchanged to a ViperWire. Orbital atherectomy was performed. Large amounts of visible thrombus. Manual aspiration thrombectomy using an export catheter. Balloon angioplasty with 2.5 mm balloon. Excellent end result with flow into the left dorsalis pedis artery. No complications. Sheath removed under manual pressure. The patient discharged home. Rolando Davenport MD KSB/MODL /[id number]
--- NOTE | 2019-09-14 12:45 | NUR ---
1245 ACT resulted reported to technologist. ds/rn
--- NOTE | 2019-09-14 13:19 | NUR ---
1319p Jaydon SILVA at bedside. Pulled sheath. RICARDO Sullivan at standby.NO gross issues pain,pallor,pressure or dysrhythmia.Stasis achieved at 1345p 15minute hold and d-stat and clear Tegaderm dressing. Unable to assess pulses Bilateral dressing intact.No gross issues with bleeding. 1319p AK 78, R-18,B/p131/86 manual pressure in progress NO issues 1320p AK 89,R-20,B/p 150/87 " " " " " " 1325p AK 78,R-22,B/p 137/87 " " " " " " 1330p AK 78,R-18,B/p 133/74 " " " " " " 1335p AK 77,R-20,B/p 143/77 " " " " " " STASIS ACHIEVED ok DC home at 1835pm, sc teaching done with and papers signed and given to her. 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
--- NOTE | 2019-09-14 18:35 | NUR ---
1835pm TEXTILE COLORIST FORMULATOR RECOVERY DISCHARGE NURSING NOTE Pt meets DC criteria. Left groin assessed for s/s of complication and presence of hematoma. Skin warm, dry, no discolor, and pulses present. IV removed from left wrist Distal tip appears intact.PICC intact and dressing remains in place. VS WNL. Pt denies pain, sob, or need at this time. Family at XXXXX. Review of discharge paperwork and follow up instructions. verbalized understanding. Pt to wheelchair and transported to front of hospital. Transferred to private vehicle under own strength w/o incident with DC paperwork in hand. - ds/rn
== END | disposition home or self-care (01) ==
LOC: CATH LAB 08:17
PROVIDERS: ATTEND Internal Medicine Interventional Cardiology
DX: I70.249 Atherosclerosis of native arteries of left leg with ulceration of unspecified site (principal); I70.92 Chronic total occlusion of artery of the extremities; I20.8 Other forms of angina pectoris; E11.52 Type 2 diabetes mellitus with diabetic peripheral angiopathy with gangrene; I96 Gangrene, not elsewhere classified; E78.00 Pure hypercholesterolemia, unspecified; Z01.812 Encounter for preprocedural laboratory examination; Z11.59 Encounter for screening for other viral diseases; Z79.02 Long term (current) use of antithrombotics/antiplatelets; Z79.82 Long term (current) use of aspirin; Z79.84 Long term (current) use of oral hypoglycemic drugs; Z82.49 Family history of ischemic heart disease and other diseases of the circulatory system
CPT/HCPCS: 36415; 37186; 37229; 76937; 80053; 85025; C1724; C1725; C1757; C1766; C1769 ×3; C1887; J0153; J0690; J2001; J2250; J3010; J7030; Q9967; U0002; 36247; 37228; 75710; 99152; 99153

== ENCOUNTER → 2019-09-17 | Outpatient (CLI) | payer BC, OTHER ==
[~2019-09-17] MED LIST changes: -ADENOSINE 6MG/2ML 1 ML ONE; -ALPRAZOLAM 0.5 MG TAB ONE; -ASPIRIN 325 MG TAB ONE; -CEFAZOLIN SOD 1 GM VIAL ONE; -DIPHENHYDRAMINE HCL 25 MG CAP ONE; -FENTANYL CITRATE/PF 100MCG/2 ML INJ ONE; -HEPARIN SOD/SOD CHLORIDE 2,000 ML ONE; -IOPAMIDOL 300MG/ML 100 ML INFUS..BTL IV ONE; -LIDOCAINE HCL 2% LOCAL 20 ML VIAL ONE; -MIDAZOLAM HCL 2 MG/2 ML VIAL ONE; -PRASUGREL 10 MG TAB ONE; -SODIUM CHLORIDE 0.9% 1000ML 1,000 ML ONE; -SODIUM CHLORIDE 0.9% 50ML 50 ML ONE; -VERAPAMIL HCL 2.5 MG/ML 2 ML VIAL ONE
== END ==
LOC: WCC 13:36
PROVIDERS: ATTEND Plastic Surgery
DX: E11.621 Type 2 diabetes mellitus with foot ulcer (principal); E11.65 Type 2 diabetes mellitus with hyperglycemia; Z94.5 Skin transplant status; A41.9 Sepsis, unspecified organism; Y84.8 Other medical procedures as the cause of abnormal reaction of the patient, or of later complication, without mention of misadventure at the time of the procedure; M86.8X7 Other osteomyelitis, ankle and foot; L97.421 Non-pressure chronic ulcer of left heel and midfoot limited to breakdown of skin; I73.89 Other specified peripheral vascular diseases; S90.821A Blister (nonthermal), right foot, initial encounter; L08.89 Other specified local infections of the skin and subcutaneous tissue; I10 Essential (primary) hypertension; A49.02 Methicillin resistant Staphylococcus aureus infection, unspecified site; A49.8 Other bacterial infections of unspecified site; G90.09 Other idiopathic peripheral autonomic neuropathy; E78.00 Pure hypercholesterolemia, unspecified; Z01.810 Encounter for preprocedural cardiovascular examination

== ENCOUNTER → 2019-09-18 | Outpatient (CLI) | payer BC, OTHER | LOC: WCC 11:10 | PROVIDERS: ATTEND Plastic Surgery | DX: E11.621 Type 2 diabetes mellitus with foot ulcer (principal); E11.65 Type 2 diabetes mellitus with hyperglycemia; Z94.5 Skin transplant status; A41.9 Sepsis, unspecified organism; M86.8X7 Other osteomyelitis, ankle and foot; Y84.8 Other medical procedures as the cause of abnormal reaction of the patient, or of later complication, without mention of misadventure at the time of the procedure; L97.421 Non-pressure chronic ulcer of left heel and midfoot limited to breakdown of skin; S90.821A Blister (nonthermal), right foot, initial encounter; L08.9 Local infection of the skin and subcutaneous tissue, unspecified; A49.8 Other bacterial infections of unspecified site; G90.09 Other idiopathic peripheral autonomic neuropathy; I73.89 Other specified peripheral vascular diseases; I10 Essential (primary) hypertension; A49.02 Methicillin resistant Staphylococcus aureus infection, unspecified site; E78.00 Pure hypercholesterolemia, unspecified; Z01.810 Encounter for preprocedural cardiovascular examination ==

== ENCOUNTER → 2019-09-19 | Outpatient (CLI) | payer BC, OTHER | LOC: WCC 08:53 | PROVIDERS: ATTEND Plastic Surgery | DX: E11.621 Type 2 diabetes mellitus with foot ulcer (principal); E11.65 Type 2 diabetes mellitus with hyperglycemia; Z94.5 Skin transplant status; A41.9 Sepsis, unspecified organism; Y84.8 Other medical procedures as the cause of abnormal reaction of the patient, or of later complication, without mention of misadventure at the time of the procedure; M86.8X7 Other osteomyelitis, ankle and foot; L97.421 Non-pressure chronic ulcer of left heel and midfoot limited to breakdown of skin; I73.89 Other specified peripheral vascular diseases; S90.821A Blister (nonthermal), right foot, initial encounter; L08.9 Local infection of the skin and subcutaneous tissue, unspecified; A49.8 Other bacterial infections of unspecified site; A49.02 Methicillin resistant Staphylococcus aureus infection, unspecified site; I10 Essential (primary) hypertension; G90.09 Other idiopathic peripheral autonomic neuropathy; E78.00 Pure hypercholesterolemia, unspecified; Z01.810 Encounter for preprocedural cardiovascular examination ==

== ENCOUNTER → 2019-09-20 | Outpatient (CLI) | payer BC, OTHER | LOC: WCC 12:34 | PROVIDERS: ATTEND Family Medicine Adult Medicine | DX: E11.621 Type 2 diabetes mellitus with foot ulcer (principal); E11.65 Type 2 diabetes mellitus with hyperglycemia; A41.9 Sepsis, unspecified organism; Z94.5 Skin transplant status; M86.8X7 Other osteomyelitis, ankle and foot; L97.421 Non-pressure chronic ulcer of left heel and midfoot limited to breakdown of skin; L89.896 Pressure-induced deep tissue damage of other site; I73.89 Other specified peripheral vascular diseases; S90.821A Blister (nonthermal), right foot, initial encounter; L08.9 Local infection of the skin and subcutaneous tissue, unspecified; A49.8 Other bacterial infections of unspecified site; A49.02 Methicillin resistant Staphylococcus aureus infection, unspecified site; G90.09 Other idiopathic peripheral autonomic neuropathy; I10 Essential (primary) hypertension; E78.00 Pure hypercholesterolemia, unspecified; Z74.01 Bed confinement status; Z01.810 Encounter for preprocedural cardiovascular examination ==

== ENCOUNTER → 2019-09-21 | Outpatient (CLI) | payer BC, OTHER | LOC: WCC 12:23 | PROVIDERS: ATTEND Plastic Surgery | DX: E11.621 Type 2 diabetes mellitus with foot ulcer (principal); E11.65 Type 2 diabetes mellitus with hyperglycemia; A41.9 Sepsis, unspecified organism; Z94.5 Skin transplant status; M86.8X7 Other osteomyelitis, ankle and foot; L89.896 Pressure-induced deep tissue damage of other site; L97.421 Non-pressure chronic ulcer of left heel and midfoot limited to breakdown of skin; I73.89 Other specified peripheral vascular diseases; S90.821A Blister (nonthermal), right foot, initial encounter; L08.9 Local infection of the skin and subcutaneous tissue, unspecified; A49.8 Other bacterial infections of unspecified site; A49.02 Methicillin resistant Staphylococcus aureus infection, unspecified site; I10 Essential (primary) hypertension; G90.09 Other idiopathic peripheral autonomic neuropathy; E78.00 Pure hypercholesterolemia, unspecified; Z74.01 Bed confinement status; Z01.810 Encounter for preprocedural cardiovascular examination ==

== ENCOUNTER → 2019-09-24 | Outpatient (CLI) | payer BC, OTHER | LOC: WCC 14:17 | PROVIDERS: ATTEND Plastic Surgery | DX: E11.621 Type 2 diabetes mellitus with foot ulcer (principal); E11.65 Type 2 diabetes mellitus with hyperglycemia; Z94.5 Skin transplant status; A41.9 Sepsis, unspecified organism; M86.8X7 Other osteomyelitis, ankle and foot; Y84.8 Other medical procedures as the cause of abnormal reaction of the patient, or of later complication, without mention of misadventure at the time of the procedure; L89.896 Pressure-induced deep tissue damage of other site; L97.421 Non-pressure chronic ulcer of left heel and midfoot limited to breakdown of skin; S90.821A Blister (nonthermal), right foot, initial encounter; I73.89 Other specified peripheral vascular diseases; A49.02 Methicillin resistant Staphylococcus aureus infection, unspecified site; A49.8 Other bacterial infections of unspecified site; L08.9 Local infection of the skin and subcutaneous tissue, unspecified; G90.09 Other idiopathic peripheral autonomic neuropathy; I10 Essential (primary) hypertension; E78.00 Pure hypercholesterolemia, unspecified; Z01.810 Encounter for preprocedural cardiovascular examination; Z74.01 Bed confinement status ==

== ENCOUNTER → 2019-09-25 | Day surgery (SDC) | payer BC, OTHER ==
[2019-09-21 13:50] LABS: BASOPHILS # (AUTO) 0.1 (0.0-0.1); BASOPHILS % 0.7 % (0.0-1.0); EOSINOPHILS # (AUTO) 0.9 (0.0-0.4); EOSINOPHILS % 6.8 % (0.0-6.0); HEMOGLOBIN 9.7 g/dL (14.0-18.0); LYMPHOCYTES % 15.4 % (18.0-39.1); MEAN CORPUSCULAR HEMOGLOBIN 28.6 pg (28-32); MEAN CORPUSCULAR HGB CONC 32.3 g/dL (31-35); MEAN CORPUSCULAR VOLUME 88.5 fL (81-99); MONOCYTES # (AUTO) 0.9 (0.2-0.8); MONOCYTES % 7.2 % (4.4-11.3); NEUTROPHILS # (AUTO) 8.8 (2.1-6.9); NEUTROPHILS % 69.2 % (38.7-80.0); PLATELET COUNT 304 x10e3/uL (140-360); RED BLOOD COUNT 3.39 x10e6/uL (4.3-5.7); RED CELL DISTRIBUTION WIDTH 11.9 % (11.7-14.4)
[2019-09-21 14:18] LABS: ANION GAP 14.1 mmol/L (8-16); CALCIUM 9.5 mg/dL (8.4-10.2); CREATININE, SERUM 1.31 mg/dL (0.72-1.25); POTASSIUM 5.1 mmol/L (3.5-5.1)
[~2019-09-25] MED LIST changes: +BACITRACIN 50,000 UNIT VIAL ONE; +BUPIVACAINE HCL 0.5% INJ 30 ML VIAL INJ ONE; +CEFAZOLIN SOD 1 GM/NS 50ML 100 ML IV ONE; +EPHEDRINE SULFATE INJ 50 MG/ML VIAL ONE; +INSULIN REGULAR, HUMAN 100 UNIT/1 ML 3ML VIAL ONE; +LIDOCAINE HCL 2% LOCAL INJ 5 ML SDV VIAL INJ ONE; +ONDANSETRON HCL INJ 2MG/ML 2ML 2 MG/ML VIAL ONE; +PROPOFOL IV EMULSION 10 MG/ML 20 ML VIAL ONE; +SEVOFLURANE INHAL SOLN 250 ML PEN BTL ONE
[2019-09-25 12:30] VITALS: BP 147/93
--- NOTE | 2019-09-25 17:26 | NUR ---
WOUND CARE INITIAL CONSULT FOR 49 YO MALE ADMITTED TO [facility] FOR A LEFT FIRST MET HEAD SURGICAL DEBRIDEMENT AND GRAFT APPLICATION AND KCI WOUND VAC APPLICATION. WBC 12.73 HGB 9.7 GLUCOSE 218 RECEIVED PT FROM OR TO PACU BAY 7 ON STRETCHER TO APPLY A KCI WOUND VAC TO LEFT FIRST MET HEAD POST SURGICAL DEBRIDEMENT AND GRAFT APPLICATION BY DR. HERNANDEZ. DR. HERNANDEZ PROTECTED GRAFT APPLICATION TO WOUND WITH ADAPTIC AND SECURED WITH SURGICAL MACK IN PLACE. PERIWOUND AND GOOD SKIN PROTECTED WITH DRAPE; BLACK SPONGE APPLIED TO BASE OF PROTECTIVE ADAPTIC; SEALED AND APPLIED NEGATIVE PRESSURE WOUND THERAPY AT 125 mmgh CONTINUOUSLY. SEALED ACHIEVED. PT TOLERATED PROCEDURE WELL. PT IS INSTRUCTED TO CHARGE WOUND VAC WHILE AT HOME , TO SEAL WITH PROVIDED TAPE IF A LEAK IS PRESENT, IF UNABLE TO MAINTAIN A SEAL FOR MORE THAN 2 HOURS; NOTIFY MD AND OUT PATIENT WOUND CARE CENTER; REMOVE DRESSING AND TO APPLY A DRY DRESSING. PT AND PRESENT VERBALIZED UNDERSTANDING. APPLIED FOAM TO LEFT 5TH LATERAL MET HEAD CALLUS AREA. PT IS INSTRUCTED TO LEAVE WOUND VAC FOR 7 [address]IL SEEN AT [facility] OUTPATIENT WOUND CARE CENTER. THANK YOU FOR THIS CONSULTATION. Addendum: 09/25/19 at 1730 by Tracie Barrientos RN Amended: Links added.
--- NOTE | 2019-09-25 19:46 | Operative Report ---
DATE OF PROCEDURE: 09/25/2019 SURGEON: Naomi Lopez DPM PREOPERATIVE DIAGNOSES: 1. Gangrene, diabetic foot ulcer, grade 4, left foot. 2. 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 POSTOPERATIVE DIAGNOSES: 1. Gangrene, diabetic foot ulcer, grade 4, left foot. 2. 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 PROCEDURES: Debridement of the 1st metatarsal to include bone with application of AmnioFill and wound VAC, left foot. PATHOLOGY: Bone cultures and sensitivities. ANESTHESIA: General anesthetic. HEMOSTASIS: None. ESTIMATED BLOOD LOSS: Less than 10 mL. MATERIALS: AmnioFill 2000 mg, expires 12/12/2022. COMPLICATIONS: None. CONDITION: Stable. PROCEDURE IN DETAIL: Under mild sedation, the patient was brought to the operating room, placed on the operating table in supine position. Following IV sedation, anesthesia was obtained with a general anesthetic. At this point, the left foot scrubbed, prepped, and draped in the usual aseptic manner; it was then low were to the table. Attention was directed to the medial aspect of the left foot, where utilizing a combination of #15 blade and bone rongeur, all nonviable tissue to include bone was removed. The area was then cleaned down to clean viable granular tissue. Bone cultures and sensitivity were taken. Copious irrigation was then performed with pressure plug saw operator. After the area was debrided down to clean viable tissue, AmnioFill was then used to fill the void, it was then secured with Adaptic and a skin stapler. Dressing consisting a wound VAC will be a PACU in the OR, 4x4s, Kerlix, and an Rashi bandage. The patient tolerated the procedure and anesthesia well without complications, was transported to recovery room with vital signs stable and vascular status intact on change. The patient was discharged home when he meets criteria. He was given instructions to be nonweightbearing, to follow up with me in the office in Wound Care, to call the office if any questions, concerns, or new problems arise. Naomi Lopez DPM ER/MODL /[id number]
== END | disposition home or self-care (01) ==
LOC: OR 08:51
PROVIDERS: ATTEND Podiatrist Foot & Ankle Surgery
DX: E11.40 Type 2 diabetes mellitus with diabetic neuropathy, unspecified (principal); I96 Gangrene, not elsewhere classified; E11.621 Type 2 diabetes mellitus with foot ulcer; E11.52 Type 2 diabetes mellitus with diabetic peripheral angiopathy with gangrene; I11.0 Hypertensive heart disease with heart failure; I50.9 Heart failure, unspecified; K21.9 Gastro-esophageal reflux disease without esophagitis; Z01.812 Encounter for preprocedural laboratory examination; Z11.59 Encounter for screening for other viral diseases; Z79.84 Long term (current) use of oral hypoglycemic drugs; Z79.02 Long term (current) use of antithrombotics/antiplatelets; Z79.82 Long term (current) use of aspirin; Z79.4 Long term (current) use of insulin
CPT/HCPCS: 11044; 36415 ×2; 80048; 82948; 85025; 87071; 87075; 87186; 87205; 97606; J0690; J2001; J2405; J2704; Q4100; U0002; J1817

== ENCOUNTER → 2019-09-27 | Outpatient (CLI) | payer BC, OTHER ==
[~2019-09-27] MED LIST changes: -BACITRACIN 50,000 UNIT VIAL ONE; -BUPIVACAINE HCL 0.5% INJ 30 ML VIAL INJ ONE; -CEFAZOLIN SOD 1 GM/NS 50ML 100 ML IV ONE; -EPHEDRINE SULFATE INJ 50 MG/ML VIAL ONE; -INSULIN REGULAR, HUMAN 100 UNIT/1 ML 3ML VIAL ONE; -LIDOCAINE HCL 2% LOCAL INJ 5 ML SDV VIAL INJ ONE; -ONDANSETRON HCL INJ 2MG/ML 2ML 2 MG/ML VIAL ONE; -PROPOFOL IV EMULSION 10 MG/ML 20 ML VIAL ONE; -SEVOFLURANE INHAL SOLN 250 ML PEN BTL ONE
== END ==
LOC: WCC 09:55
PROVIDERS: ATTEND Plastic Surgery
DX: E11.621 Type 2 diabetes mellitus with foot ulcer (principal); E11.65 Type 2 diabetes mellitus with hyperglycemia; A41.9 Sepsis, unspecified organism; Z94.5 Skin transplant status; M86.8X7 Other osteomyelitis, ankle and foot; L89.896 Pressure-induced deep tissue damage of other site; L97.421 Non-pressure chronic ulcer of left heel and midfoot limited to breakdown of skin; I73.89 Other specified peripheral vascular diseases; A49.8 Other bacterial infections of unspecified site; L08.9 Local infection of the skin and subcutaneous tissue, unspecified; G90.09 Other idiopathic peripheral autonomic neuropathy; S90.821A Blister (nonthermal), right foot, initial encounter; I10 Essential (primary) hypertension; A49.02 Methicillin resistant Staphylococcus aureus infection, unspecified site; E78.00 Pure hypercholesterolemia, unspecified; Z74.01 Bed confinement status; Z01.810 Encounter for preprocedural cardiovascular examination
CPT/HCPCS: 99212; G0277

== ENCOUNTER → 2019-09-28 | Outpatient (CLI) | payer BC, OTHER | LOC: WCC 11:01 | PROVIDERS: ATTEND Plastic Surgery | DX: E11.621 Type 2 diabetes mellitus with foot ulcer (principal); E11.65 Type 2 diabetes mellitus with hyperglycemia; Z94.5 Skin transplant status; A41.9 Sepsis, unspecified organism; M86.8X7 Other osteomyelitis, ankle and foot; Y84.8 Other medical procedures as the cause of abnormal reaction of the patient, or of later complication, without mention of misadventure at the time of the procedure; L89.896 Pressure-induced deep tissue damage of other site; L97.421 Non-pressure chronic ulcer of left heel and midfoot limited to breakdown of skin; I73.89 Other specified peripheral vascular diseases; S90.821A Blister (nonthermal), right foot, initial encounter; L08.89 Other specified local infections of the skin and subcutaneous tissue; A49.8 Other bacterial infections of unspecified site; G90.09 Other idiopathic peripheral autonomic neuropathy; I10 Essential (primary) hypertension; A49.02 Methicillin resistant Staphylococcus aureus infection, unspecified site; E78.00 Pure hypercholesterolemia, unspecified; Z01.810 Encounter for preprocedural cardiovascular examination; Z74.01 Bed confinement status | CPT/HCPCS: 99212; G0277 ==

== ENCOUNTER → 2019-10-01 | Outpatient (CLI) | payer BC, OTHER | LOC: WCC 12:52 | PROVIDERS: ATTEND Plastic Surgery | DX: E11.621 Type 2 diabetes mellitus with foot ulcer (principal); E11.65 Type 2 diabetes mellitus with hyperglycemia; Z94.5 Skin transplant status; L89.896 Pressure-induced deep tissue damage of other site; A41.9 Sepsis, unspecified organism; Y84.8 Other medical procedures as the cause of abnormal reaction of the patient, or of later complication, without mention of misadventure at the time of the procedure; M86.8X7 Other osteomyelitis, ankle and foot; L97.421 Non-pressure chronic ulcer of left heel and midfoot limited to breakdown of skin; I73.89 Other specified peripheral vascular diseases; S90.821A Blister (nonthermal), right foot, initial encounter; G90.09 Other idiopathic peripheral autonomic neuropathy; L08.89 Other specified local infections of the skin and subcutaneous tissue; I10 Essential (primary) hypertension; B96.5 Pseudomonas (aeruginosa) (mallei) (pseudomallei) as the cause of diseases classified elsewhere; E78.00 Pure hypercholesterolemia, unspecified; Z01.810 Encounter for preprocedural cardiovascular examination; Z74.01 Bed confinement status | CPT/HCPCS: 99212; G0277 ==

== ENCOUNTER → 2019-10-02 | Outpatient (CLI) | payer BC, OTHER ==
[2019-10-02 12:41] LABS: BASOPHILS # (AUTO) 0.1 (0.0-0.1); BASOPHILS % 0.9 % (0.0-1.0); EOSINOPHILS # (AUTO) 0.4 (0.0-0.4); HEMOGLOBIN 10.1 g/dL (14.0-18.0); LYMPHOCYTES # (AUTO) 1.9 (1.0-3.2); LYMPHOCYTES % 15.9 % (18.0-39.1); MEAN CORPUSCULAR HEMOGLOBIN 28.9 pg (28-32); MEAN CORPUSCULAR HGB CONC 32.6 g/dL (31-35); MEAN CORPUSCULAR VOLUME 88.6 fL (81-99); MONOCYTES # (AUTO) 0.8 (0.2-0.8); MONOCYTES % 6.6 % (4.4-11.3); NEUTROPHILS # (AUTO) 8.7 (2.1-6.9); NEUTROPHILS % 73.1 % (38.7-80.0); PLATELET COUNT 334 x10e3/uL (140-360); RED CELL DISTRIBUTION WIDTH 11.7 % (11.7-14.4)
[2019-10-02 12:57] LABS: BLOOD UREA NITROGEN 29 mg/dL (7-26); BUN/CREATININE RATIO 25 (6-25); CREATINE KINASE 69 IU/L (30-200); CREATININE, SERUM 1.18 mg/dL (0.72-1.25); EST GLOMERULAR FILTRATION RATE > 60 ML/MIN (60-)
== END ==
LOC: WCC 09:34
PROVIDERS: ATTEND Podiatrist Foot & Ankle Surgery
DX: E11.621 Type 2 diabetes mellitus with foot ulcer (principal); E11.65 Type 2 diabetes mellitus with hyperglycemia; A41.9 Sepsis, unspecified organism; Z94.5 Skin transplant status; L89.896 Pressure-induced deep tissue damage of other site; M86.8X7 Other osteomyelitis, ankle and foot; L97.421 Non-pressure chronic ulcer of left heel and midfoot limited to breakdown of skin; I73.89 Other specified peripheral vascular diseases; B96.5 Pseudomonas (aeruginosa) (mallei) (pseudomallei) as the cause of diseases classified elsewhere; S90.821A Blister (nonthermal), right foot, initial encounter; L08.9 Local infection of the skin and subcutaneous tissue, unspecified; I10 Essential (primary) hypertension; G90.09 Other idiopathic peripheral autonomic neuropathy; E78.00 Pure hypercholesterolemia, unspecified; Z74.01 Bed confinement status; Z01.810 Encounter for preprocedural cardiovascular examination
CPT/HCPCS: 36415; 82550; 82565; 83036; 84520; 85025; 99212; G0277

== ENCOUNTER → 2019-10-03 | Outpatient (CLI) | payer BC, OTHER | LOC: WCC 11:21 | PROVIDERS: ATTEND Plastic Surgery | DX: E11.621 Type 2 diabetes mellitus with foot ulcer (principal); E11.65 Type 2 diabetes mellitus with hyperglycemia; A41.9 Sepsis, unspecified organism; Z94.5 Skin transplant status; Y84.8 Other medical procedures as the cause of abnormal reaction of the patient, or of later complication, without mention of misadventure at the time of the procedure; L89.896 Pressure-induced deep tissue damage of other site; M86.8X7 Other osteomyelitis, ankle and foot; I73.9 Peripheral vascular disease, unspecified; I73.89 Other specified peripheral vascular diseases; G90.09 Other idiopathic peripheral autonomic neuropathy; S90.821A Blister (nonthermal), right foot, initial encounter; L08.89 Other specified local infections of the skin and subcutaneous tissue; I10 Essential (primary) hypertension; B96.5 Pseudomonas (aeruginosa) (mallei) (pseudomallei) as the cause of diseases classified elsewhere; L97.423 Non-pressure chronic ulcer of left heel and midfoot with necrosis of muscle; E78.00 Pure hypercholesterolemia, unspecified; I25.10 Atherosclerotic heart disease of native coronary artery without angina pectoris; Z01.810 Encounter for preprocedural cardiovascular examination; Z74.01 Bed confinement status | CPT/HCPCS: 99212; G0277 ==

== ENCOUNTER → 2019-10-05 | Outpatient (CLI) | payer BC, OTHER | LOC: WCC 11:05 | PROVIDERS: ATTEND Podiatrist Foot & Ankle Surgery | DX: E11.621 Type 2 diabetes mellitus with foot ulcer (principal); E11.65 Type 2 diabetes mellitus with hyperglycemia; L89.896 Pressure-induced deep tissue damage of other site; Z94.5 Skin transplant status; A41.9 Sepsis, unspecified organism; Y84.8 Other medical procedures as the cause of abnormal reaction of the patient, or of later complication, without mention of misadventure at the time of the procedure; M86.8X7 Other osteomyelitis, ankle and foot; L97.423 Non-pressure chronic ulcer of left heel and midfoot with necrosis of muscle; I73.9 Peripheral vascular disease, unspecified; I73.89 Other specified peripheral vascular diseases; S90.821A Blister (nonthermal), right foot, initial encounter; L08.89 Other specified local infections of the skin and subcutaneous tissue; G90.09 Other idiopathic peripheral autonomic neuropathy; I10 Essential (primary) hypertension; B96.5 Pseudomonas (aeruginosa) (mallei) (pseudomallei) as the cause of diseases classified elsewhere; E78.00 Pure hypercholesterolemia, unspecified; I25.10 Atherosclerotic heart disease of native coronary artery without angina pectoris; Z01.810 Encounter for preprocedural cardiovascular examination; Z74.01 Bed confinement status | CPT/HCPCS: 36415; 82948; 99212; G0277 ==

== ENCOUNTER → 2019-10-08 | Outpatient (CLI) | payer BC, OTHER | LOC: WCC 12:55 | PROVIDERS: ATTEND Podiatrist Foot & Ankle Surgery | DX: E11.621 Type 2 diabetes mellitus with foot ulcer (principal); E11.65 Type 2 diabetes mellitus with hyperglycemia; A41.9 Sepsis, unspecified organism; Z94.5 Skin transplant status; Y84.8 Other medical procedures as the cause of abnormal reaction of the patient, or of later complication, without mention of misadventure at the time of the procedure; L89.896 Pressure-induced deep tissue damage of other site; M86.8X7 Other osteomyelitis, ankle and foot; L97.423 Non-pressure chronic ulcer of left heel and midfoot with necrosis of muscle; I73.9 Peripheral vascular disease, unspecified; I73.89 Other specified peripheral vascular diseases; S90.821A Blister (nonthermal), right foot, initial encounter; L08.89 Other specified local infections of the skin and subcutaneous tissue; I10 Essential (primary) hypertension; B96.5 Pseudomonas (aeruginosa) (mallei) (pseudomallei) as the cause of diseases classified elsewhere; G90.09 Other idiopathic peripheral autonomic neuropathy; E78.00 Pure hypercholesterolemia, unspecified; I25.10 Atherosclerotic heart disease of native coronary artery without angina pectoris; Z01.810 Encounter for preprocedural cardiovascular examination; Z74.01 Bed confinement status | CPT/HCPCS: 99213; G0277 ==

== ENCOUNTER → 2019-10-11 | Outpatient (CLI) | payer BC, OTHER | LOC: WCC 12:16 | PROVIDERS: ATTEND Podiatrist Foot & Ankle Surgery | DX: E11.621 Type 2 diabetes mellitus with foot ulcer (principal); E11.65 Type 2 diabetes mellitus with hyperglycemia; Z94.5 Skin transplant status; M86.8X7 Other osteomyelitis, ankle and foot; L89.896 Pressure-induced deep tissue damage of other site; L97.423 Non-pressure chronic ulcer of left heel and midfoot with necrosis of muscle; I73.9 Peripheral vascular disease, unspecified; I73.89 Other specified peripheral vascular diseases; S90.821A Blister (nonthermal), right foot, initial encounter; G90.09 Other idiopathic peripheral autonomic neuropathy; L08.9 Local infection of the skin and subcutaneous tissue, unspecified; I10 Essential (primary) hypertension; B96.5 Pseudomonas (aeruginosa) (mallei) (pseudomallei) as the cause of diseases classified elsewhere; M14.671 Charcot's joint, right ankle and foot; E78.00 Pure hypercholesterolemia, unspecified; I25.10 Atherosclerotic heart disease of native coronary artery without angina pectoris | CPT/HCPCS: 99213; G0277 ==

== ENCOUNTER → 2019-10-12 | Outpatient (CLI) | payer BC, OTHER | LOC: WCC 14:16 | PROVIDERS: ATTEND Podiatrist Foot & Ankle Surgery | DX: E11.621 Type 2 diabetes mellitus with foot ulcer (principal); E11.65 Type 2 diabetes mellitus with hyperglycemia; Z94.5 Skin transplant status; M86.8X7 Other osteomyelitis, ankle and foot; L89.896 Pressure-induced deep tissue damage of other site; L97.423 Non-pressure chronic ulcer of left heel and midfoot with necrosis of muscle; I73.89 Other specified peripheral vascular diseases; I73.9 Peripheral vascular disease, unspecified; L08.9 Local infection of the skin and subcutaneous tissue, unspecified; S90.821A Blister (nonthermal), right foot, initial encounter; B96.5 Pseudomonas (aeruginosa) (mallei) (pseudomallei) as the cause of diseases classified elsewhere; I10 Essential (primary) hypertension; M14.671 Charcot's joint, right ankle and foot; G90.09 Other idiopathic peripheral autonomic neuropathy; E78.00 Pure hypercholesterolemia, unspecified; I25.10 Atherosclerotic heart disease of native coronary artery without angina pectoris ==

== ENCOUNTER → 2019-10-15 | Outpatient (CLI) | payer BC, OTHER | LOC: WCC 14:31 | PROVIDERS: ATTEND Podiatrist Foot & Ankle Surgery | DX: E11.621 Type 2 diabetes mellitus with foot ulcer (principal); E11.65 Type 2 diabetes mellitus with hyperglycemia; A41.9 Sepsis, unspecified organism; Z94.5 Skin transplant status; M86.8X7 Other osteomyelitis, ankle and foot; Y84.8 Other medical procedures as the cause of abnormal reaction of the patient, or of later complication, without mention of misadventure at the time of the procedure; L89.896 Pressure-induced deep tissue damage of other site; L97.423 Non-pressure chronic ulcer of left heel and midfoot with necrosis of muscle; I73.9 Peripheral vascular disease, unspecified; I73.89 Other specified peripheral vascular diseases; S90.821A Blister (nonthermal), right foot, initial encounter; L08.89 Other specified local infections of the skin and subcutaneous tissue; B96.5 Pseudomonas (aeruginosa) (mallei) (pseudomallei) as the cause of diseases classified elsewhere; G90.09 Other idiopathic peripheral autonomic neuropathy; M14.671 Charcot's joint, right ankle and foot; I10 Essential (primary) hypertension; E78.00 Pure hypercholesterolemia, unspecified; I25.10 Atherosclerotic heart disease of native coronary artery without angina pectoris; Z01.810 Encounter for preprocedural cardiovascular examination; Z74.01 Bed confinement status | CPT/HCPCS: 11042; 11045; 99213 ×2; G0277 ==

== ENCOUNTER → 2019-10-16 | Outpatient (CLI) | payer BC, OTHER ==
[2019-10-16 12:07] LABS: BASOPHILS # (AUTO) 0.1 (0.0-0.1); BASOPHILS % 0.9 % (0.0-1.0); EOSINOPHILS # (AUTO) 0.4 (0.0-0.4); EOSINOPHILS % 3.7 % (0.0-6.0); HEMATOCRIT 26.5 % (38.2-49.6); HEMOGLOBIN 8.6 g/dL (14.0-18.0); LYMPHOCYTES # (AUTO) 1.7 (1.0-3.2); LYMPHOCYTES % 18.3 % (18.0-39.1); MEAN CORPUSCULAR HGB CONC 32.5 g/dL (31-35); MEAN CORPUSCULAR VOLUME 86.3 fL (81-99); MONOCYTES # (AUTO) 0.6 (0.2-0.8); MONOCYTES % 6.9 % (4.4-11.3); NEUTROPHILS # (AUTO) 6.5 (2.1-6.9); NEUTROPHILS % 69.7 % (38.7-80.0); PLATELET COUNT 318 x10e3/uL (140-360); RED BLOOD COUNT 3.07 x10e6/uL (4.3-5.7); RED CELL DISTRIBUTION WIDTH 12.3 % (11.7-14.4)
[2019-10-16 12:27] LABS: ALBUMIN 2.8 g/dL (3.5-5.0); ALBUMIN/GLOBULIN RATIO 0.6 (0.8-2.0); ANION GAP 12.7 mmol/L (8-16); CALCIUM 9.2 mg/dL (8.4-10.2); CREATININE, SERUM 1.42 mg/dL (0.72-1.25); POTASSIUM 4.7 mmol/L (3.5-5.1)
== END ==
LOC: WCC 09:26
PROVIDERS: ATTEND Surgery
DX: E11.621 Type 2 diabetes mellitus with foot ulcer (principal); E11.65 Type 2 diabetes mellitus with hyperglycemia; Z94.5 Skin transplant status; L89.896 Pressure-induced deep tissue damage of other site; M86.8X7 Other osteomyelitis, ankle and foot; L97.423 Non-pressure chronic ulcer of left heel and midfoot with necrosis of muscle; I73.89 Other specified peripheral vascular diseases; I73.9 Peripheral vascular disease, unspecified; S90.821A Blister (nonthermal), right foot, initial encounter; G90.09 Other idiopathic peripheral autonomic neuropathy; B96.5 Pseudomonas (aeruginosa) (mallei) (pseudomallei) as the cause of diseases classified elsewhere; M14.671 Charcot's joint, right ankle and foot; E78.00 Pure hypercholesterolemia, unspecified; I10 Essential (primary) hypertension; I25.10 Atherosclerotic heart disease of native coronary artery without angina pectoris; L08.9 Local infection of the skin and subcutaneous tissue, unspecified
CPT/HCPCS: 36415; 80048; 80053; 82550; 83036; 85025; G0277

== ENCOUNTER → 2019-10-17 | Outpatient (CLI) | payer BC, OTHER | LOC: WCC 13:54 | PROVIDERS: ATTEND Podiatrist Foot & Ankle Surgery | DX: E11.621 Type 2 diabetes mellitus with foot ulcer (principal); E11.65 Type 2 diabetes mellitus with hyperglycemia; A41.9 Sepsis, unspecified organism; Z94.5 Skin transplant status; M86.8X7 Other osteomyelitis, ankle and foot; L89.896 Pressure-induced deep tissue damage of other site; I73.9 Peripheral vascular disease, unspecified; I73.89 Other specified peripheral vascular diseases; L97.423 Non-pressure chronic ulcer of left heel and midfoot with necrosis of muscle; S90.821A Blister (nonthermal), right foot, initial encounter; L08.9 Local infection of the skin and subcutaneous tissue, unspecified; I10 Essential (primary) hypertension; B96.5 Pseudomonas (aeruginosa) (mallei) (pseudomallei) as the cause of diseases classified elsewhere; M14.671 Charcot's joint, right ankle and foot; E78.00 Pure hypercholesterolemia, unspecified; I25.10 Atherosclerotic heart disease of native coronary artery without angina pectoris | CPT/HCPCS: 99211; G0277 ==

== ENCOUNTER → 2019-10-18 | Outpatient (CLI) | payer BC, OTHER | LOC: WCC 09:03 | PROVIDERS: ATTEND Podiatrist Foot & Ankle Surgery | DX: E11.621 Type 2 diabetes mellitus with foot ulcer (principal); E11.65 Type 2 diabetes mellitus with hyperglycemia; A41.9 Sepsis, unspecified organism; M86.8X7 Other osteomyelitis, ankle and foot; Z94.5 Skin transplant status; L89.896 Pressure-induced deep tissue damage of other site; L97.423 Non-pressure chronic ulcer of left heel and midfoot with necrosis of muscle; I73.9 Peripheral vascular disease, unspecified; I73.89 Other specified peripheral vascular diseases; S90.821A Blister (nonthermal), right foot, initial encounter; L08.9 Local infection of the skin and subcutaneous tissue, unspecified; I10 Essential (primary) hypertension; M14.671 Charcot's joint, right ankle and foot; B96.5 Pseudomonas (aeruginosa) (mallei) (pseudomallei) as the cause of diseases classified elsewhere; E78.00 Pure hypercholesterolemia, unspecified; I25.10 Atherosclerotic heart disease of native coronary artery without angina pectoris | CPT/HCPCS: 99213; G0277 ==

== ENCOUNTER → 2019-10-19 | Outpatient (CLI) | payer BC, OTHER | LOC: WCC 11:40 | PROVIDERS: ATTEND Podiatrist Foot & Ankle Surgery | DX: E11.621 Type 2 diabetes mellitus with foot ulcer (principal); E11.65 Type 2 diabetes mellitus with hyperglycemia; Y84.8 Other medical procedures as the cause of abnormal reaction of the patient, or of later complication, without mention of misadventure at the time of the procedure; A41.9 Sepsis, unspecified organism; L89.896 Pressure-induced deep tissue damage of other site; Z94.5 Skin transplant status; M86.8X7 Other osteomyelitis, ankle and foot; L97.423 Non-pressure chronic ulcer of left heel and midfoot with necrosis of muscle; I73.9 Peripheral vascular disease, unspecified; I73.89 Other specified peripheral vascular diseases; S90.821A Blister (nonthermal), right foot, initial encounter; L08.89 Other specified local infections of the skin and subcutaneous tissue; I10 Essential (primary) hypertension; B96.5 Pseudomonas (aeruginosa) (mallei) (pseudomallei) as the cause of diseases classified elsewhere; M14.671 Charcot's joint, right ankle and foot; E78.00 Pure hypercholesterolemia, unspecified; I25.10 Atherosclerotic heart disease of native coronary artery without angina pectoris; Z01.810 Encounter for preprocedural cardiovascular examination; Z74.01 Bed confinement status | CPT/HCPCS: 99213; G0277 ==

== ENCOUNTER → 2019-10-22 | Outpatient (CLI) | payer BC, OTHER | LOC: WCC 13:42 | PROVIDERS: ATTEND Podiatrist Foot & Ankle Surgery | DX: E11.621 Type 2 diabetes mellitus with foot ulcer (principal); E11.65 Type 2 diabetes mellitus with hyperglycemia; A41.9 Sepsis, unspecified organism; L89.896 Pressure-induced deep tissue damage of other site; Z94.5 Skin transplant status; M86.8X7 Other osteomyelitis, ankle and foot; L97.423 Non-pressure chronic ulcer of left heel and midfoot with necrosis of muscle; I73.9 Peripheral vascular disease, unspecified; I73.89 Other specified peripheral vascular diseases; S90.821A Blister (nonthermal), right foot, initial encounter; L08.9 Local infection of the skin and subcutaneous tissue, unspecified; I10 Essential (primary) hypertension; B96.5 Pseudomonas (aeruginosa) (mallei) (pseudomallei) as the cause of diseases classified elsewhere; M14.671 Charcot's joint, right ankle and foot; E78.00 Pure hypercholesterolemia, unspecified; I25.10 Atherosclerotic heart disease of native coronary artery without angina pectoris | CPT/HCPCS: 99213; G0277 ==

== ENCOUNTER → 2019-10-24 | Outpatient (CLI) | payer BC, OTHER ==
[2019-10-24 12:26] LABS: BASOPHILS # (AUTO) 0.1 (0.0-0.1); BASOPHILS % 0.8 % (0.0-1.0); EOSINOPHILS # (AUTO) 0.3 (0.0-0.4); EOSINOPHILS % 3.4 % (0.0-6.0); HEMATOCRIT 27.2 % (38.2-49.6); HEMOGLOBIN 8.6 g/dL (14.0-18.0); LYMPHOCYTES # (AUTO) 1.7 (1.0-3.2); LYMPHOCYTES % 19.6 % (18.0-39.1); MEAN CORPUSCULAR HEMOGLOBIN 27.3 pg (28-32); MEAN CORPUSCULAR HGB CONC 31.6 g/dL (31-35); MEAN CORPUSCULAR VOLUME 86.3 fL (81-99); MONOCYTES # (AUTO) 0.5 (0.2-0.8); MONOCYTES % 5.7 % (4.4-11.3); NEUTROPHILS # (AUTO) 5.9 (2.1-6.9); NEUTROPHILS % 69.8 % (38.7-80.0); PLATELET COUNT 303 x10e3/uL (140-360); RED BLOOD COUNT 3.15 x10e6/uL (4.3-5.7); RED CELL DISTRIBUTION WIDTH 12.5 % (11.7-14.4)
[2019-10-24 12:43] LABS: CREATININE, SERUM 1.23 mg/dL (0.72-1.25)
== END ==
LOC: WCC 12:47
PROVIDERS: ATTEND Podiatrist Foot & Ankle Surgery
DX: E11.621 Type 2 diabetes mellitus with foot ulcer (principal); E11.65 Type 2 diabetes mellitus with hyperglycemia; A41.9 Sepsis, unspecified organism; L89.896 Pressure-induced deep tissue damage of other site; Z94.5 Skin transplant status; M86.8X7 Other osteomyelitis, ankle and foot; L97.423 Non-pressure chronic ulcer of left heel and midfoot with necrosis of muscle; I73.9 Peripheral vascular disease, unspecified; I73.89 Other specified peripheral vascular diseases; S90.821A Blister (nonthermal), right foot, initial encounter; L08.9 Local infection of the skin and subcutaneous tissue, unspecified; I10 Essential (primary) hypertension; B96.5 Pseudomonas (aeruginosa) (mallei) (pseudomallei) as the cause of diseases classified elsewhere; M14.671 Charcot's joint, right ankle and foot; E78.00 Pure hypercholesterolemia, unspecified; I25.10 Atherosclerotic heart disease of native coronary artery without angina pectoris
CPT/HCPCS: 36415; 82550; 82565; 84520; 85025; 99213; G0277

== ENCOUNTER → 2019-10-25 | Outpatient (CLI) | payer BC, OTHER | LOC: WCC 14:09 | PROVIDERS: ATTEND Family Medicine Adult Medicine | DX: E11.621 Type 2 diabetes mellitus with foot ulcer (principal); E11.65 Type 2 diabetes mellitus with hyperglycemia; A41.9 Sepsis, unspecified organism; Y84.8 Other medical procedures as the cause of abnormal reaction of the patient, or of later complication, without mention of misadventure at the time of the procedure; M86.8X7 Other osteomyelitis, ankle and foot; Z94.5 Skin transplant status; L89.896 Pressure-induced deep tissue damage of other site; L97.423 Non-pressure chronic ulcer of left heel and midfoot with necrosis of muscle; I73.9 Peripheral vascular disease, unspecified; I73.89 Other specified peripheral vascular diseases; S90.821A Blister (nonthermal), right foot, initial encounter; L08.89 Other specified local infections of the skin and subcutaneous tissue; I10 Essential (primary) hypertension; B96.5 Pseudomonas (aeruginosa) (mallei) (pseudomallei) as the cause of diseases classified elsewhere; M14.671 Charcot's joint, right ankle and foot; E78.00 Pure hypercholesterolemia, unspecified; I25.10 Atherosclerotic heart disease of native coronary artery without angina pectoris; Z01.810 Encounter for preprocedural cardiovascular examination; Z74.01 Bed confinement status | CPT/HCPCS: 99212; G0277 ==

== ENCOUNTER → 2019-10-26 | Outpatient (CLI) | payer BC, OTHER ==
[2019-10-29 11:01] LABS: BASOPHILS # (AUTO) 0.1 (0.0-0.1); BASOPHILS % 0.6 % (0.0-1.0); EOSINOPHILS # (AUTO) 0.3 (0.0-0.4); EOSINOPHILS % 2.4 % (0.0-6.0); HEMATOCRIT 28.8 % (38.2-49.6); HEMOGLOBIN 9.2 g/dL (14.0-18.0); LYMPHOCYTES % 19.1 % (18.0-39.1); MEAN CORPUSCULAR HEMOGLOBIN 27.7 pg (28-32); MEAN CORPUSCULAR HGB CONC 31.9 g/dL (31-35); MEAN CORPUSCULAR VOLUME 86.7 fL (81-99); MONOCYTES # (AUTO) 0.8 (0.2-0.8); MONOCYTES % 7.2 % (4.4-11.3); NEUTROPHILS # (AUTO) 7.3 (2.1-6.9); NEUTROPHILS % 69.7 % (38.7-80.0); PLATELET COUNT 289 x10e3/uL (140-360); RED BLOOD COUNT 3.32 x10e6/uL (4.3-5.7); RED CELL DISTRIBUTION WIDTH 12.6 % (11.7-14.4)
[2019-10-29 11:21] LABS: CREATININE, SERUM 1.5 mg/dL (0.72-1.25)
== END ==
LOC: WCC 10:38
PROVIDERS: ATTEND Podiatrist Foot & Ankle Surgery
DX: E11.621 Type 2 diabetes mellitus with foot ulcer (principal); E11.65 Type 2 diabetes mellitus with hyperglycemia; A41.9 Sepsis, unspecified organism; Y84.8 Other medical procedures as the cause of abnormal reaction of the patient, or of later complication, without mention of misadventure at the time of the procedure; Z94.5 Skin transplant status; L89.896 Pressure-induced deep tissue damage of other site; M86.8X7 Other osteomyelitis, ankle and foot; L97.123 Non-pressure chronic ulcer of left thigh with necrosis of muscle; I73.9 Peripheral vascular disease, unspecified; I73.89 Other specified peripheral vascular diseases; S90.821A Blister (nonthermal), right foot, initial encounter; L08.89 Other specified local infections of the skin and subcutaneous tissue; I10 Essential (primary) hypertension; B96.5 Pseudomonas (aeruginosa) (mallei) (pseudomallei) as the cause of diseases classified elsewhere; M14.671 Charcot's joint, right ankle and foot; E78.00 Pure hypercholesterolemia, unspecified; I25.10 Atherosclerotic heart disease of native coronary artery without angina pectoris; Z01.810 Encounter for preprocedural cardiovascular examination; Z74.01 Bed confinement status
CPT/HCPCS: 36415; 82550; 82565; 84520; 85025; 99213; G0277

== ENCOUNTER → 2019-10-29 | Outpatient (CLI) | payer BC, OTHER | LOC: WCC 15:46 | PROVIDERS: ATTEND Podiatrist Foot & Ankle Surgery | DX: E11.621 Type 2 diabetes mellitus with foot ulcer (principal); E11.65 Type 2 diabetes mellitus with hyperglycemia; Z94.5 Skin transplant status; A41.9 Sepsis, unspecified organism; L97.423 Non-pressure chronic ulcer of left heel and midfoot with necrosis of muscle; L89.896 Pressure-induced deep tissue damage of other site; M86.8X7 Other osteomyelitis, ankle and foot; I73.9 Peripheral vascular disease, unspecified; I73.89 Other specified peripheral vascular diseases; S90.821A Blister (nonthermal), right foot, initial encounter; L08.9 Local infection of the skin and subcutaneous tissue, unspecified; I10 Essential (primary) hypertension; B96.5 Pseudomonas (aeruginosa) (mallei) (pseudomallei) as the cause of diseases classified elsewhere; M14.671 Charcot's joint, right ankle and foot; E78.00 Pure hypercholesterolemia, unspecified; I25.10 Atherosclerotic heart disease of native coronary artery without angina pectoris | CPT/HCPCS: 99213; G0277 ==

== ENCOUNTER → 2019-10-30 | Outpatient (CLI) | payer BC, OTHER | LOC: WCC 11:15 | PROVIDERS: ATTEND Podiatrist Foot & Ankle Surgery | DX: E11.621 Type 2 diabetes mellitus with foot ulcer (principal); E11.65 Type 2 diabetes mellitus with hyperglycemia; Y84.8 Other medical procedures as the cause of abnormal reaction of the patient, or of later complication, without mention of misadventure at the time of the procedure; A41.9 Sepsis, unspecified organism; Z94.5 Skin transplant status; L89.896 Pressure-induced deep tissue damage of other site; L97.423 Non-pressure chronic ulcer of left heel and midfoot with necrosis of muscle; M86.8X7 Other osteomyelitis, ankle and foot; I73.89 Other specified peripheral vascular diseases; I73.9 Peripheral vascular disease, unspecified; S90.821A Blister (nonthermal), right foot, initial encounter; L08.89 Other specified local infections of the skin and subcutaneous tissue; I10 Essential (primary) hypertension; B96.5 Pseudomonas (aeruginosa) (mallei) (pseudomallei) as the cause of diseases classified elsewhere; M14.671 Charcot's joint, right ankle and foot; E78.00 Pure hypercholesterolemia, unspecified; I25.10 Atherosclerotic heart disease of native coronary artery without angina pectoris; Z01.810 Encounter for preprocedural cardiovascular examination; Z74.01 Bed confinement status | CPT/HCPCS: 99213; G0277 ==

== ENCOUNTER → 2019-11-02 | Outpatient (CLI) | payer BC, OTHER | LOC: WCC 14:36 | PROVIDERS: ATTEND Podiatrist Foot & Ankle Surgery | DX: E11.621 Type 2 diabetes mellitus with foot ulcer (principal); E11.65 Type 2 diabetes mellitus with hyperglycemia; Z94.5 Skin transplant status; A41.9 Sepsis, unspecified organism; Y84.8 Other medical procedures as the cause of abnormal reaction of the patient, or of later complication, without mention of misadventure at the time of the procedure; M86.8X7 Other osteomyelitis, ankle and foot; L89.896 Pressure-induced deep tissue damage of other site; L97.411 Non-pressure chronic ulcer of right heel and midfoot limited to breakdown of skin; L97.423 Non-pressure chronic ulcer of left heel and midfoot with necrosis of muscle; I73.9 Peripheral vascular disease, unspecified; I73.89 Other specified peripheral vascular diseases; S90.821A Blister (nonthermal), right foot, initial encounter; L08.9 Local infection of the skin and subcutaneous tissue, unspecified; I10 Essential (primary) hypertension; M14.671 Charcot's joint, right ankle and foot; A49.02 Methicillin resistant Staphylococcus aureus infection, unspecified site; E78.00 Pure hypercholesterolemia, unspecified; I25.10 Atherosclerotic heart disease of native coronary artery without angina pectoris; Z01.810 Encounter for preprocedural cardiovascular examination; Z74.01 Bed confinement status | CPT/HCPCS: 99213; G0277 ==

== ENCOUNTER → 2019-11-05 | Outpatient (CLI) | payer BC, OTHER | LOC: WCC 11-02 15:08 | PROVIDERS: ATTEND Podiatrist Foot & Ankle Surgery | DX: E11.621 Type 2 diabetes mellitus with foot ulcer (principal); E11.65 Type 2 diabetes mellitus with hyperglycemia; L89.896 Pressure-induced deep tissue damage of other site; Z94.5 Skin transplant status; M86.8X7 Other osteomyelitis, ankle and foot; L97.411 Non-pressure chronic ulcer of right heel and midfoot limited to breakdown of skin; I73.9 Peripheral vascular disease, unspecified; L97.423 Non-pressure chronic ulcer of left heel and midfoot with necrosis of muscle; S90.821A Blister (nonthermal), right foot, initial encounter; I10 Essential (primary) hypertension; I73.89 Other specified peripheral vascular diseases; L08.9 Local infection of the skin and subcutaneous tissue, unspecified; B96.5 Pseudomonas (aeruginosa) (mallei) (pseudomallei) as the cause of diseases classified elsewhere; M14.671 Charcot's joint, right ankle and foot; E78.00 Pure hypercholesterolemia, unspecified; I25.10 Atherosclerotic heart disease of native coronary artery without angina pectoris | CPT/HCPCS: 99213; G0277 ==

== ENCOUNTER → 2019-11-06 | Outpatient (CLI) | payer BC, OTHER | LOC: WCC 15:21 | PROVIDERS: ATTEND Podiatrist Foot & Ankle Surgery | DX: E11.621 Type 2 diabetes mellitus with foot ulcer (principal); E11.65 Type 2 diabetes mellitus with hyperglycemia; A41.9 Sepsis, unspecified organism; Z94.5 Skin transplant status; Y84.8 Other medical procedures as the cause of abnormal reaction of the patient, or of later complication, without mention of misadventure at the time of the procedure; M86.8X7 Other osteomyelitis, ankle and foot; L89.896 Pressure-induced deep tissue damage of other site; L97.411 Non-pressure chronic ulcer of right heel and midfoot limited to breakdown of skin; L97.423 Non-pressure chronic ulcer of left heel and midfoot with necrosis of muscle; L97.426 Non-pressure chronic ulcer of left heel and midfoot with bone involvement without evidence of necrosis; I73.9 Peripheral vascular disease, unspecified; I73.89 Other specified peripheral vascular diseases; S90.821A Blister (nonthermal), right foot, initial encounter; L08.89 Other specified local infections of the skin and subcutaneous tissue; I10 Essential (primary) hypertension; B96.5 Pseudomonas (aeruginosa) (mallei) (pseudomallei) as the cause of diseases classified elsewhere; M14.671 Charcot's joint, right ankle and foot; E78.00 Pure hypercholesterolemia, unspecified; I25.10 Atherosclerotic heart disease of native coronary artery without angina pectoris; Z01.810 Encounter for preprocedural cardiovascular examination; Z74.01 Bed confinement status | CPT/HCPCS: 99213; G0277 ==

== ENCOUNTER → 2019-11-07 | Outpatient (CLI) | payer BC, OTHER | LOC: WCC 12:37 | PROVIDERS: ATTEND Podiatrist Foot & Ankle Surgery | DX: E11.621 Type 2 diabetes mellitus with foot ulcer (principal); E11.65 Type 2 diabetes mellitus with hyperglycemia; A41.9 Sepsis, unspecified organism; M86.8X7 Other osteomyelitis, ankle and foot; L97.423 Non-pressure chronic ulcer of left heel and midfoot with necrosis of muscle; L97.426 Non-pressure chronic ulcer of left heel and midfoot with bone involvement without evidence of necrosis; L97.411 Non-pressure chronic ulcer of right heel and midfoot limited to breakdown of skin; I73.9 Peripheral vascular disease, unspecified; I73.89 Other specified peripheral vascular diseases; S90.821A Blister (nonthermal), right foot, initial encounter; L08.9 Local infection of the skin and subcutaneous tissue, unspecified; I10 Essential (primary) hypertension; B96.5 Pseudomonas (aeruginosa) (mallei) (pseudomallei) as the cause of diseases classified elsewhere; M14.671 Charcot's joint, right ankle and foot; I25.10 Atherosclerotic heart disease of native coronary artery without angina pectoris; E78.00 Pure hypercholesterolemia, unspecified; Z01.810 Encounter for preprocedural cardiovascular examination ==

== ENCOUNTER → 2019-11-09 | Outpatient (CLI) | payer BC, OTHER | LOC: WCC 15:46 | PROVIDERS: ATTEND Podiatrist Foot & Ankle Surgery | DX: E11.621 Type 2 diabetes mellitus with foot ulcer (principal); M86.8X7 Other osteomyelitis, ankle and foot; L97.426 Non-pressure chronic ulcer of left heel and midfoot with bone involvement without evidence of necrosis; L97.423 Non-pressure chronic ulcer of left heel and midfoot with necrosis of muscle; L97.411 Non-pressure chronic ulcer of right heel and midfoot limited to breakdown of skin; I73.9 Peripheral vascular disease, unspecified; I73.89 Other specified peripheral vascular diseases; I10 Essential (primary) hypertension; B96.5 Pseudomonas (aeruginosa) (mallei) (pseudomallei) as the cause of diseases classified elsewhere; M14.671 Charcot's joint, right ankle and foot; E78.00 Pure hypercholesterolemia, unspecified; I25.10 Atherosclerotic heart disease of native coronary artery without angina pectoris; Z01.810 Encounter for preprocedural cardiovascular examination | CPT/HCPCS: 99213; G0277 ==

== ENCOUNTER → 2019-11-13 | Day surgery (SDC) | payer BC, OTHER ==
[2019-11-09 16:36] LABS: BASOPHILS # (AUTO) 0.1 (0.0-0.1); BASOPHILS % 0.7 % (0.0-1.0); EOSINOPHILS # (AUTO) 0.3 (0.0-0.4); EOSINOPHILS % 3.3 % (0.0-6.0); HEMATOCRIT 28.5 % (38.2-49.6); HEMOGLOBIN 9.1 g/dL (14.0-18.0); LYMPHOCYTES # (AUTO) 1.3 (1.0-3.2); LYMPHOCYTES % 14.2 % (18.0-39.1); MEAN CORPUSCULAR HEMOGLOBIN 27.5 pg (28-32); MEAN CORPUSCULAR HGB CONC 31.9 g/dL (31-35); MEAN CORPUSCULAR VOLUME 86.1 fL (81-99); MONOCYTES # (AUTO) 0.6 (0.2-0.8); MONOCYTES % 6.8 % (4.4-11.3); NEUTROPHILS % 74.5 % (38.7-80.0); PLATELET COUNT 271 x10e3/uL (140-360); RED BLOOD COUNT 3.31 x10e6/uL (4.3-5.7); RED CELL DISTRIBUTION WIDTH 12.7 % (11.7-14.4)
[2019-11-09 16:53] LABS: ANION GAP 17.1 mmol/L (8-16); CALCIUM 9.6 mg/dL (8.4-10.2); CREATININE, SERUM 1.52 mg/dL (0.72-1.25); POTASSIUM 5.1 mmol/L (3.5-5.1)
[~2019-11-13] MED LIST changes: +BUPIVACAINE HCL 0.5% INJ 30 ML VIAL INJ ONE; +CEFAZOLIN SOD 1 GM/NS 50ML 100 ML IV ONE; +FENTANYL CITRATE/PF 100MCG/2 ML INJ ONE; +INSULIN REGULAR, HUMAN 100 UNIT/1 ML 3ML VIAL ONE; +LIDOCAINE HCL 2% LOCAL INJ 5 ML SDV VIAL INJ ONE; +MIDAZOLAM HCL 2 MG/2 ML VIAL ONE; +NEOSTIGMINE 1 MG/ML 10ML VIAL ONE; +ONDANSETRON HCL INJ 2MG/ML 2ML 2 MG/ML VIAL ONE; +PROPOFOL IV EMULSION 10 MG/ML 20 ML VIAL ONE; +SEVOFLURANE INHAL SOLN 250 ML PEN BTL ONE
[2019-11-13 12:15] VITALS: BP 132/74
--- NOTE | 2019-11-13 13:33 | Operative Report ---
DATE OF PROCEDURE: 11/13/2019 SURGEON: Naomi Lopez DPM COMIC ILLUSTRATOR: None. PREOPERATIVE DIAGNOSES: 1. Diabetic foot ulcer, grade 4. 2. Gangrene forefoot. 3. Diabetes with neuropathy and severe peripheral vascular disease. POSTOPERATIVE DIAGNOSES: 1. Diabetic foot ulcer, grade 4. 2. Gangrene forefoot. 3. Diabetes with neuropathy and severe peripheral vascular disease. PROCEDURES: Debridement to include bone, TMA with partial closure secondary to viability of a tissue and degree of gangrene. PATHOLOGY: Bone cultures and sensitivity. COMPLICATIONS: None. CONDITION: Stable. PROCEDURE IN DETAIL: Under mild sedation, the patient was brought to the operating room and placed on the operating table in supine position. Following IV sedation, anesthesia was obtained with a general anesthetic. At this point, the left foot was scrubbed, prepped, and draped in the usual aseptic manner. The leg was lowered to the table. Attention was then directed to the dorsal aspect of the left foot, where a semi fishmouth type of incision was then made in order to have a graft from the viable plantar skin in order to try to partially close the wound with the available skin. The incision was deepened down to the level of the bone utilizing an oscillating saw. The bone was transected to the metatarsals through and through in a transmetatarsal amputation-type of manner. The nonviable tissue was then passed from the operating table and sent for pathology. The area was then flushed with copious amount of sterile irrigation with the pressure smoking tobacco packing machine hand. Bone cultures and sensitivity were taken after irrigation. All bleeders were cauterized. The void was then filled with AmnioFill with the flap at the lateral aspect. The area was about 50% closed closing the lateral aspect of the wound. In the medial aspect, there was no viable tissue to close the area, but it was filled with AmnioFill. The AmnioFill was then secured utilizing Adaptic and stapler. Clean dressing was applied consisting of Kerlix, 4x4s, Webril, posterior splint was applied and secured utilizing an Rashi bandage. The patient tolerated the procedure and anesthesia well without complications, was transferred to recovery room, will discharge home when he meets criteria. He was given instructions to be nonweightbearing, to follow up with me in the Wound Care Center, and to call the office if any questions or problems arise. NEHEMIAS Lucas/ANTONY /[id number]
== END | disposition home or self-care (01) ==
LOC: OR 07:30
PROVIDERS: ATTEND Podiatrist Foot & Ankle Surgery
DX: E11.69 Type 2 diabetes mellitus with other specified complication (principal); M86.172 Other acute osteomyelitis, left ankle and foot; E11.621 Type 2 diabetes mellitus with foot ulcer; E11.52 Type 2 diabetes mellitus with diabetic peripheral angiopathy with gangrene; E11.40 Type 2 diabetes mellitus with diabetic neuropathy, unspecified; I96 Gangrene, not elsewhere classified; D64.9 Anemia, unspecified; I10 Essential (primary) hypertension; E78.5 Hyperlipidemia, unspecified; K21.9 Gastro-esophageal reflux disease without esophagitis; Z01.812 Encounter for preprocedural laboratory examination; Z11.59 Encounter for screening for other viral diseases; Z79.82 Long term (current) use of aspirin; Z79.4 Long term (current) use of insulin; Z79.02 Long term (current) use of antithrombotics/antiplatelets; Z79.84 Long term (current) use of oral hypoglycemic drugs
CPT/HCPCS: 28805; 36415 ×2; 80048; 82948; 84132; 85025; 87071; 87075; 87186; 87205; 88305; 88311; J0690; J2001; J2250; J2405; J2704; J2710; J3010; Q4100; U0002; 88304; J1817

== ENCOUNTER → 2019-11-14 | Outpatient (CLI) | payer BC, OTHER ==
[~2019-11-14] MED LIST changes: -BUPIVACAINE HCL 0.5% INJ 30 ML VIAL INJ ONE; -CEFAZOLIN SOD 1 GM/NS 50ML 100 ML IV ONE; -FENTANYL CITRATE/PF 100MCG/2 ML INJ ONE; -INSULIN REGULAR, HUMAN 100 UNIT/1 ML 3ML VIAL ONE; -LIDOCAINE HCL 2% LOCAL INJ 5 ML SDV VIAL INJ ONE; -MIDAZOLAM HCL 2 MG/2 ML VIAL ONE; -NEOSTIGMINE 1 MG/ML 10ML VIAL ONE; -ONDANSETRON HCL INJ 2MG/ML 2ML 2 MG/ML VIAL ONE; -PROPOFOL IV EMULSION 10 MG/ML 20 ML VIAL ONE; -SEVOFLURANE INHAL SOLN 250 ML PEN BTL ONE
== END ==
LOC: WCC 10:36
PROVIDERS: ATTEND Podiatrist Foot & Ankle Surgery
DX: E11.621 Type 2 diabetes mellitus with foot ulcer (principal); E11.65 Type 2 diabetes mellitus with hyperglycemia; L97.423 Non-pressure chronic ulcer of left heel and midfoot with necrosis of muscle; L97.426 Non-pressure chronic ulcer of left heel and midfoot with bone involvement without evidence of necrosis; L97.411 Non-pressure chronic ulcer of right heel and midfoot limited to breakdown of skin; M86.8X7 Other osteomyelitis, ankle and foot; I73.9 Peripheral vascular disease, unspecified; I73.89 Other specified peripheral vascular diseases; S90.821A Blister (nonthermal), right foot, initial encounter; L08.9 Local infection of the skin and subcutaneous tissue, unspecified; B96.5 Pseudomonas (aeruginosa) (mallei) (pseudomallei) as the cause of diseases classified elsewhere; I10 Essential (primary) hypertension; M14.671 Charcot's joint, right ankle and foot; E78.00 Pure hypercholesterolemia, unspecified; I25.10 Atherosclerotic heart disease of native coronary artery without angina pectoris; Z01.810 Encounter for preprocedural cardiovascular examination

== ENCOUNTER → 2019-11-15 | Outpatient (CLI) | payer BC, OTHER | LOC: WCC 13:49 | PROVIDERS: ATTEND Podiatrist Foot & Ankle Surgery | DX: E11.621 Type 2 diabetes mellitus with foot ulcer (principal); E11.65 Type 2 diabetes mellitus with hyperglycemia; M86.8X7 Other osteomyelitis, ankle and foot; L97.411 Non-pressure chronic ulcer of right heel and midfoot limited to breakdown of skin; L97.426 Non-pressure chronic ulcer of left heel and midfoot with bone involvement without evidence of necrosis; L97.423 Non-pressure chronic ulcer of left heel and midfoot with necrosis of muscle; I73.9 Peripheral vascular disease, unspecified; I73.89 Other specified peripheral vascular diseases; L08.9 Local infection of the skin and subcutaneous tissue, unspecified; S90.821A Blister (nonthermal), right foot, initial encounter; I10 Essential (primary) hypertension; B96.5 Pseudomonas (aeruginosa) (mallei) (pseudomallei) as the cause of diseases classified elsewhere; M14.671 Charcot's joint, right ankle and foot; E78.00 Pure hypercholesterolemia, unspecified; I25.10 Atherosclerotic heart disease of native coronary artery without angina pectoris; Z01.810 Encounter for preprocedural cardiovascular examination ==

== ENCOUNTER → 2019-11-16 | Outpatient (CLI) | payer BC, OTHER | LOC: WCC 11:14 | PROVIDERS: ATTEND Podiatrist Foot & Ankle Surgery | DX: E11.621 Type 2 diabetes mellitus with foot ulcer (principal); E11.65 Type 2 diabetes mellitus with hyperglycemia; A41.9 Sepsis, unspecified organism; M86.8X7 Other osteomyelitis, ankle and foot; L97.423 Non-pressure chronic ulcer of left heel and midfoot with necrosis of muscle; L97.426 Non-pressure chronic ulcer of left heel and midfoot with bone involvement without evidence of necrosis; L97.411 Non-pressure chronic ulcer of right heel and midfoot limited to breakdown of skin; I73.9 Peripheral vascular disease, unspecified; I73.89 Other specified peripheral vascular diseases; I10 Essential (primary) hypertension; B96.89 Other specified bacterial agents as the cause of diseases classified elsewhere; B96.5 Pseudomonas (aeruginosa) (mallei) (pseudomallei) as the cause of diseases classified elsewhere; M14.671 Charcot's joint, right ankle and foot; E78.00 Pure hypercholesterolemia, unspecified; I25.10 Atherosclerotic heart disease of native coronary artery without angina pectoris; S90.821A Blister (nonthermal), right foot, initial encounter; L08.89 Other specified local infections of the skin and subcutaneous tissue; Y81.8 Miscellaneous general- and plastic-surgery devices associated with adverse incidents, not elsewhere classified; Z01.810 Encounter for preprocedural cardiovascular examination; Z74.01 Bed confinement status ==

== ENCOUNTER → 2019-11-20 | Outpatient (CLI) | payer BC, OTHER ==
[2019-11-20 15:07] LABS: BLOOD UREA NITROGEN 30 mg/dL (7-26); CREATINE KINASE 41 IU/L (30-200)
== END ==
LOC: WCC 14:41
PROVIDERS: ATTEND Podiatrist Foot & Ankle Surgery
DX: T87.89 Other complications of amputation stump (principal); Y84.8 Other medical procedures as the cause of abnormal reaction of the patient, or of later complication, without mention of misadventure at the time of the procedure; E11.621 Type 2 diabetes mellitus with foot ulcer; E11.65 Type 2 diabetes mellitus with hyperglycemia; A41.9 Sepsis, unspecified organism; M86.8X7 Other osteomyelitis, ankle and foot; B96.5 Pseudomonas (aeruginosa) (mallei) (pseudomallei) as the cause of diseases classified elsewhere; B96.89 Other specified bacterial agents as the cause of diseases classified elsewhere; L97.411 Non-pressure chronic ulcer of right heel and midfoot limited to breakdown of skin; L97.423 Non-pressure chronic ulcer of left heel and midfoot with necrosis of muscle; I73.9 Peripheral vascular disease, unspecified; I73.89 Other specified peripheral vascular diseases; S90.821A Blister (nonthermal), right foot, initial encounter; L08.89 Other specified local infections of the skin and subcutaneous tissue; I10 Essential (primary) hypertension; M14.671 Charcot's joint, right ankle and foot; E78.00 Pure hypercholesterolemia, unspecified; I25.10 Atherosclerotic heart disease of native coronary artery without angina pectoris; Z01.810 Encounter for preprocedural cardiovascular examination; Z74.01 Bed confinement status
CPT/HCPCS: 11042; 36415; 82550; 84520; 99213; G0277

== ENCOUNTER → 2019-11-22 | Outpatient (CLI) | payer BC, OTHER | LOC: WCC 10:16 | PROVIDERS: ATTEND Podiatrist Foot & Ankle Surgery | DX: T87.89 Other complications of amputation stump (principal); E11.621 Type 2 diabetes mellitus with foot ulcer; E11.65 Type 2 diabetes mellitus with hyperglycemia; M86.8X7 Other osteomyelitis, ankle and foot; L97.423 Non-pressure chronic ulcer of left heel and midfoot with necrosis of muscle; L97.411 Non-pressure chronic ulcer of right heel and midfoot limited to breakdown of skin; L08.9 Local infection of the skin and subcutaneous tissue, unspecified; I73.89 Other specified peripheral vascular diseases; I73.9 Peripheral vascular disease, unspecified; S90.821A Blister (nonthermal), right foot, initial encounter; B96.89 Other specified bacterial agents as the cause of diseases classified elsewhere; I10 Essential (primary) hypertension; B96.5 Pseudomonas (aeruginosa) (mallei) (pseudomallei) as the cause of diseases classified elsewhere; M14.671 Charcot's joint, right ankle and foot; E78.00 Pure hypercholesterolemia, unspecified; I25.10 Atherosclerotic heart disease of native coronary artery without angina pectoris; Z01.810 Encounter for preprocedural cardiovascular examination | CPT/HCPCS: 99211; G0277 ==

== ENCOUNTER → 2019-11-23 | Outpatient (CLI) | payer BC, OTHER | LOC: WCC 13:42 | PROVIDERS: ATTEND Podiatrist Foot & Ankle Surgery | DX: T87.89 Other complications of amputation stump (principal); Y84.8 Other medical procedures as the cause of abnormal reaction of the patient, or of later complication, without mention of misadventure at the time of the procedure; E11.621 Type 2 diabetes mellitus with foot ulcer; E11.65 Type 2 diabetes mellitus with hyperglycemia; A41.9 Sepsis, unspecified organism; M86.8X7 Other osteomyelitis, ankle and foot; L97.423 Non-pressure chronic ulcer of left heel and midfoot with necrosis of muscle; L97.411 Non-pressure chronic ulcer of right heel and midfoot limited to breakdown of skin; I73.9 Peripheral vascular disease, unspecified; I73.89 Other specified peripheral vascular diseases; S90.821A Blister (nonthermal), right foot, initial encounter; L08.89 Other specified local infections of the skin and subcutaneous tissue; B96.89 Other specified bacterial agents as the cause of diseases classified elsewhere; I10 Essential (primary) hypertension; M14.671 Charcot's joint, right ankle and foot; B96.5 Pseudomonas (aeruginosa) (mallei) (pseudomallei) as the cause of diseases classified elsewhere; E78.00 Pure hypercholesterolemia, unspecified; I25.10 Atherosclerotic heart disease of native coronary artery without angina pectoris; Z01.810 Encounter for preprocedural cardiovascular examination; Z74.01 Bed confinement status | CPT/HCPCS: 99211; G0277 ==

== ENCOUNTER → 2019-11-26 | Outpatient (CLI) | payer BC, OTHER | LOC: WCC 14:18 | PROVIDERS: ATTEND Podiatrist Foot & Ankle Surgery | DX: T87.89 Other complications of amputation stump (principal); E11.621 Type 2 diabetes mellitus with foot ulcer; E11.65 Type 2 diabetes mellitus with hyperglycemia; M86.8X7 Other osteomyelitis, ankle and foot; L97.423 Non-pressure chronic ulcer of left heel and midfoot with necrosis of muscle; L97.411 Non-pressure chronic ulcer of right heel and midfoot limited to breakdown of skin; I73.9 Peripheral vascular disease, unspecified; M14.671 Charcot's joint, right ankle and foot; I10 Essential (primary) hypertension; E78.00 Pure hypercholesterolemia, unspecified; Z74.01 Bed confinement status ==

== ENCOUNTER → 2019-11-27 | Outpatient (CLI) | payer BC, OTHER | LOC: WCC 12:06 | PROVIDERS: ATTEND Podiatrist Foot & Ankle Surgery | DX: T87.89 Other complications of amputation stump (principal); E11.65 Type 2 diabetes mellitus with hyperglycemia; E11.621 Type 2 diabetes mellitus with foot ulcer; M86.8X7 Other osteomyelitis, ankle and foot; L97.423 Non-pressure chronic ulcer of left heel and midfoot with necrosis of muscle; L97.411 Non-pressure chronic ulcer of right heel and midfoot limited to breakdown of skin; I73.9 Peripheral vascular disease, unspecified; I10 Essential (primary) hypertension; M14.671 Charcot's joint, right ankle and foot; E78.00 Pure hypercholesterolemia, unspecified; Z74.01 Bed confinement status ==

== ENCOUNTER → 2019-11-28 | Outpatient (CLI) | payer BC, OTHER | LOC: WCC 11:28 | PROVIDERS: ATTEND Podiatrist Foot & Ankle Surgery | DX: T87.89 Other complications of amputation stump (principal); M86.8X7 Other osteomyelitis, ankle and foot; E11.65 Type 2 diabetes mellitus with hyperglycemia; E11.621 Type 2 diabetes mellitus with foot ulcer; L97.423 Non-pressure chronic ulcer of left heel and midfoot with necrosis of muscle; L97.411 Non-pressure chronic ulcer of right heel and midfoot limited to breakdown of skin; I73.9 Peripheral vascular disease, unspecified; I10 Essential (primary) hypertension; M14.671 Charcot's joint, right ankle and foot; E78.00 Pure hypercholesterolemia, unspecified; Z74.01 Bed confinement status ==

== ENCOUNTER → 2019-11-29 | Outpatient (CLI) | payer BC, OTHER ==
[~2019-11-29] MED LIST changes: +HUMALOG KW200 UNIT/1; +LOSARTAN POTASS25 MG; +TRADJENTA5 MG
== END ==
LOC: WCC 16:16
PROVIDERS: ATTEND Podiatrist Foot & Ankle Surgery
DX: T87.89 Other complications of amputation stump (principal); Y84.8 Other medical procedures as the cause of abnormal reaction of the patient, or of later complication, without mention of misadventure at the time of the procedure; M86.8X7 Other osteomyelitis, ankle and foot; E11.65 Type 2 diabetes mellitus with hyperglycemia; E11.621 Type 2 diabetes mellitus with foot ulcer; L97.423 Non-pressure chronic ulcer of left heel and midfoot with necrosis of muscle; L97.411 Non-pressure chronic ulcer of right heel and midfoot limited to breakdown of skin; I73.9 Peripheral vascular disease, unspecified; I73.89 Other specified peripheral vascular diseases; S90.821A Blister (nonthermal), right foot, initial encounter; L08.9 Local infection of the skin and subcutaneous tissue, unspecified; I10 Essential (primary) hypertension; M14.671 Charcot's joint, right ankle and foot; E78.00 Pure hypercholesterolemia, unspecified; I25.10 Atherosclerotic heart disease of native coronary artery without angina pectoris; Z74.01 Bed confinement status

== ENCOUNTER → 2019-11-30 | Outpatient (CLI) | payer BC, OTHER ==
[~2019-11-30] MED LIST changes: -HUMALOG KW200 UNIT/1; -LOSARTAN POTASS25 MG; -TRADJENTA5 MG
== END ==
LOC: WCC 11:14
PROVIDERS: ATTEND Podiatrist Foot & Ankle Surgery
DX: T87.89 Other complications of amputation stump (principal); Y84.8 Other medical procedures as the cause of abnormal reaction of the patient, or of later complication, without mention of misadventure at the time of the procedure; E11.621 Type 2 diabetes mellitus with foot ulcer; E11.65 Type 2 diabetes mellitus with hyperglycemia; M86.8X7 Other osteomyelitis, ankle and foot; L97.423 Non-pressure chronic ulcer of left heel and midfoot with necrosis of muscle; L97.411 Non-pressure chronic ulcer of right heel and midfoot limited to breakdown of skin; I73.9 Peripheral vascular disease, unspecified; I73.89 Other specified peripheral vascular diseases; S90.821A Blister (nonthermal), right foot, initial encounter; L08.9 Local infection of the skin and subcutaneous tissue, unspecified; I10 Essential (primary) hypertension; M14.671 Charcot's joint, right ankle and foot; E78.00 Pure hypercholesterolemia, unspecified; I25.10 Atherosclerotic heart disease of native coronary artery without angina pectoris; Z74.01 Bed confinement status
CPT/HCPCS: 99213; G0277

== ENCOUNTER → 2019-12-03 | Outpatient (CLI) | payer BC, OTHER | LOC: WCC 11-30 15:27 | PROVIDERS: ATTEND Podiatrist Foot & Ankle Surgery | DX: T87.89 Other complications of amputation stump (principal); Y84.8 Other medical procedures as the cause of abnormal reaction of the patient, or of later complication, without mention of misadventure at the time of the procedure; M86.8X7 Other osteomyelitis, ankle and foot; E11.621 Type 2 diabetes mellitus with foot ulcer; E11.65 Type 2 diabetes mellitus with hyperglycemia; L97.423 Non-pressure chronic ulcer of left heel and midfoot with necrosis of muscle; L97.411 Non-pressure chronic ulcer of right heel and midfoot limited to breakdown of skin; I73.9 Peripheral vascular disease, unspecified; I73.89 Other specified peripheral vascular diseases; S90.821A Blister (nonthermal), right foot, initial encounter; L08.9 Local infection of the skin and subcutaneous tissue, unspecified; I10 Essential (primary) hypertension; M14.671 Charcot's joint, right ankle and foot; E78.00 Pure hypercholesterolemia, unspecified; I25.10 Atherosclerotic heart disease of native coronary artery without angina pectoris; Z74.01 Bed confinement status ==

== ENCOUNTER → 2019-12-04 | Outpatient (CLI) | payer BC, OTHER | LOC: WCC 11:32 | PROVIDERS: ATTEND Podiatrist Foot & Ankle Surgery | DX: T87.89 Other complications of amputation stump (principal); Y84.8 Other medical procedures as the cause of abnormal reaction of the patient, or of later complication, without mention of misadventure at the time of the procedure; E11.621 Type 2 diabetes mellitus with foot ulcer; E11.65 Type 2 diabetes mellitus with hyperglycemia; M86.8X7 Other osteomyelitis, ankle and foot; L97.423 Non-pressure chronic ulcer of left heel and midfoot with necrosis of muscle; L97.411 Non-pressure chronic ulcer of right heel and midfoot limited to breakdown of skin; I73.9 Peripheral vascular disease, unspecified; I73.89 Other specified peripheral vascular diseases; S90.821A Blister (nonthermal), right foot, initial encounter; L08.9 Local infection of the skin and subcutaneous tissue, unspecified; I10 Essential (primary) hypertension; M14.671 Charcot's joint, right ankle and foot; E78.00 Pure hypercholesterolemia, unspecified; I25.10 Atherosclerotic heart disease of native coronary artery without angina pectoris; Z74.01 Bed confinement status | CPT/HCPCS: 36415; 82948; 97605; 99213; G0277 ==

== ENCOUNTER → 2019-12-06 | Outpatient (CLI) | payer BC, OTHER | LOC: WCC 14:23 | PROVIDERS: ATTEND Podiatrist Foot & Ankle Surgery | DX: T87.89 Other complications of amputation stump (principal); Y84.8 Other medical procedures as the cause of abnormal reaction of the patient, or of later complication, without mention of misadventure at the time of the procedure; E11.65 Type 2 diabetes mellitus with hyperglycemia; E11.621 Type 2 diabetes mellitus with foot ulcer; L97.423 Non-pressure chronic ulcer of left heel and midfoot with necrosis of muscle; L97.411 Non-pressure chronic ulcer of right heel and midfoot limited to breakdown of skin; M86.8X7 Other osteomyelitis, ankle and foot; I73.9 Peripheral vascular disease, unspecified; I73.89 Other specified peripheral vascular diseases; S90.821A Blister (nonthermal), right foot, initial encounter; L08.9 Local infection of the skin and subcutaneous tissue, unspecified; I10 Essential (primary) hypertension; M14.671 Charcot's joint, right ankle and foot; E78.00 Pure hypercholesterolemia, unspecified; I25.10 Atherosclerotic heart disease of native coronary artery without angina pectoris; Z74.01 Bed confinement status ==

== ENCOUNTER → 2019-12-07 | Outpatient (CLI) | payer BC, OTHER | LOC: WCC 13:51 | PROVIDERS: ATTEND Podiatrist Foot & Ankle Surgery | DX: T87.89 Other complications of amputation stump (principal); Y84.8 Other medical procedures as the cause of abnormal reaction of the patient, or of later complication, without mention of misadventure at the time of the procedure; E11.621 Type 2 diabetes mellitus with foot ulcer; E11.65 Type 2 diabetes mellitus with hyperglycemia; M86.8X7 Other osteomyelitis, ankle and foot; L97.423 Non-pressure chronic ulcer of left heel and midfoot with necrosis of muscle; L97.411 Non-pressure chronic ulcer of right heel and midfoot limited to breakdown of skin; I73.9 Peripheral vascular disease, unspecified; I73.89 Other specified peripheral vascular diseases; L08.9 Local infection of the skin and subcutaneous tissue, unspecified; S90.821A Blister (nonthermal), right foot, initial encounter; I10 Essential (primary) hypertension; M14.671 Charcot's joint, right ankle and foot; E78.00 Pure hypercholesterolemia, unspecified; I25.10 Atherosclerotic heart disease of native coronary artery without angina pectoris; Z74.01 Bed confinement status | CPT/HCPCS: 97605; 99213; G0277 ==

== ENCOUNTER → 2019-12-10 | Outpatient (CLI) | payer BC, OTHER | LOC: WCC 14:40 | PROVIDERS: ATTEND Podiatrist Foot & Ankle Surgery | DX: T87.89 Other complications of amputation stump (principal); Y84.8 Other medical procedures as the cause of abnormal reaction of the patient, or of later complication, without mention of misadventure at the time of the procedure; E11.621 Type 2 diabetes mellitus with foot ulcer; E11.65 Type 2 diabetes mellitus with hyperglycemia; M86.8X7 Other osteomyelitis, ankle and foot; A41.9 Sepsis, unspecified organism; L97.423 Non-pressure chronic ulcer of left heel and midfoot with necrosis of muscle; L97.411 Non-pressure chronic ulcer of right heel and midfoot limited to breakdown of skin; I73.9 Peripheral vascular disease, unspecified; I73.89 Other specified peripheral vascular diseases; S90.821A Blister (nonthermal), right foot, initial encounter; L08.89 Other specified local infections of the skin and subcutaneous tissue; I10 Essential (primary) hypertension; M14.671 Charcot's joint, right ankle and foot; E78.00 Pure hypercholesterolemia, unspecified; I25.10 Atherosclerotic heart disease of native coronary artery without angina pectoris; Z01.810 Encounter for preprocedural cardiovascular examination; Z74.01 Bed confinement status ==

== ENCOUNTER → 2019-12-11 | Outpatient (CLI) | payer BC, OTHER ==
[~2019-12-11] MED LIST changes: +HUMALOG KW200 UNIT/1; +LOSARTAN POTASS25 MG; +TRADJENTA5 MG
[2019-12-11 15:29] LABS: BASOPHILS # (AUTO) 0.1 (0.0-0.1); BASOPHILS % 0.5 % (0.0-1.0); EOSINOPHILS # (AUTO) 0.2 (0.0-0.4); EOSINOPHILS % 1.7 % (0.0-6.0); HEMATOCRIT 23.8 % (38.2-49.6); HEMOGLOBIN 7.4 g/dL (14.0-18.0); LYMPHOCYTES # (AUTO) 1.4 (1.0-3.2); LYMPHOCYTES % 14.2 % (18.0-39.1); MEAN CORPUSCULAR HEMOGLOBIN 26.1 pg (28-32); MEAN CORPUSCULAR HGB CONC 31.1 g/dL (31-35); MEAN CORPUSCULAR VOLUME 84.1 fL (81-99); MONOCYTES # (AUTO) 0.5 (0.2-0.8); MONOCYTES % 4.9 % (4.4-11.3); NEUTROPHILS # (AUTO) 7.9 (2.1-6.9); NEUTROPHILS % 77.9 % (38.7-80.0); PLATELET COUNT 290 x10e3/uL (140-360); RED BLOOD COUNT 2.83 x10e6/uL (4.3-5.7); RED CELL DISTRIBUTION WIDTH 13.2 % (11.7-14.4)
[2019-12-11 15:47] LABS: ALBUMIN 3.3 g/dL (3.5-5.0); ALBUMIN/GLOBULIN RATIO 0.8 (0.8-2.0); ANION GAP 12.7 mmol/L (8-16); CALCIUM 8.9 mg/dL (8.4-10.2); CREATININE, SERUM 1.44 mg/dL (0.72-1.25); POTASSIUM 4.7 mmol/L (3.5-5.1)
== END ==
LOC: WCC 09:44
PROVIDERS: ATTEND Podiatrist Foot & Ankle Surgery
DX: T87.89 Other complications of amputation stump (principal); Y84.8 Other medical procedures as the cause of abnormal reaction of the patient, or of later complication, without mention of misadventure at the time of the procedure; A41.9 Sepsis, unspecified organism; M86.8X7 Other osteomyelitis, ankle and foot; E11.621 Type 2 diabetes mellitus with foot ulcer; E11.65 Type 2 diabetes mellitus with hyperglycemia; L97.423 Non-pressure chronic ulcer of left heel and midfoot with necrosis of muscle; L97.411 Non-pressure chronic ulcer of right heel and midfoot limited to breakdown of skin; I73.9 Peripheral vascular disease, unspecified; I73.89 Other specified peripheral vascular diseases; S90.821A Blister (nonthermal), right foot, initial encounter; L08.89 Other specified local infections of the skin and subcutaneous tissue; I10 Essential (primary) hypertension; M14.671 Charcot's joint, right ankle and foot; I25.10 Atherosclerotic heart disease of native coronary artery without angina pectoris; E78.00 Pure hypercholesterolemia, unspecified; Z01.810 Encounter for preprocedural cardiovascular examination; Z74.01 Bed confinement status
CPT/HCPCS: 11042; 11045; 36415; 80053; 83036; 84134; 85025; 85651; 86140; 99212; G0277

== ENCOUNTER → 2019-12-13 | Outpatient (CLI) | payer BC, OTHER ==
[~2019-12-13] MED LIST changes: -HUMALOG KW200 UNIT/1; -LOSARTAN POTASS25 MG; -TRADJENTA5 MG
== END ==
LOC: WCC 17:12
PROVIDERS: ATTEND Podiatrist Foot & Ankle Surgery
DX: T87.89 Other complications of amputation stump (principal); Y84.8 Other medical procedures as the cause of abnormal reaction of the patient, or of later complication, without mention of misadventure at the time of the procedure; M86.8X7 Other osteomyelitis, ankle and foot; E11.65 Type 2 diabetes mellitus with hyperglycemia; E11.621 Type 2 diabetes mellitus with foot ulcer; L97.423 Non-pressure chronic ulcer of left heel and midfoot with necrosis of muscle; L97.411 Non-pressure chronic ulcer of right heel and midfoot limited to breakdown of skin; I73.9 Peripheral vascular disease, unspecified; I73.89 Other specified peripheral vascular diseases; S90.821A Blister (nonthermal), right foot, initial encounter; L08.9 Local infection of the skin and subcutaneous tissue, unspecified; I10 Essential (primary) hypertension; M14.671 Charcot's joint, right ankle and foot; E78.00 Pure hypercholesterolemia, unspecified; I25.10 Atherosclerotic heart disease of native coronary artery without angina pectoris; Z74.01 Bed confinement status
CPT/HCPCS: 36415; 82948

== ENCOUNTER → 2019-12-14 | Outpatient (CLI) | payer BC, OTHER ==
[~2019-12-14] MED LIST changes: +HUMALOG KW200 UNIT/1; +LOSARTAN POTASS25 MG; +TRADJENTA5 MG
== END ==
LOC: WCC 14:59
PROVIDERS: ATTEND Podiatrist Foot & Ankle Surgery
DX: T87.89 Other complications of amputation stump (principal); Y84.8 Other medical procedures as the cause of abnormal reaction of the patient, or of later complication, without mention of misadventure at the time of the procedure; M86.8X7 Other osteomyelitis, ankle and foot; E11.65 Type 2 diabetes mellitus with hyperglycemia; E11.621 Type 2 diabetes mellitus with foot ulcer; L97.423 Non-pressure chronic ulcer of left heel and midfoot with necrosis of muscle; L97.411 Non-pressure chronic ulcer of right heel and midfoot limited to breakdown of skin; I73.9 Peripheral vascular disease, unspecified; I73.89 Other specified peripheral vascular diseases; S90.821A Blister (nonthermal), right foot, initial encounter; L08.9 Local infection of the skin and subcutaneous tissue, unspecified; I10 Essential (primary) hypertension; M14.671 Charcot's joint, right ankle and foot; E78.00 Pure hypercholesterolemia, unspecified; I25.10 Atherosclerotic heart disease of native coronary artery without angina pectoris; Z74.01 Bed confinement status
CPT/HCPCS: 99213; G0277

== ENCOUNTER → 2019-12-17 | Outpatient (CLI) | payer BC, OTHER | LOC: WCC 09:22 | PROVIDERS: ATTEND Podiatrist Foot & Ankle Surgery | DX: T87.89 Other complications of amputation stump (principal); Y84.8 Other medical procedures as the cause of abnormal reaction of the patient, or of later complication, without mention of misadventure at the time of the procedure; M86.8X7 Other osteomyelitis, ankle and foot; E11.65 Type 2 diabetes mellitus with hyperglycemia; E11.621 Type 2 diabetes mellitus with foot ulcer; L97.423 Non-pressure chronic ulcer of left heel and midfoot with necrosis of muscle; L97.411 Non-pressure chronic ulcer of right heel and midfoot limited to breakdown of skin; I73.9 Peripheral vascular disease, unspecified; I73.89 Other specified peripheral vascular diseases; S90.821A Blister (nonthermal), right foot, initial encounter; L08.9 Local infection of the skin and subcutaneous tissue, unspecified; I10 Essential (primary) hypertension; I25.10 Atherosclerotic heart disease of native coronary artery without angina pectoris; M14.671 Charcot's joint, right ankle and foot; E78.00 Pure hypercholesterolemia, unspecified; Z74.01 Bed confinement status ==

== ENCOUNTER → 2019-12-18 | Outpatient (CLI) | payer BC, OTHER ==
[~2019-12-18] MED LIST changes: -HUMALOG KW200 UNIT/1; -LOSARTAN POTASS25 MG; -TRADJENTA5 MG
== END ==
LOC: WCC 13:55
PROVIDERS: ATTEND Podiatrist Foot & Ankle Surgery
DX: T87.89 Other complications of amputation stump (principal); Y84.8 Other medical procedures as the cause of abnormal reaction of the patient, or of later complication, without mention of misadventure at the time of the procedure; E11.621 Type 2 diabetes mellitus with foot ulcer; E11.65 Type 2 diabetes mellitus with hyperglycemia; A41.9 Sepsis, unspecified organism; M86.8X7 Other osteomyelitis, ankle and foot; L97.423 Non-pressure chronic ulcer of left heel and midfoot with necrosis of muscle; L97.411 Non-pressure chronic ulcer of right heel and midfoot limited to breakdown of skin; I73.9 Peripheral vascular disease, unspecified; I73.89 Other specified peripheral vascular diseases; S90.821A Blister (nonthermal), right foot, initial encounter; L08.89 Other specified local infections of the skin and subcutaneous tissue; I10 Essential (primary) hypertension; M14.671 Charcot's joint, right ankle and foot; D64.9 Anemia, unspecified; E78.00 Pure hypercholesterolemia, unspecified; I25.10 Atherosclerotic heart disease of native coronary artery without angina pectoris; Z01.810 Encounter for preprocedural cardiovascular examination; Z74.01 Bed confinement status
CPT/HCPCS: 87071; 87075; 87205; 99213; G0277; 87186

== ENCOUNTER 2019-12-20 17:31 | Inpatient (IN) | payer BC, OTHER ==
[~2019-12-20] VITALS: Ht 172.7 cm; Wt 71.7 kg
--- NOTE | 2019-12-20 18:24 | Emergency Department Note ---
History of Present Illnes History of Present Illness Chief Complaint: General Medicine Complaints History of Present Illness This is a 49 year old male in from home as told to do so by Dr. Orellana for evaluation of anemia, weakness and rapid heart rate/palpitations. 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 Per lab work provided by Dr. Orellana's office, HGB of 6.7 and HCT of 20.8. Patient has been seeing wound care 3 times per week for hyperbaric therapy to aid in wound healing. Patient denies dark, black or blood stools but does report frequent constipation requiring laxatives for relief. Patient has also undergone angioplasty to BLE this year and stenting in his heart with Dr. Davenport. . pt also reports gets chest pressure and sob with exertion for about a week now Historian: Patient Arrival Mode: Car Onset (how long ago): unknown Location: all over Quality: weakness, rapid heart rate Radiation: Reports non-radiation Severity: moderate Onset quality: unable to specify Progression: unchanged Chronicity: new Context: Reports recent surgery (to left foot) Relieving factors: none Exacerbating factors: none Associated symptoms: Reports weakness Treatments prior to arrival: none Past Medical/Family History Physician Review I have reviewed the patient's past medical and family history. Any updates have been documented here. Past Medical History Recent Fever: No Clinical Suspicion of Infectio: No New/Unexplained Change in Ment: No Past Medical History: Hypertension, Diabetes, Hyperlipedemia Past Surgical History: PCI Other Surgery: TMA of left foot Angioplasty BLE Heart stents Social History Smoking Cessation: Never Smoker Alcohol Use: None Any Illegal Drug Use: No Family History Family history of heart diseas: No Other Last Tetanus: UNK Review of Systems Review of Systems Constitutional: Reports no symptoms EENTM: Reports no symptoms Cardiovascular: Reports as per HPI Respiratory: Reports as per HPI Gastrointestinal: Reports no symptoms Genitourinary: Reports no symptoms Musculoskeletal: Reports as per HPI Integumentary: Reports no symptoms Neurological: Reports as per HPI Psychological: Reports no symptoms Endocrine: Reports no symptoms Hematological/Lymphatic: Reports no symptoms Physical Exam Related Data Allergies: Coded Allergies: No Known Allergies (Unverified , 02/14/19) Triage Vital Signs Vital Signs Date Time Temp Pulse Resp B/P (MAP) Pulse Ox O2 Delivery O2 Flow Rate FiO2 12/20/19 17:35 97.4 90 17 167/89 100 Vital signs reviewed: Yes Physical Exam CONSTITUTIONAL Constitutional: Present well-developed, Present well-nourished HENT HENT: Present normocephalic, Present atraumatic, Present oropharynx clear/moist, Present nose normal HENT L/R: Present left ext ear normal, Present right ext ear normal EYES Eyes: Reports PERRL, Reports conjunctivae normal NECK Neck: Present ROM normal PULMONARY Pulmonary: Present effort normal, Present breath sounds normal CARDIOVASCULAR Cardiovascular: Present regular rhythm, Present heart sounds normal, Present capillary refill normal, Present normal rate GASTROINTESTINAL Abdominal: Present soft, Present nontender, Present bowel sounds normal GENITOURINARY Genitourinary: Present exam deferred SKIN Skin: Present warm, Present dry MUSCULOSKELETAL Musculoskeletal: Present ROM normal, Present other (wounds to both feet no sign of infection) NEUROLOGICAL Neurological: Present alert, Present oriented x 3, Present no gross motor or sensory deficits PSYCHOLOGICAL Psychological: Present mood/affect normal, Present judgement normal Results Laboratory Laboratory Laboratory Tests Test 12/20/19 18:00 White Blood Count 11.23 x10e3/uL (4.8-10.8) Red Blood Count 2.69 x10e6/uL (4.3-5.7) Hemoglobin 7.1 g/dL (14.0-18.0) Hematocrit 22.8 % (38.2-49.6) Mean Corpuscular Volume 84.8 fL (81-99) Mean Corpuscular Hemoglobin 26.4 pg (28-32) Mean Corpuscular Hemoglobin Concent 31.1 g/dL (31-35) Red Cell Distribution Width 13.2 % (11.7-14.4) Platelet Count 306 x10e3/uL (140-360) Neutrophils (%) (Auto) 83.2 % (38.7-80.0) Lymphocytes (%) (Auto) 8.9 % (18.0-39.1) Monocytes (%) (Auto) 4.7 % (4.4-11.3) Eosinophils (%) (Auto) 2.4 % (0.0-6.0) Basophils (%) (Auto) 0.4 % (0.0-1.0) Neutrophils # (Auto) 9.3 (2.1-6.9) Lymphocytes # (Auto) 1.0 (1.0-3.2) Monocytes # (Auto) 0.5 (0.2-0.8) Eosinophils # (Auto) 0.3 (0.0-0.4) Basophils # (Auto) 0.1 (0.0-0.1) Absolute Immature Granulocyte (auto 0.05 x10e3/uL (0-0.1) Prothrombin Time 14.9 seconds (11.9-14.5) Prothromb Time International Ratio 1.11 Activated Partial Thromboplast Time 44.4 seconds (23.8-35.5) Sodium Level 134 mmol/L (136-145) Potassium Level 5.4 mmol/L (3.5-5.1) Chloride Level 99 mmol/L (98-107) Carbon Dioxide Level 25 mmol/L (22-29) Anion Gap 15.4 mmol/L (8-16) Blood Urea Nitrogen 32 mg/dL (7-26) Creatinine 1.55 mg/dL (0.72-1.25) Estimat Glomerular Filtration Rate 48 ML/MIN (60-) BUN/Creatinine Ratio 21 (6-25) Glucose Level 334 mg/dL (74-118) Calcium Level 9.3 mg/dL (8.4-10.2) Total Bilirubin 0.3 mg/dL (0.2-1.2) Aspartate Amino Transf (AST/SGOT) 13 IU/L (5-34) Alanine Aminotransferase (ALT/SGPT) 17 IU/L (0-55) Alkaline Phosphatase 260 IU/L (40-150) Creatine Kinase 61 IU/L (30-200) Creatine Kinase MB 2.20 ng/mL (0-5.0) Troponin I 0.018 ng/mL (0-0.300) Total Protein 8.0 g/dL (6.5-8.1) Albumin 2.4 g/dL (3.5-5.0) Globulin 5.6 g/dL (2.3-3.5) Albumin/Globulin Ratio 0.4 (0.8-2.0) Lab results reviewed: Yes Procedures 12 Lead ECG Interpretation ECG Interpretation : ECG: ECG 1 Stock Pitcher: Interpreted by ED physician Date: Dec 20, 2019 Time: 18:32 Rhythm: sinus rhythm Rate: normal BPM: 91 QRS axis: normal ST segments normal: Yes T waves normal: Yes Other findings: no other findings Clinical Impression: normal ECG Assessment & Plan Medical Decision Making MDM pt with reported anemia and generalized weakness cbc, cmp, ordered to eval for anemia, renal insufficiency, electrolyte abnormality I SPOKE WITH DR CARRILLO AND DR Mary Beth HIDALGO Assessment & Plan Final Impression: (1) Hyperkalemia (2) Anemia (3) Symptomatic anemia (4) Chest pain Depart Disposition: ADMITTED Last Vital Signs Date Time Temp Pulse Resp B/P (MAP) Pulse Ox O2 Delivery O2 Flow Rate FiO2 12/20/19 17:35 97.4 90 17 167/89 100 Home Meds Reported Medications Clopidogrel Bisulfate* (PLAVIX) 75 Mg Tablet, 75 MG PO DAILY, #30 TAB 08/01/19 Atorvastatin Calcium* (LIPITOR*) 10 Mg Tablet, 20 MG PO HS, TAB 08/01/19 Aspirin (ASPIR 81) 81 Mg Tablet.dr, 81 MG PO DAILY 08/01/19 Insulin Lispro (HUMALOG) 100 Unit/1 Ml Cartridge, 14 UNITS SQ TID 03/08/19 Metformin Hcl (METFORMIN HCL) 1,000 Mg Tablet, 1000 MG PO BID 02/14/19 CHRISTIAN NAVAS MD Dec 20, 2019 18:24
[2019-12-20 18:36] LABS: BASOPHILS # (AUTO) 0.1 (0.0-0.1); BASOPHILS % 0.4 % (0.0-1.0); EOSINOPHILS # (AUTO) 0.3 (0.0-0.4); EOSINOPHILS % 2.4 % (0.0-6.0); HEMATOCRIT 22.8 % (38.2-49.6); HEMOGLOBIN 7.1 g/dL (14.0-18.0); LYMPHOCYTES % 8.9 % (18.0-39.1); MEAN CORPUSCULAR HEMOGLOBIN 26.4 pg (28-32); MEAN CORPUSCULAR HGB CONC 31.1 g/dL (31-35); MEAN CORPUSCULAR VOLUME 84.8 fL (81-99); MONOCYTES # (AUTO) 0.5 (0.2-0.8); MONOCYTES % 4.7 % (4.4-11.3); NEUTROPHILS # (AUTO) 9.3 (2.1-6.9); NEUTROPHILS % 83.2 % (38.7-80.0); PLATELET COUNT 306 x10e3/uL (140-360); RED BLOOD COUNT 2.69 x10e6/uL (4.3-5.7); RED CELL DISTRIBUTION WIDTH 13.2 % (11.7-14.4)
--- NOTE | 2019-12-20 18:38 | NUR ---
DR. NAVAS IN TO DISCUSS P.O.C. EKG DONE AND HANDED TO DR. NAVAS FOR EVAL
[2019-12-20 18:42] LABS: INR 1.11; PROTHROMBIN TIME 14.9 seconds (11.9-14.5)
[2019-12-20 18:43] LABS: PARTIAL THROMBOPLASTIN TIME 44.4 seconds (23.8-35.5)
[2019-12-20 18:49] LABS: ALBUMIN 2.4 g/dL (3.5-5.0); ALBUMIN/GLOBULIN RATIO 0.4 (0.8-2.0); ANION GAP 15.4 mmol/L (8-16); CALCIUM 9.3 mg/dL (8.4-10.2); CREATININE, SERUM 1.55 mg/dL (0.72-1.25); POTASSIUM 5.4 mmol/L (3.5-5.1)
[2019-12-20 19:00] LABS: CREATINE KINASE MB 2.2 ng/mL (0-5.0)
--- OUTSIDE RECORDS SUMMARY | 2019-12-20 19:18 | XMS REPORT | Clinical Summary ---
Author Author [facility] Organization [facility] Address Unknown Phone Unavailable Care Team Providers Care Information Technology Manager Name Role Phone Freddy Garcias MD PCP [phone] Allergies No Known Active Allergies Medications End Date Status Medication Sig Dispensed Refills Start Date Active clopidogreL (Plavix) 75 Daily 0 mg tablet 9 Active atorvastatin (LIPITOR) 20 Take 20 mg by 0 mg tablet mouth daily. Default OP ins Active aspirin (ECOTRIN) 81 MG Take 81 mg by 0 enteric coated tablet mouth daily. Active insulin lispro (HumaLOG) Inject under 0 100 unit/mL injection the skin 3 (three) times a day before meals. 09/12/2019 Discontinued metFORMIN (GLUCOPHAGE) Take 1,000 mg 0 1,000 mg tablet by mouth 2 (two) times a day with meals. 02/13/2019 metoclopramide (REGLAN) Take 1 tablet 6 tablet 0 10 MG tablet (10 mg total) 9 by mouth every 6 (six) hours for 6 doses. 03/14/2019 acetaminophen-codeine Take 1-2 12 tablet 0 0 (TYLENOL WITH CODEINE #3) tablets by 9 300-30 mg per mouth every 6 tabletIndications: acute (six) hours pain as needed for moderate pain or severe pain for up to 12 doses .Acute Pain. Active Problems No known active problems Encounters Care Team Description Date Type Specialty Gus Ahn MD Luczak, Amy Dowling PA-C PAD (peripheral artery disease) (HCC) (P rimary Dx); Open wound of foot, unspecified laterality, initial encounter 09/12/2019 Office Visit Cardiovascular 09/12/2019 Travel Mary Bagley MA Appointment 08/31/2019 Documentation Cardiovascular Richie Stuart MD Abdominal pain, unspecified abdominal lo cation (Primary Dx); Diarrhea, unspecified type; Hyperglycemia 02/10/2019 Emergency Emergency Medicine - 02/11/2019 after 12/19/2018 Surgical History Surgery Date Site/Laterality Comments NO PAST SURGERIES VASCULAR SURGERY 03/14/2019 - angioplasty 04/13/2019 DEBRIDEMENT 02/11/2019 - 03/13/2019 Medical History Medical History Date Comments Diabetes mellitus (HCC) iddm PVD right PT and AT artherectomy Dr. Davenport Family History Medical History Relation Name Comments Diabetes Brother Diabetes Father Diabetes Mother Relation Name Status Comments Brother Father Mother Social History Date Tobacco Use Types Packs/Day Years Used Never Smoker Smokeless Tobacco: Never Used Drinks/Week oz/Week Comments Alcohol Use Never Alcohol Habits Answer Date Recorded How often do you have a drink containing alcohol? Never 02/11/2019 How many drinks containing alcohol do you have on No t asked a typical day when you are drinking? How often do you have six or more drinks on one Not asked occasion? Sex Assigned at Date Recorded Not on file Last Filed Vital Signs Reading Time Taken Comments Vital Sign 164/80 09/12/2019 4:17 PM CDT Blood Pressure 93 09/12/2019 4:17 PM CDT Pulse 37.5 C (99.5 F) 02/11/2019 12:00 AM IN[employer]O [employer] Temperature 12 09/12/2019 4:17 PM CDT Respiratory Rate 98% 09/12/2019 4:17 PM CDT Oxygen Saturation - - Inhaled Oxygen Concentration 73 kg (161 lb) 09/12/2019 4:17 PM CDT Weight 172.7 cm (5' 8") 09/12/2019 4:17 PM CDT Height 24.48 09/12/2019 4:17 PM CDT Body Mass Index Plan of Treatment Health Maintenance Due Date Last Done Comments DIABETIC RETINAL EYE EXAM 1970 DIABETIC FOOT EXAM 1980 URINE MICROALBUMIN 1980 INFLUENZA VACCINE 10/13/2019 Procedures Comments Procedure Name Priority Date/Time Associated Diag nosis ESTIMATED GFR STAT 02/11/2019 12:39 AM [facility] [employer] LIPASE LEVEL STAT 02/11/2019 12:39 AM [employer] COMPREHENSIVE METABOLIC STAT 02/11/2019 PANEL 12:39 AM [employer] HC COMPLETE BLD COUNT STAT 02/11/2019 W/AUTO DIFF 12:39 AM [employer] URINALYSIS SCREEN AND STAT 02/11/2019 MICROSCOPY, WITH REFLEX 12:27 AM [employer] TO CULTURE URINE CULTURE STAT 02/11/2019 12:27 AM [employer] INFLUENZA ANTIGEN Routine 02/11/2019 12:17 AM [employer] RESPIRATORY PATHOGEN Routine 02/11/2019 PANEL 12:17 AM [employer] POC GLUCOSE Routine 02/10/2019 11:11 PM [employer] after 12/19/2018 Results * Estimated GFR (02/11/2019 12:39 AM INDIGO [employer]OTH) [facility] Estimated GFR 88 mL/min/1.73 m2 [place] Comment: [facility] G1 >=90 Normal or high G2 60-89 Mildly decreased G3a 45-59 Mildly to moderately decreased G3b 30-44 Moderately to severely decreased G4 15-29 Severely decreased G5 <15 Kidney failure The eGFR was calculated using the Chronic Kidney Disease Epidemiology Collaboration (CKD-EPI) equation. Interpretation is based on recommendations of the National Kidney Foundation-Kidney Disease Outcomes Quality Initiative (NKF-KDOQI) published in 2014. Specimen Plasma specimen Performing Organization Address City/State/ZIP Code P rubina Number [facility] DEPARTMENT OF [address] [place] [address] PATHOLOGY AND GENOMIC MEDICINE [facility] [address] * CBC with platelet and differential (02/11/2019 12:39 AM INDIGO [employer]OTH) [facility] WBC 15.4 (H) 4.2 - 11.0 k/uL [facility] RBC 4.64 4.04 - 5.86 m/uL [facility] HGB 14.3 13.0 - 17.3 g/dL [facility] HCT 41.3 34.0 - 45.0 % [facility] MCV 89.0 80.0 - 98.0 fL [facility] MCH 30.8 27.0 - 34.0 pg [facility] MCHC 34.6 31.5 - 36.5 g/dL [facility] RDW - SD 36.5 (L) 37.0 - 51.0 fL [facility] MPV 11.8 (H) 7.4 - 10.4 fL [facility] Platelet count 199 150 - 400 k/uL [facility] Nucleated RBC 0.00 /100 WBC [facility] Neutrophils 84.6 (H) 36.0 - 66.0 % [facility] Lymphocytes 7.9 (L) 24.0 - 44.0 % [facility] Monocytes 6.0 0.0 - 6.0 % [facility] Eosinophils 0.5 0.0 - 6.0 % [facility] Basophils 0.3 0.0 - 1.2 % [facility] Immature 0.7 0.0 - 1.0 % [place] granulocytes [facility] Specimen Blood Performing Organization Address City/[facility]/ZIP [facility] [place] [address] PATHOLOGY AND GENOMIC MEDICINE [address] * Lipase level (02/11/2019 12:39 AM INDIGO [employer]OTH) Pathologist [facility] Lipase 22 13 - 60 U/L [facility] Specimen Plasma specimen Performing Organization Address City/State/[facility] [place] [address] PATHOLOGY AND GENOMIC MEDICINE [address] * Comprehensive metabolic panel (02/11/2019 12:39 AM IN[employer]OTH) Pathologist [facility] Sodium 136 135 - 150 mEq/L [facility] Potassium 4.3 3.5 - 5.0 mEq/L [facility] Chloride 94 (L) 98 - 112 mEq/L [facility] CO2 27 24 - 31 mmol/L [facility] Anion gap 15@ANIO 7 - 15 mEq/L [facility] BUN 24 (H) 7 - 18 mg/dL [facility] Creatinine 1.00 0.70 - 1.20 mg/dL [facility] Glucose 353 (H) 65 - 100 mg/dL [facility] Calcium 9.6 8.3 - 10.2 mg/dL [facility] Protein 7.4 6.3 - 8.3 g/dL [facility] Albumin 3.5 3.5 - 5.0 g/dL [facility] A/G ratio 0.9 0.7 - 3.8 [facility] Alkaline 128 0 - 129 U/L [place] phosphatase [facility] AST 13 10 - 50 U/L [facility] ALT 15 5 - 50 U/L [facility] Total bilirubin 0.6 0.2 - 1.2 mg/dL [facility] Specimen Plasma specimen Performing Organization Address City/State/ZIP Code P rubina Number [facility] DEPARTMENT OF [address] [facility] [place] [address] PATHOLOGY AND GENOMIC MEDICINE [address] * Urinalysis screen and microscopy, with reflex to culture (02/11/2019 12:27 AM IN[employer]) Specimen site Clean catch [facility] Color, UA Yellow [facility] Appearance, UA Clear [facility] Specific 1.024 1.001 - 1.035 [place] gravity, [facility] pH, UA 5.0 5.0 - 8.5 [facility] Protein, UA Negative Negative [facility] Glucose, UA 3+ (A) Negative [facility] Ketones, UA Negative Negative [facility] Bilirubin, UA Negative Negative [facility] Blood, UA Negative Negative [facility] Nitrite, UA Negative Negative [facility] Urobilinogen, Negative <2.0 [facility] Leukocyte Negative Negative [place] esterase, [facility] Epithelial Few /HPF [place] cells, [facility] Round Few 0 - 1 /HPF [place] epithelial CONFUCIANIST cells, [facility] WBC, UA 1 0 - 1 /HPF [facility] RBC, UA <1 0 - 5 /HPF [facility] Bacteria, UA None seen None seen [facility] Yeast, UA None seen [facility] Yeast with None seen [place] pseudohyphae, [facility] Specimen Urine Performing Organization Address City/[facility] P rubina Number [facility] DEPARTMENT OF [address] [place] [address] PATHOLOGY [place] [address] HOSPITAL * Urine culture (02/11/2019 12:27 AM INDIGO [employer]OTH) Pathologist [facility] Urine culture SEE COMMENTComment: [place] Bacteriuria screen negative. [facility] Specimen Urine Performing Organization Address City/[facility] [place] [address] PATHOLOGY AND GENOMIC MEDICINE [address] * Respiratory pathogen panel (02/11/2019 12:17 AM IN[employer]OTH) Pathologist [facility] Respiratory Negative for all pathogens [place] pathogen panel tested: CONFUCIANIST Negative for Adenovirus [facility] Negative for Coronavirus HKU1 Negative for Coronavirus NL63 Negative for Coronavirus 229E Negative for Coronavirus OC43 Negative for Human Metapneumovirus Negative for Rhinovirus/Enterovirus Negative for Influenza A Negative for Influenza A/H1 Negative for Influenza A/H3 Negative for Influenza A/H1-2009 Negative for Influenza B Negative for Parainfluenza Virus 1 Negative for Parainfluenza Virus 2 Negative for Parainfluenza Virus 3 Negative for Parainfluenza Virus 4 Negative for Respiratory Syncytial Virus Negative for Bordetella pertussis Negative for Chlamydophila pneumoniae Negative for Mycoplasma pneumoniae This real-time PCR assay detects the presence of nucleic acids (RNA or DNA) for the respiratory pathogens listed. A result of "Not-detected" does not exclude the possibility of the presence of one or more pathogens at concentrations less than the detectable limits of the assay. Comment: Specimen Information Specimen Source: Nares Specimen Site: Right Specimen Nares - Right Performing Organization Address City/State/ZIP Code P rubina Number [facility] DEPARTMENT OF [address] [place] [address] PATHOLOGY AND GENOMIC MEDICINE [place] [address] HOSPITAL * Influenza antigen (02/11/2019 12:17 AM IN[employer]OTH) Pathologist [facility] Influenza Negative for Influenza A/B [place] antigen antigen. CONFUCIANIST Comment: [place] Specimen Information HOSPITAL Specimen Source: Nares Specimen Site: Right Specimen Nares - Right Performing Organization Address City/[facility]/RUST Code P rbuina Number [facility] DEPARTMENT OF [address] [place] [address] PATHOLOGY AND GENOMIC MEDICINE [place] [facility] [address] [place] [address] HOSPITAL * POC glucose (02/10/2019 11:11 PM IN[employer]O [employer] CLOTH) Pathologist [facility] POC glucose 332 (H) 65 - 100 mg/dL [place] Comment: CONFUCIANIST Meter ID: [id number] [place] Branch Lead: [facility] Specimen Performing Organization Address City/[facility] P rubina Number [facility] DEPARTMENT OF [address] [place] [address] PATHOLOGY AND GENOMIC MEDICINE [facility] [address] [place] [address] HOSPITAL after 12/19/2018 Insurance Type Payer Benefit Subscriber ID Effective Phone Address Plan / Dates Group PPO BCBS BCBS [id number] 2016-P CHOICE resent PPO/[employer] [place] PPO Advance Directives For more information, please contact: [phone] Patient Crab Backer Explanation Type Date Recorded Advance Directives, 02/10/2019 11:38 PM 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
--- OUTSIDE RECORDS SUMMARY | 2019-12-20 19:18 | XMS REPORT | Continuity of Care Document ---
Author Author [facility] t Organization [facility] Address [address] [place] [id number] Phone Unavailable Care Team Providers Care Picking Belt Operator Name Role Phone SONY MACEDO, Alicia RG PCP Anabelle MACEDO, Sherri Attphys Beth SULLIVAN, Josey Reyes Attphys GODFREY CABRERA Attphys Unavailable Yudi STAHL, Mary Attphys Unavailable LIBBY COLLADO Attphys Unavailable Josephine ISLAS Attphys Unavailable Narciso MACEDO, Arturo Quiroz Attphys Josephine ISLAS Admphys Unavailable Payers Payer Name Policy Type Policy Number Effective Date Expiration Date S ource BCBSBCBS CHOICE PPO/FEDERAL EMPL [id number] 2016-Pre sentPPO [id number] 2016 [id number] 00:00:00 [facility] Problems Condition Name Condition Details Condition Category Status Onset Date Resolution Date Last Treatment Date Treating Clinician Comments Source Cellulitis of right foot Cellulitis of right foot Problem Active [facility] Diabetic ulcer of right foot Diabetic ulcer of right foot Problem Active [facility] Fever Fever Problem Active [facility] Type 1 diabetes mellitus Type 1 diabetes Problem Active 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 Family History Family Member Diagnosis Comments Start Date Stop Date Source Natural brother Diabetes Yassine Clinton ethodist Natural father Diabetes Yassine Me thodist Natural mother Diabetes Yassine Barr thodist Social History Social Habit Start Date Stop Date Quantity Comments Source History SDOH Alcohol Std Drinks Yassine Valentin History SDOH Alcohol Binge Yassine Valentin Sex Assigned At [place] Valentin Tobacco use and exposure 2019-09-20 00:00:00 2019-09-20 00:00:00 Greta renteria used Yassine Valentin Alcohol intake 2019-09-20 00:00:00 2019-09-20 00:00:00 Lifetime non-drinker (finding) Yassine Valentin History SDOH Alcohol Frequency 2019-02-11 00:00:00 2019-02-11 00:00:0 0 1 Ysasine Valentin Smoking Status Start Date Stop Date Source Never smoker Yassine payne Medications Ordered Medication Name Filled Medication Name Start Date Stop Da te Current Medication? Ordering Clinician Indication Dosage Frequency Signature (SIG) Comments Components Source atorvastatin (LIPITOR) 20 mg tablet 2019-09-12 16:19:37 Yes 20mg QD Take 20 mg by mouth daily. Default OP ins Edmond Valentin aspirin (ECOTRIN) 81 MG enteric coated tablet 2019-09-12 16:19:3 7 Yes 81mg QD Take 81 mg by mouth daily. H eleanor Valentin insulin lispro (HumaLOG) 100 unit/mL injection 2019-09-12 16:19: 37 Yes [id number] Inject under the skin 3 (thr ee) times a day before meals. Yassine Valentin metFORMIN (GLUCOPHAGE) 1,000 mg tablet 1 16:19:33 2019-09-12 00:00:00 No 1000mg Q.5D Take 1,000 mg by mouth 2 (two) t imes a day with meals. Yassine Valentin Atorvastatin 40 Mg Tab Atorvastatin 40 Mg Tab 2019-02-19 00:00:00 Yes Avis Hayes Nanoelectronics Engineer 40 Bedtime [facility] Clopidogrel Bisulfate (Plavix) 75 Mg Tablet Clopidogre l Bisulfate (Plavix) 75 Mg Tablet 2019-02-19 00:00:00 Yes Avis Hayes Nanoelectronics Engineer 75 Daily [facility] Losartan Potassium (Cozaar) 25 Mg Tablet Losartan Pota ssium (Cozaar) 25 Mg Tablet 2019-02-19 00:00:00 Yes Avis Hayes Nanoelectronics Engineer 50 Twice A Day [facility] clopidogreL (Plavix) 75 mg tablet 2019-02-19 00:00:00 Yes Daily Yassine Valentin acetaminophen-codeine (TYLENOL WITH CODEINE #3) 300-30 mg pe r tablet 2019-02-11 00:00:00 2019-03-14 23:59:00 No acute pain 1{tbl} Q6H Take 1-2 tablets by mouth every 6 (six) hours as needed for moderate pain or severe pain for up to 12 doses .Acute Pain. Yassine Valentin metoclopramide (REGLAN) 10 MG tablet 2019-02-11 00:00: 00 2019-02-13 23:59:00 No 10mg Q6H Take 1 tablet ( 10 mg total) by mouth every 6 (six) hours for 6 doses. Yassine Valentin Gabapentin 300 Mg Capsule Gabapentin 300 Mg Capsule Yes 300 Daily [facility] Glipizide 5 Mg Tablet Glipizide 5 Mg Tablet Yes 5 Twice A Day [facility] Linagliptin (Tradjenta) 5 Mg Tablet Linagliptin (Tradjenta) 5 Mg Tabl et Yes 5 Daily [facility] Metformin Hcl 1,000 Mg Tablet Metformin Hcl 1,000 Mg Tablet Yes 1000 Twice A Day [facility] Sulfamethoxazole/Trimethoprim (Bactrim Ds Tablet) 1 Ea ch Tablet, 160 Mg Oral Sulfamethoxazole/Trimethoprim (Bactrim Ds Tablet) 1 Each Tablet, 160 Mg Oral 2019-02-19 00:00:00 No 160 Twice A Day [facility] Vital Signs Vital Name Observation Time Observation Value Comments Source Systolic blood pressure 2019-09-12 16:17:00 164 mm[Hg] Yassine Valentin Diastolic blood pressure 2019-09-12 16:17:00 80 mm[Hg] Yassine Valentin Heart rate 2019-09-12 16:17:00 93 /min Yassine Valentin Respiratory rate 2019-09-12 16:17:00 12 /min Rogelio Valentin Body height 2019-09-12 16:17:00 172.7 cm Yassine Valentin Body weight 2019-09-12 16:17:00 73.029 kg Yassine Valentin BMI 2019-09-12 16:17:00 24.48 kg/m2 Yassine Valentin Oxygen saturation in Arterial blood by Pulse oximetry 09-11 16:17:00 98 /min Yassine Valentin Body temperature 2019-02-11 00:00:00 37.5 Marika Rogelio Valentin Procedures Procedure Date / Time Performed Performing Clinician Sour e Incision and drainage 2019-02-15 00:00:00 JESSE GREENWOOD I [facility] HC COMPLETE BLD COUNT W/AUTO DIFF 2019-02-11 00:39:00 Johnny Garcia COMPREHENSIVE METABOLIC PANEL 2019-02-11 00:39:00 Yessy Garcia LIPASE LEVEL 2019-02-11 00:39:00 Yessy Garcia ESTIMATED GFR 2019-02-11 00:39:00 Yessy Garcia URINE CULTURE 2019-02-11 00:27:00 Yessy Garcia URINALYSIS SCREEN AND MICROSCOPY, WITH REFLEX TO CULTURE 201 11-23-00 00:27:00 Yessy Garcia RESPIRATORY PATHOGEN PANEL 2019-02-11 00:17:00 Yessy Garcia INFLUENZA ANTIGEN 2019-02-11 00:17:00 Yessy Garcia POC GLUCOSE 2019-02-10 23:11:00 Provider, Unknown [facility] Plan of Care Planned Activity Planned Date Details Comments Source Future Scheduled Test 2019-10-13 00:00:00 INFLUENZA VACCINE [code = INFLUENZA VACCINE] Yassine Valentin Future Scheduled Test 1980 00:00:00 DIABETIC FOOT EXAM [code = DIABETIC FOOT EXAM] Yassine Valentin Future Scheduled Test 1980 00:00:00 URINE MICROALBUMIN [code = URINE MICROALBUMIN] Yassine Valentin Future Scheduled Test 1970 00:00:00 DIABETIC RETINAL E YE EXAM [code = DIABETIC RETINAL EYE EXAM] Yassine Valentin Encounters Start Date/Time End Date/Time Encounter Type Admission Type Attendi [facility] Care Department Encounter ID Source 2019-09-12 00:00:00 2019-09-12 00:00:00 Outpatient SHERRI STARKS [facility] [id number] Yassine Valentin 2019-02-14 15:43:00 2019-02-19 18:40:00 Discharged Inpatient 1 PINO ISLAS [facility] [id number] [facility] 2019-02-10 00:00:00 2019-02-11 00:00:00 Emergency YESSY GARCIA 064 [id number] [facility] Results Test Description Test Time Test Comments Results Result Comments Source MRI FOOT LEFT WO 2019-09-07 11:09:00 [facility] [address] [address] Patient Name: HERBERTH CANCHOLA MR #: [id number] : 1970 Age/Sex: 49/M Req #: [id number] Adm Physician: Ordered by: GODFREY CABRERA MD Report #: [id number] Location: MRI Room/Bed: Procedure: [id number] MRI/MRI FOOT LEFT WO Exam Date: Exam Time: REPORT STATUS: Signed MRI of the left forefoot without contrast. History: Foot pain. Diabetic ulcer. Osteomyelitis of the big toe. Ulcer. Decreased range of motion. Technique: Multiplanar multisequence MRI of the forefoot without contrast Comparison: None Findings: Skin ulc eration with abnormal soft tissue edema and underlying bone marrow edema in the distal medial aspect of the first metatarsal and adjacent proximal first toe. No well-formed drainable fluid collection/abscess is seen. The findings are consistent with osteomyelitis. Scattered degenerative change about the remaining visualized osseous structures. No acute fracture, dislocation or evidence of avascular necrosis. No ligamentous or tendon tear. The visualized muscles are normal in size, signal intensity and morphology. The visualized neurovascular bundles are intact. The hindfoot was not imaged. Impression: Skin ulceration with abnormal soft tissue edema and underlying bone marrow edema in the distal medial aspect of the first metatarsal and adjacent proximal first toe. No well-formed drainable fluid collection/abscess is seen. The findings are consistent with osteomyelitis. The hindfoot was not imaged. Signed by: Dr. Hyun Saravia M.D. on 09/07/2019 11:18 AM Dictated By: HYUN SARAVIA MD, MD 17 Transcribed By: DAVI on 09/07/191117 COPY TO: GODFREY CABRERA MD CHEST XRAY LINE PLACEMENT 2019-09-05 09:30:[address] [address] Patient Name: HERBERTH CANCHOLA MR #: [id number] : 1970 Age/Sex: 49/M Req #: [id number] Adm Physician: Ordered by: GODFREY CABRERA MD Report #: [id number] Location: DX Room/Bed: Procedure: [id number] DX/CHEST XRAY LINE PLACEMENT Exam Date: 09/05/19 Exam Time: 0845 REPORT STATUS: Signed EXAM: CHEST X-RAY LINE PLACEMENT DATE: 09/05/2019 8:45 AM INDICATION: PICC line placement COMPARISON: 05/02/2019 FINDINGS: There is been interval placement of a right-sided PICC line with catheter tip terminating appropriately over the mid SVC. The trachea is midline. The lungs are symmetrically expanded without evidence for large focal consolidation, pneumothorax, or significant pleural effusion. The cardiomediastinal silhouette is stable in appearance. No acute osseous abnormality is identified. IMPRESSION: Right-sided PICC line identified with tip projecting over the SVC. Signed by: Dr. Chong Lindsay MD on 09/05/2019 9:32 AM Dictated By: CHONG LINDSAY MD 1 Transcribed By: DAVI on 09/05/19931 COPY TO: GODFREY CABRERA MD CHEST 2 VIEWS 2019-05-02 11:58:00 [address] [place] [address] Patient Name: HERBERTH CANCHOLA MR #: [id number] : 1970 Age/Sex: 49/M Req #: [id number] Adm Physician: Ordered by: LIBBY COLLADO MD Report #: [id number] Location: [facility] Room/Bed: Procedure: [id number] DX/CHEST 2 VIEWS Exam Date: 05/02/19 Exam Time: 1120 REPORT STATUS: Signed EXAM: CHEST 2 VIEWS DATE: 05/02/2019 10:16 AM INDICATION: Preprocedure evaluation COMPARISON: 02/15/2019 FINDINGS: The trachea is midline. The lungs are symmetrically expanded without evidence for large focal consolidation, pneumothorax, or significant pleural effusion. The cardiomediastinal silhouette and pulmonary vasculature are within normal limits. No acute osseous abnormality is identified. The surrounding soft tissues are unremarkable. IMPRESSION: No acute cardiopulmonary process identified. Signed by: Dr. Chong Lindsay MD on 05/02/2019 11:59 AM Dictated By: CHONG LINDSAY MD 1159 Transcribed By: DAVI on 05/02/19 1159 COPY TO: LIBBY COLLADO MD Bedside Glucose 2019-02-19 16:29:00 Test Item Bedside Glucose (test code = 56310-1) 94 70-120 Meter ID: [id number] [facility] Level Ecmapa9879-38-32 02:46:00* Test Item Value Reference Range Interpretation Comments Vancomycin Level Trough (test code = 4092-3) 5.6 5.0-10.0 [facility] CenterWound Esksvkc7716-16-91 08:32:00* Test Item Value Reference Range Interpretation Comments Wound Culture (test code = 6462-6) No Result Data [facility]ided [facility] Umlxn1086-73-24 08:31:00* Test Item Value Reference Range Interpretation Comments Sodium Level (test code = 2951-2) 137 136-145 [facility] CenterPotassium Qfegi4423-07-17 08:31:00* Test Item Value Reference Range Interpretation Comments Potassium Level (test code = 2823-3) 3.5 3.5-5.1 [facility] CenterChloride Xuvxq9596-65-64 08:31:00* Test Item Value Reference Range Interpretation Comments Chloride Level (test code = 2075-0) 103 98-107 [facility] CenterCarbon Dioxide Irkvv8594-59-88 08:31:00* Test Item Value Reference Range Interpretation Comments Carbon Dioxide Level (test code = 2028-9) 26 22-29 [facility] CenterAnion Hnw9060-14-72 08:31:00* Test Item Value Reference Range Interpretation Comments Anion Gap (test code = 14788-9) 11.5 8-16 [facility] CenterBlood Urea Subvcjmx6696-24-44 08:31:00* Test Item Value Reference Range Interpretation Comments Blood Urea Nitrogen (test code = 3094-0) 7 7-26 [facility] CenterCreatinine2019-12-07 08:31:00* Test Item Value Reference Range Interpretation Comments Creatinine (test code = 2160-0) 0.68 0.72-1.25 L [facility] CenterBUN/Creatinine Zwsrc4995-31-25 08:31:00* Test Item Value Reference Range Interpretation Comments BUN/Creatinine Ratio (test code = 3097-3) 10 6-25 [facility] CenterEstimat Glomerular Filtration Rate 2019-02-17 08:31:00* Test Item Value Reference Range Interpretation Comments Estimat Glomerular Filtration Rate (test code = 853285091) > 60 >60 Ranges were taken from the National Kidney Disease Education Program and the [facility] Kidney Foundation literature.Reference ranges:60 or greater: Lpipbf45-43 ( for 3 consecutive months): Chronic kidney disease 15 or less: Kidney failureBaylor Scott & White McLane Children's Medical CenterGlucose Yxgiq8722-61-20 08:31:00* Test Item Value Reference Range Interpretation Comments Glucose Level (test code = IPJ9736) 169 74-118 H [facility] CenterCalcium Zsqei2946-37-04 08:31:00* Test Item Value Reference Range Interpretation Comments Calcium Level (test code = 32772-1) 8.4 8.4-10.2 [facility] CenterMagnesium Vocfc7900-82-85 08:27:00* Test Item Value Reference Range Interpretation Comments Magnesium Level (test code = 76934-9) 1.6 1.3-2.1 [facility] CenterWhite Blood Ykgcs2798-09-55 08:17:00* Test Item Value Reference Range Interpretation Comments White Blood Count (test code = 6690-2) 11.63 4.8-10.8 H [facility] CenterRed Blood Xmoep6646-98-47 08:17:00* Test Item Value Reference Range Interpretation Comments Red Blood Count (test code = 789-8) 3.46 4.3-5.7 L [facility] CenterHemoglobin2019-12-07 08:17:00* Test Item Value Reference Range Interpretation Comments Hemoglobin (test code = 11131-7) 10.8 14.0-18.0 L [facility] CenterHematocrit2019-12-07 08:17:00* Test Item Value Reference Range Interpretation Comments Hematocrit (test code = 4544-3) 30.0 38.2-49.6 L [facility] CenterMean Corpuscular Uwdbta4700-80-10 08:17:00* Test Item Value Reference Range Interpretation Comments Mean Corpuscular Volume (test code = 787-2) 86.7 81-99 [facility] CenterMean Corpuscular Wsbgveasxs8799-19-80 08:17:00* Test Item Value Reference Range Interpretation Comments Mean Corpuscular Hemoglobin (test code = 785-6) 31.2 28-32 [facility] CenterMean Corpuscular Hemoglobin Concent 2019-02-17 08:17:00* Test Item Value Reference Range Interpretation Comments Mean Corpuscular Hemoglobin Concent (test code = 786-4) 36.0 31-35 H [facility] CenterRed Cell Distribution Lhogz5665-79-61 08:17:00* Test Item Value Reference Range Interpretation Comments Red Cell Distribution Width (test code = 66406-6) 11.3 11.7 -14.4 L [facility] CenterPlatelet Tsgfx6889-98-15 08:17:00* Test Item Value Reference Range Interpretation Comments Platelet Count (test code = 777-3) 273 140-360 [facility] CenterNeutrophils (%) (Auto)2019-02-17 08:17:00 * Test Item Value Reference Range Interpretation Comments Neutrophils (%) (Auto) (test code = 47298-0) 79.9 38.7-80.0 [facility] CenterLymphocytes (%) (Auto)2019-02-17 08:17:00 * Test Item Value Reference Range Interpretation Comments Lymphocytes (%) (Auto) (test code = 736-9) 12.0 18.0-39.1 L [facility] CenterMonocytes (%) (Auto)2019-02-17 08:17:00* Test Item Value Reference Range Interpretation Comments Monocytes (%) (Auto) (test code = 5905-5) 5.6 4.4-11.3 [facility] CenterEosinophils (%) (Auto)2019-02-17 08:17:00 * Test Item Value Reference Range Interpretation Comments Eosinophils (%) (Auto) (test code = 713-8) 1.2 0.0-6.0 [facility] CenterBasophils (%) (Auto)2019-02-17 08:17:00* Test Item Value Reference Range Interpretation Comments Basophils (%) (Auto) (test code = 706-2) 0.4 0.0-1.0 [facility] CenterIM GRANULOCYTES %2019-02-17 08:17:00* Test Item Value Reference Range Interpretation Comments IM GRANULOCYTES % (test code = IM GRANULOCYTES %) 0.9 0.0- 1.0 [facility] CenterNeutrophils # (Auto)2019-02-17 08:17:00* Test Item Value Reference Range Interpretation Comments Neutrophils # (Auto) (test code = 751-8) 9.3 2.1-6.9 H [facility] CenterLymphocytes # (Auto)2019-02-17 08:17:00* Test Item Value Reference Range Interpretation Comments Lymphocytes # (Auto) (test code = 85675-5) 1.4 1.0-3.2 [facility] CenterMonocytes # (Auto)2019-02-17 08:17:00* Test Item Value Reference Range Interpretation Comments Monocytes # (Auto) (test code = 742-7) 0.7 0.2-0.8 [facility] CenterEosinophils # (Auto)2019-02-17 08:17:00* Test Item Value Reference Range Interpretation Comments Eosinophils # (Auto) (test code = 711-2) 0.1 0.0-0.4 [facility] CenterBasophils # (Auto)2019-02-17 08:17:00* Test Item Value Reference Range Interpretation Comments Basophils # (Auto) (test code = 704-7) 0.1 0.0-0.1 [facility] CenterAbsolute Immature Granulocyte (auto 2019-02-17 08:17:00* Test Item Value Reference Range Interpretation Comments Absolute Immature Granulocyte (auto (michelle t code = Absolute Immature Granulocyte (auto) 0.11 0-0.1 H [facility] CenterTotal Tdyuaslfx8474-99-49 06:34:00* Test Item Value Reference Range Interpretation Comments Total Bilirubin (test code = 1975-2) 0.4 0.2-1.2 [facility] Medical CenterAspartate Amino Transf (AST/SGOT) 2019-02-16 06:34:00* Test Item Value Reference Range Interpretation Comments Aspartate Amino Transf (AST/SGOT) (test code = Aspartate Amino Transf (AST/SGOT)) 16 5-34 [facility] CenterAlanine Aminotransferase (ALT/SGPT) 2019-02-16 06:34:00* Test Item Value Reference Range Interpretation Comments Alanine Aminotransferase (ALT/SGPT) (test code = 1742-6) 24 0-55 [facility] CenterTotal Smhwlyg2845-62-03 06:34:00* Test Item Value Reference Range Interpretation Comments Total Protein (test code = 2885-2) 5.6 6.5-8.1 L [facility] CenterAlbumin2019-12-06 06:34:00* Test Item Value Reference Range Interpretation Comments Albumin (test code = 1751-7) 2.1 3.5-5.0 L [facility] CenterGlobulin2019-12-06 06:34:00* Test Item Value Reference Range Interpretation Comments Globulin (test code = 99609-0) 3.5 2.3-3.5 [facility] CenterAlbumin/Globulin Clkwr5867-18-79 06:34:00 * Test Item Value Reference Range Interpretation Comments Albumin/Globulin Ratio (test code = 1759-0) 0.6 0.8-2.0 L [facility] CenterAlkaline Nrwcogxdazt1762-53-76 06:34:00* Test Item Value Reference Range Interpretation Comments Alkaline Phosphatase (test code = 6768-6) 155 40-150 H [facility] Medical CenterCHEST XRAY LINE HEERORDIT8600-38-97 00:05:00 [facility] [address] [place] [address] Patient Name: HERBERTH CANCHOLA MR #: [id number] : 1970 Age/Sex: 48/M Req #: [id number] Adm Physician: PINO ISLAS MD Ordered by: KIMI WARD MD Report #: [id number] Location: [facility]/SURG2 Room/Bed: [facility] Procedure: [id number] DX/CHEST XRAY LINE PLACEMENT Exam Date: 02/15/19 Exa m Time: 2330 REPORT STATUS: Signed EXAMINATION: CHEST XRAY LINE PLACEMENT INDICATION: NEW PICC LINE INSERTION [id number] COMPARISON: 02/14/2019 FINDI NGS: AP view TUBES and LINES: Right PICC in place with tip projecting over cavoatrial junction. LUNGS: Low lung volumes. There is no evidence of pneumonia or pulmonary edema. PLEURA: No pleural effusion or pneumot horax. HEART AND MEDIASTINUM: The cardiomediastinal silhouette is unremark able. BONES AND SOFT TISSUES: No acute osseous lesion. Soft tissues a re unremarkable. UPPER ABDOMEN: No free air under the diaphragm. IMPRESSION: Status post right PICC placement with tip projecting over cavoat rial junction. No visible pneumothorax. Signed by: Dr. Devang Orellana MD on 02/16/2019 12:06 AM Dictated By: DEVANG ORELLANA MD Electronically Si gned By: DEVANG ORELLANA MD on 02/16/195 Transcribed By: DAVI on 02/16/195 COPY TO: KIMI WARD MD Creatine Kinase [id number] 05:54:00* Test Item Value Reference Range Interpretation Comments Creatine Kinase MB (test code = 25781-2) 2.00 0-5.0 [facility] E4549-95-70 05:54:00* Test Item Value Reference Range Interpretation Comments Troponin I (test code = BTU0980) 0.012 0-0.300 [facility] CenterCreatine Vcccmh0194-83-19 05:51:00* Test Item Value Reference Range Interpretation Comments Creatine Kinase (test code = 2157-6) 37 30-200 [facility] CenterPhosphorus Enbxh1763-31-64 05:23:00* Test Item Value Reference Range Interpretation Comments Phosphorus Level (test code = NOG5491) 2.8 2.3-4.7 [facility] Medical CenterLactic Acid Nfydo0700-00-84 01:25:00* Test Item Value Reference Range Interpretation Comments Lactic Acid Level (test code = Lactic Acid Level) 0.7 0.5- 2.0 [facility] Medical CenterBONE SCAN, 3 JXUMT1243-67-57 00:44:00 [address] [place] [address] Patient Name: HERBERTH CANCHOLA MR #: [id number] : 1970 Age/Sex: 48/M Req #: [id number] Adm Physician: PINO ISLAS MD Ordered by: JESSE GREENWOOD MD Report #: [id number] Location: [facility] Room/Bed: [facility] Procedure: [id number] -[id number] NM/BONE SCAN, 3 PHASE Exam Date: 02/14/19 Exam Time: 1999 REPORT STATUS: Signed Bone Scan, three-phase - feet and ankles Reason for exam: Cellulitis of r ight ankle Radiopharmaceutical: Tc-99m MDP 25 mCi IV LAC Comparison: Right foot radiograph 02/14/2019 Following intravenous administration of the radiopharmaceutical, dynamic flow and immediate blood pool images of the feet and ankles followed by delayed spot images were obtained. Flow and blood pool images show diffuse markedly increased tracer activity to the right foot and ankle compared to the left with focal increased tracer in the right ankle. The 3-hour delayed images focal increased tracer activity in the medial and lateral malleoli of the right ankle. Impression: Scan findings are very worrisome for osteomyelitis of the right ankle, however, 3-phase bone scan lacks specificity in the setting of cellulitis in the diabetic foot. A labeled white blood cell study is recommended to add specificity to the evalu ation. Signed by: Dr. Ethan Paula M.D. on 02/15/2019 6:32 PM Dict ated By: ETHAN PAULA MD 18 32 Transcribed By: DAVI on 02/15/19 1832 COPY TO: JESSE GREENWOOD MD Urine [id number] 18:04:00* Test Item Value Reference Range Interpretation Comments Urine WBC (test code = 5821-4) NONE 0-5 [facility] [id number] 18:04:00* Test Item Value Reference Range Interpretation Comments Urine RBC (test code = 02173-1) 0-5 0-5 [facility] [id number] 18:04:00* Test Item Value Reference Range Interpretation Comments Urine Bacteria (test code = 53423-2) FEW NONE [facility] Epithelial [id number] 18:04:00 * Test Item Value Reference Range Interpretation Comments Urine Epithelial Cells (test code = 57680-0) NONE NONE [facility] [id number] 17:56:00* Test Item Value Reference Range Interpretation Comments Urine Color (test code = 5778-6) YELLOW YELLOW [facility] [id number] 17:56:00* Test Item Value Reference Range Interpretation Comments Urine Clarity (test code = 84467-9) SL CLOUDY CLEAR H [facility] CenterU[facility] Specific [id number] 17:56:00 * Test Item Value Reference Range Interpretation Comments Urine Specific [place] (test code = 5811-5) 1.010 1.010-1.02 5 [facility] [id number] 17:56:00* Test Item Value Reference Range Interpretation Comments Urine pH (test code = 17539-9) 6 5-7 [facility] Leukocyte [id number] 17:56:00* Test Item Value Reference Range Interpretation Comments Urine Leukocyte Esterase (test code = 85125-6) NEGATIVE NEGATIV E [facility] [id number] 17:56:00* Test Item Value Reference Range Interpretation Comments Urine Nitrite (test code = 57176-3) NEGATIVE NEGATIVE [facility] Qpayaco8437-11-05 17:56:00* Test Item Value Reference Range Interpretation Comments Urine Protein (test code = 30083-8) NEGATIVE NEGATIVE [facility] Glucose (UA)2019-02-14 17:56:00* Test Item Value Reference Range Interpretation Comments Urine Glucose (UA) (test code = 67328-3) 3+ NEGATIVE [facility] [id number] 17:56:00* Test Item Value Reference Range Interpretation Comments Urine Ketones (test code = 92318-9) NEGATIVE NEGATIVE [facility] Vohqxzdpvxnb5176-26-27 17:56:00* Test Item Value Reference Range Interpretation Comments Urine Urobilinogen (test code = 23634-1) 0.2 0.2-1 [facility] Zqahagcmg2377-44-80 17:56:00* Test Item Value Reference Range Interpretation Comments Urine Bilirubin (test code = 1977-8) NEGATIVE NEGATIVE [facility] Pagpf5358-72-82 17:56:00* Test Item Value Reference Range Interpretation Comments Urine Blood (test code = 64645-4) 1+ NEGATIVE [facility] CenterHemoglobin A1c Bnfdhjt3669-02-09 17:48:00 * Test Item Value Reference Range Interpretation Comments Hemoglobin A1c Percent (test code = Hemoglobin A1c Percent) 13.2 4.0-7.0 H [facility] CenterErythrocyte Sedimentation [id number] 16:43:00* Test Item Value Reference Range Interpretation Comments Erythrocyte Sedimentation Rate (test code = 4537-7) 90 0- 13 H [facility] CenterB-Type Natriuretic Wnxqlxz1783-51-04 15:38:00* Test Item Value Reference Range Interpretation Comments B-Type Natriuretic Peptide (test code = 59416-0) 23.3 0-100 [facility] CenterProthrombin Xgld1420-67-60 15:21:00* Test Item Value Reference Range Interpretation Comments Prothrombin Time (test code = 5902-2) 13.9 11.9-14.5 [facility] CenterProthromb Time International Ratio 2019-02-14 15:21:00* Test Item Value Reference Range Interpretation Comments Prothromb Time International Ratio (test code = 6301-6) 1.02 Oral Anticoagulant Therapy INR Values:1. Low Intensity Therapy 1.5 - 2.02 . Moderate Intensity Therapy 2.0 - 3.03. High Intensity Therapy(1) 2.5 - 3. 54. High Intensity Therapy(2) 3.0 - 4.05. Panic Value INR > 5.0 [facility] CenterActivated Partial Thromboplast Time 2019-02-14 15:21:00* Test Item Value Reference Range Interpretation Comments Activated Partial Thromboplast Time (test code = 78642-4) 34.9 23.8-35.5 [facility] CenterCHEST SINGLE (PORTABLE)2019-02-14 15:17:00 [facility] [address] [place] [address] Patient Name: HERBERTH CANCHOLA MR #: [id number] : 1970 Age/Sex: 48/M Req #: [id number] Adm Physician: Ordered by: ROSALINE MACEDO, MJ MACEDO Report #: [id number] Location: Room/Bed: Procedure: 1204-0 053 DX/CHEST SINGLE (PORTABLE) Exam Date: 02/14/19 E xam Time: 1450 REPORT STATUS: Zee gunn Chest, 1 view, 02/14/2019. History: Diabetic foot ulcer. C omparison: None available. Findings: The cardiomediastinal silhouette and p ulmonary vasculature are within normal limits for a portable exam. There is no focal consolidation or pleural effusion. There are no acute osseous or soft t issue abnormalities. Impression: No acute cardiopulmonary abnormality. Signed by: Roverto Herrera on 02/14/2019 3:17 PM Dictated By: ROVERTO PLATT MD 6407 Transcribe d By: DAVI on 02/14/19 3366 COPY TO: MJ WAGGONER FOOT RIGHT [id number] 14:05:00 [place] [address] Patient Name: HERBERTH CANCHOLA MR #: [id number] : 1970 Age/Sex: 48/M Req #: [id number] Adm Physician: Ordered by: ROVERTO SHAW [employer] MANAGER Report #: [id number] Location: ER Room/Bed: Procedure: 1204-004 5 DX/FOOT RIGHT COMPLETE Exam Date: 02/14/19 Exam Ti me: 1350 REPORT STATUS: Signed Right foot, 3 views. History: Ulcer in the dorsolateral aspect of the foot. Findings: Vascular classifications are present. There is mild focal s oft tissue swelling overlying the base of the fifth metatarsal. No air is seen within the soft tissues. Bone mineralization is normal. There is no evidence of fracture or dislocation. There is no visible erosion or periosteal reaction . The joint spaces are within normal limits. IMPRESSION: Lateral sof t tissue swelling without underlying osseous abnormality. A nuclear medicine b one scan or MRI would be more sensitive for detection of early osteomyelitis. Signed by: Roverto Herrera on 02/14/2019 2:09 PM Dictated By: ROVERTO PLATT MD Transcribe d By: DAVI on 02/14/191408 COPY TO: ROVERTO SHAW NP Respiratory pathogen [id number] 12:29:12Respiratory pathogen panelNegative for all pathogens tested:Negative for AdenovirusNegative for Coronavirus ZOX7Aykrtqeu for Coronavirus PB49Zkarmkqw for Coronavirus 229ENegative for Coronavirus EO39Liuubcts for Human MetapneumovirusNegative for Rhinovirus/EnterovirusNegative for Influenza ANegative for Influenza A/H1N egative for Influenza A/P7Syphjfnp for Influenza A/H1-2009Negative for Influenza BNegative for Parainfluenza Virus 1Negative for Parainfluenza Virus 2Negative f or Parainfluenza Virus 3Negative for Parainfluenza Virus 4Negative for Respirato ry Syncytial VirusNegative for Bordetella pertussisNegative for Chlamydophila pn eumoniaeNegative for Mycoplasma pneumoniaeThis real-time PCR assay detects the p resence of nucleic acids (RNA or DNA) for the respiratory pathogens listed. A r esult of "Not-detected" does not exclude the possibility of the presence of one or more pathogens at concentrations less than the detectable limits of the assay . Comment: Specimen InformationSpecimen Source: NaresSpecimen Site: [facility] MethodistUrinalysis screen and microscopy, with reflex to ihgdkuy5766-36-53 03:06:02* Test Item Value Reference Range Interpretation Comments Specimen site (test code = 8396910) Clean catch Color, UA (test code = 5778-6) Yellow Appearance, UA (test code = 5767-9) Clear Specific gravity, UA (test code = 5811-5) 1.024 1.001-1.035 pH, UA (test code = 5803-2) 5.0 5.0-8.5 Protein, UA (test code = 15748-3) Negative Negative Glucose, UA (test code = 11322-4) 3+ Negative A Ketones, UA (test code = 2514-8) Negative Negative Bilirubin, UA (test code = 5770-3) Negative Negative Blood, UA (test code = 5794-3) Negative Negative Nitrite, UA (test code = 5802-4) Negative Negative Urobilinogen, UA (test code = 80271-1) Negative <2.0 Leukocyte esterase, UA (test code = 5799-2) Negative Negative Epithelial cells, UA (test code = 5787-7) Few /HPF Round epithelial cells, UA (test code = 97235-6) Few 0- 1 /HPF WBC, UA (test code = 5821-4) 1 0- 1 /HPF RBC, UA (test code = 25419-3) <1 0- 5 /HPF Bacteria, UA (test code = 08889-1) None seen None seen Yeast, UA (test code = 75578-8) None seen Yeast with pseudohyphae, UA (test code = 68031-8) None seen Lab Interpretation (test code = 47203-7) Abnormal [facility]rine vaicaka3492-59-56 02:50:01* Test Item Value Reference Range Interpretation Comments Urine culture (test code = 6843781) SEE COMMENT Bacteriuria screen negative. Yassine ValentinComprehensive metabolic cipdz0752-19-33 01:18:03* Test Item Value Reference Range Interpretation Comments Sodium (test code = 2951-2) 136 135- 150 mEq/L Potassium (test code = 2823-3) 4.3 3.5- 5.0 mEq/L Chloride (test code = 2075-0) 94 98- 112 mEq/L L CO2 (test code = 2027-9) 27 mmol/L 24-31 Anion gap (test code = 46561-0) 15@ANIO 7- 15 mEq/L BUN (test code = 3094-0) 24 mg/dL 7-18 H Creatinine (test code = 2160-0) 1.00 mg/dL 0.7-1.2 Glucose (test code = 2345-7) 353 mg/dL 65-100 H Calcium (test code = 24729-0) 9.6 mg/dL 8.3-10.2 Protein (test code = 2885-2) 7.4 g/dL 6.3-8.3 Albumin (test code = 1751-7) 3.5 g/dL 3.5-5 A/G ratio (test code = 1759-0) 0.9 0.7-3.8 Alkaline phosphatase (test code = 6768-6) 128 U/L 0-129 AST (test code = 1920-8) 13 U/L 10-50 ALT (test code = 1742-6) 15 U/L 5-50 Total bilirubin (test code = 1975-2) 0.6 mg/dL 0.2-1.2 Lab Interpretation (test code = 43448-3) Abnormal [place] MethodistLipase yxkhp7430-05-30 01:18:01* Test Item Value Reference Range Interpretation Comments Lipase (test code = 3040-3) 22 U/L 13-60 [place] MethodistEstimated [id number] 01:17:59* Test Item Value Reference Range Interpretation Comments Estimated GFR (test code = 5488) 88 mL/min/1.73 m2 Catergory Units InterpretationG1 >=90 Normal or highG2 60-89 Mildly lrptenjcnJ3k 45-59 Mildly to moderately vnbkctwttP9w 30-44 Moderately to severely decreasedG4 15-29 Severely decreasedG5 <15 Kidney failureThe eGFR was calculated using the Chronic Kidney Disease Epidemiology Collaboration (CKD-EPI) equation. Interpretation is based on recommendations of the National Kidney Foundation-Kidney Disease Outcomes Quality Initiative (NKF-KDOQI) published in 2014. [place] MethodistCBC with platelet and lbpqwrorpkfo6161-00-38 00:54:29* Test Item Value Reference Range Interpretation Comments WBC (test code = 31845-1) 15.4 4.2- 11.0 k/uL H RBC (test code = 28720-4) 4.64 m/uL 4.04-5.86 HGB (test code = 718-7) 14.3 g/dL 13-17.3 HCT (test code = 4544-3) 41.3 % 34-45 MCV (test code = 787-2) 89.0 fL 80-98 MCH (test code = 785-6) 30.8 pg 27-34 MCHC (test code = 786-4) 34.6 g/dL 31.5-36.5 RDW - SD (test code = 15461-9) 36.5 fL 37-51 L MPV (test code = 96605-3) 11.8 fL 7.4-10.4 H Platelet count (test code = 94459-1) 199 150- 400 k/uL Nucleated RBC (test code = 14068-1) 0.00 /100 WBC Neutrophils (test code = 04059-4) 84.6 % 36-66 H Lymphocytes (test code = 19029-0) 7.9 % 24-44 L Monocytes (test code = 18520-8) 6.0 % 0-6 Eosinophils (test code = 90983-6) 0.5 % 0-6 Basophils (test code = 88382-3) 0.3 % 0-1.2 Immature granulocytes (test code = 52751-2) 0.7 % 0-1 Lab Interpretation (test code = 56249-2) Abnormal [facility] AllianceistInfluenza uydjpwe1531-82-18 00:51:38* Test Item Value Reference Range Interpretation Comments Influenza antigen (test code = 49609-5) Negative for Influenza A/B antigen. Specimen InformationSpecimen Source: NaresSpecimen Site: [facility] [id number] 23:12:59* Test Item Value Reference Range Interpretation Comments POC glucose (test code = 22814-8) 332 mg/dL 65-100 H Meter ID: [id number]: Irwin Ruiz Lab Interpretation (test code = 61126-9) Abnormal [facility]
--- NOTE | 2019-12-20 20:04 | NUR ---
resting in bed with no s/s of distress
--- OUTSIDE RECORDS SUMMARY | 2019-12-20 20:11 | XMS REPORT | Clinical Summary ---
Author Author [facility] Organization [facility] Address Unknown Phone Unavailable Care Team Providers Care Sheet Rock Installer Name Role Phone Freddy Garcias MD PCP [phone] Allergies No Known Active Allergies Medications [...] 37.5 C (99.5 F) 02/11/2019 12:00 AM [employer] SOLUTION ARCHITECT Temperature 12 09/12/2019 4:17 PM CDT Respiratory [...] nosis ESTIMATED GFR STAT 02/11/2019 12:39 AM [employer] SOLUTION ARCHITECT LIPASE LEVEL STAT 02/11/2019 12:39 AM [employer] SOLUTION ARCHITECT COMPREHENSIVE METABOLIC STAT 02/11/2019 PANEL 12:39 AM [employer] SOLUTION ARCHITECT HC COMPLETE BLD COUNT STAT 02/11/2019 W/AUTO DIFF 12:39 AM [employer]UTION ARCHITECT URINALYSIS SCREEN AND STAT 02/11/2019 MICROSCOPY, WITH REFLEX 12:27 AM [employer] SOLUTION ARCHITECT TO CULTURE URINE CULTURE STAT 02/11/2019 12:27 AM [employer] SOLUTION ARCHITECT INFLUENZA ANTIGEN Routine 02/11/2019 12:17 AM [employer]UTION ARCHITECT RESPIRATORY PATHOGEN Routine 02/11/2019 PANEL 12:17 AM [employer] SOLUTION ARCHITECT POC GLUCOSE Routine 02/10/2019 11:11 PM [employer] SOLUTION ARCHITECT after 12/19/2018 Results * Estimated GFR (02/11/2019 12:39 AM [employer] SOLUTION ARCHITECT) [facility] Estimated GFR 88 mL/min/1.73 m2 ETNA Comment: DRUZE CatergThe [facility] G1 >=90 Normal or high G2 [...] Organization Address City/State/ZIP Code P rubina Number [facility] DEPARTMENT OF [address] [place] [address] PATHOLOGY AND GENOMIC MEDICINE [facility] [address] * CBC with platelet and differential (02/11/2019 12:39 AM AWS SOLUTION ARCHITECT) [facility] WBC 15.4 (H) 4.2 - 11.0 k/uL [facility] RBC 4.64 4.04 - 5.86 m/uL [facility] HGB 14.3 13.0 - 17.3 g/dL [facility] HCT 41.3 34.0 - 45.0 % [facility] MCV 89.0 80.0 - 98.0 fL [facility] MCH 30.8 27.0 - 34.0 pg [facility] MCHC 34.6 31.5 - 36.5 g/dL [facility] RDW - SD 36.5 (L) 37.0 - 51.0 fL [facility] MPV 11.8 (H) 7.4 - 10.4 fL [facility] Platelet count 199 150 - 400 k/uL [facility] Nucleated RBC 0.00 /100 WBC [facility] Neutrophils 84.6 (H) 36.0 - 66.0 % [facility] Lymphocytes 7.9 (L) 24.0 - 44.0 % [facility] Monocytes 6.0 0.0 - 6.0 % [facility] Eosinophils 0.5 0.0 - 6.0 % [facility] Basophils 0.3 0.0 - 1.2 % [facility] Immature 0.7 0.0 - 1.0 % ETNA granulocytes [facility] Specimen Blood Performing Organization Address City/[facility]/ZIP [facility] [place] [address] PATHOLOGY AND GENOMIC MEDICINE [address] * Lipase level (02/11/2019 12:39 AM AWS SOLUTION ARCHITECT) Pathologist [facility] Lipase 22 13 - 60 U/L [facility] Specimen Plasma specimen Performing Organization Address City/State/[facility] [place] [address] PATHOLOGY AND GENOMIC MEDICINE [address] * Comprehensive metabolic panel (02/11/2019 12:39 AM AWS SOLUTION ARCHITECT) Pathologist [facility] Sodium 136 135 - 150 mEq/L [facility] Potassium 4.3 3.5 - 5.0 mEq/L [facility] Chloride 94 (L) 98 - 112 mEq/L [facility] CO2 27 24 - 31 mmol/L [facility] Anion gap 15@ANIO 7 - 15 mEq/L [facility] BUN 24 (H) 7 - 18 mg/dL [facility] Creatinine 1.00 0.70 - 1.20 mg/dL [facility] Glucose 353 (H) 65 - 100 mg/dL [facility] Calcium 9.6 8.3 - 10.2 mg/dL [facility] Protein 7.4 6.3 - 8.3 g/dL [facility] Albumin 3.5 3.5 - 5.0 g/dL [facility] A/G ratio 0.9 0.7 - 3.8 [facility] Alkaline 128 0 - 129 U/L [facility]NA phosphatase [facility] AST 13 10 - 50 U/L [facility] ALT 15 5 - 50 U/L [facility] Total bilirubin 0.6 0.2 - 1.2 mg/dL [facility] Specimen Plasma specimen Performing Organization Address City/State/ZIP Code P rubina Number [facility] DEPARTMENT OF [address] [facility] [place] [address] PATHOLOGY AND GENOMIC MEDICINE [address] * Urinalysis screen and microscopy, with reflex to culture (02/11/2019 12:27 AM [employer] SOLUTION ARCHITECT) Specimen site Clean catch [facility] Color, UA Yellow [facility] Appearance, UA Clear [facility] Specific 1.024 1.001 - 1.035 [facility]NA gravity, UA [facility] pH, UA 5.0 5.0 - 8.5 [facility] Protein, UA Negative Negative [facility] Glucose, UA 3+ (A) Negative [facility] Ketones, UA Negative Negative [facility] Bilirubin, UA Negative Negative [facility] Blood, UA Negative Negative [facility] Nitrite, UA Negative Negative [facility] Urobilinogen, Negative <2.0 [facility] Leukocyte Negative Negative [facility]NA esterase, UA [facility] Epithelial Few /HPF [facility] cells, UA [facility] Round Few 0 - 1 /HPF [facility]NA epithelial DRUZE cells, UA [facility] WBC, UA 1 0 - 1 /HPF [facility] RBC, UA <1 0 - 5 /HPF [facility] Bacteria, UA None seen None seen [facility] Yeast, UA None seen [facility] Yeast with None seen [facility] pseudohyphae, [facility] Specimen Urine Performing Organization Address City/[facility] P rubina Number [facility] DEPARTMENT OF [address] [place] [address] PATHOLOGY AND GENOMIC [place] [address] HOSPITAL * Urine culture (02/11/2019 12:27 AM [employer] SOLUTION ARCHITECT) Pathologist [facility] Urine culture SEE COMMENTComment: ETNA Bacteriuria screen negative. [facility] Specimen Urine Performing Organization Address City/[facility] [place] [address] PATHOLOGY AND GENOMIC MEDICINE [address] * Respiratory pathogen panel (02/11/2019 12:17 AM [employer] SOLUTION ARCHITECT) Pathologist [facility] Respiratory Negative for all pathogens ETNA pathogen panel tested: DRUZE Negative for Adenovirus [facility] Negative for Coronavirus HKU1 Negative for Coronavirus [...] Organization Address City/State/ZIP Code P rubina Number [facility] DEPARTMENT OF [address] [place] [address] PATHOLOGY AND GENOMIC MEDIC[place] [address] HOSPITAL * Influenza antigen (02/11/2019 12:17 AM [employer] SOLUTION ARCHITECT) Pathologist [facility] Influenza Negative for Influenza A/B [facility] antigen antigen. DRUZE Comment: [place] Specimen Information HOSPITAL Specimen Source: Nares Specimen Site: Right Specimen Nares - Right Performing Organization Address City/[facility] Code P rubina Number [facility] DEPARTMENT OF [address] [place] [address] PATHOLOGY AND GENOMIC MEDICINE [facility] [address] [place] [address] HOSPITAL * POC glucose (02/10/2019 11:11 PM [employer] SOLUTION ARCHITECT) Pathologist [facility] POC glucose 332 (H) 65 - 100 mg/dL [facility] Comment: DRUZE Meter ID: [id number] [place] White Kid Buffer: [facility] Specimen Performing Organization Address City/[facility] P rubina Number [facility] DEPARTMENT OF [address] [place] [address] PATHOLOGY AND GENOMIC MEDICINE [facility] [address] [place] [address] HOSPITAL after 12/19/2018 Insurance Type Payer Benefit Subscriber ID Effective Phone Address Plan / Dates Group PPO BCBS BCBS [id number] 2016-P CHOICE resent PPO/[employer] [place] PPO Advance Directives For more information, please contact: [phone] Patient Litigation Attorney Explanation Type Date Recorded Advance Directives, 02/10/2019 11:38 PM Living Will and Medical Power of Manufacturing Plant Manager
--- OUTSIDE RECORDS SUMMARY | 2019-12-20 20:12 | XMS REPORT | Continuity of Care Document ---
Author Author [facility] t Organization [facility] Address [address] [place] [address] Phone Unavailable Care Team Providers Care [place] Utility Worker Name Role Phone SONY MACEDO, Alicia RG PCP Anabelle MACEDO, Sherri Attphys Beth SULLIVAN, Josey Reyes Attphys GODFREY CABRERA Attphys Unavailable Yudi STAHL, Mary Attphys Unavailable LIBBY COLLADO Attphys Unavailable Josephine ISLAS Attphys Unavailable Narciso MACEDO, Arturo Quiroz Attphys Josephine ISLAS Admphys Unavailable Payers Payer Name Policy Type Policy Number Effective Date Expiration Date S ource BCBSBCBS CHOICE PPO/FEDERAL EMPL [id number] 2016-Pre sentPPO [id number] 2016 [id number] 2016 00:00:00 [facility] Problems Condition Name Condition Details Condition Category Status Onset Date Resolution Date Last Treatment Date Treating Clinician Comments Source Cellulitis of right foot Cellulitis of right foot Problem Active [facility] Diabetic ulcer of right foot Diabetic ulcer of right foot Problem Active [facility] Fever Fever Problem Active [facility] Type 1 diabetes mellitus Type 1 diabetes Problem Active 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 Allergies, Adverse Reactions, Alerts This patient has [...] Frequency 2019-02-11 00:00:00 2019-02-11 00:00:0 0 1 Yassine Valentin Smoking Status Start Date Stop Date [...] 100 unit/mL injection 2019-09-12 16:19: 37 Yes [id number] Inject under the skin 3 (thr ee) times a day before meals. Yassine Valentin metFORMIN (GLUCOPHAGE) 1,000 mg tablet 1 16:19:33 2019-09-12 00:00:00 No 1000mg Q.5D Take 1,000 mg by mouth 2 (two) t imes a day with meals. Yassine Valentin Atorvastatin 40 Mg Tab Atorvastatin 40 Mg Tab 2019-02-19 00:00:00 Yes Avis Hayes Food Service Representative 40 Bedtime [facility] Clopidogrel Bisulfate (Plavix) 75 Mg Tablet Clopidogre l Bisulfate (Plavix) 75 Mg Tablet 2019-02-19 00:00:00 Yes Avis Hayes Food Service Representative 75 Daily [facility] Losartan Potassium (Cozaar) 25 Mg Tablet Losartan Pota ssium (Cozaar) 25 Mg Tablet 2019-02-19 00:00:00 Yes Avis Hayes Food Service Representative 50 Twice A Day [facility] clopidogreL (Plavix) 75 mg tablet [...] Gabapentin 300 Mg Capsule Yes 300 Daily [facility] Glipizide 5 Mg Tablet Glipizide 5 Mg Tablet Yes 5 Twice A Day [facility] Linagliptin (Tradjenta) 5 Mg Tablet Linagliptin (Tradjenta) 5 Mg Tabl et Yes 5 Daily [facility] Metformin Hcl 1,000 Mg Tablet Metformin Hcl 1,000 Mg Tablet Yes 1000 Twice A Day [facility] Sulfamethoxazole/Trimethoprim (Bactrim Ds Tablet) 1 Ea ch Tablet, 160 Mg Oral Sulfamethoxazole/Trimethoprim (Bactrim Ds Tablet) 1 Each Tablet, 160 Mg Oral 2019-02-19 00:00:00 No 160 Twice A Day [facility] Vital Signs Vital Name Observation [...] and drainage 2019-02-15 00:00:00 JESSE GREENWOOD I [facility] HC COMPLETE BLD COUNT W/AUTO DIFF 2019-02-11 [...] Garcia POC GLUCOSE 2019-02-10 23:11:00 Provider, Unknown [facility] Plan of Care Planned Activity Planned Date [...] End Date/Time Encounter Type Admission Type Attendi [facility] Care Department Encounter ID Source 2019-09-12 00:00:00 2019-09-12 00:00:00 Outpatient SHERRI STARKS [facility] [id number] Yassine Valentin 2019-02-14 15:43:00 2019-02-19 18:40:00 Discharged Inpatient [address] [facility] [id number] [facility] 2019-02-10 00:00:00 2019-02-11 00:00:00 Emergency YESSY GARCIA 064 [id number] [facility] Results Test Description Test Time Test Comments Results Result Comments Source MRI FOOT LEFT WO 2019-09-07 11:09:00 [facility] [address] [address] Patient Name: HERBERTH CANCHOLA MR #: [id number] : 1970 Age/Sex: 49/M Req #: [id number] Adm Physician: Ordered by: GODFREY CABRERA MD Report #: [id number] Location: MRI Room/Bed: Procedure: [id number] MRI/MRI FOOT LEFT WO Exam Date: Exam [...] M.D. on 09/07/2019 11:18 AM Dictated By: YHUN SARAVIA MD, MD 17 Transcribed By: DAVI on 09/07/191117 COPY TO: GODFREY CABRERA MD CHEST XRAY LINE PLACEMENT 2019-09-05 09:30:[address] [address] Patient Name: HERBERTH CANCHOLA MR #: [id number] : 1970 Age/Sex: 49/M Req #: [id number] Adm Physician: Ordered by: GODFREY CABRERA MD Report #: [id number] Location: DX Room/Bed: Procedure: [id number] DX/CHEST XRAY LINE PLACEMENT Exam Date: 09/05/19 [...] on 09/05/2019 9:32 AM Dictated By: CHONG LINDASY MD 1 Transcribed By: DAVI on 09/05/19931 COPY TO: GODFREY CABRERA MD CHEST 2 VIEWS 2019-05-02 11:58:00 [address] [address] Patient Name: HERBERTH CANCHOLA MR #: [id number] : 1970 Age/Sex: 49/M Req #: [id number] Adm Physician: Ordered by: LIBBY COLLADO MD Report #: [id number] Location: [facility] Room/Bed: Procedure: [id number] DX/CHEST 2 VIEWS Exam Date: 05/02/19 Exam [...] Test Item Bedside Glucose (test code = 40726-4) 94 70-120 Meter ID: [id number] [facility] Utzmon7290-36-46 02:46:00* Test Item Value Reference Range Interpretation Comments Vancomycin Level Trough (test code = 4092-3) 5.6 5.0-10.0 [facility] CenterWound Fbmwjgi7385-33-58 08:32:00* Test Item Value Reference Range Interpretation Comments Wound Culture (test code = 6462-6) No Result Data Provided [facility] Drspr6282-84-10 08:31:00* Test Item Value Reference Range Interpretation Comments Sodium Level (test code = 2951-2) 137 136-145 [facility] CenterPotassium Oichk8366-56-71 08:31:00* Test Item Value Reference Range Interpretation Comments Potassium Level (test code = 2823-3) 3.5 3.5-5.1 [facility] CenterChloride Arodi8714-11-34 08:31:00* Test Item Value Reference Range Interpretation Comments Chloride Level (test code = 2075-0) 103 98-107 [facility] CenterCarbon Dioxide Xnpyl4918-73-30 08:31:00* Test Item Value Reference Range Interpretation Comments Carbon Dioxide Level (test code = 2028-9) 26 22-29 [facility] CenterAnion Nkw6622-79-10 08:31:00* Test Item Value Reference Range Interpretation Comments Anion Gap (test code = 06439-1) 11.5 8-16 [facility] CenterBlood Urea Nazwzftk7181-81-86 08:31:00* Test Item Value Reference Range Interpretation Comments Blood Urea Nitrogen (test code = 3094-0) 7 7-26 [facility] CenterCreatinine2019-12-07 08:31:00* Test Item Value Reference Range Interpretation Comments Creatinine (test code = 2160-0) 0.68 0.72-1.25 L [facility] CenterBUN/Creatinine Nghti5120-01-51 08:31:00* Test Item Value Reference Range Interpretation Comments BUN/Creatinine Ratio (test code = 3097-3) 10 6-25 [facility] CenterEstimat Glomerular Filtration Rate 2019-02-17 08:31:00* Test Item Value Reference Range Interpretation Comments Estimat Glomerular Filtration Rate (test code = 445156844) > 60 >60 Ranges were taken from the National Kidney Disease Education Program and the [facility] Kidney Foundation literature.Reference ranges:60 or greater: Qiuiyx77-32 ( for 3 consecutive months): Chronic kidney disease 15 or less: Kidney failureConnally Memorial Medical CenterGlucose Fxpce8682-78-63 08:31:00* Test Item Value Reference Range Interpretation Comments Glucose Level (test code = NDS4645) 169 74-118 H [facility] CenterCalcium Gfubl0955-23-61 08:31:00* Test Item Value Reference Range Interpretation Comments Calcium Level (test code = 62234-7) 8.4 8.4-10.2 [facility] CenterMagnesium Zjikm0155-76-74 08:27:00* Test Item Value Reference Range Interpretation Comments Magnesium Level (test code = 51754-9) 1.6 1.3-2.1 [facility] CenterWhite Blood Kmvvo5503-16-70 08:17:00* Test Item Value Reference Range Interpretation Comments White Blood Count (test code = 6690-2) 11.63 4.8-10.8 H [facility] CenterRed Blood Gjmnm2411-15-41 08:17:00* Test Item Value Reference Range Interpretation Comments Red Blood Count (test code = 789-8) 3.46 4.3-5.7 L [facility] CenterHemoglobin2019-12-07 08:17:00* Test Item Value Reference Range Interpretation Comments Hemoglobin (test code = 72710-2) 10.8 14.0-18.0 L [facility] CenterHematocrit2019-12-07 08:17:00* Test Item Value Reference Range Interpretation Comments Hematocrit (test code = 4544-3) 30.0 38.2-49.6 L [facility] CenterMean Corpuscular Lhragy0649-51-16 08:17:00* Test Item Value Reference Range Interpretation Comments Mean Corpuscular Volume (test code = 787-2) 86.7 81-99 [facility] CenterMean Corpuscular Enhmxxoxbt7853-36-32 08:17:00* Test Item Value Reference Range Interpretation Comments Mean Corpuscular Hemoglobin (test code = 785-6) 31.2 28-32 [facility] CenterMean Corpuscular Hemoglobin Concent 2019-02-17 08:17:00* Test Item Value Reference Range Interpretation Comments Mean Corpuscular Hemoglobin Concent (test code = 786-4) 36.0 31-35 H [facility] CenterRed Cell Distribution Nfwbd9105-38-50 08:17:00* Test Item Value Reference Range Interpretation Comments Red Cell Distribution Width (test code = 81130-2) 11.3 11.7 -14.4 L [facility] CenterPlatelet Iqvxt4102-34-31 08:17:00* Test Item Value Reference Range Interpretation Comments Platelet Count (test code = 777-3) 273 140-360 [facility] CenterNeutrophils (%) (Auto)2019-02-17 08:17:00 * Test Item Value Reference Range Interpretation Comments Neutrophils (%) (Auto) (test code = 24809-8) 79.9 38.7-80.0 [facility] CenterLymphocytes (%) (Auto)2019-02-17 08:17:00 * Test Item Value Reference Range Interpretation Comments Lymphocytes (%) (Auto) (test code = 736-9) 12.0 18.0-39.1 L [facility] CenterMonocytes (%) (Auto)2019-02-17 08:17:00* Test Item Value Reference Range Interpretation Comments Monocytes (%) (Auto) (test code = 5905-5) 5.6 4.4-11.3 [facility] CenterEosinophils (%) (Auto)2019-02-17 08:17:00 * Test Item Value Reference Range Interpretation Comments Eosinophils (%) (Auto) (test code = 713-8) 1.2 0.0-6.0 [facility] CenterBasophils (%) (Auto)2019-02-17 08:17:00* Test Item Value Reference Range Interpretation Comments Basophils (%) (Auto) (test code = 706-2) 0.4 0.0-1.0 [facility] CenterIM GRANULOCYTES %2019-02-17 08:17:00* Test Item Value Reference Range Interpretation Comments IM GRANULOCYTES % (test code = IM GRANULOCYTES %) 0.9 0.0- 1.0 [facility] CenterNeutrophils # (Auto)2019-02-17 08:17:00* Test Item Value Reference Range Interpretation Comments Neutrophils # (Auto) (test code = 751-8) 9.3 2.1-6.9 H [facility] CenterLymphocytes # (Auto)2019-02-17 08:17:00* Test Item Value Reference Range Interpretation Comments Lymphocytes # (Auto) (test code = 09238-8) 1.4 1.0-3.2 [facility] CenterMonocytes # (Auto)2019-02-17 08:17:00* Test Item Value Reference Range Interpretation Comments Monocytes # (Auto) (test code = 742-7) 0.7 0.2-0.8 [facility] CenterEosinophils # (Auto)2019-02-17 08:17:00* Test Item Value Reference Range Interpretation Comments Eosinophils # (Auto) (test code = 711-2) 0.1 0.0-0.4 [facility] CenterBasophils # (Auto)2019-02-17 08:17:00* Test Item Value Reference Range Interpretation Comments Basophils # (Auto) (test code = 704-7) 0.1 0.0-0.1 [facility] CenterAbsolute Immature Granulocyte (auto 2019-02-17 08:17:00* Test Item Value Reference Range Interpretation Comments Absolute Immature Granulocyte (auto (michelle t code = Absolute Immature Granulocyte (auto) 0.11 0-0.1 H [facility] CenterTotal Vbhbskzdc2927-00-38 06:34:00* Test Item Value Reference Range Interpretation Comments Total Bilirubin (test code = 1975-2) 0.4 0.2-1.2 [facility] CenterAspartate Amino Transf (AST/SGOT) 2019-02-16 06:34:00* Test Item Value Reference Range Interpretation Comments Aspartate Amino Transf (AST/SGOT) (test code = Aspartate Amino Transf (AST/SGOT)) 16 5-34 [facility] CenterAlanine Aminotransferase (ALT/SGPT) 2019-02-16 06:34:00* Test Item Value Reference Range Interpretation Comments Alanine Aminotransferase (ALT/SGPT) (test code = 1742-6) 24 0-55 [facility] CenterTotal Wfwwxvv1978-98-99 06:34:00* Test Item Value Reference Range Interpretation Comments Total Protein (test code = 2885-2) 5.6 6.5-8.1 L [facility] CenterAlbumin2019-12-06 06:34:00* Test Item Value Reference Range Interpretation Comments Albumin (test code = 1751-7) 2.1 3.5-5.0 L [facility] CenterGlobulin2019-12-06 06:34:00* Test Item Value Reference Range Interpretation Comments Globulin (test code = 88871-8) 3.5 2.3-3.5 [facility] CenterAlbumin/Globulin Mnxnw5095-79-78 06:34:00 * Test Item Value Reference Range Interpretation Comments Albumin/Globulin Ratio (test code = 1759-0) 0.6 0.8-2.0 L [facility] CenterAlkaline Bsrcqmcrwau8894-45-28 06:34:00* Test Item Value Reference Range Interpretation Comments Alkaline Phosphatase (test code = 6768-6) 155 40-150 H [facility] CenterCHEST XRAY LINE VSMZPZRJP0478-30-90 00:05:00 [facility] [address] [place] [address] Patient Name: HERBERTH CANCHOLA MR #: [id number] : 1970 Age/Sex: 48/M Req #: [id number] Adm Physician: PINO ISLAS MD Ordered by: KIMI WARD MD Report #: [id number] Location: [facility]/SURG2 Room/Bed: [facility] Procedure: [id number] DX/CHEST XRAY LINE PLACEMENT Exam Date: 02/15/19 [...] COPY TO: KIMI WARD MD Creatine Kinase MX5703-46-57 05:54:00* Test Item Value Reference Range Interpretation Comments Creatine Kinase MB (test code = 70907-5) 2.00 0-5.0 [facility] A1635-03-40 05:54:00* Test Item Value Reference Range Interpretation Comments Troponin I (test code = XRC9243) 0.012 0-0.300 [facility] CenterCreatine Fvhxyj5271-73-12 05:51:00* Test Item Value Reference Range Interpretation Comments Creatine Kinase (test code = 2157-6) 37 30-200 [facility] CenterPhosphorus Kiwmw7213-29-09 05:23:00* Test Item Value Reference Range Interpretation Comments Phosphorus Level (test code = CVU0214) 2.8 2.3-4.7 [facility] CenterLactic Acid Xayay7732-83-39 01:25:00* Test Item Value Reference Range Interpretation Comments Lactic Acid Level (test code = Lactic Acid Level) 0.7 0.5- 2.0 [facility] CenterBONE SCAN, 3 GNRHC9588-40-85 00:44:00 [address] [address] Patient Name: HERBERTH CANCHOLA MR #: [id number] : 1970 Age/Sex: 48/M Req #: [id number] Adm Physician: PINO ISLAS MD Ordered by: JESSE GREENWOOD MD Report #: [id number] Location: [facility] Room/Bed: [facility] Procedure: 1204 -0005 NM/BONE SCAN, 3 PHASE [...] 1832 COPY TO: JESSE GREENWOOD MD Urine TFN9780-54-51 18:04:00* Test Item Value Reference Range Interpretation Comments Urine WBC (test code = 5821-4) NONE 0-5 [facility] CenterUrine SZB9408-72-60 18:04:00* Test Item Value Reference Range Interpretation Comments Urine RBC (test code = 22646-8) 0-5 0-5 [facility] CenterUrine Uzadkcqv7885-64-11 18:04:00* Test Item Value Reference Range Interpretation Comments Urine Bacteria (test code = 69899-5) FEW NONE [facility] CenterUrine Epithelial Pptmh9862-74-58 18:04:00 * Test Item Value Reference Range Interpretation Comments Urine Epithelial Cells (test code = 69568-9) NONE NONE [facility] CenterUrine Iapol6908-27-96 17:56:00* Test Item Value Reference Range Interpretation Comments Urine Color (test code = 5778-6) YELLOW YELLOW [facility] CenterUrine Qhgyuzs7213-59-34 17:56:00* Test Item Value Reference Range Interpretation Comments Urine Clarity (test code = 26013-5) SL CLOUDY CLEAR H [facility] CenterUrine Specific Tqomhtg6673-85-82 17:56:00 * Test Item Value Reference Range Interpretation Comments Urine Specific Dougherty (test code = 5811-5) 1.010 1.010-1.02 5 [facility] CenterUrine jY2333-47-29 17:56:00* Test Item Value Reference Range Interpretation Comments Urine pH (test code = 74662-1) 6 5-7 [facility] CenterUrine Leukocyte Hzpbvrqq2537-92-64 17:56:00* Test Item Value Reference Range Interpretation Comments Urine Leukocyte Esterase (test code = 71746-1) NEGATIVE NEGATIV E [facility] CenterUrine Bypequn0941-77-06 17:56:00* Test Item Value Reference Range Interpretation Comments Urine Nitrite (test code = 32863-3) NEGATIVE NEGATIVE [facility] CenterUrine Ysnlssn5550-35-73 17:56:00* Test Item Value Reference Range Interpretation Comments Urine Protein (test code = 05169-6) NEGATIVE NEGATIVE [facility] Glucose (UA)2019-02-14 17:56:00* Test Item Value Reference Range Interpretation Comments Urine Glucose (UA) (test code = 38678-5) 3+ NEGATIVE [facility] CenterUrine Ptgfcrf7003-62-23 17:56:00* Test Item Value Reference Range Interpretation Comments Urine Ketones (test code = 56593-9) NEGATIVE NEGATIVE [facility] Fulygycmnqqr7948-41-38 17:56:00* Test Item Value Reference Range Interpretation Comments Urine Urobilinogen (test code = 98252-3) 0.2 0.2-1 [facility] CenterUrine Fhdysuqly6990-83-17 17:56:00* Test Item Value Reference Range Interpretation Comments Urine Bilirubin (test code = 1977-8) NEGATIVE NEGATIVE [facility] CenterUrine Htowh9399-50-22 17:56:00* Test Item Value Reference Range Interpretation Comments Urine Blood (test code = 46235-6) 1+ NEGATIVE [facility] CenterHemoglobin A1c Oprdbra6599-64-24 17:48:00 * Test Item Value Reference Range Interpretation Comments Hemoglobin A1c Percent (test code = Hemoglobin A1c Percent) 13.2 4.0-7.0 H [facility] CenterErythrocyte Sedimentation Njhv9696-26-84 16:43:00* Test Item Value Reference Range Interpretation Comments Erythrocyte Sedimentation Rate (test code = 4537-7) 90 0- 13 H [facility] CenterB-Type Natriuretic Ksjoxtm1156-56-76 15:38:00* Test Item Value Reference Range Interpretation Comments B-Type Natriuretic Peptide (test code = 89825-0) 23.3 0-100 [facility] CenterProthrombin Yylt2884-45-60 15:21:00* Test Item Value Reference Range Interpretation Comments Prothrombin Time (test code = 5902-2) 13.9 11.9-14.5 [facility] CenterProthromb Time International Ratio 2019-02-14 15:21:00* Test Item Value Reference Range Interpretation Comments Prothromb Time International Ratio (test code = 6301-6) 1.02 Oral Anticoagulant Therapy INR Values:1. Low Intensity Therapy 1.5 - 2.02 . Moderate Intensity Therapy 2.0 - 3.03. High Intensity Therapy(1) 2.5 - 3. 54. High Intensity Therapy(2) 3.0 - 4.05. Panic Value INR > 5.0 [facility] CenterActivated Partial Thromboplast Time 2019-02-14 15:21:00* Test Item Value Reference Range Interpretation Comments Activated Partial Thromboplast Time (test code = 40865-1) 34.9 23.8-35.5 [facility] CenterCHEST SINGLE (PORTABLE)2019-02-14 15:17:00 [facility] [address] [place] [address] Patient Name: HERBERTH CANCHOLA MR #: [id number] : 1970 Age/Sex: 48/M Req #: [id number] Adm Physician: Ordered by: ROSALINE MACEDO, MJ MACEDO Report #: [id number] Location: Room/Bed: Procedure: 1204-0 053 DX/CHEST SINGLE [...] 3:17 PM Dictated By: ROVERTO PLATT MD 0857 Transcribe d By: DAVI on 02/14/19 0824 COPY TO: MJ WAGGONER FOOT RIGHT BKKHVSZW1715-53-79 14:05:00 [address] [place] [address] Patient Name: HERBERTH CANCHOLA MR #: [id number] : 1970 Age/Sex: 48/M Req #: [id number] Adm Physician: Ordered by: ROVERTO SHAW DUPLICATING MACHINE SERVICER Report #: [id number] Location: ER Room/Bed: Procedure: 1204-004 5 DX/FOOT [...] COPY TO: ROVERTO SHAW NP Respiratory pathogen ogsfd3684-18-85 12:29:12Respiratory pathogen panelNegative for all pathogens tested:Negative for AdenovirusNegative for Coronavirus RIM3Sykkhswr for Coronavirus GT91Jjzmxlun for Coronavirus 229ENegative for Coronavirus IQ34Mylpqbzi for Human MetapneumovirusNegative for Rhinovirus/EnterovirusNegative for Influenza ANegative for Influenza A/H1N egative for Influenza A/T4Hyzswbpk for Influenza A/H1-2009Negative for Influenza BNegative for [...] . Comment: Specimen InformationSpecimen Source: NaresSpecimen Site: [facility] MethodistUrinalysis screen and microscopy, with reflex to fbnitsb8806-02-91 03:06:02* Test Item Value Reference Range Interpretation Comments Specimen site (test code = 4338454) Clean catch Color, UA (test code = 5778-6) Yellow Appearance, UA (test code = 5767-9) Clear Specific gravity, UA (test code = 5811-5) 1.024 1.001-1.035 pH, UA (test code = 5803-2) 5.0 5.0-8.5 Protein, UA (test code = 68956-9) Negative Negative Glucose, UA (test code = 72638-9) 3+ Negative A Ketones, UA (test code = 2514-8) Negative Negative Bilirubin, UA (test code = 5770-3) Negative Negative Blood, UA (test code = 5794-3) Negative Negative Nitrite, UA (test code = 5802-4) Negative Negative Urobilinogen, UA (test code = 73615-7) Negative <2.0 Leukocyte esterase, UA (test code = 5799-2) Negative Negative Epithelial cells, UA (test code = 5787-7) Few /HPF Round epithelial cells, UA (test code = 70362-2) Few 0- 1 /HPF WBC, UA (test code = 5821-4) 1 0- 1 /HPF RBC, UA (test code = 40461-3) <1 0- 5 /HPF Bacteria, UA (test code = 57299-4) None seen None seen Yeast, UA (test code = 55826-8) None seen Yeast with pseudohyphae, UA (test code = 78937-2) None seen Lab Interpretation (test code = 98718-6) Abnormal [facility] MethodistUrine noqvums7362-40-55 02:50:01* Test Item Value Reference Range Interpretation Comments Urine culture (test code = 3257590) SEE COMMENT Bacteriuria screen negative. Yassine ValentinComprehensive metabolic csasy4165-15-25 01:18:03* Test Item Value Reference Range Interpretation Comments Sodium (test code = 2951-2) 136 135- 150 mEq/L Potassium (test code = 2823-3) 4.3 3.5- 5.0 mEq/L Chloride (test code = 2075-0) 94 98- 112 mEq/L L CO2 (test code = 2027-9) 27 mmol/L 24-31 Anion gap (test code = 75402-3) 15@ANIO 7- 15 mEq/L BUN (test code = 3094-0) 24 mg/dL 7-18 H Creatinine (test code = 2160-0) 1.00 mg/dL 0.7-1.2 Glucose (test code = 2345-7) 353 mg/dL 65-100 H Calcium (test code = 11386-8) 9.6 mg/dL 8.3-10.2 Protein (test code = [...] mg/dL 0.2-1.2 Lab Interpretation (test code = 67267-3) Abnormal [place] MethodistLipase fnfxf5478-07-40 01:18:01* Test Item Value Reference Range Interpretation Comments Lipase (test code = 3040-3) 22 U/L 13-60 [place] MethodistEstimated ZMJ4238-35-25 01:17:59* Test Item Value Reference Range Interpretation Comments Estimated GFR (test code = 5488) 88 mL/min/1.73 m2 Catergory Units InterpretationG1 >=90 Normal or highG2 60-89 Mildly fzowmsjgzC7y 45-59 Mildly to moderately ikwimgxvlY5b 30-44 Moderately to severely decreasedG4 15-29 Severely decreasedG5 <15 Kidney failureThe eGFR was calculated using the Chronic Kidney Disease Epidemiology Collaboration (CKD-EPI) equation. Interpretation is based on recommendations of the National Kidney Foundation-Kidney Disease Outcomes Quality Initiative (NKF-KDOQI) published in 2014. [place] MethodistCBC with platelet and acibtmczaaqv4768-08-58 00:54:29* Test Item Value Reference Range Interpretation Comments WBC (test code = 21669-7) 15.4 4.2- 11.0 k/uL H RBC (test code = 25578-0) 4.64 m/uL 4.04-5.86 HGB (test code = 718-7) 14.3 g/dL 13-17.3 HCT (test code = 4544-3) 41.3 % 34-45 MCV (test code = 787-2) 89.0 fL 80-98 MCH (test code = 785-6) 30.8 pg 27-34 MCHC (test code = 786-4) 34.6 g/dL 31.5-36.5 RDW - SD (test code = 03479-5) 36.5 fL 37-51 L MPV (test code = 94615-1) 11.8 fL 7.4-10.4 H Platelet count (test code = 71914-3) 199 150- 400 k/uL Nucleated RBC (test code = 13853-2) 0.00 /100 WBC Neutrophils (test code = 35324-7) 84.6 % 36-66 H Lymphocytes (test code = 93538-8) 7.9 % 24-44 L Monocytes (test code = 91805-5) 6.0 % 0-6 Eosinophils (test code = 87001-3) 0.5 % 0-6 Basophils (test code = 57305-6) 0.3 % 0-1.2 Immature granulocytes (test code = 31420-6) 0.7 % 0-1 Lab Interpretation (test code = 24262-8) [facility] [id number] 00:51:38* Test Item Value Reference Range Interpretation Comments Influenza antigen (test code = 23641-0) Negative for Influenza A/B antigen. Specimen InformationSpecimen Source: NaresSpecimen Site: [facility] [id number] 23:12:59* Test Item Value Reference Range Interpretation Comments POC glucose (test code = 97109-2) 332 mg/dL 65-100 H Meter ID: [id number]: Irwin Ruiz Lab Interpretation (test code = 12270-1) Abnormal [facility]
[2019-12-20] MEDS ORDERED: DEXTROSE 50% SYRINGE 50 ML IV PRN (20:15)
[2019-12-20] MEDS ORDERED: ONDANSETRON HCL INJ 2MG/ML 2ML 2 MG/ML VIAL IV PRN (20:15)
[2019-12-20] MEDS: SODIUM CHLORIDE 0.9% 1000ML 1,000 ML IV SCH (20:34)
[2019-12-20] MEDS: INSULIN REGULAR, HUMAN 100 UNIT/1 ML 3ML VIAL SQ SCH (20:41)
--- NOTE | 2019-12-20 20:51 | NUR ---
blood consent signed and on pt's clipboard
[2019-12-20 21:38] VITALS: BP 175/89
[2019-12-20 22:00] VITALS: BP 175/89
--- NOTE | 2019-12-20 22:00 | NUR ---
PATIENT ARRIVED VIA STRETCHER TO THE UNIT FROM ER. RECEIVED REPORT FROM ER NURSE,AVINASH. PATIENT IN NO PAIN OR DISTRESS. CALL LIGHT WITHIN REACH. PATIENT ORIENTED TO THE ROOM. PATIENT'S BELONGINGS WITH HIM. PATIENT IS A&OX3 AND AMBULATES WITH A CANE.
[2019-12-20] MEDS ORDERED: SODIUM CHLORIDE 0.9% 250ML 250 ML ONE (22:16)
[2019-12-20] MEDS ORDERED: INFLUENZA VIRUS VAC SPLIT INJ 0.5 ML SYR IM SCH (23:00)
[2019-12-20] MEDS ORDERED: PNEUMOCOCCAL VACCINE POLYVALENT 23 MCG/0.5 ML VIAL IM SCH (23:00)
[2019-12-21] VITALS (8 sets, daily range): BP systolic 130–183; BP diastolic 80–95
[2019-12-21 01:03] LABS: FERRITIN 1127.13 ng/mL (21.81-274.66)
[2019-12-21] MEDS: SODIUM CHLORIDE 0.9% 250ML 250 ML IV ONE ×2 (01:46→07:27)
[2019-12-21] MEDS ORDERED: SODIUM CHLORIDE 0.9% 250ML 250 ML ONE (01:55)
[2019-12-21] MEDS ORDERED: BISACODYL 5 MG TAB EC PO ONE ×6 (03:15→23:45)
[2019-12-21] MEDS: BISACODYL 5 MG TAB EC PO ONE ×2 (04:07→04:22)
[2019-12-21] MEDS ORDERED: HUMALOG KW200 UNIT/1 (04:28)
[2019-12-21] MEDS ORDERED: TRADJENTA5 MG (04:28)
[2019-12-21] MEDS ORDERED: LOSARTAN POTASS25 MG (04:28)
--- NOTE | 2019-12-21 05:15 | NUR ---
CALLED DR. CARRILLO OFFICE AND TALKED TO THE ANSWERING SERVICE. DR. CARRILLO CALLED BACK AT 0515 AND WAS TOLD THE PATIENT'S BLOOD PRESSURE WENT FROM 168/91 TO 193/96 TO 174/90 WITHIN 2 HOURS. SHE WAS TOLD HE HAS A HISTORY OF HYPERTENSION AND TAKES 25 MG OF [place] POTASSIUM. DR. CARRILLO SAID TO GIVE THE PATIENT CLONIDINE 0.1 MG >160/90.
[2019-12-21 05:56] LABS: BASOPHILS # (AUTO) 0.1 (0.0-0.1); BASOPHILS % 0.4 % (0.0-1.0); EOSINOPHILS # (AUTO) 0.3 (0.0-0.4); EOSINOPHILS % 2.8 % (0.0-6.0); HEMOGLOBIN 8.9 g/dL (14.0-18.0); LYMPHOCYTES # (AUTO) 1.2 (1.0-3.2); LYMPHOCYTES % 10.1 % (18.0-39.1); MEAN CORPUSCULAR HEMOGLOBIN 26.7 pg (28-32); MEAN CORPUSCULAR HGB CONC 31.8 g/dL (31-35); MEAN CORPUSCULAR VOLUME 84.1 fL (81-99); MONOCYTES # (AUTO) 0.6 (0.2-0.8); MONOCYTES % 5.1 % (4.4-11.3); NEUTROPHILS # (AUTO) 9.4 (2.1-6.9); NEUTROPHILS % 80.8 % (38.7-80.0); PLATELET COUNT 281 x10e3/uL (140-360); RED BLOOD COUNT 3.33 x10e6/uL (4.3-5.7); RED CELL DISTRIBUTION WIDTH 13.4 % (11.7-14.4)
[2019-12-21 06:13] LABS: ALANINE AMINOTRANSFERASE 18 IU/L (0-55); ALBUMIN 2.3 g/dL (3.5-5.0); ALBUMIN/GLOBULIN RATIO 0.4 (0.8-2.0); ALKALINE PHOSPHATASE 252 IU/L (40-150); ANION GAP 16.1 mmol/L (8-16); BLOOD UREA NITROGEN 24 mg/dL (7-26); BUN/CREATININE RATIO 20 (6-25); CALCIUM 9.2 mg/dL (8.4-10.2); CARBON DIOXIDE 24 mmol/L (22-29); CHLORIDE 102 mmol/L (98-107); CREATININE, SERUM 1.19 mg/dL (0.72-1.25); EST GLOMERULAR FILTRATION RATE > 60 ML/MIN (60-); GLUCOSE 184 mg/dL (74-118); POTASSIUM 5.1 mmol/L (3.5-5.1); SODIUM 137 mmol/L (136-145)
--- NOTE | 2019-12-21 06:35 | NUR ---
Vice President Compliance responded to Spiritual Care consult submitted by RN. Pt sleeping soundly and no family present. Vice President Compliance left a card describing availability of template reproduction technician and instructions on how to contact a template reproduction technician as well as yazidism material in Swedish. Will follow up as able. LILA ISAAC Vice President Compliance Spiritual Care Department O: [phone]
--- NOTE | 2019-12-21 07:15 | NUR ---
GAVE BEDSIDE SHIFT REPORT TO ONCOMING NURSE. CALL LIGHT WITHIN REACH. PATIENT ASLEEP IN BED. HOURLY ROUNDING PERFORMED.
[2019-12-21] MEDS: INSULIN REGULAR, HUMAN 100 UNIT/1 ML 3ML VIAL SQ SCH ×4 (07:41→21:00)
[2019-12-21] MEDS: IRON SUCROSE 100 MG in SODIUM CHLORIDE 0.9% 100 ML 100 ML IV SCH (08:57)
[2019-12-21] MEDS: CYANOCOBALAMIN INJ 1,000 MCG/ML VIAL IM SCH (08:57)
[2019-12-21] MEDS: SODIUM CHLORIDE 0.9% 1000ML 1,000 ML IV SCH ×2 (08:57→15:47)
--- NOTE | 2019-12-21 12:01 | NUR ---
WOUND CARE NURSE INITIAL CONSULTATION. 49 YEAR OLD MALE ADMITTED TO [facility] WITH DX OF ANEMIA, CHEST PAIN AND HYPERKALEMIA. PT HAS BEEN SEEING DR. HERNANDEZ IN THE OUTPATIENT [facility] AND IS CURRENTLY GETTING HBOT. PT PRESENTS WITH DIABETIC FOOT ULCER WAGNERS 4 TO LEFT TMA, WHICH MEASURES 6.5X11X1.5CM. 100% NECROTIC WITH ESCHAR, SLOUGH AND EXPOSED BONE. THE MEDIAL ASPECT OF ULCER PRESENTS TUNNEL AT 3 O'CLOCK THAT MEASURES 2.9CM. RIGHT PLANTAR FOOT PRESENTS WITH A 2.7H1A8BD DIABETIC FOOT ULCER WAGNERS 3. 90% FIBRIN TO WOUND BED. THE CENTER OF THE WOUND HAS 2.4 CM UNDERMINING FROM 12-12 O'CLOCK WITH BONE EXPOSURE. PER PT HE RECEIVED TWO UNITS OF BLOOD AND HGB IS 11.58 NOW. ON 12/18/2019 HE HAD A POSITIVE CX FOR PSEUDOMONAS AERUGINOSA, RIGHT FOOT. DR. CABRERA I&Ellie, AND DR. HERNANDEZ CONSULTED. PT WILL BENEFIT FROM SURGICAL DEBRIDEMENT. RECOMMENDATIONS: CLEAN BL FOOT WOUNDS WITH NS, APPLY BETADINE WET TO DRY THEN COVER WITH 4X4 GAUZE, KERLIX AND TAPE. CHANGE DRESSING DAILY. BL LOWER LEGS ARTERIAL DUPLEX TO ASSESS CIRCULATION. NO PALPABLE PULSES. MRI, RIGHT FOOT TO RULE OUT OSTEOMYELITIS. ELEVATE FEET WHILE IN BED ENCOURAGE PT TO REPOSITION EVERY TWO HOURS AND PRN. THANKS FOR THIS CONSULTATION. Addendum: 12/21/19 at 1221 by Mini Vickers RN Amended: Links added.
--- NOTE | 2019-12-21 13:33 | NUR ---
Pt. expressed no spiritual or emotional concerns at this time. Client Delivery Manager provided hospitality and information on availability of micro computer specialist services. Pt expressed appreciation for visit. No need to follow at this time. LILA ISAAC Client Delivery Manager Spiritual Care Department O: [phone]
[2019-12-21] MEDS ORDERED: BISACODYL 5 MG TAB EC PO NR (15:45)
--- NOTE | 2019-12-21 15:55 | Diagnostic Imaging Report ---
TECHNIQUE: Magnetic resonance imaging of the RIGHT foot was performed WITHOUT injected contrast. HISTORY: Osteomyelitis COMPARISON: Left foot MRI 09/07/2019, right foot radiographs 02/14/2019 DISCUSSION: Bone: Bone marrow edema and T1 hypointense replacement throughout the cuboid bone with adjacent plantar ulcer, concerning for osteomyelitis. Similar bone marrow edema and T1 hypointense signal involving the adjacent lateral cuneiform, intermediate cuneiform, medial cuneiform, navicular bone, and bases of the second through fifth metatarsals, which may represent extension of osteomyelitis or reactive changes of Charcot arthropathy. Scattered fragmentation throughout the midfoot joints, most notably along the TMT joints and the naviculocuneiform joints, consistent with Charcot arthropathy. Joints: Mid foot collapse with dorsal subluxation of the second, third, fourth, and fifth TMT joints. Trace joint effusions at the midfoot joints. Muscles/tendons: Split tear of the distal peroneus brevis tendon. Peroneus longus tendon remains intact. Remaining visualized portions of tendons are grossly intact. Diffuse edema throughout the visualized mid foot musculature, likely represents a combination of reactive changes and/or diabetic myopathy. Soft Tissues: Plantar soft tissue ulcer measures up to 7 mm in diameter with extension to the underlying cuboid bone. No associated fluid collection. Diffuse subcutaneous edema along the dorsum of the visualized mid foot. IMPRESSION: 1. Plantar soft tissue ulcer extends to the underlying cuboid bone with associated bone marrow signal changes, consistent with osteomyelitis. 2. Similar bone marrow signal changes involving the adjacent midfoot bones described above and bases of the second through fifth metatarsals which may represent extension of osteomyelitis versus reactive changes of Charcot arthropathy. 3. Midfoot collapse and dorsal subluxation of the second through fifth TMT joints with associated trace effusions and fragmentation, consistent with Charcot arthropathy. 4. Split tear of the distal peroneus brevis tendon. Signed by: Dr. Ashok Yeung M.D. on 12/21/2019 3:51 PM
--- NOTE | 2019-12-21 16:10 | NUR ---
consult dictated [id number]
[2019-12-21] MEDS ORDERED: CITRATE OF MAGNESIA 300ML BOTTLE PO NR ×2 (17:30→21:00)
[2019-12-21] MEDS: MEROPENEM 500MG/ NS 50ML 50 ML IV SCH ×2 (17:37→23:55)
[2019-12-21] MEDS ORDERED: MEROPENEM 500MG 500 MG in SODIUM CHLORIDE 0.9% 50ML 50 ML IV SCH (18:00)
--- NOTE | 2019-12-21 18:57 | NUR ---
RECEIVED BEDSIDE REPORT FROM PREVIOUS NURSE. CALL LIGHT WITHIN REACH. PATIENT IN BED.
--- NOTE | 2019-12-21 21:50 | Consultation ---
DATE OF CONSULTATION: 12/21/2019 REQUESTING PHYSICIANS: 1. Shawna Garcia MD. 2. Naomi Lopez DPM. Thank you, Dr. Garcia for this consultation. HISTORY OF PRESENT ILLNESS: This is a 49-year-old male, who has multiple medical problems including diabetes mellitus, atherosclerotic heart disease, peripheral vascular disease, has had left foot TMA done, which was last debrided on 11/13/2019, debrided down to the bone. The patient received an extended duration of antibiotic treatment postoperatively. The patient was admitted to the hospital because of anemia. On initial evaluation, the patient did not have any fever recorded, vital signs were stable, but the labs revealed hemoglobin of 7, white count of 11.2. Because of his chronic wounds, which have been followed at the [facility], wound evaluation was performed and it was noted that the patient has necrotic left TMA wound. The patient has received hyperbaric oxygen therapy in the past as well. Most recent cultures that were done from the left foot revealed Pseudomonas aeruginosa on 12/18/2019, prior to that, the patient had Pseudomonas aeruginosa and Enterococcus faecalis. REVIEW OF SYSTEMS: HEENT: Denies any headaches, visual complaints, sinus congestion, ear ache, throat pain, or neck pain. RESPIRATORY: No cough or shortness of breath. CARDIOVASCULAR: No chest pain or palpitations. GI: No nausea, vomiting, or diarrhea. : No urinary symptoms. PAST MEDICAL HISTORY: 1. Right foot Charcot joint. 2. Peripheral vascular disease, has had revascularization done in the past. 3. Diabetes mellitus. PAST SURGICAL HISTORY: As above. Has had angiogram and angioplasty of right lower extremity on 05/11/2019. Angioplasty of left leg, 09/14/2019 and 10/04/2019. Left foot TMA with partial closure and debridement down to the bone on 11/13/2019. At that time, the pathology results revealed multifocal acute osteomyelitis, atherosclerosis, bone margins were viable at that time. ALLERGIES: NO KNOWN DRUG ALLERGIES. CURRENT MEDICATIONS: Reviewed. FAMILY HISTORY: Noncontributory. SOCIAL HISTORY: No active alcohol, tobacco, or drug use. PHYSICAL EXAMINATION: VITAL SIGNS: Temperature 98.6, pulse 80, respiratory rate 19, and blood pressure 177/90. HEENT: Normocephalic and atraumatic. Extraocular movements not assessed. NECK: Supple. LUNGS: Fair air entry bilaterally. Clear to auscultation. HEART: Sounds S1, S2. No murmur. No gallop. ABDOMEN: Soft, nontender, and normoactive bowel sounds. EXTREMITIES: Left foot TMA with the necrotic ulcer. Melgar stage IV to the left TMA 6.5 x 11 x 1.5 cm, 100% necrotic with eschar, slough, exposed bone. Medial aspect of the ulcer present, some tunneling and maceration. LABORATORY DATA: Revealed WBC count of 11.5, hemoglobin 8.9, and platelets 281. BUN of 20 and creatinine 1.1. LFTs are normal. MRI of the left foot was done shows changes consistent with osteomyelitis involving the cuboid bone 2nd through 5th metatarsals, osteomyelitis versus reactive Charcot arthropathy. Culture results have been dictated on 12/18/2019, the patient has Pseudomonas aeruginosa, sensitive only to gentamicin, imipenem, meropenem, tobramycin, and amikacin. ASSESSMENT: This is a 49-year-old male with: 1. Left transmetatarsal amputation wound, which is necrotic with underlying osteomyelitis. Cultures positive for Pseudomonas aeruginosa. The patient has received extended antibiotic treatment in the past. Currently receiving hyperbaric oxygen therapy and aggressive wound care, will likely further debridement. 2. Peripheral vascular disease. Will need re-evaluation and probable revascularization. RECOMMENDATIONS: We will place the patient on antibiotic regimen of meropenem. Podiatry has been consulted for debridement. Probable intraoperative bone biopsy can determine the extent of an underlying osteomyelitis. We will continue to follow. Thank you, Dr. Garcia, for this consultation. We will follow the patient along with you. Ancelmo Houser MD SR/MODL /[id number]
[2019-12-21 23:02] LABS: CLARITY,URINE CLEAR (CLEAR); COLOR,URINE YELLOW (YELLOW); LEUKOCYTE ESTERASE ,URINE NEGATIVE (NEGATIVE); NITRITE,URINE NEGATIVE (NEGATIVE)
[2019-12-21 23:03] LABS: BILIRUBIN,URINE NEGATIVE (NEGATIVE); KETONES,URINE NEGATIVE (NEGATIVE); PROTEIN,URINE DIPSTICK 2+ (NEGATIVE); URINE UROBILINOGEN 0.2 mg/dL (0.2 - 1)
[2019-12-21 23:11] LABS: BACTERIA,URINE FEW /HPF; EPITHELIAL CELLS,URINE RARE /LPF; WBC,URINE (MAN) 0-5 /HPF (0-5)
[2019-12-22] VITALS (7 sets, daily range): BP systolic 127–173; BP diastolic 80–96
[2019-12-22] MEDS ORDERED: BISACODYL 5 MG TAB EC PO ONE (00:20)
[2019-12-22] MEDS ORDERED: ONDANSETRON HCL INJ 2MG/ML 2ML 2 MG/ML VIAL IV ONE (00:50)
[2019-12-22] MEDS ORDERED: CITRATE OF MAGNESIA 300ML BOTTLE PO ONE (01:00)
[2019-12-22] MEDS: SODIUM CHLORIDE 0.9% 1000ML 1,000 ML IV SCH ×3 (04:17→23:44)
[2019-12-22] MEDS: MEROPENEM 500MG/ NS 50ML 50 ML IV SCH ×4 (05:58→23:44)
--- NOTE | 2019-12-22 07:00 | NUR ---
BEDSIDE SHIFT REPORT RECEIVED FORM THE LIGHT ADJUSTER RN. EDUCATED PT ABOUT FALL PRECAUTIONS. PT VERBALIZED UNDERSTANDING. CALL LIGHT WITH IN EASY REACH. INSTRUCTED PT TO USE CALL LIGHT FOR ALL THE NEEDS. BED IS LOW AND LOCKED. SIDE RAILS X2. PT IS ON NPO. PT DENIES NEEDS AT THIS TIME.
--- NOTE | 2019-12-22 07:26 | NUR ---
GAVE BEDSIDE SHIFT REPORT TO ONCOMING NURSE. CALL LIGHT WITHIN REACH. PATIENT IN BED. HOURLY ROUNDING PERFORMED.
[2019-12-22] MEDS: INSULIN REGULAR, HUMAN 100 UNIT/1 ML 3ML VIAL SQ SCH ×4 (07:30→21:00)
[2019-12-22] MEDS: CYANOCOBALAMIN INJ 1,000 MCG/ML VIAL IM SCH (08:35)
[2019-12-22] MEDS: IRON SUCROSE 100 MG in SODIUM CHLORIDE 0.9% 100 ML 100 ML IV SCH (08:35)
--- NOTE | 2019-12-22 10:30 | NUR ---
PT OFF UNIT FOR PROCEDURE IN SAFE CONDITION.
[2019-12-22] MEDS ORDERED: PROPOFOL IV EMULSION 10 MG/ML 20 ML VIAL ONE (12:05)
[2019-12-22] MEDS ORDERED: LIDOCAINE HCL 2% LOCAL INJ 5 ML SDV VIAL INJ ONE (12:05)
--- NOTE | 2019-12-22 12:16 | Consultation ---
DATE OF CONSULTATION: 12/22/2019 TIME: 09:20 a.m. REASON FOR CONSULTATION: Wound care. I am covering for Dr. Naomi Lopez, NEHEMIAS. CHIEF COMPLAINT/HISTORY OF PRESENT ILLNESS: This is a pleasant gentleman, who is 49 years of age, admitted for anemia. At this point in time, the patient currently denies any nausea, vomiting, fever, chills, thigh pain, chest pain, calf pain, or shortness of breath. The patient had a previous transmetatarsal amputation of left lower extremity by Dr. Manning. However, he is currently being treated for an ulceration on the plantar aspect of the right foot. At this point in time, he denies any constitutional symptoms. PAST MEDICAL HISTORY: 1. Type 1 diabetes. 2. Type 2 multiple endocrine neoplasia. MEDICATIONS: See chart. ALLERGIES: SEE CHART. REVIEW OF SYSTEMS: See admission history and physical. PHYSICAL EXAMINATION: GENERAL: The patient is alert, awake, and oriented x3, currently in no acute distress. VITAL SIGNS: Temperature is 97.9, pulse is 94, respiratory rate is 19, blood pressure is 163/86. EXTREMITIES: Lower extremity physical examination; the patient has +4/4 DP and PT pulses bilaterally. There is no is elevational pallor dependent rubor. The left lower extremity has a previously performed transmetatarsal amputation of one month duration per the patient. The plantar flap is necrotic. Still sutures are intact. There is no erythema noted. No active drainage present. Right lower extremity reveals ulceration on the plantar aspect of the right foot, measuring approximately 1.5 x 2 cm. There is no surrounding erythema. infection is noted. Base is fibrogranular in nature. NEUROLOGIC: The patient has loss of bilaterally. Sharp to light touch sensation is absent to the bilateral lower extremities as well as Achilles and patellar reflexes, which were absent as well. ORTHOPEDIC: Deferred at this time. LABORATORY/DIAGNOSTIC DATA: WBC is 11.58, RBC is 3.3, hemoglobin 8.9, hematocrit 28.0, and platelet count is 281. MRI performed on 12/21/2019. This is of the right foot reveals plantar soft tissue ulceration with associated with bone marrow signal changes consistent with osteomyelitis. Charcot arthropathy is noted on the right lower extremity. ASSESSMENT: 1. Diabetes mellitus with peripheral neuropathy. 2. See medical history as stated above. 3. Status post transmetatarsal amputation, left lower extremity. 4. Osteomyelitis, right cuboid. RECOMMENDATIONS: 1. At this point in time, did agree with IV antibiotics. 2. Local wound care consisting with Santyl with wet-to-dry twice daily basis would be recommended. 3. The patient recommended offloading, nonweightbearing to bilateral lower extremities. 4. Further recommendations will be pending the patient's clinical progression as well as per Dr. Naomi Lopez. Dr. Garcia, thank you for this consultation. We will be happy to follow this patient with you. Suresh Narayanan DPM MM/MATILDEL /[id number]
--- NOTE | 2019-12-22 13:00 | NUR ---
PT IS BACK TO UNIT AFTER PROCEDURE. PT IS AAOX4. DENIES NEEDS AT THIS TIME.
--- NOTE | 2019-12-22 13:25 | NUR ---
PAGED RADIOLOGY REGARDING STAT NUCLEAR MED SCAN. INFORMED THE SAME TO ACCESS REP.
--- NOTE | 2019-12-22 15:00 | NUR ---
PAGED DR. CARRILLO OFFICE REGARDING PT HOME MEDS.
--- NOTE | 2019-12-22 15:07 | Operative Report ---
DATE OF PROCEDURE: 12/22/2019 SURGEON: Ashok Powers MD PROCEDURES: EGD with biopsies and colonoscopy with polypectomy. INDICATIONS FOR EGD: Anemia, guaiac-positive stools. INDICATIONS FOR COLONOSCOPY: Anemia, guaiac-positive stools. MEDICATIONS: The patient was done under MAC, please see anesthesiologist's note. PROCEDURE IN DETAIL: With the patient in the left lateral decubitus position, a flexible fiberoptic Olympus gastroscope was introduced into the esophagus under direct visualization without any difficulty. There was a minute nodule noted in the mid esophagus that was biopsied. The scope was then advanced with ease into the stomach. Mucosa overlying the antrum and the body revealed some patchy erythema and [id number] edema, and biopsies were obtained and sent to stain for H. pylori. Pylorus was of normal contour and shape, was intubated with ease and the scope was advanced all the way to the second portion of the duodenum. The scope was then withdrawn slowly. Mucosa overlying the proximal second portion and the duodenal bulb appeared to be within normal limits. The scope was then withdrawn back into the stomach and retroflexed, and mucosa overlying the fundus and the cardia appeared to be within normal limits. The scope was then straightened out, it was subsequently withdrawn, and the patient tolerated the procedure well. IMPRESSION: 1. Esophageal nodule, mid esophagus, biopsied. 2. Gastritis, biopsied, biopsies sent to stain for Helicobacter pylori. PLAN: Follow up histology. Initiate Protonix 40 mg one p.o. q.a.m. before meals. The patient was then turned around and after adequate lubrication of the anal canal, a flexible fiberoptic Olympus colonoscope was inserted into the rectum with ease and advanced all the way to the cecum. It was then withdrawn slowly. Mucosa overlying the cecum, ascending colon, transverse colon, and descending colon appeared to be within normal limits. An approximately 5 mm polyp was removed per hot snare polypectomy from the sigmoid colon. The rest of the sigmoid colon and the rectum grossly appeared to be within normal limits. The scope was then retroflexed into the distal rectum and small internal hemorrhoids were noted, none of which was actively bleeding. The scope was then straightened out, it was subsequently withdrawn, and the patient tolerated the procedure well. IMPRESSION: 1. Sigmoid colon polyp, hot snared. 2. Internal hemorrhoids, none actively bleeding. PLAN: Follow up histology. Findings overall do not explain the patient's anemia. We will get a GI bleed scan and if negative, the patient will need a small bowel series and if unrevealing, then a capsule endoscopy is in order. The patient might benefit from a followup colonoscopy in 3 to 5 years. Ashok Powers MD [facility] [place] /[id number] cc: Shawna Garcia MD
[2019-12-22] MEDS: LOSARTAN POTASSIUM 100 MG TAB PO SCH (16:07)
--- NOTE | 2019-12-22 16:20 | NUR ---
PT OFF UNIT TO RADIOLOGY FOR GI BLEED SCAN IN SAFE CONDITION.
--- NOTE | 2019-12-22 16:57 | Progress Note ---
DATE: 12/22/2019 INTERNAL MEDICINE PROGRESS NOTE: SUBJECTIVE: The patient is doing well. No significant complaint. PHYSICAL EXAMINATION: HEART: Showed regular rhythm. Normal S1 and S2 sound. LUNGS: Clear bilaterally. ABDOMEN: Soft. EXTREMITIES: Showed traces of both lower extremities. VITAL SIGNS: Blood pressure 168/88, temperature 97.9, heart rate 88 per minute, respiratory rate 20 per minute, and oxygen saturation 100%. LABORATORY DATA: On the CBC; white blood count is 11.58, hemoglobin 8.9, hematocrit 28.0, and platelet count 281,000. On the BMP; sodium 131 with sodium 137, potassium 4.1, chloride 102, CO2 24, BUN 24, creatinine 1.9, and glucose 184. Iron 15, TIBC 160, iron saturation 9%, transferrin 114, and ferritin is 1127. AST 14, ALT 18, and alkaline phosphatase 252. FINAL IMPRESSION: 1. Right foot wound with cellulitis. 2. Osteomyelitis of the left foot. 3. Peripheral vascular disease. 4. Acute anemia. 5. Uncontrolled diabetes mellitus type 2 with peripheral vascular disease. 6. Hypertension. PLAN OF TREATMENT: Continue wound care. Continue current IV antibiotic therapy, which is meropenem 500 mg IV q.6 hours. Continue Venofer for iron infusion 100 mg IV once a day, normal saline at 100 mL an hour. We are going to start losartan 100 mg daily because of the hypertension. Continue clonidine 0.1 mg q.6 hours as needed. Continue vitamin B12 1000 mcg IM daily. Continue to monitor blood sugar before meals and at bedtime. Losartan 50 mg daily, Zofran 4 mg IV q.4 hours as needed for nausea and vomiting. He got the pneumonia vaccine. Continue wound care. MD FAYE Dunham/MATILDEL /[id number]
[2019-12-22] MEDS ORDERED: MIDAZOLAM HCL 2 MG/2 ML VIAL ONE (17:51)
[2019-12-22] MEDS ORDERED: FENTANYL CITRATE/PF 100MCG/2 ML INJ ONE (17:51)
--- NOTE | 2019-12-22 18:30 | NUR ---
PT IS BACK TO THE UNIT AFTER PROCEDURE. PT DENIES NEEDS AT THIS TIME.
--- NOTE | 2019-12-22 18:55 | NUR ---
BEDSIDE SHIFT REPORT GIVEN TO THE POLICE COMMUNICATIONS OPERATOR RN. PT DENIED FURTHER NEEDS
--- NOTE | 2019-12-22 19:00 | NUR ---
Resumed care of patient. Patient awake and resting in bed, respirations even and unlabored on room air, no s/s of distress at this time. Bed locked and in lowest position, side rails upx2, call light placed within reach. Patient instructed to call for assistance if needed, verbalized understanding. All safety measures in place.
--- NOTE | 2019-12-22 19:27 | Diagnostic Imaging Report ---
Tagged-RBC GI Bleed Study Clinical information: 49-year-old male with anemia. Presented to with chest pain. Discussion: The patient's own red blood cells were labeled with 24.2 mCi of technetium-99m pertechnetate using the in vitro method (UltraTag). Dynamic images of the abdomen were obtained through 60 minutes. Distribution of tracer activity appears physiologic throughout the abdomen. No abnormal accumulation of tracer is seen within the gastrointestinal lumen. Impression: No scan evidence of active gastrointestinal bleeding at this time. Signed by: Dr. Cris Paula M.D. on 12/22/2019 7:24 PM
[2019-12-23] VITALS (8 sets, daily range): BP systolic 142–170; BP diastolic 80–91
[2019-12-23] MEDS: CLONIDINE HCL 0.1 MG TAB PO PRN ×3 (00:41→20:54)
[2019-12-23] MEDS: MEROPENEM 500MG/ NS 50ML 50 ML IV SCH ×4 (05:05→23:39)
--- NOTE | 2019-12-23 07:16 | NUR ---
Bedside report given to oncoming nurse. Patient awake and sitting up on bedside, no s/s of distress at this time. All safety measures in place.
[2019-12-23] MEDS: INSULIN REGULAR, HUMAN 100 UNIT/1 ML 3ML VIAL SQ SCH ×3 (07:40→17:00)
[2019-12-23] MEDS: CYANOCOBALAMIN INJ 1,000 MCG/ML VIAL IM SCH (08:29)
[2019-12-23] MEDS: IRON SUCROSE 100 MG in SODIUM CHLORIDE 0.9% 100 ML 100 ML IV SCH (08:33)
[2019-12-23] MEDS: LOSARTAN POTASSIUM 100 MG TAB PO SCH (08:36)
[2019-12-23] MEDS: SODIUM CHLORIDE 0.9% 1000ML 1,000 ML IV SCH (12:00)
--- NOTE | 2019-12-23 16:55 | Progress Note ---
DATE: 12/23/2019 INTERNAL MEDICINE PROGRESS NOTE: SUBJECTIVE: The patient is doing well. No significant complaint. He is here for mild pain on the left foot. PHYSICAL EXAMINATION: HEART: Showed regular rhythm. LUNGS: Clear bilaterally. ABDOMEN: Soft. EXTREMITIES: Show dressing on both feet. amputation on left foot. VITAL SIGNS: Blood pressure 160/80, temperature 98.3, heart rate 78 per minute, respiratory rate 16 per minute, ox saturation 100%. LABORATORY DATA: On the BMP; sodium 137, potassium 5.1, chloride 102, CO2 24, BUN 24, creatinine 1.19, and glucose 184. The iron is low at 15, TIBC 460, which is low is 9, which is low. Transferrin 114, ferritin is 1127.13. AST 14, ALT 18, total bilirubin 0.6. On the CBC, white blood count 11.58, hemoglobin 8.9, hematocrit 28.0, and platelet count 281,000. IMPRESSION: 1. Right foot wound with cellulitis. 2. Osteomyelitis on the left foot, status post transmetatarsal amputation. 3. Peripheral vascular disease. 4. Acute anemia. 5. Uncontrolled diabetes mellitus type 2 with peripheral vascular disease. 6. Hypertension. PLAN OF TREATMENT: Continue Venofer 100 mg IV once a day, meropenem 500 g IV q.6 hours, normal saline at 100 mL an hour going to be discontinue. Continue clonidine 0.1 mg q.6 hours as needed hypertension, vitamin B12 1000 mcg IM daily, D50 IV push as needed for hypoglycemia, continue to monitor blood sugar before meals and at bedtime, Cozaar 50, we are going to increase to 100 mg daily due to uncontrolled hypertension. Continue also Zofran 4 mg IV q.4 hours as needed for nausea and vomiting. MD FAYE Dunham/ANTONY /[id number]
--- NOTE | 2019-12-23 19:00 | NUR ---
Resumed care of patient. Patient awake and resting in bed, no s/s of distress at this time. All safety measures in place.
[2019-12-23] MEDS ORDERED: DEXTROSE 50% SYRINGE 50 ML IV PRN (19:30)
[2019-12-23] MEDS: ATORVASTATIN 10 MG TAB PO SCH (20:54)
[2019-12-23] MEDS: INSULIN LISPRO 100 UNIT/1 ML 3ML VIAL SQ SCH (20:54)
[2019-12-23] MEDS ORDERED: INSULIN LISPRO 100 UNIT/1 ML 3ML VIAL SQ SCH (21:00)
--- NOTE | 2019-12-23 22:04 | NUR ---
Received orders from Dr. Powers to make patient NPO after midnight for small bowel series in AM.
[2019-12-24] VITALS (7 sets, daily range): BP systolic 127–194; BP diastolic 76–94
[2019-12-24] MEDS: MEROPENEM 500MG/ NS 50ML 50 ML IV SCH ×3 (06:34→19:09)
--- NOTE | 2019-12-24 06:34 | NUR ---
Wound care performed. Patient tolerated well.
--- NOTE | 2019-12-24 07:24 | NUR ---
PATIENT IN BED RESTING WITH NO S/S OF DISCOMFORT. DRESSING DRY AND INTACT TO BILATERAL LOWER EXTREMITIES. BED IN LOWER POSITION, CALL LIGHT AT REACH.
[2019-12-24] MEDS: INSULIN LISPRO 100 UNIT/1 ML 3ML VIAL SQ SCH ×7 (07:30→22:13)
[2019-12-24] MEDS: IRON SUCROSE 100 MG in SODIUM CHLORIDE 0.9% 100 ML 100 ML IV SCH (08:48)
[2019-12-24] MEDS: CLOPIDOGREL BISULFATE 75 MG TAB PO SCH (09:00)
[2019-12-24] MEDS ORDERED: HYDRALAZINE HCL 20 MG/ML VIAL IV PRN (09:00)
--- NOTE | 2019-12-24 09:43 | NUR ---
PATIENT OFF UNIT FOR A PROCEDURE.
--- NOTE | 2019-12-24 09:59 | Progress Note ---
DATE: 12/24/2019 HISTORY OF PRESENT ILLNESS: Mr. Canchola is a 49-year-old man with history of diabetes, hypertension, hyperlipidemia, coronary artery disease, and right foot ulcer, who came to the emergency room because he was very anemic. He was seen by GI, had an EGD that shows gastritis, had colonoscopy that shows sigmoid colon and internal hemorrhoids. He is going to go for a small bowel series today. PHYSICAL EXAMINATION: GENERAL: He is awake and alert. VITAL SIGNS: Temperature is 98.1, blood pressure is 166/90. HEART: Regular rate. LUNGS: Clear to auscultation. ABDOMEN: Soft. EXTREMITIES: He has a left foot partial amputation and right foot infected ulcer. LABORATORY DATA: On the blood work; white count is 11.58, hemoglobin is 8.9, hematocrit is 28. Sugar 173. COVID test was negative. MRI of the foot done on shows plantar soft tissue also extends to the cuboid bone with changes consistent with osteomyelitis. ASSESSMENT AND PLAN: 1. Severe anemia, status post EGD and colonoscopy, for small bowel series today. 2. Fatigue secondary to anemia. 3. Right foot infected ulcer with osteomyelitis. 4. Diabetes with foot ulcer. 5. Coronary artery disease, status post stent. 6. Hypertension. 7. Hyperlipidemia. 8. Diabetes type 2 with chronic kidney disease. 9. Chronic kidney disease, stage 3. 10. Peripheral vascular disease. PLAN: At present time is to continue wound care. Continue IV antibiotics. The patient is going to go for small bowel series to rule out any bleeding. Continue other medications. Continue ADA diet and sliding scale with insulin. Once he is receiving that, continue IV iron. Once we have the results done, we are going to discuss with Infectious Disease for further IV antibiotics. All this was discussed in detail with the patient. All questions were answered to satisfaction. MD HANS West/ANTONY /[id number]
[2019-12-24] MEDS ORDERED: ONDANSETRON HCL 4 MG ORAL DISINTEGRATING TAB PO PRN (14:15)
--- NOTE | 2019-12-24 15:20 | NUR ---
PATIENT BACK TO UNIT FROM A PROCEDURE. HAD A SMALL BOWEL SERIES. DRESSING INTACT TO BLE. REQUESTED AND RECEIVED A SNACK. BED IN LOWER POSITION, CALL LIGHT AT REACH.
[2019-12-24] MEDS: LOSARTAN POTASSIUM 100 MG TAB PO SCH (15:30)
[2019-12-24] MEDS: CYANOCOBALAMIN INJ 1,000 MCG/ML VIAL IM SCH (16:20)
[2019-12-24] MEDS: ATORVASTATIN 10 MG TAB PO SCH (21:19)
[2019-12-25] MEDS: MEROPENEM 500MG/ NS 50ML 50 ML IV SCH ×5 (01:08→23:30)
[2019-12-25 07:00] LABS: BASOPHILS # (AUTO) 0.1 (0.0-0.1); BASOPHILS % 0.6 % (0.0-1.0); EOSINOPHILS # (AUTO) 0.3 (0.0-0.4); EOSINOPHILS % 3.3 % (0.0-6.0); HEMATOCRIT 26.8 % (38.2-49.6); HEMOGLOBIN 8.8 g/dL (14.0-18.0); LYMPHOCYTES # (AUTO) 1.7 (1.0-3.2); LYMPHOCYTES % 19.5 % (18.0-39.1); MEAN CORPUSCULAR HEMOGLOBIN 27.7 pg (28-32); MEAN CORPUSCULAR HGB CONC 32.8 g/dL (31-35); MEAN CORPUSCULAR VOLUME 84.3 fL (81-99); MONOCYTES # (AUTO) 0.6 (0.2-0.8); MONOCYTES % 6.7 % (4.4-11.3); NEUTROPHILS % 69.3 % (38.7-80.0); PLATELET COUNT 302 x10e3/uL (140-360); RED BLOOD COUNT 3.18 x10e6/uL (4.3-5.7); RED CELL DISTRIBUTION WIDTH 13.2 % (11.7-14.4)
[2019-12-25 08:35] LABS: ALANINE AMINOTRANSFERASE 15 IU/L (0-55); ALBUMIN 2.2 g/dL (3.5-5.0); ALBUMIN/GLOBULIN RATIO 0.5 (0.8-2.0); ALKALINE PHOSPHATASE 202 IU/L (40-150); ANION GAP 12.9 mmol/L (8-16); BLOOD UREA NITROGEN 13 mg/dL (7-26); BUN/CREATININE RATIO 13 (6-25); CALCIUM 8.5 mg/dL (8.4-10.2); CARBON DIOXIDE 27 mmol/L (22-29); CHLORIDE 104 mmol/L (98-107); CREATININE, SERUM 1.02 mg/dL (0.72-1.25); EST GLOMERULAR FILTRATION RATE > 60 ML/MIN (60-); GLUCOSE 187 mg/dL (74-118); POTASSIUM 3.9 mmol/L (3.5-5.1); SODIUM 140 mmol/L (136-145)
[2019-12-25 08:48] VITALS: BP 178/92
[2019-12-25] MEDS: IRON SUCROSE 100 MG in SODIUM CHLORIDE 0.9% 100 ML 100 ML IV SCH (09:09)
[2019-12-25] MEDS: CYANOCOBALAMIN INJ 1,000 MCG/ML VIAL IM SCH (09:09)
[2019-12-25] MEDS: LOSARTAN POTASSIUM 100 MG TAB PO SCH (09:09)
[2019-12-25] MEDS: CLOPIDOGREL BISULFATE 75 MG TAB PO SCH (09:09)
[2019-12-25 09:11] VITALS: BP 178/92
[2019-12-25] MEDS: INSULIN LISPRO 100 UNIT/1 ML 3ML VIAL SQ SCH ×7 (11:11→21:00)
--- NOTE | 2019-12-25 11:54 | Progress Note ---
DATE: 12/25/2019 SUBJECTIVE: The patient is . He is doing well. The right lower extremity ulcer is actually improving. It is down to the level of the bone. He has a Charcot type of foot on the right, but it is about 90% granular. There is a 10% fibrotic right at the center where it is open. On the left, the TMA has demarcated well. The flap is nonviable, it is gangrenous. The medial aspect where the graft was applied is granulating. No streaking erythema. No ascending lymphangitis. Pedal pulses palpable, diminished. Capillary filling time is delayed. No pedal hair growth is noted. The MRI to the right showed associated bone marrow signal changes consistent with osteomyelitis, but there is also changes that are reactive consistent with Charcot arthropathy. His white blood count is improving. He came in with 11.3. He is down to 8.71. His hemoglobin was 7.1, he is up to 8.8. ASSESSMENT: 1. Diabetic foot ulcer, grade 3, right plantar foot where Charcot. 2. Diabetic ulcer, grade 4, left foot with necrotic flap. 3. Diabetes with neuropathy. 4. Peripheral vascular disease. 5. Anemia of unknown origin, being worked up for anemia. PLAN: Discussed treatment with the patient. At this point, my recommendation is he is going to need a debridement of the right and left lower extremities. He is going to need an OR debridement. Before the OR debridement, his anemia has to be controlled. His hemoglobin is only up to 8.8. I discussed with him possible debridement by the end of the week if the anemia continues to improve. At this point, continue local wound care. Continue IV antibiotic and continue offloading. I will continue to follow. NEHEMIAS Lucas/ANTONY /[id number]
[2019-12-25 12:00] VITALS: BP 152/84
[2019-12-25] MEDS: HYDRALAZINE HCL 25 MG TAB PO SCH ×2 (12:27→21:08)
--- NOTE | 2019-12-25 12:56 | NUR ---
REPORT GIVEN TO RICARDO KUMAR, PT TRANSFERRED TO ROOM 292.
--- NOTE | 2019-12-25 13:22 | NUR ---
PATIENT ARRIVED ON THE UNIT PER WHEELCHAIR FROM [place] [address] ROOM 105 AT 1305. PATIENT IS AWAKE, ALERT, AND AMBULATING WITH HIS PERSONAL CANE. PATIENT IS IN STABLE CONDITION WITH NO S/S OF RESPIRATORY DISTRESS. PATIENT DENIES PAIN AT THIS TIME. DRESSING TO LEFT TMA SITE AND RIGHT FOOT WOUND IS CLEAN, DRY, AND INTACT. CALL LIGHT IS WITHIN REACH- PATIENT INSTRUCTED TO CALL FOR ASSISTANCE NEEDED.
[2019-12-25 16:00] VITALS: BP 164/85
--- NOTE | 2019-12-25 16:09 | Progress Note ---
DATE: 12/25/2019 SUBJECTIVE: Mr. Canchola is a 49-year-old male with history of diabetes, hypertension, hyperlipidemia, coronary artery disease, and right foot ulcer, who came to the emergency room because he was found to be very anemic, had EGD and colonoscopy done. EGD shows gastritis. Colonoscopy shows some colonic polyps and internal hemorrhoids. He went for small-bowel series yesterday. He is own wound care and IV antibiotics. PHYSICAL EXAMINATION: GENERAL: He is awake and alert. VITAL SIGNS: Temperature is 98.9, blood pressure 179/94. HEART: Regular rate. LUNGS: clear to auscultation. ABDOMEN: Soft. EXTREMITIES: He has a left foot partial amputation and right foot ulcer that is infected with osteomyelitis. ASSESSMENT AND PLAN: 1. Severe anemia, status post EGD, colonoscopy, on IV iron. 2. Fatigue secondary to anemia. 3. Right foot infected ulcer with osteomyelitis. 4. Diabetes type 2 with foot ulcer. 5. Coronary artery disease, status post stent. 6. Hypertension. 7. Hyperlipidemia. 8. Diabetes type 2 with chronic kidney disease. 9. Chronic kidney disease, stage 3. 10. Peripheral vascular disease. 11. Diabetes type 2 with hyperglycemia. 12. Left foot partial amputation. PLAN: At the present time, the small-bowel series result is still pending. The GI bleeding scan shows no evidence of active bleeding at the present time. The patient is to continue IV iron. MRI of the foot shows osteomyelitis. Continue wound care, IV antibiotics. We will check with Infectious Disease and see the patient will need any type of a debridement or vascular surgeon to see him. All this was discussed in extension with the patient. All questions were answered to satisfaction. I spent more than 30 minutes examining the patient, reviewing overnight event, lab results, and discussing plan of care with him. MD HANS West/ANTONY /[id number]
--- NOTE | 2019-12-25 19:37 | NUR ---
PATIENT IS IN STABLE CONDITION WITH NO S/S OF RESPIRATORY DISTRESS. NO PAIN VOICED. IV ANTIBIOTIC COMPLETED- IV SALINE LOCKED. TELEMETRY APPLIED. DRESSING TO LEFT AND RIGHT FOOT IS C/D/I. CALL LIGHT IS WITHIN REACH, PATIENT INSTRUCTED TO CALL FOR ASSISTANCE NEEDED. BEDSIDE SHIFT REPORT GIVEN TO ONCOMING NURSE.
--- NOTE | 2019-12-25 19:56 | NUR ---
Received change of shift report from AM nurse. Walking rounds completed
[2019-12-25 20:00] VITALS: BP 162/81
[2019-12-25] MEDS: ATORVASTATIN 10 MG TAB PO SCH (21:00)
[2019-12-26] VITALS (8 sets, daily range): BP systolic 141–164; BP diastolic 74–85
[2019-12-26] MEDS: MEROPENEM 500MG/ NS 50ML 50 ML IV SCH ×3 (05:04→18:06)
[2019-12-26] MEDS: HYDRALAZINE HCL 25 MG TAB PO SCH ×3 (05:04→21:08)
--- NOTE | 2019-12-26 05:23 | NUR ---
Patient resting quitly at this time with no c/o. Dr Mary Beth Powers visiting patient. Continue monitor.
[2019-12-26] MEDS: INSULIN LISPRO 100 UNIT/1 ML 3ML VIAL SQ SCH ×7 (08:30→20:55)
[2019-12-26] MEDS: IRON SUCROSE 100 MG in SODIUM CHLORIDE 0.9% 100 ML 100 ML IV SCH (09:01)
[2019-12-26] MEDS: LOSARTAN POTASSIUM 100 MG TAB PO SCH (09:02)
[2019-12-26] MEDS: CYANOCOBALAMIN INJ 1,000 MCG/ML VIAL IM SCH (09:02)
[2019-12-26] MEDS: CLOPIDOGREL BISULFATE 75 MG TAB PO SCH (09:02)
[2019-12-26] MEDS ORDERED: SODIUM CHLORIDE 0.9% 250ML 250 ML ONE (09:16)
--- NOTE | 2019-12-26 09:25 | Diagnostic Imaging Report ---
Small bowel series, 12/24/2019. History: Anemia. Discussion: A physician neonatology film of the abdomen was obtained demonstrating no abnormality. Patient was given barium to drink and sequential digital images of the abdomen were obtained through 2 hours. Fluoroscopic spot images of the terminal ileum were obtained. Fluoroscopy time: 0.1 minutes. Dose: 18.2 mGy (ELKE) The small bowel transit time is normal, and the small bowel loops are normal in size and appearance without evidence of mucosal irregularity or extrinsic abnormality. The terminal ileum is normal. There is no evidence of mass, obstruction, or diverticula. IMPRESSION: Normal small bowel series. Signed by: Roverto Herrera on 12/26/2019 9:22 AM
--- NOTE | 2019-12-26 10:29 | Progress Note ---
DATE: 12/26/2019 SUBJECTIVE: Mr. Canchola is a 49-year-old man with history of diabetes, hypertension, hyperlipidemia, coronary artery disease, right foot ulcer, left foot metatarsal amputation, came to the emergency room because he was very anemic, had EGD, colonoscopy, and small bowel series. He has been on IV iron. He has had debridement yesterday of both of his lower extremities. He is going to need OR debridement once his anemia improves. PHYSICAL EXAMINATION: GENERAL: He is awake and alert. VITAL SIGNS: Temperature is 97.6, blood pressure is 164/83. HEART: Regular rate. LUNGS: Clear to auscultation. ABDOMEN: Soft. EXTREMITIES: Both lower extremities on dressing. LABORATORY DATA: On the blood work, white count is 8.71, hemoglobin 8.8, hematocrit 26.8. COVID test came back negative. Sugar is 182. Lower extremity arterial Doppler was requested, results are pending. ASSESSMENT AND PLAN: 1. Severe anemia status post EGD, colonoscopy, on IV iron. 2. Fatigue, secondary to anemia. 3. Right foot infected ulcer with osteomyelitis. 4. Left metatarsal infection. 5. Diabetes type 2 with foot ulcer. 6. Coronary artery disease, status post stent. 7. Hypertension. 8. Hyperlipidemia. 9. Diabetes type 2 with chronic kidney disease. 10. Chronic kidney disease, stage 3. 11. Peripheral vascular disease. 12. Diabetes type 2 with hyperglycemia. PLAN: At present time, needs to continue IV iron. Continue to monitor hemoglobin and hematocrit and continue wound care and IV antibiotics. The patient is supposed to OR debridement by the end of the week. We are going to get a vascular surgery consult for his peripheral vascular disease. This was discussed in detail with the patient. All questions were answered to satisfaction. I spent more than 35 minutes examining patient, reviewing overnight event, lab results, and discussing plan of care with him. MD HANS West/ANTONY /[id number]
--- NOTE | 2019-12-26 18:31 | Consultation ---
DATE OF CONSULTATION: 12/26/2019 Cardiology Consultation Note REASON FOR CONSULT: Peripheral arterial disease and diabetic foot wound. CHIEF COMPLAINT: Right lower extremity ulcers. HISTORY OF PRESENT ILLNESS: A 49-year-old man with history of hypertension, hyperlipidemia, diabetes, who presents with right lower extremity nonhealing wound. We were consulted because the peripheral Doppler showed severe peripheral vascular disease. The patient denies any rest pain in the right lower extremity. No gangrene. He is not a current smoker. REVIEW OF SYSTEMS: As per HPI, otherwise negative. PAST MEDICAL HISTORY: As per HPI. SOCIAL HISTORY: Does not smoke, drink, or abuse drugs. FAMILY HISTORY: Noncontributory. OUTPATIENT MEDICATIONS: Reviewed. ALLERGIES: NO KNOWN DRUG ALLERGIES. PHYSICAL EXAMINATION: VITAL SIGNS: Temperature afebrile, pulse 88, respiratory rate 19, blood pressure 154/74, and saturating 99% on room air. GENERAL: Well-developed, well-nourished, in no acute distress. CARDIOVASCULAR: Regular rate and rhythm. No murmurs, rubs, or gallops. LUNGS: Clear to auscultation bilaterally. ABDOMEN: Soft, nontender, nondistended. NEURO AND PSYCH: Alert and oriented to person, place, and time. Normal affect. INPATIENT MEDICATIONS: Reviewed. LABORATORY DATA: Reviewed. Notable for hemoglobin of 8.8, white count is improved to 8.7. GFR greater than 60. IMAGING DATA: Reviewed. EGD and colonoscopy shows gastritis with no active ulcers or bleeding, and sigmoid colon polyp without active bleeding. The patient has been started on a PPI. Peripheral arterial Dopplers showed multilevel PAD with bilateral runoff disease. Monophasic waveforms in both anterior and posterior tibial arteries in the right lower extremity. ASSESSMENT AND PLAN: We will plan for peripheral angio and intervention, likely tomorrow. Continue current medical therapy since there is no active bleeding after GI workup. We will start the patient on PPI in case he needs Plavix postprocedure. Thank you for this consult. We will continue to follow. MD CARLENE Clifton/ANTONY /[id number]
--- NOTE | 2019-12-26 19:12 | NUR ---
RECEIVED THE PATIENT IN REPORT.LYEING IN THE BED.NO PAIN VOICED.BED LOCKED AND IN LOWEST POSITION.PHONE AND CALL LIGHT WITHIN REACH.INSTRUCTED TO CALL FOR ASSISTANCE NEEDED.
[2019-12-26] MEDS: ATORVASTATIN 10 MG TAB PO SCH (20:54)
[2019-12-27] VITALS (9 sets, daily range): BP systolic 146–172; BP diastolic 68–87
[2019-12-27] MEDS: MEROPENEM 500MG/ NS 50ML 50 ML IV SCH ×5 (00:06→23:41)
--- NOTE | 2019-12-27 00:10 | NUR ---
Dressing changed to both legs.pt tolerated well.no pain voiced.
--- NOTE | 2019-12-27 01:00 | NUR ---
DR.M HIDALGO CAME TO SEE THE PATIENT.RECEIVED MIRALEX ORDER.
[2019-12-27] MEDS ORDERED: POLYETHYLENE GLYCOL 3350 17 GM PACK PO STA (01:31)
[2019-12-27] MEDS ORDERED: POLYETHYLENE GLYCOL 3350 17 GM PACK PO PRN (01:45)
[2019-12-27] MEDS: HYDRALAZINE HCL 25 MG TAB PO SCH ×3 (05:16→23:19)
[2019-12-27 06:27] LABS: HEMATOCRIT 28.1 % (38.2-49.6); HEMOGLOBIN 9.2 g/dL (14.0-18.0); MEAN CORPUSCULAR HEMOGLOBIN 27.9 pg (28-32); MEAN CORPUSCULAR HGB CONC 32.7 g/dL (31-35); MEAN CORPUSCULAR VOLUME 85.2 fL (81-99); PLATELET COUNT 285 x10e3/uL (140-360); RED CELL DISTRIBUTION WIDTH 13.8 % (11.7-14.4)
--- NOTE | 2019-12-27 07:00 | NUR ---
BEDSIDE SHIFT REPORT RECEIVED FROM THE MERCHANDISE SUPERVISOR RN. EDUCATED PT ABOUT FALL PRECAUTIONS. PT VERBALIZED UNDERSTANDING. CALL LIGHT WITH IN EASY REACH. BED IS LOW AND LOCKED. SIDE RAILS X2. ALL SAFETY MEASURES IN PLACE. PT DENIES NEEDS AT THIS TIME.
--- NOTE | 2019-12-27 07:19 | NUR ---
Bed side shift report given to oncoming RN.stable condition.
[2019-12-27] MEDS: INSULIN LISPRO 100 UNIT/1 ML 3ML VIAL SQ SCH ×7 (08:00→23:21)
[2019-12-27] MEDS: CYANOCOBALAMIN INJ 1,000 MCG/ML VIAL IM SCH (08:06)
[2019-12-27] MEDS: PANTOPRAZOLE SOD 40 MG TABEC PO SCH (08:06)
[2019-12-27] MEDS: LOSARTAN POTASSIUM 100 MG TAB PO SCH (08:06)
[2019-12-27] MEDS: CLOPIDOGREL BISULFATE 75 MG TAB PO SCH (08:06)
[2019-12-27 08:09] LABS: EOSINOPHILS % (MANUAL) 4 % (0-7); LYMPHOCYTES % (MANUAL) 20 % (19-48); MONOCYTES % (MANUAL) 7 % (3.4-9.0); NEUTROPHILS % (MANUAL) 69 % (40-74)
[2019-12-27 08:10] LABS: PLATELET ESTIMATE ADEQUATE; RBC MORPHOLOGY COMMENT NORMAL
[2019-12-27 08:11] LABS: PLATELET MORPHOLOGY COMMENT FEW LARGE
[2019-12-27] MEDS: IRON SUCROSE 100 MG in SODIUM CHLORIDE 0.9% 100 ML 100 ML IV SCH (09:08)
--- NOTE | 2019-12-27 09:49 | Progress Note ---
DATE: 12/27/2019 SUBJECTIVE: Mr. Canchola is a 49-year-old man with history of diabetes, hypertension, hyperlipidemia, coronary artery disease, left foot metatarsal amputation with infection, right foot ulcer with infection and osteomyelitis, came to the emergency room because he was very anemic. He was seen by GI, had EGD and colonoscopy done and he was started on IV iron, seen by acetylene torch operator. The patient is going to need debridement of both lower extremities. Also, Vascular Surgery was consulted and he is going to go for an angiogram today. PHYSICAL EXAMINATION: GENERAL: He is awake and alert. VITAL SIGNS: Temperature is 97.9, blood pressure is 149/79. HEART: Regular rate. LUNGS: Clear to auscultation. ABDOMEN: Soft. EXTREMITIES: Both lower extremity under dressing. LABORATORY DATA: On the blood work, white count is 9.56, hemoglobin is 9.2, hematocrit is 28.1, sugar 256. COVID test came back negative. MRI of the foot showed osteomyelitis. ASSESSMENT: 1. Severe anemia status post EGD, colonoscopy; on IV iron, improving. 2. Fatigue, secondary to anemia. 3. Right foot infected ulcer with osteomyelitis. 4. Left metatarsal amputation, infected. 5. Diabetes type 2 with foot ulcer. 6. Coronary artery disease, status post stent. 7. Hypertension. 8. Hyperlipidemia. 9. Diabetes type 2 with chronic kidney disease. 10. Chronic kidney disease, stage 3. 11. Peripheral vascular disease. 12. Diabetes type 2 with hyperglycemia. PLAN: At the present time is continue to monitor hemoglobin and hematocrit. Continue wound care and IV antibiotics. He was seen by Cardiology. He is going to go for angiogram today. The patient also will need OR debridement once the peripheral vascular disease is taking care of. Overall prognosis of the patient remains voided guarded due to all his medical conditions and his advanced infection. All this was discussed with the patient. All questions were answered to satisfaction. I spent more than 30 minutes examining the patient, reviewing overnight event, lab results, and discussing plan of care with him. MD HANS West/ANTONY /[id number]
--- NOTE | 2019-12-27 17:00 | NUR ---
PAGED CORRECTIONAL CLASSIFICATION COUNSELOR. PROCEDURE IS STILL SCHEDULED TODAY PER CORRECTIONAL CLASSIFICATION COUNSELOR
--- NOTE | 2019-12-27 17:31 | NUR ---
WOUND CARE DRESSING CHANGE COMPLETED PER THE ORDER
--- NOTE | 2019-12-27 18:30 | NUR ---
PAGED JEWELRY APPRAISER REGARDING PROCEDURE. PT IS ON SCHEDULE PER JEWELRY APPRAISER.
--- NOTE | 2019-12-27 19:00 | NUR ---
BEDSIDE SHIFT REPORT GIVEN TO THE ELECTRONIC ASSEMBLER GROUP LEADER RN. PT DENIED FURTHER NEEDS.
[2019-12-27] MEDS ORDERED: HEPARIN SOD (PORCINE) 1000 UNIT/ML 30ML ONE (19:52)
[2019-12-27] MEDS ORDERED: HEPARIN SOD/SOD CHLORIDE 2,000 ML ONE (19:52)
[2019-12-27] MEDS ORDERED: FENTANYL CITRATE/PF 100MCG/2 ML INJ ONE (19:52)
[2019-12-27] MEDS ORDERED: LIDOCAINE HCL 2% LOCAL 20 ML VIAL ONE (19:52)
[2019-12-27] MEDS ORDERED: MIDAZOLAM HCL 2 MG/2 ML VIAL ONE ×2 (19:52→20:57)
[2019-12-27] MEDS ORDERED: IOPAMIDOL 300MG/ML 100 ML INFUS..BTL IV ONE (19:53)
[2019-12-27] MEDS ORDERED: SODIUM CHLORIDE 0.9% 1000ML 1,000 ML ONE (19:53)
--- NOTE | 2019-12-27 20:00 | NUR ---
PT OFF THE UNIT FOR PROCEDURE.
--- NOTE | 2019-12-27 22:26 | NUR ---
Patient is back to the unit from OR after procedure.v/s checked.iv fluid running to left for arm.dressing to left groin is dry.no bleeding noted.no hematoma.bed rest till 12am.snacks provided.keep monitor the pt.
[2019-12-27] MEDS: ATORVASTATIN 10 MG TAB PO SCH (23:19)
[2019-12-28] VITALS (9 sets, daily range): BP systolic 114–170; BP diastolic 66–88
--- NOTE | 2019-12-28 01:29 | NUR ---
MAINTAINING NPO .DR.M HIDALGO HAS SEEN THE PT.NO PAIN VOICED.STABLE CONDITION.
[2019-12-28] MEDS: MEROPENEM 500MG/ NS 50ML 50 ML IV SCH ×3 (05:50→18:04)
[2019-12-28] MEDS: HYDRALAZINE HCL 25 MG TAB PO SCH ×3 (05:50→21:50)
--- NOTE | 2019-12-28 06:41 | NUR ---
Patient is off the unit for procedure.
[2019-12-28] MEDS ORDERED: BUPIVACAINE HCL 0.5% INJ 30 ML VIAL INJ ONE (06:57)
--- NOTE | 2019-12-28 07:05 | NUR ---
SHIFT REPORT RECEIVED FROM DEMOLITION HAMMER OPERATOR RN. PT OFF UNIT FOR PROCEDURE PER THE SHIFT REPORT.
--- NOTE | 2019-12-28 07:05 | NUR ---
Bed side shift report given to oncoming Rn.stable condition.
[2019-12-28] MEDS ORDERED: FENTANYL CITRATE/PF 100MCG/2 ML INJ ONE ×2 (08:35→14:48)
--- NOTE | 2019-12-28 09:01 | NUR ---
PT ARRIVED FROM PACU AFTER BILATERAL LOWER EXTREMITIES I&D. . PT IS AAOX4. BILATERAL LOWER EXTREMITIES DRESSING CDI. PT DENIES NEEDS AT THIS TIME.
--- NOTE | 2019-12-28 09:14 | Operative Report ---
DATE OF PROCEDURE: 12/28/2019 SURGEON: Naomi Lopez DPM CYLINDER GRINDER: None. PREOPERATIVE DIAGNOSES: 1. Diabetic foot ulcer grade 3, right foot. 2. Charcot joint, right foot. 3. Diabetic foot ulcer grade 4, left foot. POSTOPERATIVE DIAGNOSES: 1. Diabetic foot ulcer grade 3, right foot. 2. Charcot joint, right foot. 3. Diabetic foot ulcer grade 4, left foot. PROCEDURE: 1. Debridement to include bone cultures and to include bone of the right and the left foot. 2. Use of Human allograft 2000 mL AmnioFill to each foot. COMPLICATIONS: None. CONDITION: Stable. HEMOSTASIS: None. ESTIMATED BLOOD LOSS: Less than 3 mL. PROCEDURE IN DETAIL: Under mild sedation, the patient was brought to the operating room, placed on the operating table in supine position. Following IV sedation, anesthesia was obtained with a general anesthetic. At this point, the right and left foot were scrubbed, prepped and draped in the usual aseptic manner that were then lowered to the table. Attention was directed to the plantar aspect of the right foot where utilizing a combination of bone rongeurs and #15 blade, a ll nonviable tissue was removed down to the level of the bone, but the bone did not appear to be soft. The capsule was still palpable. Utilizing power irrigation, the area was irrigated. Cultures and sensitivities were taken of the bone of the right foot. Attention was then directed to the left foot where all nonviable tissue and dry gangrene, nonviable flap was removed utilizing a #15 blade, bone rongeur, and oscillating saw for the nonviable bone. All tendons were cut. All bleeders were cauterized. It was debrided down to clean viable tissue. The area was then flushed again with pressure irrigation and all non viable tissue was removed, the area was then filled with AmnioFill 2000 units to the right and 2000 units to the left. It was secured utilizing Adaptic and carly. Clean dressing was applied consisting of 4x4s, Kerlix, and an Rashi bandage. The patient tolerated the procedure and anesthesia well without complications, was transported to recovery room with vital signs stable and vascular status intact. The patient will be discharged home. The patient will be readmitted back into the hospital. From my standpoint, he is okay to be discharged home. He will [facility]. He will continue hyperbaric, possibly IV antibiotic by Infectious Disease. He is to limit the weight. He knows this is pure limb salvage. He has a history of reocclusion, severe PVD, and diabetes that is now controlled. He also came in here for anemia that is being worked up. The patient is going to need more serial debridements, but the wound is responding to the debridements and the graft. Overall prognosis is still guarded. NEHEMIAS Lucas/MODL /[id number]
[2019-12-28] MEDS: PANTOPRAZOLE SOD 40 MG TABEC PO SCH (09:26)
[2019-12-28] MEDS: CLOPIDOGREL BISULFATE 75 MG TAB PO SCH (09:26)
[2019-12-28] MEDS: LOSARTAN POTASSIUM 100 MG TAB PO SCH (09:27)
[2019-12-28] MEDS: CYANOCOBALAMIN INJ 1,000 MCG/ML VIAL IM SCH (09:27)
[2019-12-28] MEDS: INSULIN LISPRO 100 UNIT/1 ML 3ML VIAL SQ SCH ×7 (09:30→21:00)
[2019-12-28] MEDS: IRON SUCROSE 100 MG in SODIUM CHLORIDE 0.9% 100 ML 100 ML IV SCH (09:55)
--- NOTE | 2019-12-28 10:00 | NUR ---
PAGED RADIOLOGY REGARDING PICC LINE.
--- NOTE | 2019-12-28 10:05 | Progress Note ---
DATE: 12/28/2019 SUBJECTIVE: Mr. Canchola is a 49-year-old man with history of diabetes, hypertension, hyperlipidemia, coronary artery disease, left foot metatarsal amputation with infection, the right foot also with infection and osteomyelitis, came to the emergency room because he was very anemic. He had EGD, colonoscopy, small bowel with series. He has been receiving IV iron and anemia is slowly improving. He was seen by Vascular surgeon and had an angiogram done yesterday, went for an incision and debridement of the both lower extremities. PHYSICAL EXAMINATION: VITAL SIGNS: Temperature 99.6, blood pressure 114/72, pulse is 84, respiratory rate 16, O2 saturation on room air 100%. LABORATORY DATA: On the blood work, white count 9.56, hemoglobin 9.2, hematocrit 28.1, blood sugar today 166. A small bowel series was normal. EGD showed gastritis. ASSESSMENT AND PLAN: 1. Severe anemia, status post EGD, colonoscopy, small-bowel series. He is receiving IV iron. 2. Right foot infected ulcer with osteomyelitis, status post debridement. 3. Left metatarsal amputation, infected, status post debridement. 4. Diabetes type 2 with foot ulcer. 5. Coronary artery disease, status post stent. 6. Hypertension. 7. Hyperlipidemia. 8. Diabetes type 2 with chronic kidney disease. 9. Chronic kidney disease, stage 3. 10. Peripheral vascular disease, status post angiogram. 11. Diabetes type 2 with hyperglycemia. PLAN: At the present time, he had an angiogram of the lower extremity yesterday. He went for incision and drainage and debridement of both lower extremities. He is going to need IV antibiotics for several weeks to due to osteomyelitis. He is also going to need a wound care. Continue ADA diet. Continue sliding scale. We are going to order a PICC line. Once the patient is stable and he probably will consult and he will be able to go home with wound care and IV antibiotics and to continue all his other medications. MD HANS West/ANTONY /[id number]
[2019-12-28] MEDS ORDERED: ONDANSETRON HCL INJ 2MG/ML 2ML 2 MG/ML VIAL ONE (12:01)
[2019-12-28] MEDS ORDERED: PROPOFOL IV EMULSION 10 MG/ML 20 ML VIAL ONE (12:01)
[2019-12-28] MEDS ORDERED: LIDOCAINE HCL 2% LOCAL INJ 5 ML SDV VIAL INJ ONE (12:01)
[2019-12-28] MEDS ORDERED: SEVOFLURANE INHAL SOLN 250 ML PEN BTL ONE (12:01)
--- NOTE | 2019-12-28 14:16 | NUR ---
CALL RECEIVED FROM DR. CABRERA / ID. ORDERED MERREM 1GM Q 12HRS X 4WEEKS; CBC AND BMP WEEKLY; PICC LINE CARE. F/U IN [facility]. CALL TO THE PT. PT ASKED CM TO CALL HIS . STATES SHE HANDLES HIS HOME HEALTH. CALL TO TREY MOLINA @ [phone]; . [facility] PT WAS ON SERVICE W [employer] IN THE PAST AND WOULD LIKE TO KEEP THE SAME COMPANY. REFERRAL WAS FAXED TO [employer] @ OFF: [phone] / FAX: [phone]. CALL TO [employer]. SPOKE W MARIA DEL CARMEN. CONFIRMED PT WAS ON THEIR SERVICE BEFORE. NOTIFIED OF THE FAX. SHE WILL F/U W CM ONCE AUTH GIVEN.
--- NOTE | 2019-12-28 14:46 | Progress Note ---
DATE: 12/28/2019 Cardiology Progress Note SUBJECTIVE: No major events. Had a revascularization of his right anterior tibial artery, last night doing well. OBJECTIVE: VITAL SIGNS: Temperature afebrile, pulse 90, respiratory rate 16, blood pressure 149/88, saturating 100% on room air. GENERAL: Well-developed, well-nourished, no acute distress. CARDIOVASCULAR: Regular rate and rhythm. No murmurs, rubs, or gallops. LUNGS: Clear to auscultation bilaterally. ABDOMEN: Soft, nontender, nondistended. NEURO AND PSYCH: Alert, oriented to person, place, and time. Normal affect. INPATIENT MEDICATIONS: Reviewed. LABORATORY DATA: Reviewed. Hemoglobin 9.2. ASSESSMENT: 1. Peripheral arterial disease. 2. Nonhealing right heel diabetic foot ulcer. PLAN: The patient has been revascularized. Both his anterior tibial and posterior tibial arteries are completely open. He has some diffuse disease of his plantar arch. However, there is good collateralization. We will see how he does clinically. If continues to have healing issues, we can consider outpatient attempt to restore his plantar arch in the future. Continue aspirin, Plavix and risk factor control. MD CARLENE Clifton/ANTONY /[id number]
[2019-12-28] MEDS ORDERED: MIDAZOLAM HCL 2 MG/2 ML VIAL ONE (14:48)
--- NOTE | 2019-12-28 15:03 | NUR ---
Nutrition Screen Note RD Recommendation for Physician: -Continue ADA diet Plan of Care: RD following, monitoring for tolerance and adequacy Nutrition reason for involvement: Length of stay Primary Diagnose(s): anemia, chest pain, hyperkalemia, type 1 diabetes PMH: diabetes, hypertension, hyperlipidemia, coronary artery disease, left foot metatarsal amputation with infection, the right foot also with infection and osteomyelitis Ht: 68 in Wt:158 lb BMI: 24.0 kg/m2 IBW:[address] Assessment: (12/28/19) Chart reviewed. Labs and meds reviewed. Pt is a 49 year old male admitted with anemia, chest pain, hyperkalemia, and diabetes. Pt is primarily Somali speaking; therefore, used the cultural link for translation. Pt reports eating all of his meals. No weight loss reported and pt stated he usually weighs 158 lbs. No N/V/D/C or chewing/swallowing issues. Provided pt with diabetic diet education materials (carbohydrate counting and reading the food label) in Somali. Will continue to monitor. Current Diet: 1800 ADA Malnutrition Evaluation (12/28/19) The patient does not meet criteria for a specified degree of malnutrition at this time. Will re-evaluate at follow-up as appropriate. Diet Education Needs Assessment: RD provided pt with diabetic diet education materials (carbohydrate counting and reading the food label) in Somali. Nutrition Care Level: low Signed: Lee Ann Lim, [place], LD
--- NOTE | 2019-12-28 16:31 | Diagnostic Imaging Report ---
EXAM: CHEST XRAY LINE PLACEMENT DATE: 12/28/2019 4:11 PM INDICATION: PICC line placement COMPARISON: 09/05/2019 FINDINGS/IMPRESSION: Right-sided PICC line identified with distal tip turning particularly over the mid SVC. The trachea is midline. The lungs are symmetrically expanded without evidence for large focal consolidation, pneumothorax, or significant pleural effusion. The cardiomediastinal silhouette is stable in appearance. No acute osseous abnormality is identified. Signed by: Dr. Chong Lindsay MD on 12/28/2019 4:28 PM
--- NOTE | 2019-12-28 16:53 | NUR ---
PT IS WAITING FOR HH PER CASE MANAGEMENT.
--- NOTE | 2019-12-28 17:00 | NUR ---
PAGED DR. CARRILLO REGARDING PT D/C ORDER.
--- NOTE | 2019-12-28 17:16 | NUR ---
HOME HEALTH DISCHARGE NOTE PATIENT ADDRESS WHERE SERVICE WILL BE RECEIVED: [address] [place] [id number] PATIENT CONTACT NUMBER: [phone] NAME OF HOME HEALTH COMPANY: [facility] TELEPHONE/FAX NUMBER OF COMPANY: OFF: [phone] / FAX: [phone] SERVICES TO RECEIVE: [facility] 1GM IV Q12HRS X4 WEEKS ANTICIPATED DATE SERVICES WILL BEGIN: 12/29/2019 Please call the company above if you have not received a call to schedule a home visit within 24 hours of discharge.
--- NOTE | 2019-12-28 17:59 | NUR ---
CALL BACK RECEIVED FROM DR. HIDALGO. PER DR. HIDALGO, NEED TO CALL DR. CARRILLO SPECIFICALLY FOR D/C ORDER. PAGED DR. CARRILLO OFFICE AGAIN FOR D/C ORDER. WAITING FOR THE RESPONSE FROM THE
--- NOTE | 2019-12-28 18:00 | NUR ---
PAGED DR. CARRILLO AND RADIOLOGY REGARDING ORDER FOR PICC LINE USE.
--- NOTE | 2019-12-28 19:00 | NUR ---
BEDSIDE SHIFT REPORT GIVEN TO THE DRY BOSS RN. PT DENIED FURTHER NEEDS.
--- NOTE | 2019-12-28 19:34 | NUR ---
Received change of shift report from ALYX cortes Walking rounds completed. Addendum: 12/28/19 at 1935 by Mary Shafer RN duplicate
--- NOTE | 2019-12-28 19:34 | NUR ---
Received change of shift report from AM nurse. Walking rounds completed.
[2019-12-28] MEDS: ATORVASTATIN 10 MG TAB PO SCH (20:15)
[2019-12-29] VITALS: BP 142/77
--- NOTE | 2019-12-29 01:47 | NUR ---
Patient resting quitly at this time. Denies pain or discomfort.
[2019-12-29 04:00] VITALS: BP 150/78
[2019-12-29] MEDS: HYDRALAZINE HCL 25 MG TAB PO SCH (05:06)
[2019-12-29] MEDS: MEROPENEM 500MG/ NS 50ML 50 ML IV SCH ×2 (05:06)
--- NOTE | 2019-12-29 06:46 | NUR ---
RECEIVED BEDSIDE SHIFT REPORT FROM OFF GOING NURSE. PATIENT IS RESTING IN BED, NO ACUTE DISTRESS NOTED. CALL LIGHT WITHIN REACH. BED IN THE LOWEST POSITION.
[2019-12-29 07:57] VITALS: BP 151/84
[2019-12-29 08:51] VITALS: BP 151/84
[2019-12-29] MEDS: INSULIN LISPRO 100 UNIT/1 ML 3ML VIAL SQ SCH ×2 (09:10→09:11)
[2019-12-29] MEDS: CLOPIDOGREL BISULFATE 75 MG TAB PO SCH (09:12)
[2019-12-29] MEDS: IRON SUCROSE 100 MG in SODIUM CHLORIDE 0.9% 100 ML 100 ML IV SCH (09:12)
[2019-12-29] MEDS: CYANOCOBALAMIN INJ 1,000 MCG/ML VIAL IM SCH (09:12)
[2019-12-29] MEDS: PANTOPRAZOLE SOD 40 MG TABEC PO SCH (09:12)
[2019-12-29] MEDS: LOSARTAN POTASSIUM 100 MG TAB PO SCH (09:12)
[2019-12-29] MEDS ORDERED: PNEUMOCOCCAL VACCINE POLYVALENT 23 MCG/0.5 ML VIAL IM ONE (10:30)
[2019-12-29] MEDS ORDERED: INFLUENZA VIRUS VAC SPLIT INJ 0.5 ML SYR IM ONE (10:30)
--- NOTE | 2019-12-29 11:04 | NUR ---
RECEIVED DISCHARGE ORDER FROM DR. HIDALGO, PATIENT IS IN STABLE CONDITION. HOME HEALTH, HOME IV ANTIBIOTICS SET UP ON 12/28/19 @ [id number]. DISCHARGE TEACHING PROVIDED TO PATIENT, HE VERBALIZED UNDERSTANDING. TRANSITION OF CARE FOLDER WITH DC PAPERWORK ON HAND, NO NEW PRESCRIPTIONS. RIGHT UPPER ARM PICC LINE IS PATENT, SALINE FLUSHED. PATIENT ACCOMPANIED TO PRIVATE AUTO VIA WHEELCHAIR BY STAFF.
--- NOTE | 2019-12-29 15:54 | Progress Note ---
DATE: 12/29/2019 CARDIOLOGY PROGRESS NOTE: SUBJECTIVE: The patient has no new complaints this morning. However, he continues to have some wounds to his bilateral feet. Denies any chest pain, shortness of breath, or groin discomfort. OBJECTIVE: VITAL SIGNS: Temperature 99.7, pulse 93, respiratory rate 17, blood pressure 151/84, and oxygen saturation 98% on room air. GENERAL: Alert and oriented x3. Resting comfortably in bed, in no acute distress. NECK: Supple. No JVD noted. CARDIOVASCULAR: Regular rate and rhythm. No murmurs, no gallops. LUNGS: Clear to auscultation throughout. ABDOMEN: Soft and nontender. EXTREMITIES: Lower extremity, absent pedal pulses. Bilateral wounds covered with dressing. CARDIOVASCULAR MEDICATIONS: Plavix 75 mg p.o. daily, losartan 100 mg p.o. daily, and hydralazine 25 mg p.o. q.8 hours p.r.n. LABORATORY DATA: No new labs today. ASSESSMENT: 1. Peripheral arterial disease with nonhealing diabetic ulcers. 2. Hypertension. RECOMMENDATIONS: Continue wound care. This patient has been revascularized. Both his anterior tibial and posterior tibial arteries are completely open. He does have some diffuse disease in his plantar arch, however, good collaterals. We will see how the wounds do clinically. If poor healing, we would consider outpatient attempt to restore plantar arch blood flow. Continue the above medication and also statins as outpatient. Continue risk factor control. Dictated by Nathaly Julio NP MD ERIC Lindsay/ANTONY /[id number]
--- NOTE | 2020-02-04 10:55 | Discharge Summary ---
HOSPITAL COURSE: Mr. Canchola is a 49-year-old man with history of hypertension, hyperlipidemia, coronary artery disease, diabetes, left foot metatarsal amputation with infection and right foot infection with osteomyelitis, came to the emergency room because he was very anemic, had EGD and colonoscopy as well as small bowel series, received IV iron for anemia. He is seen by a vascular surgeon for revascularization of the lower extremities. He also went for debridement of both lower extremities on December 28, he was discharged home to continue with antibiotics and wound care. PHYSICAL EXAMINATION: GENERAL: He was awake and alert. He was afebrile. VITAL SIGNS: Blood pressure was stable, O2 saturation 100%. LABORATORY DATA: On the blood work, white count 9.56, hemoglobin 9.2, hematocrit 28.1. Blood sugar 169. COVID test was negative. DISCHARGE DIAGNOSES: 1. Severe anemia status post EGD, colonoscopy, small bowel series, received IV iron. 2. Right foot infected ulcer with osteomyelitis, status post debridement. 3. Left metatarsal amputation, infected, status post debridement. 4. Diabetes type 2 with foot ulcer. 5. Coronary artery disease, status post stent. 6. Hypertension. 7. Hyperlipidemia. 8. Diabetes type 2 with chronic kidney disease. 9. Chronic kidney disease, stage 3. 10. Peripheral vascular disease, status post revascularization. 11. Diabetes type 2 with hyperglycemia. PLAN: To discharge the patient home to continue all his home medications. ADA diet. Continue insulin. He was to continue IV antibiotics for several weeks for osteomyelitis and wound care. He was to follow up with me in one week. All this was discussed the prior day with the patient in detail. All questions were answered to satisfaction. MD HANS West/MODL /[id number]
--- NOTE | 2020-02-12 11:25 | Operative Report ---
DATE OF PROCEDURE: 12/22/2019 SURGEON: Lamonte Rogers MD INDICATION FOR PROCEDURE: Critical limb ischemia. PREPROCEDURE ASSESSMENT: The risks, benefits, and alternatives of treatment were explained to the patient prior to the procedure. The patient . Informed consent was obtained and documented on medical records. MEDICATIONS: Please see nursing notes for medications administered throughout the procedure. PROCEDURES PERFORMED: 1. Abdominal aortography. 2. Bilateral lower extremity angiography. 3. Catheter placement third-order. 4. Percutaneous balloon angioplasty to right anterior tibial artery [employer]. 5. Moderate sedation time, approximately 2 hours. PROCEDURE DETAILS: The patient was brought to the cardiac catheterization laboratory in a fasting state. Left groin was prepped and draped in a sterile fashion. A 5-Irish sheath was inserted in the left common femoral artery using modified Seldinger technique. Abdominal aortography was performed using Omni Flush catheter. [place] Advantage wire was advanced through the Omni Flush into the contralateral common femoral artery. Omni Flush was advanced and angiography of the right upper extremity was performed. This showed significant PAD of the right lower extremity. Decided to proceed with intervention. A 5-Irish sheath was exchanged for a 65 cm 6-Irish Destination sheath. IV boluses of heparin were given. A Runthrough wire and 0.014 Seeker catheter was used to engage the right anterior tibial artery proximally. [employer] of the right anterior tibial artery was crossed using Fielder XT wire. Once the [employer]PER[employer] was crossed, the Fielder was exchanged for a Runthrough wire through the same Seeker catheter 3.0 x 120 mm Chocolate balloon was used to perform balloon angioplasty. This resulted in excellent angiographic result without any significant residual dissection, thrombus, or spasm. The Destination sheath was exchanged once again for a short 6-Irish sheath. Runoff angiography of the left lower extremity was performed. Access site was closed using ProGlide vascular closure device. The patient tolerated the procedure well. There were no immediate complications. SIGNIFICANT FINDINGS: Bilateral abdominal aorta and bilateral iliac arteries demonstrate mild plaquing and atherosclerosis without any obstructive CAD or aneurysmal changes. Right lower extremity common femoral, deep femoral, superficial femoral arteries show no obstructive CAD. Anterior tibial artery is [employer] in the proximal portion, long [employer]PER[employer] all the way to the distal and posterior tibial artery and peroneal artery showed moderate CAD without significant stenosis. Left lower extremity demonstrates no significant obstructive PAD in common femoral, deep femoral, or superficial femoral arteries or popliteal artery. There is [employer] of the left anterior tibial artery as well long segment without significant stenosis of posterior tibial or peroneal arteries. GRAFTS AND IMPLANTS: ProGlide. SPECIMEN REMOVED: None. ESTIMATED BLOOD LOSS: 20 mL. COMPLICATIONS: None. FINAL RECOMMENDATIONS: 1. Continue aspirin 81 mg daily for life. Plavix 75 mg daily x3 months. Continue wound care. 2. Follow up in the office staged intervention of the left lower extremity. MD CARLENE Clifton/MATILDEL /[id number]
== END 2019-12-29 11:04 | disposition home health service (06) | DRG 253 ==
LOC: ER 18:08 → ERHOLD 20:07 → MED/SURG 21:49 → OBSVTOIN 12-22 09:03 → MED/SURG3 12-25 13:07
PROVIDERS: ADMIT Internal Medicine; ATTEND Internal Medicine
PROC: 0DB28ZX Excision of Middle Esophagus, Via Natural or Artificial Opening Endoscopic, Diagnostic (ICD-10-PCS; 2019-12-22)
PROC: 0DB68ZX Excision of Stomach, Via Natural or Artificial Opening Endoscopic, Diagnostic (ICD-10-PCS; 2019-12-22)
PROC: 0DBN8ZX Excision of Sigmoid Colon, Via Natural or Artificial Opening Endoscopic, Diagnostic (ICD-10-PCS; principal; 2019-12-22 11:17)
PROC: 047P3Z1 Dilation of Right Anterior Tibial Artery using Drug-Coated Balloon, Percutaneous Approach (ICD-10-PCS; 2019-12-27)
PROC: B41D1ZZ Fluoroscopy of Aorta and Bilateral Lower Extremity Arteries using Low Osmolar Contrast (ICD-10-PCS; 2019-12-27)
PROC: 0KBV0ZZ Excision of Right Foot Muscle, Open Approach (ICD-10-PCS; 2019-12-28)
PROC: 0QBH0ZZ Excision of Left Tibia, Open Approach (ICD-10-PCS; 2019-12-28)
PROC: 0QBP0ZZ Excision of Left Metatarsal, Open Approach (ICD-10-PCS; 2019-12-28)
PROC: 0HRNXK3 Replacement of Left Foot Skin with Nonautologous Tissue Substitute, Full Thickness, External Approach (ICD-10-PCS; 2019-12-28)
PROC: 0HRMXK3 Replacement of Right Foot Skin with Nonautologous Tissue Substitute, Full Thickness, External Approach (ICD-10-PCS; 2019-12-28)
PROC: 02HV33Z Insertion of Infusion Device into Superior Vena Cava, Percutaneous Approach (ICD-10-PCS; 2019-12-28)
PROC: B548ZZA Ultrasonography of Superior Vena Cava, Guidance (ICD-10-PCS; 2019-12-28)
DX: E11.51 Type 2 diabetes mellitus with diabetic peripheral angiopathy without gangrene (principal); M86.8X7 Other osteomyelitis, ankle and foot; I70.92 Chronic total occlusion of artery of the extremities; E11.69 Type 2 diabetes mellitus with other specified complication; D64.9 Anemia, unspecified; L97.519 Non-pressure chronic ulcer of other part of right foot with unspecified severity; E11.621 Type 2 diabetes mellitus with foot ulcer; E11.22 Type 2 diabetes mellitus with diabetic chronic kidney disease; N18.30 Chronic kidney disease, stage 3 unspecified; I12.9 Hypertensive chronic kidney disease with stage 1 through stage 4 chronic kidney disease, or unspecified chronic kidney disease; E78.5 Hyperlipidemia, unspecified; I25.10 Atherosclerotic heart disease of native coronary artery without angina pectoris; Z95.5 Presence of coronary angioplasty implant and graft; Z89.432 Acquired absence of left foot; B96.5 Pseudomonas (aeruginosa) (mallei) (pseudomallei) as the cause of diseases classified elsewhere; E11.610 Type 2 diabetes mellitus with diabetic neuropathic arthropathy; K29.70 Gastritis, unspecified, without bleeding; K63.5 Polyp of colon; K64.8 Other hemorrhoids; K22.9 Disease of esophagus, unspecified; I70.238 Atherosclerosis of native arteries of right leg with ulceration of other part of lower leg
CPT/HCPCS: 36415; 36569; 37228; 43239; 45385; 71045; 74250; 75630; 78278; 80053; 81001; 82270; 82550; 82553; 82607; 82728; 82746; 82948; 83540; 84080; 84466; 84484; 85007; 85025; 85027; 85045; 85610; 85730; 86850; 86900; 86920; 87071; 87075; 87186; 87205; 88305; 88312; 90732; 93005; 93925; 96360; 96372; 99152; 99153; 99251; 99284; A9512; C1725; C1760; C1769; C1887; G0378; J1644; J1756; J1817; J2001; J2250; J2405; J3010; J3420; J7030; J7050; P9016; Q4100; Q9967; U0002

== ENCOUNTER → 2019-12-31 | Outpatient (CLI) | payer BC, OTHER ==
[~2019-12-31] MED LIST changes: +HUMALOG KW200 UNIT/1; +LOSARTAN POTASS25 MG; +TRADJENTA5 MG
== END ==
LOC: WCC 10:30
PROVIDERS: ATTEND Podiatrist Foot & Ankle Surgery
DX: T87.89 Other complications of amputation stump (principal); Y84.8 Other medical procedures as the cause of abnormal reaction of the patient, or of later complication, without mention of misadventure at the time of the procedure; A41.9 Sepsis, unspecified organism; M86.8X7 Other osteomyelitis, ankle and foot; E11.621 Type 2 diabetes mellitus with foot ulcer; E11.65 Type 2 diabetes mellitus with hyperglycemia; L97.423 Non-pressure chronic ulcer of left heel and midfoot with necrosis of muscle; L97.411 Non-pressure chronic ulcer of right heel and midfoot limited to breakdown of skin; I73.9 Peripheral vascular disease, unspecified; I73.89 Other specified peripheral vascular diseases; M14.671 Charcot's joint, right ankle and foot; I10 Essential (primary) hypertension; E78.00 Pure hypercholesterolemia, unspecified; D64.9 Anemia, unspecified; I25.10 Atherosclerotic heart disease of native coronary artery without angina pectoris; Z74.01 Bed confinement status
CPT/HCPCS: 99212; G0277

== ENCOUNTER → 2020-01-01 | Outpatient (CLI) | payer BC, OTHER | LOC: WCC 08:27 | PROVIDERS: ATTEND Podiatrist Foot & Ankle Surgery | DX: T81.89XA Other complications of procedures, not elsewhere classified, initial encounter (principal); T87.89 Other complications of amputation stump; Y84.8 Other medical procedures as the cause of abnormal reaction of the patient, or of later complication, without mention of misadventure at the time of the procedure; A41.9 Sepsis, unspecified organism; E11.621 Type 2 diabetes mellitus with foot ulcer; E11.65 Type 2 diabetes mellitus with hyperglycemia; M86.8X7 Other osteomyelitis, ankle and foot; L97.423 Non-pressure chronic ulcer of left heel and midfoot with necrosis of muscle; L97.411 Non-pressure chronic ulcer of right heel and midfoot limited to breakdown of skin; I73.9 Peripheral vascular disease, unspecified; I73.89 Other specified peripheral vascular diseases; S90.821A Blister (nonthermal), right foot, initial encounter; L08.89 Other specified local infections of the skin and subcutaneous tissue; I10 Essential (primary) hypertension; I25.10 Atherosclerotic heart disease of native coronary artery without angina pectoris; E78.00 Pure hypercholesterolemia, unspecified; M14.671 Charcot's joint, right ankle and foot; Z01.810 Encounter for preprocedural cardiovascular examination; Z74.01 Bed confinement status | CPT/HCPCS: 29445; 99212; G0277 ==

== ENCOUNTER → 2020-01-04 | Outpatient (CLI) | payer BC | LOC: WCC 09:00 | PROVIDERS: ATTEND Podiatrist Foot & Ankle Surgery | DX: T81.89XA Other complications of procedures, not elsewhere classified, initial encounter (principal); Y84.8 Other medical procedures as the cause of abnormal reaction of the patient, or of later complication, without mention of misadventure at the time of the procedure; A41.9 Sepsis, unspecified organism; E11.621 Type 2 diabetes mellitus with foot ulcer; E11.65 Type 2 diabetes mellitus with hyperglycemia; M86.8X7 Other osteomyelitis, ankle and foot; L97.411 Non-pressure chronic ulcer of right heel and midfoot limited to breakdown of skin; I73.9 Peripheral vascular disease, unspecified; I73.89 Other specified peripheral vascular diseases; I10 Essential (primary) hypertension; I25.10 Atherosclerotic heart disease of native coronary artery without angina pectoris; E78.00 Pure hypercholesterolemia, unspecified; M14.671 Charcot's joint, right ankle and foot; D64.9 Anemia, unspecified; Z01.810 Encounter for preprocedural cardiovascular examination; Z74.01 Bed confinement status | CPT/HCPCS: 97606; 99212; G0277 ==

== ENCOUNTER → 2020-01-07 | Outpatient (CLI) | payer BC, OTHER | LOC: WCC 14:19 | PROVIDERS: ATTEND Podiatrist Foot & Ankle Surgery | DX: T81.89XA Other complications of procedures, not elsewhere classified, initial encounter (principal); Y84.8 Other medical procedures as the cause of abnormal reaction of the patient, or of later complication, without mention of misadventure at the time of the procedure; A41.9 Sepsis, unspecified organism; M86.8X7 Other osteomyelitis, ankle and foot; E11.621 Type 2 diabetes mellitus with foot ulcer; E11.65 Type 2 diabetes mellitus with hyperglycemia; L97.411 Non-pressure chronic ulcer of right heel and midfoot limited to breakdown of skin; I73.9 Peripheral vascular disease, unspecified; I73.89 Other specified peripheral vascular diseases; S90.821A Blister (nonthermal), right foot, initial encounter; L08.89 Other specified local infections of the skin and subcutaneous tissue; I10 Essential (primary) hypertension; M14.671 Charcot's joint, right ankle and foot; D64.9 Anemia, unspecified; E78.00 Pure hypercholesterolemia, unspecified; I25.10 Atherosclerotic heart disease of native coronary artery without angina pectoris; Z01.810 Encounter for preprocedural cardiovascular examination; Z74.01 Bed confinement status | CPT/HCPCS: 97606; 99212; G0277 ×2 ==

== ENCOUNTER → 2020-01-07 | Outpatient (CLI) | payer BC | LOC: WCC 02:00 | PROVIDERS: ATTEND Podiatrist Foot & Ankle Surgery | DX: T81.89XA Other complications of procedures, not elsewhere classified, initial encounter (principal); Y84.8 Other medical procedures as the cause of abnormal reaction of the patient, or of later complication, without mention of misadventure at the time of the procedure; M86.8X7 Other osteomyelitis, ankle and foot; A41.9 Sepsis, unspecified organism; E11.621 Type 2 diabetes mellitus with foot ulcer; E11.65 Type 2 diabetes mellitus with hyperglycemia; L97.411 Non-pressure chronic ulcer of right heel and midfoot limited to breakdown of skin; I73.9 Peripheral vascular disease, unspecified; I73.89 Other specified peripheral vascular diseases; S90.821A Blister (nonthermal), right foot, initial encounter; L08.89 Other specified local infections of the skin and subcutaneous tissue; I10 Essential (primary) hypertension; M14.671 Charcot's joint, right ankle and foot; D64.9 Anemia, unspecified; E78.00 Pure hypercholesterolemia, unspecified; I25.10 Atherosclerotic heart disease of native coronary artery without angina pectoris; Z01.810 Encounter for preprocedural cardiovascular examination; Z74.01 Bed confinement status ==

== ENCOUNTER → 2020-01-11 | Outpatient (CLI) | payer BC, OTHER | LOC: WCC 11:00 | PROVIDERS: ATTEND Podiatrist Foot & Ankle Surgery | DX: T81.89XA Other complications of procedures, not elsewhere classified, initial encounter (principal); Y84.8 Other medical procedures as the cause of abnormal reaction of the patient, or of later complication, without mention of misadventure at the time of the procedure; A41.9 Sepsis, unspecified organism; E11.621 Type 2 diabetes mellitus with foot ulcer; E11.65 Type 2 diabetes mellitus with hyperglycemia; M86.8X7 Other osteomyelitis, ankle and foot; L97.411 Non-pressure chronic ulcer of right heel and midfoot limited to breakdown of skin; I73.9 Peripheral vascular disease, unspecified; I73.89 Other specified peripheral vascular diseases; S90.821A Blister (nonthermal), right foot, initial encounter; L08.89 Other specified local infections of the skin and subcutaneous tissue; I10 Essential (primary) hypertension; M14.671 Charcot's joint, right ankle and foot; D64.9 Anemia, unspecified; E78.00 Pure hypercholesterolemia, unspecified; I25.10 Atherosclerotic heart disease of native coronary artery without angina pectoris; Z01.810 Encounter for preprocedural cardiovascular examination; Z74.01 Bed confinement status | CPT/HCPCS: 36415; 82948; 97606; 99211; 99213; G0277 ×2 ==

== ENCOUNTER → 2020-01-14 | Outpatient (CLI) | payer BC, OTHER ==
[~2020-01-14] MED LIST changes: +COLLAGENASE OINTMENT 30 GM TUBE ONE; +MINERAL OIL/PETROLAT/GLYCERI 6OZ BTL ONE
== END ==
LOC: WCC 13:28
PROVIDERS: ATTEND Podiatrist Foot & Ankle Surgery
DX: T81.89XA Other complications of procedures, not elsewhere classified, initial encounter (principal); Y84.8 Other medical procedures as the cause of abnormal reaction of the patient, or of later complication, without mention of misadventure at the time of the procedure; A41.9 Sepsis, unspecified organism; E11.621 Type 2 diabetes mellitus with foot ulcer; E11.65 Type 2 diabetes mellitus with hyperglycemia; M86.8X7 Other osteomyelitis, ankle and foot; L97.411 Non-pressure chronic ulcer of right heel and midfoot limited to breakdown of skin; I73.9 Peripheral vascular disease, unspecified; I73.89 Other specified peripheral vascular diseases; S90.821A Blister (nonthermal), right foot, initial encounter; L08.89 Other specified local infections of the skin and subcutaneous tissue; I10 Essential (primary) hypertension; M14.671 Charcot's joint, right ankle and foot; D64.9 Anemia, unspecified; E78.00 Pure hypercholesterolemia, unspecified; I25.10 Atherosclerotic heart disease of native coronary artery without angina pectoris; Z01.810 Encounter for preprocedural cardiovascular examination; Z74.01 Bed confinement status
CPT/HCPCS: 36415; 82948; G0277

== ENCOUNTER → 2020-01-15 | Outpatient (CLI) | payer BC ==
[~2020-01-15] MED LIST changes: -COLLAGENASE OINTMENT 30 GM TUBE ONE; -MINERAL OIL/PETROLAT/GLYCERI 6OZ BTL ONE
== END ==
LOC: WCC 15:22
PROVIDERS: ATTEND Podiatrist Foot & Ankle Surgery
DX: T81.89XA Other complications of procedures, not elsewhere classified, initial encounter (principal); Y84.8 Other medical procedures as the cause of abnormal reaction of the patient, or of later complication, without mention of misadventure at the time of the procedure; A41.9 Sepsis, unspecified organism; E11.621 Type 2 diabetes mellitus with foot ulcer; E11.65 Type 2 diabetes mellitus with hyperglycemia; M86.8X7 Other osteomyelitis, ankle and foot; L97.411 Non-pressure chronic ulcer of right heel and midfoot limited to breakdown of skin; I73.9 Peripheral vascular disease, unspecified; I73.89 Other specified peripheral vascular diseases; S90.821A Blister (nonthermal), right foot, initial encounter; L08.89 Other specified local infections of the skin and subcutaneous tissue; I10 Essential (primary) hypertension; D64.9 Anemia, unspecified; M14.671 Charcot's joint, right ankle and foot; E78.00 Pure hypercholesterolemia, unspecified; I25.10 Atherosclerotic heart disease of native coronary artery without angina pectoris; Z01.810 Encounter for preprocedural cardiovascular examination; Z74.01 Bed confinement status
CPT/HCPCS: 11042; 11045; 97605; G0277

== ENCOUNTER → 2020-01-18 | Outpatient (CLI) | payer BC | LOC: WCC 16:01 | PROVIDERS: ATTEND Podiatrist Foot & Ankle Surgery | DX: T81.89XA Other complications of procedures, not elsewhere classified, initial encounter (principal); Y84.8 Other medical procedures as the cause of abnormal reaction of the patient, or of later complication, without mention of misadventure at the time of the procedure; A41.9 Sepsis, unspecified organism; E11.621 Type 2 diabetes mellitus with foot ulcer; E11.65 Type 2 diabetes mellitus with hyperglycemia; M86.8X7 Other osteomyelitis, ankle and foot; L97.411 Non-pressure chronic ulcer of right heel and midfoot limited to breakdown of skin; I73.9 Peripheral vascular disease, unspecified; I73.89 Other specified peripheral vascular diseases; S90.821A Blister (nonthermal), right foot, initial encounter; L08.89 Other specified local infections of the skin and subcutaneous tissue; I10 Essential (primary) hypertension; M14.671 Charcot's joint, right ankle and foot; D64.9 Anemia, unspecified; E78.00 Pure hypercholesterolemia, unspecified; I25.10 Atherosclerotic heart disease of native coronary artery without angina pectoris; Z01.810 Encounter for preprocedural cardiovascular examination; Z74.01 Bed confinement status | CPT/HCPCS: 99212; G0277 ==

== ENCOUNTER → 2020-01-21 | Outpatient (CLI) | payer BC | LOC: WCC 08:27 | PROVIDERS: ATTEND Podiatrist Foot & Ankle Surgery | DX: T81.89XA Other complications of procedures, not elsewhere classified, initial encounter (principal); Y84.8 Other medical procedures as the cause of abnormal reaction of the patient, or of later complication, without mention of misadventure at the time of the procedure; A41.9 Sepsis, unspecified organism; E11.621 Type 2 diabetes mellitus with foot ulcer; E11.65 Type 2 diabetes mellitus with hyperglycemia; M86.8X7 Other osteomyelitis, ankle and foot; L97.411 Non-pressure chronic ulcer of right heel and midfoot limited to breakdown of skin; I73.9 Peripheral vascular disease, unspecified; I73.89 Other specified peripheral vascular diseases; I10 Essential (primary) hypertension; M14.671 Charcot's joint, right ankle and foot; E78.00 Pure hypercholesterolemia, unspecified; D64.9 Anemia, unspecified; I25.10 Atherosclerotic heart disease of native coronary artery without angina pectoris; Z01.810 Encounter for preprocedural cardiovascular examination; Z74.01 Bed confinement status | CPT/HCPCS: 99213; G0277 ==

== ENCOUNTER → 2020-01-22 | Outpatient (CLI) | payer BC | LOC: WCC 12:48 | PROVIDERS: ATTEND Podiatrist Foot & Ankle Surgery | DX: T81.89XA Other complications of procedures, not elsewhere classified, initial encounter (principal); Y84.8 Other medical procedures as the cause of abnormal reaction of the patient, or of later complication, without mention of misadventure at the time of the procedure; A41.9 Sepsis, unspecified organism; M86.8X7 Other osteomyelitis, ankle and foot; E11.621 Type 2 diabetes mellitus with foot ulcer; E11.65 Type 2 diabetes mellitus with hyperglycemia; L97.411 Non-pressure chronic ulcer of right heel and midfoot limited to breakdown of skin; I73.9 Peripheral vascular disease, unspecified; I73.89 Other specified peripheral vascular diseases; I10 Essential (primary) hypertension; M14.671 Charcot's joint, right ankle and foot; E78.00 Pure hypercholesterolemia, unspecified; D64.9 Anemia, unspecified; I25.10 Atherosclerotic heart disease of native coronary artery without angina pectoris; Z74.01 Bed confinement status; Z01.810 Encounter for preprocedural cardiovascular examination ==

== ENCOUNTER → 2020-01-28 | Outpatient (CLI) | payer BC | LOC: WCC 01-22 12:22 | PROVIDERS: ATTEND Podiatrist Foot & Ankle Surgery | DX: T81.89XA Other complications of procedures, not elsewhere classified, initial encounter (principal); Y84.8 Other medical procedures as the cause of abnormal reaction of the patient, or of later complication, without mention of misadventure at the time of the procedure; A41.9 Sepsis, unspecified organism; E11.621 Type 2 diabetes mellitus with foot ulcer; E11.65 Type 2 diabetes mellitus with hyperglycemia; M86.8X7 Other osteomyelitis, ankle and foot; L97.411 Non-pressure chronic ulcer of right heel and midfoot limited to breakdown of skin; I73.9 Peripheral vascular disease, unspecified; I73.89 Other specified peripheral vascular diseases; I10 Essential (primary) hypertension; M14.671 Charcot's joint, right ankle and foot; D64.9 Anemia, unspecified; I25.10 Atherosclerotic heart disease of native coronary artery without angina pectoris; Z01.810 Encounter for preprocedural cardiovascular examination; Z74.01 Bed confinement status ==

== ENCOUNTER → 2020-01-29 | Outpatient (CLI) | payer BC | LOC: WCC 13:20 | PROVIDERS: ATTEND Podiatrist Foot & Ankle Surgery | DX: T81.89XA Other complications of procedures, not elsewhere classified, initial encounter (principal); Y84.8 Other medical procedures as the cause of abnormal reaction of the patient, or of later complication, without mention of misadventure at the time of the procedure; E11.621 Type 2 diabetes mellitus with foot ulcer; E11.65 Type 2 diabetes mellitus with hyperglycemia; A41.9 Sepsis, unspecified organism; M86.8X7 Other osteomyelitis, ankle and foot; L97.416 Non-pressure chronic ulcer of right heel and midfoot with bone involvement without evidence of necrosis; L97.411 Non-pressure chronic ulcer of right heel and midfoot limited to breakdown of skin; I73.9 Peripheral vascular disease, unspecified; I73.89 Other specified peripheral vascular diseases; S90.821A Blister (nonthermal), right foot, initial encounter; L08.89 Other specified local infections of the skin and subcutaneous tissue; I10 Essential (primary) hypertension; M14.671 Charcot's joint, right ankle and foot; D64.9 Anemia, unspecified; E78.00 Pure hypercholesterolemia, unspecified; I25.10 Atherosclerotic heart disease of native coronary artery without angina pectoris; Z01.810 Encounter for preprocedural cardiovascular examination; Z74.01 Bed confinement status ==

== ENCOUNTER → 2020-02-04 | Outpatient (CLI) | payer BC | LOC: WCC 02-01 13:39 | PROVIDERS: ATTEND Podiatrist Foot & Ankle Surgery | DX: T81.89XA Other complications of procedures, not elsewhere classified, initial encounter (principal); Y84.8 Other medical procedures as the cause of abnormal reaction of the patient, or of later complication, without mention of misadventure at the time of the procedure; A41.9 Sepsis, unspecified organism; M86.8X7 Other osteomyelitis, ankle and foot; E11.621 Type 2 diabetes mellitus with foot ulcer; E11.65 Type 2 diabetes mellitus with hyperglycemia; L97.416 Non-pressure chronic ulcer of right heel and midfoot with bone involvement without evidence of necrosis; I73.9 Peripheral vascular disease, unspecified; I73.89 Other specified peripheral vascular diseases; I10 Essential (primary) hypertension; I25.10 Atherosclerotic heart disease of native coronary artery without angina pectoris; D64.9 Anemia, unspecified; M14.671 Charcot's joint, right ankle and foot; E78.00 Pure hypercholesterolemia, unspecified; Z74.01 Bed confinement status; Z01.810 Encounter for preprocedural cardiovascular examination | CPT/HCPCS: 97605; 99213 ×2; G0277 ×2 ==

== ENCOUNTER → 2020-02-05 | Outpatient (CLI) | payer BC | LOC: WCC 15:20 | PROVIDERS: ATTEND Podiatrist Foot & Ankle Surgery | DX: T81.89XA Other complications of procedures, not elsewhere classified, initial encounter (principal); Y84.8 Other medical procedures as the cause of abnormal reaction of the patient, or of later complication, without mention of misadventure at the time of the procedure; A41.9 Sepsis, unspecified organism; E11.621 Type 2 diabetes mellitus with foot ulcer; E11.65 Type 2 diabetes mellitus with hyperglycemia; M86.8X7 Other osteomyelitis, ankle and foot; L97.416 Non-pressure chronic ulcer of right heel and midfoot with bone involvement without evidence of necrosis; L97.426 Non-pressure chronic ulcer of left heel and midfoot with bone involvement without evidence of necrosis; I73.9 Peripheral vascular disease, unspecified; I73.89 Other specified peripheral vascular diseases; S90.821A Blister (nonthermal), right foot, initial encounter; L08.89 Other specified local infections of the skin and subcutaneous tissue; I10 Essential (primary) hypertension; M14.671 Charcot's joint, right ankle and foot; D64.9 Anemia, unspecified; E78.00 Pure hypercholesterolemia, unspecified; I25.10 Atherosclerotic heart disease of native coronary artery without angina pectoris; Z01.810 Encounter for preprocedural cardiovascular examination; Z74.01 Bed confinement status | CPT/HCPCS: 11042; 11045; 97605; G0277 ==

== ENCOUNTER → 2020-02-08 | Outpatient (CLI) | payer BC | LOC: WCC 13:30 | PROVIDERS: ATTEND Podiatrist Foot & Ankle Surgery | DX: E11.621 Type 2 diabetes mellitus with foot ulcer (principal); E11.65 Type 2 diabetes mellitus with hyperglycemia; Y84.8 Other medical procedures as the cause of abnormal reaction of the patient, or of later complication, without mention of misadventure at the time of the procedure; A41.9 Sepsis, unspecified organism; M86.8X7 Other osteomyelitis, ankle and foot; L97.416 Non-pressure chronic ulcer of right heel and midfoot with bone involvement without evidence of necrosis; L97.426 Non-pressure chronic ulcer of left heel and midfoot with bone involvement without evidence of necrosis; I73.9 Peripheral vascular disease, unspecified; I73.89 Other specified peripheral vascular diseases; L08.89 Other specified local infections of the skin and subcutaneous tissue; S90.821A Blister (nonthermal), right foot, initial encounter; I10 Essential (primary) hypertension; D64.9 Anemia, unspecified; M14.671 Charcot's joint, right ankle and foot; E78.00 Pure hypercholesterolemia, unspecified; I25.10 Atherosclerotic heart disease of native coronary artery without angina pectoris; Z01.810 Encounter for preprocedural cardiovascular examination; Z74.01 Bed confinement status | CPT/HCPCS: 83036; 84134; 97605; 99213; G0277 ==

== ENCOUNTER → 2020-02-11 | Outpatient (CLI) | payer BC | LOC: WCC 11:01 | PROVIDERS: ATTEND Podiatrist Foot & Ankle Surgery | DX: E11.621 Type 2 diabetes mellitus with foot ulcer (principal); E11.65 Type 2 diabetes mellitus with hyperglycemia; A41.9 Sepsis, unspecified organism; M86.8X7 Other osteomyelitis, ankle and foot; Y84.8 Other medical procedures as the cause of abnormal reaction of the patient, or of later complication, without mention of misadventure at the time of the procedure; L97.416 Non-pressure chronic ulcer of right heel and midfoot with bone involvement without evidence of necrosis; L97.426 Non-pressure chronic ulcer of left heel and midfoot with bone involvement without evidence of necrosis; I73.9 Peripheral vascular disease, unspecified; I73.89 Other specified peripheral vascular diseases; I10 Essential (primary) hypertension; M14.671 Charcot's joint, right ankle and foot; E78.00 Pure hypercholesterolemia, unspecified; D64.9 Anemia, unspecified; I25.10 Atherosclerotic heart disease of native coronary artery without angina pectoris; Z74.01 Bed confinement status; Z01.810 Encounter for preprocedural cardiovascular examination | CPT/HCPCS: 99212; G0277 ==

== ENCOUNTER → 2020-02-12 | Outpatient (CLI) | payer BC ==
[~2020-02-12] MED LIST changes: +COLLAGENASE OINTMENT 30 GM TUBE ONE; +MINERAL OIL/PETROLAT/GLYCERI 6OZ BTL ONE
== END ==
LOC: WCC 14:30
PROVIDERS: ATTEND Podiatrist Foot & Ankle Surgery
DX: E11.621 Type 2 diabetes mellitus with foot ulcer (principal); E11.65 Type 2 diabetes mellitus with hyperglycemia; A41.9 Sepsis, unspecified organism; M86.8X7 Other osteomyelitis, ankle and foot; Y84.8 Other medical procedures as the cause of abnormal reaction of the patient, or of later complication, without mention of misadventure at the time of the procedure; L97.416 Non-pressure chronic ulcer of right heel and midfoot with bone involvement without evidence of necrosis; L97.426 Non-pressure chronic ulcer of left heel and midfoot with bone involvement without evidence of necrosis; I73.9 Peripheral vascular disease, unspecified; I73.89 Other specified peripheral vascular diseases; S90.821A Blister (nonthermal), right foot, initial encounter; L08.89 Other specified local infections of the skin and subcutaneous tissue; I10 Essential (primary) hypertension; M14.671 Charcot's joint, right ankle and foot; D64.9 Anemia, unspecified; E78.00 Pure hypercholesterolemia, unspecified; I25.10 Atherosclerotic heart disease of native coronary artery without angina pectoris; Z01.810 Encounter for preprocedural cardiovascular examination; Z74.01 Bed confinement status

== ENCOUNTER → 2020-02-15 | Outpatient (CLI) | payer BC ==
[~2020-02-15] MED LIST changes: -COLLAGENASE OINTMENT 30 GM TUBE ONE; -MINERAL OIL/PETROLAT/GLYCERI 6OZ BTL ONE
== END ==
LOC: WCC 15:31
PROVIDERS: ATTEND Podiatrist Foot & Ankle Surgery
DX: E11.621 Type 2 diabetes mellitus with foot ulcer (principal); E11.65 Type 2 diabetes mellitus with hyperglycemia; Y84.8 Other medical procedures as the cause of abnormal reaction of the patient, or of later complication, without mention of misadventure at the time of the procedure; A41.9 Sepsis, unspecified organism; M86.8X7 Other osteomyelitis, ankle and foot; L97.416 Non-pressure chronic ulcer of right heel and midfoot with bone involvement without evidence of necrosis; L97.426 Non-pressure chronic ulcer of left heel and midfoot with bone involvement without evidence of necrosis; I73.9 Peripheral vascular disease, unspecified; I73.89 Other specified peripheral vascular diseases; I10 Essential (primary) hypertension; M14.671 Charcot's joint, right ankle and foot; E78.00 Pure hypercholesterolemia, unspecified; D64.9 Anemia, unspecified; I25.10 Atherosclerotic heart disease of native coronary artery without angina pectoris; Z74.01 Bed confinement status; Z01.810 Encounter for preprocedural cardiovascular examination

== ENCOUNTER → 2020-02-19 | Outpatient (CLI) | payer BC | LOC: WCC 15:09 | PROVIDERS: ATTEND Podiatrist Foot & Ankle Surgery | DX: E11.621 Type 2 diabetes mellitus with foot ulcer (principal); E11.65 Type 2 diabetes mellitus with hyperglycemia; A41.9 Sepsis, unspecified organism; M86.8X7 Other osteomyelitis, ankle and foot; L97.416 Non-pressure chronic ulcer of right heel and midfoot with bone involvement without evidence of necrosis; L97.426 Non-pressure chronic ulcer of left heel and midfoot with bone involvement without evidence of necrosis; I73.9 Peripheral vascular disease, unspecified; I73.89 Other specified peripheral vascular diseases; S90.821A Blister (nonthermal), right foot, initial encounter; D64.9 Anemia, unspecified; I10 Essential (primary) hypertension; M14.671 Charcot's joint, right ankle and foot; E78.00 Pure hypercholesterolemia, unspecified; I25.10 Atherosclerotic heart disease of native coronary artery without angina pectoris; L08.89 Other specified local infections of the skin and subcutaneous tissue; Y84.8 Other medical procedures as the cause of abnormal reaction of the patient, or of later complication, without mention of misadventure at the time of the procedure; Z01.810 Encounter for preprocedural cardiovascular examination; Z74.01 Bed confinement status | CPT/HCPCS: 15275; 15276; 97605; 99213; Q4186 ==

== ENCOUNTER → 2020-02-22 | Outpatient (CLI) | payer BC | LOC: WCC 10:49 | PROVIDERS: ATTEND Podiatrist Foot & Ankle Surgery | DX: E11.621 Type 2 diabetes mellitus with foot ulcer (principal); E11.65 Type 2 diabetes mellitus with hyperglycemia; Y84.8 Other medical procedures as the cause of abnormal reaction of the patient, or of later complication, without mention of misadventure at the time of the procedure; A41.9 Sepsis, unspecified organism; M86.8X7 Other osteomyelitis, ankle and foot; L97.416 Non-pressure chronic ulcer of right heel and midfoot with bone involvement without evidence of necrosis; L97.426 Non-pressure chronic ulcer of left heel and midfoot with bone involvement without evidence of necrosis; I73.9 Peripheral vascular disease, unspecified; I73.89 Other specified peripheral vascular diseases; S90.821A Blister (nonthermal), right foot, initial encounter; L08.89 Other specified local infections of the skin and subcutaneous tissue; I10 Essential (primary) hypertension; M14.671 Charcot's joint, right ankle and foot; D64.9 Anemia, unspecified; E78.00 Pure hypercholesterolemia, unspecified; I25.10 Atherosclerotic heart disease of native coronary artery without angina pectoris; Z01.810 Encounter for preprocedural cardiovascular examination; Z74.01 Bed confinement status ==

== ENCOUNTER → 2020-02-26 | Outpatient (CLI) | payer BC | LOC: WCC 13:44 | PROVIDERS: ATTEND Podiatrist Foot & Ankle Surgery | DX: E11.621 Type 2 diabetes mellitus with foot ulcer (principal); E11.65 Type 2 diabetes mellitus with hyperglycemia; A41.9 Sepsis, unspecified organism; M86.8X7 Other osteomyelitis, ankle and foot; Y84.8 Other medical procedures as the cause of abnormal reaction of the patient, or of later complication, without mention of misadventure at the time of the procedure; L97.426 Non-pressure chronic ulcer of left heel and midfoot with bone involvement without evidence of necrosis; L97.416 Non-pressure chronic ulcer of right heel and midfoot with bone involvement without evidence of necrosis; I73.9 Peripheral vascular disease, unspecified; I73.89 Other specified peripheral vascular diseases; S90.821A Blister (nonthermal), right foot, initial encounter; L08.89 Other specified local infections of the skin and subcutaneous tissue; M14.671 Charcot's joint, right ankle and foot; D64.9 Anemia, unspecified; E78.00 Pure hypercholesterolemia, unspecified; I10 Essential (primary) hypertension; I25.10 Atherosclerotic heart disease of native coronary artery without angina pectoris; Z01.810 Encounter for preprocedural cardiovascular examination; Z74.01 Bed confinement status | CPT/HCPCS: 15275; 15276; 97605; 99213; Q4186 ==

== ENCOUNTER → 2020-03-28 | Outpatient (CLI) | payer BC ==
[~2020-03-28] MED LIST changes: +CADEXOMER IODINE 30 GM TUBE ONE; +MINERAL OIL/PETROLAT/GLYCERI 2OZ CRM ONE
== END ==
LOC: WCC 11:36
PROVIDERS: ATTEND Podiatrist Foot & Ankle Surgery
DX: E11.621 Type 2 diabetes mellitus with foot ulcer (principal); E11.65 Type 2 diabetes mellitus with hyperglycemia; A41.9 Sepsis, unspecified organism; M86.8X7 Other osteomyelitis, ankle and foot; L97.416 Non-pressure chronic ulcer of right heel and midfoot with bone involvement without evidence of necrosis; L97.421 Non-pressure chronic ulcer of left heel and midfoot limited to breakdown of skin; L97.426 Non-pressure chronic ulcer of left heel and midfoot with bone involvement without evidence of necrosis; L08.89 Other specified local infections of the skin and subcutaneous tissue; I73.9 Peripheral vascular disease, unspecified; I73.89 Other specified peripheral vascular diseases; S90.821A Blister (nonthermal), right foot, initial encounter; D64.9 Anemia, unspecified; I10 Essential (primary) hypertension; M14.671 Charcot's joint, right ankle and foot; E78.00 Pure hypercholesterolemia, unspecified; I25.10 Atherosclerotic heart disease of native coronary artery without angina pectoris; Y84.8 Other medical procedures as the cause of abnormal reaction of the patient, or of later complication, without mention of misadventure at the time of the procedure; Z01.810 Encounter for preprocedural cardiovascular examination; Z74.01 Bed confinement status

== ENCOUNTER → 2020-04-01 | Outpatient (CLI) | payer BC ==
[~2020-04-01] MED LIST changes: -CADEXOMER IODINE 30 GM TUBE ONE; -MINERAL OIL/PETROLAT/GLYCERI 2OZ CRM ONE
== END ==
LOC: WCC 14:17
PROVIDERS: ATTEND Podiatrist Foot & Ankle Surgery
DX: E11.621 Type 2 diabetes mellitus with foot ulcer (principal); E11.65 Type 2 diabetes mellitus with hyperglycemia; A41.9 Sepsis, unspecified organism; Y84.8 Other medical procedures as the cause of abnormal reaction of the patient, or of later complication, without mention of misadventure at the time of the procedure; L97.416 Non-pressure chronic ulcer of right heel and midfoot with bone involvement without evidence of necrosis; L97.421 Non-pressure chronic ulcer of left heel and midfoot limited to breakdown of skin; L97.426 Non-pressure chronic ulcer of left heel and midfoot with bone involvement without evidence of necrosis; L08.89 Other specified local infections of the skin and subcutaneous tissue; I73.9 Peripheral vascular disease, unspecified; S90.821A Blister (nonthermal), right foot, initial encounter; I73.89 Other specified peripheral vascular diseases; I10 Essential (primary) hypertension; M14.671 Charcot's joint, right ankle and foot; D64.9 Anemia, unspecified; E78.00 Pure hypercholesterolemia, unspecified; I25.10 Atherosclerotic heart disease of native coronary artery without angina pectoris; Z01.810 Encounter for preprocedural cardiovascular examination; Z74.01 Bed confinement status

== ENCOUNTER → 2020-04-01 | Outpatient (CLI) | payer BC | LOC: WCC 13:53 | PROVIDERS: ATTEND Podiatrist Foot & Ankle Surgery | DX: E11.621 Type 2 diabetes mellitus with foot ulcer (principal); E11.65 Type 2 diabetes mellitus with hyperglycemia; Y84.8 Other medical procedures as the cause of abnormal reaction of the patient, or of later complication, without mention of misadventure at the time of the procedure; A41.9 Sepsis, unspecified organism; L97.416 Non-pressure chronic ulcer of right heel and midfoot with bone involvement without evidence of necrosis; L97.426 Non-pressure chronic ulcer of left heel and midfoot with bone involvement without evidence of necrosis; L97.421 Non-pressure chronic ulcer of left heel and midfoot limited to breakdown of skin; I73.9 Peripheral vascular disease, unspecified; I73.89 Other specified peripheral vascular diseases; I10 Essential (primary) hypertension; I25.10 Atherosclerotic heart disease of native coronary artery without angina pectoris; M14.671 Charcot's joint, right ankle and foot; D64.9 Anemia, unspecified; E78.00 Pure hypercholesterolemia, unspecified; S90.821A Blister (nonthermal), right foot, initial encounter; L08.89 Other specified local infections of the skin and subcutaneous tissue; Z01.810 Encounter for preprocedural cardiovascular examination; Z74.01 Bed confinement status ==

== ENCOUNTER → 2020-04-04 | Outpatient (CLI) | payer BC | LOC: WCC 14:00 | PROVIDERS: ATTEND Podiatrist Foot & Ankle Surgery | DX: E11.621 Type 2 diabetes mellitus with foot ulcer (principal); E11.65 Type 2 diabetes mellitus with hyperglycemia; Y84.8 Other medical procedures as the cause of abnormal reaction of the patient, or of later complication, without mention of misadventure at the time of the procedure; A41.9 Sepsis, unspecified organism; L97.426 Non-pressure chronic ulcer of left heel and midfoot with bone involvement without evidence of necrosis; L97.416 Non-pressure chronic ulcer of right heel and midfoot with bone involvement without evidence of necrosis; L97.421 Non-pressure chronic ulcer of left heel and midfoot limited to breakdown of skin; I73.9 Peripheral vascular disease, unspecified; I73.89 Other specified peripheral vascular diseases; I10 Essential (primary) hypertension; D64.9 Anemia, unspecified; I25.10 Atherosclerotic heart disease of native coronary artery without angina pectoris; M14.671 Charcot's joint, right ankle and foot; E78.00 Pure hypercholesterolemia, unspecified; Z74.01 Bed confinement status ==

== ENCOUNTER → 2020-04-08 | Outpatient (CLI) | payer BC ==
[2020-04-08 15:03] LABS: BASOPHILS # (AUTO) 0.1 (0.0-0.1); BASOPHILS % 0.6 % (0.0-1.0); EOSINOPHILS # (AUTO) 0.2 (0.0-0.4); EOSINOPHILS % 2.7 % (0.0-6.0); HEMATOCRIT 26.5 % (38.2-49.6); LYMPHOCYTES # (AUTO) 1.6 (1.0-3.2); LYMPHOCYTES % 20.1 % (18.0-39.1); MEAN CORPUSCULAR HEMOGLOBIN 29.7 pg (28-32); MEAN CORPUSCULAR VOLUME 87.5 fL (81-99); MONOCYTES # (AUTO) 0.6 (0.2-0.8); MONOCYTES % 7.6 % (4.4-11.3); NEUTROPHILS # (AUTO) 5.5 (2.1-6.9); NEUTROPHILS % 68.1 % (38.7-80.0); PLATELET COUNT 201 x10e3/uL (140-360); RED BLOOD COUNT 3.03 x10e6/uL (4.3-5.7); RED CELL DISTRIBUTION WIDTH 13.3 % (11.7-14.4)
[2020-04-08 15:21] LABS: ALBUMIN 3.2 g/dL (3.5-5.0); ALBUMIN/GLOBULIN RATIO 0.8 (0.8-2.0); ANION GAP 14.9 mmol/L (8-16); CALCIUM 8.7 mg/dL (8.4-10.2); CREATININE, SERUM 1.66 mg/dL (0.72-1.25); POTASSIUM 4.9 mmol/L (3.5-5.1)
== END ==
LOC: WCC 14:25
PROVIDERS: ATTEND Podiatrist Foot & Ankle Surgery
DX: E11.621 Type 2 diabetes mellitus with foot ulcer (principal); E11.65 Type 2 diabetes mellitus with hyperglycemia; A41.9 Sepsis, unspecified organism; Y84.8 Other medical procedures as the cause of abnormal reaction of the patient, or of later complication, without mention of misadventure at the time of the procedure; L97.426 Non-pressure chronic ulcer of left heel and midfoot with bone involvement without evidence of necrosis; L97.416 Non-pressure chronic ulcer of right heel and midfoot with bone involvement without evidence of necrosis; L97.421 Non-pressure chronic ulcer of left heel and midfoot limited to breakdown of skin; I73.9 Peripheral vascular disease, unspecified; I73.89 Other specified peripheral vascular diseases; S90.821A Blister (nonthermal), right foot, initial encounter; L08.89 Other specified local infections of the skin and subcutaneous tissue; I25.10 Atherosclerotic heart disease of native coronary artery without angina pectoris; I10 Essential (primary) hypertension; M14.671 Charcot's joint, right ankle and foot; D64.9 Anemia, unspecified; E78.00 Pure hypercholesterolemia, unspecified; Z01.810 Encounter for preprocedural cardiovascular examination; Z74.01 Bed confinement status
CPT/HCPCS: 36415; 80053; 83036; 84134; 85025; 85651; 86140

== ENCOUNTER → 2020-04-11 | Outpatient (CLI) | payer BC | LOC: WCC 15:32 | PROVIDERS: ATTEND Podiatrist Foot & Ankle Surgery | DX: E11.621 Type 2 diabetes mellitus with foot ulcer (principal); E11.65 Type 2 diabetes mellitus with hyperglycemia; A41.9 Sepsis, unspecified organism; Y84.8 Other medical procedures as the cause of abnormal reaction of the patient, or of later complication, without mention of misadventure at the time of the procedure; L97.421 Non-pressure chronic ulcer of left heel and midfoot limited to breakdown of skin; L97.416 Non-pressure chronic ulcer of right heel and midfoot with bone involvement without evidence of necrosis; L97.426 Non-pressure chronic ulcer of left heel and midfoot with bone involvement without evidence of necrosis; I73.9 Peripheral vascular disease, unspecified; I10 Essential (primary) hypertension; M14.671 Charcot's joint, right ankle and foot; E78.00 Pure hypercholesterolemia, unspecified; D64.9 Anemia, unspecified; I25.10 Atherosclerotic heart disease of native coronary artery without angina pectoris; I73.89 Other specified peripheral vascular diseases; Z74.01 Bed confinement status ==

== ENCOUNTER → 2020-04-15 | Outpatient (CLI) | payer BC ==
[~2020-04-15] MED LIST changes: +MINERAL OIL/PETROLAT/GLYCERI 6OZ BTL ONE
== END ==
LOC: WCC 02:00
PROVIDERS: ATTEND Podiatrist Foot & Ankle Surgery
DX: E11.621 Type 2 diabetes mellitus with foot ulcer (principal); E11.65 Type 2 diabetes mellitus with hyperglycemia; Y84.8 Other medical procedures as the cause of abnormal reaction of the patient, or of later complication, without mention of misadventure at the time of the procedure; A41.9 Sepsis, unspecified organism; L97.421 Non-pressure chronic ulcer of left heel and midfoot limited to breakdown of skin; L97.416 Non-pressure chronic ulcer of right heel and midfoot with bone involvement without evidence of necrosis; L97.426 Non-pressure chronic ulcer of left heel and midfoot with bone involvement without evidence of necrosis; I73.9 Peripheral vascular disease, unspecified; I10 Essential (primary) hypertension; M14.671 Charcot's joint, right ankle and foot; E78.00 Pure hypercholesterolemia, unspecified; D64.9 Anemia, unspecified; I25.10 Atherosclerotic heart disease of native coronary artery without angina pectoris; I73.89 Other specified peripheral vascular diseases; Z74.01 Bed confinement status

== ENCOUNTER → 2020-04-18 | Outpatient (CLI) | payer BC ==
[~2020-04-18] MED LIST changes: -MINERAL OIL/PETROLAT/GLYCERI 6OZ BTL ONE
== END ==
LOC: WCC 15:35
PROVIDERS: ATTEND Podiatrist Foot & Ankle Surgery
DX: E11.621 Type 2 diabetes mellitus with foot ulcer (principal); E11.65 Type 2 diabetes mellitus with hyperglycemia; Y84.8 Other medical procedures as the cause of abnormal reaction of the patient, or of later complication, without mention of misadventure at the time of the procedure; A41.9 Sepsis, unspecified organism; L97.426 Non-pressure chronic ulcer of left heel and midfoot with bone involvement without evidence of necrosis; L97.416 Non-pressure chronic ulcer of right heel and midfoot with bone involvement without evidence of necrosis; L97.421 Non-pressure chronic ulcer of left heel and midfoot limited to breakdown of skin; I73.9 Peripheral vascular disease, unspecified; I73.89 Other specified peripheral vascular diseases; I10 Essential (primary) hypertension; M14.671 Charcot's joint, right ankle and foot; E78.00 Pure hypercholesterolemia, unspecified; D64.9 Anemia, unspecified; I25.10 Atherosclerotic heart disease of native coronary artery without angina pectoris; Z74.01 Bed confinement status

== ENCOUNTER → 2020-04-22 | Outpatient (CLI) | payer BC | LOC: WCC 14:28 | PROVIDERS: ATTEND Podiatrist Foot & Ankle Surgery | DX: E11.621 Type 2 diabetes mellitus with foot ulcer (principal); E11.65 Type 2 diabetes mellitus with hyperglycemia; A41.9 Sepsis, unspecified organism; Y84.8 Other medical procedures as the cause of abnormal reaction of the patient, or of later complication, without mention of misadventure at the time of the procedure; L97.426 Non-pressure chronic ulcer of left heel and midfoot with bone involvement without evidence of necrosis; L97.416 Non-pressure chronic ulcer of right heel and midfoot with bone involvement without evidence of necrosis; L97.421 Non-pressure chronic ulcer of left heel and midfoot limited to breakdown of skin; L08.89 Other specified local infections of the skin and subcutaneous tissue; I73.9 Peripheral vascular disease, unspecified; I73.89 Other specified peripheral vascular diseases; S90.821A Blister (nonthermal), right foot, initial encounter; M14.671 Charcot's joint, right ankle and foot; I10 Essential (primary) hypertension; I25.10 Atherosclerotic heart disease of native coronary artery without angina pectoris; D64.9 Anemia, unspecified; E78.00 Pure hypercholesterolemia, unspecified; Z01.810 Encounter for preprocedural cardiovascular examination; Z74.01 Bed confinement status ==

== ENCOUNTER → 2020-05-06 | Outpatient (CLI) | payer BC | LOC: WCC 14:23 | PROVIDERS: ATTEND Podiatrist Foot & Ankle Surgery | DX: E11.621 Type 2 diabetes mellitus with foot ulcer (principal); E11.65 Type 2 diabetes mellitus with hyperglycemia; Y84.8 Other medical procedures as the cause of abnormal reaction of the patient, or of later complication, without mention of misadventure at the time of the procedure; A41.9 Sepsis, unspecified organism; L97.426 Non-pressure chronic ulcer of left heel and midfoot with bone involvement without evidence of necrosis; L97.416 Non-pressure chronic ulcer of right heel and midfoot with bone involvement without evidence of necrosis; L97.421 Non-pressure chronic ulcer of left heel and midfoot limited to breakdown of skin; I73.9 Peripheral vascular disease, unspecified; I73.89 Other specified peripheral vascular diseases; L08.89 Other specified local infections of the skin and subcutaneous tissue; S90.821A Blister (nonthermal), right foot, initial encounter; I10 Essential (primary) hypertension; M14.671 Charcot's joint, right ankle and foot; D64.9 Anemia, unspecified; E78.00 Pure hypercholesterolemia, unspecified; I25.10 Atherosclerotic heart disease of native coronary artery without angina pectoris; Z01.810 Encounter for preprocedural cardiovascular examination; Z74.01 Bed confinement status ==

== ENCOUNTER → 2020-05-20 | Outpatient (CLI) | payer BC | LOC: WCC 15:46 | PROVIDERS: ATTEND Podiatrist Foot & Ankle Surgery | DX: E11.621 Type 2 diabetes mellitus with foot ulcer (principal); E11.65 Type 2 diabetes mellitus with hyperglycemia; Y84.8 Other medical procedures as the cause of abnormal reaction of the patient, or of later complication, without mention of misadventure at the time of the procedure; A41.9 Sepsis, unspecified organism; L97.416 Non-pressure chronic ulcer of right heel and midfoot with bone involvement without evidence of necrosis; L97.421 Non-pressure chronic ulcer of left heel and midfoot limited to breakdown of skin; L97.426 Non-pressure chronic ulcer of left heel and midfoot with bone involvement without evidence of necrosis; L03.116 Cellulitis of left lower limb; L08.89 Other specified local infections of the skin and subcutaneous tissue; I73.9 Peripheral vascular disease, unspecified; I73.89 Other specified peripheral vascular diseases; S90.821A Blister (nonthermal), right foot, initial encounter; I10 Essential (primary) hypertension; M14.671 Charcot's joint, right ankle and foot; D64.9 Anemia, unspecified; E78.00 Pure hypercholesterolemia, unspecified; I25.10 Atherosclerotic heart disease of native coronary artery without angina pectoris; Z01.810 Encounter for preprocedural cardiovascular examination; Z74.01 Bed confinement status | CPT/HCPCS: 87071; 87205 ==

== ENCOUNTER → 2020-05-21 | Outpatient (CLI) | payer BC | LOC: WCC 14:36 | PROVIDERS: ATTEND Podiatrist Foot & Ankle Surgery | DX: E11.621 Type 2 diabetes mellitus with foot ulcer (principal); E11.65 Type 2 diabetes mellitus with hyperglycemia; Y84.8 Other medical procedures as the cause of abnormal reaction of the patient, or of later complication, without mention of misadventure at the time of the procedure; A41.9 Sepsis, unspecified organism; L97.426 Non-pressure chronic ulcer of left heel and midfoot with bone involvement without evidence of necrosis; L97.416 Non-pressure chronic ulcer of right heel and midfoot with bone involvement without evidence of necrosis; L97.421 Non-pressure chronic ulcer of left heel and midfoot limited to breakdown of skin; L03.116 Cellulitis of left lower limb; I73.9 Peripheral vascular disease, unspecified; I73.89 Other specified peripheral vascular diseases; I10 Essential (primary) hypertension; M14.671 Charcot's joint, right ankle and foot; E78.00 Pure hypercholesterolemia, unspecified; D64.9 Anemia, unspecified; I25.10 Atherosclerotic heart disease of native coronary artery without angina pectoris ==

== ENCOUNTER → 2020-05-22 | Outpatient (CLI) | payer BC | LOC: WCC 14:09 | PROVIDERS: ATTEND Podiatrist Foot & Ankle Surgery | DX: E11.621 Type 2 diabetes mellitus with foot ulcer (principal); E11.65 Type 2 diabetes mellitus with hyperglycemia; A41.9 Sepsis, unspecified organism; L97.421 Non-pressure chronic ulcer of left heel and midfoot limited to breakdown of skin; L97.416 Non-pressure chronic ulcer of right heel and midfoot with bone involvement without evidence of necrosis; L97.426 Non-pressure chronic ulcer of left heel and midfoot with bone involvement without evidence of necrosis; L03.116 Cellulitis of left lower limb; I73.9 Peripheral vascular disease, unspecified; I73.89 Other specified peripheral vascular diseases; I10 Essential (primary) hypertension; D64.9 Anemia, unspecified; M14.671 Charcot's joint, right ankle and foot; Y84.8 Other medical procedures as the cause of abnormal reaction of the patient, or of later complication, without mention of misadventure at the time of the procedure; E78.00 Pure hypercholesterolemia, unspecified; I25.10 Atherosclerotic heart disease of native coronary artery without angina pectoris ==

== ENCOUNTER → 2020-05-23 | Outpatient (CLI) | payer BC | LOC: WCC 14:31 | PROVIDERS: ATTEND Podiatrist Foot & Ankle Surgery | DX: E11.621 Type 2 diabetes mellitus with foot ulcer (principal); E11.65 Type 2 diabetes mellitus with hyperglycemia; Y84.8 Other medical procedures as the cause of abnormal reaction of the patient, or of later complication, without mention of misadventure at the time of the procedure; A41.9 Sepsis, unspecified organism; L97.426 Non-pressure chronic ulcer of left heel and midfoot with bone involvement without evidence of necrosis; L97.416 Non-pressure chronic ulcer of right heel and midfoot with bone involvement without evidence of necrosis; L97.421 Non-pressure chronic ulcer of left heel and midfoot limited to breakdown of skin; L03.116 Cellulitis of left lower limb; I73.9 Peripheral vascular disease, unspecified; I73.89 Other specified peripheral vascular diseases; I10 Essential (primary) hypertension; M14.671 Charcot's joint, right ankle and foot; E78.00 Pure hypercholesterolemia, unspecified; D64.9 Anemia, unspecified; I25.10 Atherosclerotic heart disease of native coronary artery without angina pectoris; Z74.01 Bed confinement status; Z01.810 Encounter for preprocedural cardiovascular examination ==

== ENCOUNTER → 2020-05-26 | Outpatient (CLI) | payer BC | LOC: WCC 13:30 | PROVIDERS: ATTEND Podiatrist Foot & Ankle Surgery | DX: E11.621 Type 2 diabetes mellitus with foot ulcer (principal); E11.65 Type 2 diabetes mellitus with hyperglycemia; Y84.8 Other medical procedures as the cause of abnormal reaction of the patient, or of later complication, without mention of misadventure at the time of the procedure; A41.9 Sepsis, unspecified organism; L97.426 Non-pressure chronic ulcer of left heel and midfoot with bone involvement without evidence of necrosis; L97.416 Non-pressure chronic ulcer of right heel and midfoot with bone involvement without evidence of necrosis; L97.421 Non-pressure chronic ulcer of left heel and midfoot limited to breakdown of skin; L03.116 Cellulitis of left lower limb; I73.9 Peripheral vascular disease, unspecified; I73.89 Other specified peripheral vascular diseases; I10 Essential (primary) hypertension; M14.671 Charcot's joint, right ankle and foot; E78.00 Pure hypercholesterolemia, unspecified; D64.9 Anemia, unspecified; I25.10 Atherosclerotic heart disease of native coronary artery without angina pectoris ==

== ENCOUNTER → 2020-05-27 | Outpatient (CLI) | payer BC | LOC: WCC 14:27 | PROVIDERS: ATTEND Podiatrist Foot & Ankle Surgery | DX: E11.621 Type 2 diabetes mellitus with foot ulcer (principal); E11.65 Type 2 diabetes mellitus with hyperglycemia; A41.9 Sepsis, unspecified organism; Y84.8 Other medical procedures as the cause of abnormal reaction of the patient, or of later complication, without mention of misadventure at the time of the procedure; L97.426 Non-pressure chronic ulcer of left heel and midfoot with bone involvement without evidence of necrosis; L97.416 Non-pressure chronic ulcer of right heel and midfoot with bone involvement without evidence of necrosis; L97.421 Non-pressure chronic ulcer of left heel and midfoot limited to breakdown of skin; L03.116 Cellulitis of left lower limb; I73.9 Peripheral vascular disease, unspecified; I73.89 Other specified peripheral vascular diseases; I10 Essential (primary) hypertension; M14.671 Charcot's joint, right ankle and foot; D64.9 Anemia, unspecified; E78.00 Pure hypercholesterolemia, unspecified; I25.10 Atherosclerotic heart disease of native coronary artery without angina pectoris ==

== ENCOUNTER → 2020-05-28 | Outpatient (CLI) | payer BC | LOC: WCC 15:33 | PROVIDERS: ATTEND Podiatrist Foot & Ankle Surgery | DX: E11.621 Type 2 diabetes mellitus with foot ulcer (principal); E11.65 Type 2 diabetes mellitus with hyperglycemia; A41.9 Sepsis, unspecified organism; Y84.8 Other medical procedures as the cause of abnormal reaction of the patient, or of later complication, without mention of misadventure at the time of the procedure; L97.426 Non-pressure chronic ulcer of left heel and midfoot with bone involvement without evidence of necrosis; L97.416 Non-pressure chronic ulcer of right heel and midfoot with bone involvement without evidence of necrosis; L97.421 Non-pressure chronic ulcer of left heel and midfoot limited to breakdown of skin; L97.429 Non-pressure chronic ulcer of left heel and midfoot with unspecified severity; L03.116 Cellulitis of left lower limb; I73.9 Peripheral vascular disease, unspecified; I73.89 Other specified peripheral vascular diseases; S90.821A Blister (nonthermal), right foot, initial encounter; L08.9 Local infection of the skin and subcutaneous tissue, unspecified; I10 Essential (primary) hypertension; D64.9 Anemia, unspecified; M14.671 Charcot's joint, right ankle and foot; E78.00 Pure hypercholesterolemia, unspecified; I25.10 Atherosclerotic heart disease of native coronary artery without angina pectoris; Z01.810 Encounter for preprocedural cardiovascular examination; Z74.01 Bed confinement status ==

== ENCOUNTER → 2020-05-29 | Outpatient (CLI) | payer BC | LOC: WCC 15:15 | PROVIDERS: ATTEND Podiatrist Foot & Ankle Surgery | DX: E11.621 Type 2 diabetes mellitus with foot ulcer (principal); L97.421 Non-pressure chronic ulcer of left heel and midfoot limited to breakdown of skin; L97.416 Non-pressure chronic ulcer of right heel and midfoot with bone involvement without evidence of necrosis; L97.426 Non-pressure chronic ulcer of left heel and midfoot with bone involvement without evidence of necrosis; L97.429 Non-pressure chronic ulcer of left heel and midfoot with unspecified severity; L03.116 Cellulitis of left lower limb; I73.9 Peripheral vascular disease, unspecified; I73.89 Other specified peripheral vascular diseases; S90.821A Blister (nonthermal), right foot, initial encounter; L08.9 Local infection of the skin and subcutaneous tissue, unspecified; M14.671 Charcot's joint, right ankle and foot; D64.9 Anemia, unspecified; I10 Essential (primary) hypertension; I25.10 Atherosclerotic heart disease of native coronary artery without angina pectoris; Z74.01 Bed confinement status ==

== ENCOUNTER → 2020-06-02 | Outpatient (CLI) | payer BC ==
[2020-06-03 16:05] LABS: BASOPHILS # (AUTO) 0.1 (0.0-0.1); BASOPHILS % 0.8 % (0.0-1.0); EOSINOPHILS # (AUTO) 0.3 (0.0-0.4); EOSINOPHILS % 2.2 % (0.0-6.0); HEMATOCRIT 25.3 % (38.2-49.6); LYMPHOCYTES # (AUTO) 1.4 (1.0-3.2); LYMPHOCYTES % 12.6 % (18.0-39.1); MEAN CORPUSCULAR HEMOGLOBIN 29.7 pg (28-32); MEAN CORPUSCULAR HGB CONC 31.6 g/dL (31-35); MEAN CORPUSCULAR VOLUME 94.1 fL (81-99); MONOCYTES # (AUTO) 0.4 (0.2-0.8); MONOCYTES % 3.5 % (4.4-11.3); NEUTROPHILS # (AUTO) 8.9 (2.1-6.9); NEUTROPHILS % 80.3 % (38.7-80.0); PLATELET COUNT 304 x10e3/uL (140-360); RED BLOOD COUNT 2.69 x10e6/uL (4.3-5.7); RED CELL DISTRIBUTION WIDTH 12.6 % (11.7-14.4)
[2020-06-03 16:24] LABS: ALBUMIN 2.8 g/dL (3.5-5.0); ALBUMIN/GLOBULIN RATIO 0.5 (0.8-2.0); ANION GAP 16.1 mmol/L (8-16); CALCIUM 8.4 mg/dL (8.4-10.2); CREATININE, SERUM 2.01 mg/dL (0.72-1.25); POTASSIUM 5.1 mmol/L (3.5-5.1)
== END ==
LOC: WCC 14:09
PROVIDERS: ATTEND Podiatrist Foot & Ankle Surgery
DX: E11.621 Type 2 diabetes mellitus with foot ulcer (principal); E11.65 Type 2 diabetes mellitus with hyperglycemia; A41.9 Sepsis, unspecified organism; Y84.8 Other medical procedures as the cause of abnormal reaction of the patient, or of later complication, without mention of misadventure at the time of the procedure; L97.421 Non-pressure chronic ulcer of left heel and midfoot limited to breakdown of skin; L97.426 Non-pressure chronic ulcer of left heel and midfoot with bone involvement without evidence of necrosis; L97.416 Non-pressure chronic ulcer of right heel and midfoot with bone involvement without evidence of necrosis; L97.429 Non-pressure chronic ulcer of left heel and midfoot with unspecified severity; L03.116 Cellulitis of left lower limb; I73.9 Peripheral vascular disease, unspecified; I73.89 Other specified peripheral vascular diseases; S90.821A Blister (nonthermal), right foot, initial encounter; L08.9 Local infection of the skin and subcutaneous tissue, unspecified; I10 Essential (primary) hypertension; M14.671 Charcot's joint, right ankle and foot; E78.00 Pure hypercholesterolemia, unspecified; D64.9 Anemia, unspecified; I25.10 Atherosclerotic heart disease of native coronary artery without angina pectoris; Z01.810 Encounter for preprocedural cardiovascular examination; Z74.01 Bed confinement status
CPT/HCPCS: 36415; 80053; 83036; 84134; 85025; 85651; 86140

== ENCOUNTER → 2020-06-03 | Outpatient (CLI) | payer BC | LOC: WCC 14:48 | PROVIDERS: ATTEND Podiatrist Foot & Ankle Surgery | DX: E11.621 Type 2 diabetes mellitus with foot ulcer (principal); E11.65 Type 2 diabetes mellitus with hyperglycemia; A41.9 Sepsis, unspecified organism; L97.426 Non-pressure chronic ulcer of left heel and midfoot with bone involvement without evidence of necrosis; L97.416 Non-pressure chronic ulcer of right heel and midfoot with bone involvement without evidence of necrosis; L97.421 Non-pressure chronic ulcer of left heel and midfoot limited to breakdown of skin; L97.429 Non-pressure chronic ulcer of left heel and midfoot with unspecified severity; L03.116 Cellulitis of left lower limb; I73.9 Peripheral vascular disease, unspecified; I73.89 Other specified peripheral vascular diseases; S90.821A Blister (nonthermal), right foot, initial encounter; L08.89 Other specified local infections of the skin and subcutaneous tissue; I10 Essential (primary) hypertension; M14.671 Charcot's joint, right ankle and foot; D64.9 Anemia, unspecified; E78.00 Pure hypercholesterolemia, unspecified; I25.10 Atherosclerotic heart disease of native coronary artery without angina pectoris; Y84.8 Other medical procedures as the cause of abnormal reaction of the patient, or of later complication, without mention of misadventure at the time of the procedure; Z01.810 Encounter for preprocedural cardiovascular examination; Z01.811 Encounter for preprocedural respiratory examination; Z74.01 Bed confinement status ==

== ENCOUNTER → 2020-06-04 | Outpatient (CLI) | payer BC | LOC: WCC 13:31 | PROVIDERS: ATTEND Podiatrist Foot & Ankle Surgery | DX: E11.621 Type 2 diabetes mellitus with foot ulcer (principal); E11.65 Type 2 diabetes mellitus with hyperglycemia; L97.421 Non-pressure chronic ulcer of left heel and midfoot limited to breakdown of skin; L97.429 Non-pressure chronic ulcer of left heel and midfoot with unspecified severity; L97.426 Non-pressure chronic ulcer of left heel and midfoot with bone involvement without evidence of necrosis; L97.416 Non-pressure chronic ulcer of right heel and midfoot with bone involvement without evidence of necrosis; I73.9 Peripheral vascular disease, unspecified; L03.116 Cellulitis of left lower limb; L08.9 Local infection of the skin and subcutaneous tissue, unspecified; I73.89 Other specified peripheral vascular diseases; S90.821A Blister (nonthermal), right foot, initial encounter; I10 Essential (primary) hypertension; D64.9 Anemia, unspecified; M14.671 Charcot's joint, right ankle and foot; E78.00 Pure hypercholesterolemia, unspecified; I25.10 Atherosclerotic heart disease of native coronary artery without angina pectoris; Z01.810 Encounter for preprocedural cardiovascular examination ==

== ENCOUNTER → 2020-06-05 | Outpatient (CLI) | payer BC | LOC: WCC 15:15 | PROVIDERS: ATTEND Podiatrist Foot & Ankle Surgery | DX: E11.621 Type 2 diabetes mellitus with foot ulcer (principal); E11.65 Type 2 diabetes mellitus with hyperglycemia; L97.426 Non-pressure chronic ulcer of left heel and midfoot with bone involvement without evidence of necrosis; L97.416 Non-pressure chronic ulcer of right heel and midfoot with bone involvement without evidence of necrosis; L97.421 Non-pressure chronic ulcer of left heel and midfoot limited to breakdown of skin; L97.429 Non-pressure chronic ulcer of left heel and midfoot with unspecified severity; L03.116 Cellulitis of left lower limb; L08.9 Local infection of the skin and subcutaneous tissue, unspecified; I73.9 Peripheral vascular disease, unspecified; I73.89 Other specified peripheral vascular diseases; S90.821A Blister (nonthermal), right foot, initial encounter; I10 Essential (primary) hypertension; M14.671 Charcot's joint, right ankle and foot; E78.00 Pure hypercholesterolemia, unspecified; D64.9 Anemia, unspecified; I25.10 Atherosclerotic heart disease of native coronary artery without angina pectoris; Z01.810 Encounter for preprocedural cardiovascular examination ==

== ENCOUNTER → 2020-06-06 | Outpatient (CLI) | payer BC | LOC: MRI 07:34 | PROVIDERS: ATTEND Podiatrist Foot & Ankle Surgery | DX: E11.621 Type 2 diabetes mellitus with foot ulcer (principal); L97.421 Non-pressure chronic ulcer of left heel and midfoot limited to breakdown of skin; Z01.810 Encounter for preprocedural cardiovascular examination; Z01.811 Encounter for preprocedural respiratory examination | CPT/HCPCS: 71046; 93005; 93306 ==

== ENCOUNTER → 2020-06-09 | Outpatient (CLI) | payer BC | LOC: WCC 15:50 | PROVIDERS: ATTEND Internal Medicine Infectious Disease | DX: E11.621 Type 2 diabetes mellitus with foot ulcer (principal); E11.65 Type 2 diabetes mellitus with hyperglycemia; A49.8 Other bacterial infections of unspecified site; L97.416 Non-pressure chronic ulcer of right heel and midfoot with bone involvement without evidence of necrosis; L97.421 Non-pressure chronic ulcer of left heel and midfoot limited to breakdown of skin; L97.426 Non-pressure chronic ulcer of left heel and midfoot with bone involvement without evidence of necrosis; L97.429 Non-pressure chronic ulcer of left heel and midfoot with unspecified severity; I73.9 Peripheral vascular disease, unspecified; L03.116 Cellulitis of left lower limb; M14.671 Charcot's joint, right ankle and foot; M86.172 Other acute osteomyelitis, left ankle and foot; A41.9 Sepsis, unspecified organism; D64.9 Anemia, unspecified; E78.00 Pure hypercholesterolemia, unspecified; I10 Essential (primary) hypertension; I25.10 Atherosclerotic heart disease of native coronary artery without angina pectoris; I73.89 Other specified peripheral vascular diseases; S90.821A Blister (nonthermal), right foot, initial encounter; L08.89 Other specified local infections of the skin and subcutaneous tissue; Y84.8 Other medical procedures as the cause of abnormal reaction of the patient, or of later complication, without mention of misadventure at the time of the procedure; Z01.810 Encounter for preprocedural cardiovascular examination; Z01.811 Encounter for preprocedural respiratory examination; Z74.01 Bed confinement status | CPT/HCPCS: 93005 ==

== ENCOUNTER → 2020-06-10 | Outpatient (CLI) | payer BC | LOC: WCC 06-09 15:56 | PROVIDERS: ATTEND Podiatrist Foot & Ankle Surgery | DX: E11.621 Type 2 diabetes mellitus with foot ulcer (principal); E11.65 Type 2 diabetes mellitus with hyperglycemia; L97.426 Non-pressure chronic ulcer of left heel and midfoot with bone involvement without evidence of necrosis; L97.416 Non-pressure chronic ulcer of right heel and midfoot with bone involvement without evidence of necrosis; L97.421 Non-pressure chronic ulcer of left heel and midfoot limited to breakdown of skin; L97.429 Non-pressure chronic ulcer of left heel and midfoot with unspecified severity; M86.172 Other acute osteomyelitis, left ankle and foot; L03.116 Cellulitis of left lower limb; I73.9 Peripheral vascular disease, unspecified; I73.89 Other specified peripheral vascular diseases; A49.8 Other bacterial infections of unspecified site; M14.671 Charcot's joint, right ankle and foot; E78.00 Pure hypercholesterolemia, unspecified; D64.9 Anemia, unspecified; I10 Essential (primary) hypertension; I25.10 Atherosclerotic heart disease of native coronary artery without angina pectoris; Z01.810 Encounter for preprocedural cardiovascular examination ==

== ENCOUNTER → 2020-06-12 | Outpatient (CLI) | payer BC | LOC: WCC 15:36 | PROVIDERS: ATTEND Podiatrist Foot & Ankle Surgery | DX: E11.621 Type 2 diabetes mellitus with foot ulcer (principal); E11.65 Type 2 diabetes mellitus with hyperglycemia; L97.426 Non-pressure chronic ulcer of left heel and midfoot with bone involvement without evidence of necrosis; M86.172 Other acute osteomyelitis, left ankle and foot; L97.416 Non-pressure chronic ulcer of right heel and midfoot with bone involvement without evidence of necrosis; L97.421 Non-pressure chronic ulcer of left heel and midfoot limited to breakdown of skin; L97.429 Non-pressure chronic ulcer of left heel and midfoot with unspecified severity; L03.116 Cellulitis of left lower limb; I73.9 Peripheral vascular disease, unspecified; I73.89 Other specified peripheral vascular diseases; I10 Essential (primary) hypertension; A49.8 Other bacterial infections of unspecified site; M14.671 Charcot's joint, right ankle and foot; E78.00 Pure hypercholesterolemia, unspecified; D64.9 Anemia, unspecified; I25.10 Atherosclerotic heart disease of native coronary artery without angina pectoris; Z01.810 Encounter for preprocedural cardiovascular examination ==

== ENCOUNTER → 2020-06-16 | Outpatient (CLI) | payer BC | LOC: WCC 16:18 | PROVIDERS: ATTEND Podiatrist Foot & Ankle Surgery | DX: E11.621 Type 2 diabetes mellitus with foot ulcer (principal); E11.65 Type 2 diabetes mellitus with hyperglycemia; L97.429 Non-pressure chronic ulcer of left heel and midfoot with unspecified severity; L97.421 Non-pressure chronic ulcer of left heel and midfoot limited to breakdown of skin; L97.416 Non-pressure chronic ulcer of right heel and midfoot with bone involvement without evidence of necrosis; L97.426 Non-pressure chronic ulcer of left heel and midfoot with bone involvement without evidence of necrosis; M86.172 Other acute osteomyelitis, left ankle and foot; L03.116 Cellulitis of left lower limb; I73.9 Peripheral vascular disease, unspecified; I73.89 Other specified peripheral vascular diseases; A49.8 Other bacterial infections of unspecified site; I10 Essential (primary) hypertension; D64.9 Anemia, unspecified; M14.671 Charcot's joint, right ankle and foot; E78.00 Pure hypercholesterolemia, unspecified; I25.10 Atherosclerotic heart disease of native coronary artery without angina pectoris; Z01.810 Encounter for preprocedural cardiovascular examination ==

== ENCOUNTER → 2020-06-17 | Outpatient (CLI) | payer BC ==
[2020-06-17 15:52] LABS: HEMOGLOBIN 9.3 g/dL (14.0-18.0)
[2020-06-17 16:13] LABS: INR 0.93; PROTHROMBIN TIME 13.1 seconds (11.9-14.5)
[2020-06-17 16:14] LABS: PARTIAL THROMBOPLASTIN TIME 31.1 seconds (23.8-35.5)
== END ==
LOC: DX 15:04
PROVIDERS: ATTEND Internal Medicine Infectious Disease
DX: E11.621 Type 2 diabetes mellitus with foot ulcer (principal); L97.421 Non-pressure chronic ulcer of left heel and midfoot limited to breakdown of skin; M86.172 Other acute osteomyelitis, left ankle and foot
CPT/HCPCS: 36415; 36569; 71045; 85014; 85049; 85610; 85730

== ENCOUNTER → 2020-06-18 | Outpatient (CLI) | payer BC | LOC: WCC 16:13 | PROVIDERS: ATTEND Podiatrist Foot & Ankle Surgery | DX: E11.621 Type 2 diabetes mellitus with foot ulcer (principal); E11.65 Type 2 diabetes mellitus with hyperglycemia; Y84.8 Other medical procedures as the cause of abnormal reaction of the patient, or of later complication, without mention of misadventure at the time of the procedure; L97.429 Non-pressure chronic ulcer of left heel and midfoot with unspecified severity; L97.421 Non-pressure chronic ulcer of left heel and midfoot limited to breakdown of skin; L97.416 Non-pressure chronic ulcer of right heel and midfoot with bone involvement without evidence of necrosis; L97.426 Non-pressure chronic ulcer of left heel and midfoot with bone involvement without evidence of necrosis; M86.172 Other acute osteomyelitis, left ankle and foot; L03.116 Cellulitis of left lower limb; L08.9 Local infection of the skin and subcutaneous tissue, unspecified; I73.9 Peripheral vascular disease, unspecified; I73.89 Other specified peripheral vascular diseases; S90.821A Blister (nonthermal), right foot, initial encounter; I10 Essential (primary) hypertension; A49.8 Other bacterial infections of unspecified site; M14.671 Charcot's joint, right ankle and foot; E78.00 Pure hypercholesterolemia, unspecified; D64.9 Anemia, unspecified; I25.10 Atherosclerotic heart disease of native coronary artery without angina pectoris; A41.9 Sepsis, unspecified organism; Z01.810 Encounter for preprocedural cardiovascular examination; Z01.811 Encounter for preprocedural respiratory examination; Z74.01 Bed confinement status ==

== ENCOUNTER → 2020-06-19 | Outpatient (CLI) | payer BC | LOC: WCC 13:57 | PROVIDERS: ATTEND Podiatrist Foot & Ankle Surgery | DX: E11.621 Type 2 diabetes mellitus with foot ulcer (principal); E11.65 Type 2 diabetes mellitus with hyperglycemia; A41.9 Sepsis, unspecified organism; M86.172 Other acute osteomyelitis, left ankle and foot; L97.416 Non-pressure chronic ulcer of right heel and midfoot with bone involvement without evidence of necrosis; L97.426 Non-pressure chronic ulcer of left heel and midfoot with bone involvement without evidence of necrosis; L97.421 Non-pressure chronic ulcer of left heel and midfoot limited to breakdown of skin; L97.429 Non-pressure chronic ulcer of left heel and midfoot with unspecified severity; L03.116 Cellulitis of left lower limb; L08.89 Other specified local infections of the skin and subcutaneous tissue; S90.821A Blister (nonthermal), right foot, initial encounter; I73.9 Peripheral vascular disease, unspecified; I73.89 Other specified peripheral vascular diseases; I10 Essential (primary) hypertension; D64.9 Anemia, unspecified; A49.8 Other bacterial infections of unspecified site; M14.671 Charcot's joint, right ankle and foot; E78.00 Pure hypercholesterolemia, unspecified; I25.10 Atherosclerotic heart disease of native coronary artery without angina pectoris; Y84.8 Other medical procedures as the cause of abnormal reaction of the patient, or of later complication, without mention of misadventure at the time of the procedure; Z01.810 Encounter for preprocedural cardiovascular examination; Z01.811 Encounter for preprocedural respiratory examination; Z74.01 Bed confinement status ==

== ENCOUNTER → 2020-06-20 | Outpatient (CLI) | payer BC | LOC: WCC 15:46 | PROVIDERS: ATTEND Podiatrist Foot & Ankle Surgery | DX: E11.621 Type 2 diabetes mellitus with foot ulcer (principal); E11.65 Type 2 diabetes mellitus with hyperglycemia; L97.426 Non-pressure chronic ulcer of left heel and midfoot with bone involvement without evidence of necrosis; L97.416 Non-pressure chronic ulcer of right heel and midfoot with bone involvement without evidence of necrosis; L97.421 Non-pressure chronic ulcer of left heel and midfoot limited to breakdown of skin; L97.429 Non-pressure chronic ulcer of left heel and midfoot with unspecified severity; M86.172 Other acute osteomyelitis, left ankle and foot; L03.116 Cellulitis of left lower limb; I73.9 Peripheral vascular disease, unspecified; I73.89 Other specified peripheral vascular diseases; I10 Essential (primary) hypertension; A49.8 Other bacterial infections of unspecified site; M14.671 Charcot's joint, right ankle and foot; E78.00 Pure hypercholesterolemia, unspecified; D64.9 Anemia, unspecified; I25.10 Atherosclerotic heart disease of native coronary artery without angina pectoris; Z01.810 Encounter for preprocedural cardiovascular examination ==

== ENCOUNTER → 2020-06-23 | Outpatient (CLI) | payer BC | LOC: WCC 01:00 | PROVIDERS: ATTEND Podiatrist Foot & Ankle Surgery | DX: E11.621 Type 2 diabetes mellitus with foot ulcer (principal); E11.65 Type 2 diabetes mellitus with hyperglycemia; A41.9 Sepsis, unspecified organism; M86.172 Other acute osteomyelitis, left ankle and foot; Y84.8 Other medical procedures as the cause of abnormal reaction of the patient, or of later complication, without mention of misadventure at the time of the procedure; L97.429 Non-pressure chronic ulcer of left heel and midfoot with unspecified severity; L97.421 Non-pressure chronic ulcer of left heel and midfoot limited to breakdown of skin; L97.416 Non-pressure chronic ulcer of right heel and midfoot with bone involvement without evidence of necrosis; L97.426 Non-pressure chronic ulcer of left heel and midfoot with bone involvement without evidence of necrosis; L03.116 Cellulitis of left lower limb; I73.9 Peripheral vascular disease, unspecified; I73.89 Other specified peripheral vascular diseases; S90.821A Blister (nonthermal), right foot, initial encounter; L08.9 Local infection of the skin and subcutaneous tissue, unspecified; A49.8 Other bacterial infections of unspecified site; M14.671 Charcot's joint, right ankle and foot; E78.00 Pure hypercholesterolemia, unspecified; D64.9 Anemia, unspecified; I10 Essential (primary) hypertension; I25.10 Atherosclerotic heart disease of native coronary artery without angina pectoris; Z01.811 Encounter for preprocedural respiratory examination; Z01.810 Encounter for preprocedural cardiovascular examination; Z74.01 Bed confinement status ==

== ENCOUNTER → 2020-06-24 | Outpatient (CLI) | payer BC | LOC: WCC 06-23 14:10 | PROVIDERS: ATTEND Podiatrist Foot & Ankle Surgery | DX: E11.621 Type 2 diabetes mellitus with foot ulcer (principal); E11.65 Type 2 diabetes mellitus with hyperglycemia; Y84.8 Other medical procedures as the cause of abnormal reaction of the patient, or of later complication, without mention of misadventure at the time of the procedure; A41.9 Sepsis, unspecified organism; M86.172 Other acute osteomyelitis, left ankle and foot; L97.416 Non-pressure chronic ulcer of right heel and midfoot with bone involvement without evidence of necrosis; L97.421 Non-pressure chronic ulcer of left heel and midfoot limited to breakdown of skin; L97.429 Non-pressure chronic ulcer of left heel and midfoot with unspecified severity; L97.426 Non-pressure chronic ulcer of left heel and midfoot with bone involvement without evidence of necrosis; L03.116 Cellulitis of left lower limb; I73.9 Peripheral vascular disease, unspecified; I73.89 Other specified peripheral vascular diseases; S90.821A Blister (nonthermal), right foot, initial encounter; L08.89 Other specified local infections of the skin and subcutaneous tissue; A49.8 Other bacterial infections of unspecified site; I10 Essential (primary) hypertension; M14.671 Charcot's joint, right ankle and foot; D64.9 Anemia, unspecified; E78.00 Pure hypercholesterolemia, unspecified; I25.10 Atherosclerotic heart disease of native coronary artery without angina pectoris; Z01.810 Encounter for preprocedural cardiovascular examination; Z01.811 Encounter for preprocedural respiratory examination; Z74.01 Bed confinement status | CPT/HCPCS: 11042; 11045; 99211; 99213; G0277 ×2 ==

== ENCOUNTER → 2020-06-25 | Outpatient (CLI) | payer BC | LOC: WCC 15:12 | PROVIDERS: ATTEND Podiatrist Foot & Ankle Surgery | DX: E11.621 Type 2 diabetes mellitus with foot ulcer (principal); E11.65 Type 2 diabetes mellitus with hyperglycemia; Y84.8 Other medical procedures as the cause of abnormal reaction of the patient, or of later complication, without mention of misadventure at the time of the procedure; A41.9 Sepsis, unspecified organism; M86.172 Other acute osteomyelitis, left ankle and foot; L97.416 Non-pressure chronic ulcer of right heel and midfoot with bone involvement without evidence of necrosis; L97.421 Non-pressure chronic ulcer of left heel and midfoot limited to breakdown of skin; L97.429 Non-pressure chronic ulcer of left heel and midfoot with unspecified severity; L03.116 Cellulitis of left lower limb; I73.9 Peripheral vascular disease, unspecified; I73.89 Other specified peripheral vascular diseases; S90.821A Blister (nonthermal), right foot, initial encounter; L08.89 Other specified local infections of the skin and subcutaneous tissue; A49.8 Other bacterial infections of unspecified site; I10 Essential (primary) hypertension; M14.671 Charcot's joint, right ankle and foot; D64.9 Anemia, unspecified; E78.00 Pure hypercholesterolemia, unspecified; I25.10 Atherosclerotic heart disease of native coronary artery without angina pectoris; Z01.810 Encounter for preprocedural cardiovascular examination; Z01.811 Encounter for preprocedural respiratory examination; Z74.01 Bed confinement status | CPT/HCPCS: 97602; 99212; G0277 ==

== ENCOUNTER → 2020-06-26 | Outpatient (CLI) | payer BC | LOC: WCC 15:32 | PROVIDERS: ATTEND Podiatrist Foot & Ankle Surgery | DX: E11.621 Type 2 diabetes mellitus with foot ulcer (principal); E11.65 Type 2 diabetes mellitus with hyperglycemia; M86.172 Other acute osteomyelitis, left ankle and foot; L97.429 Non-pressure chronic ulcer of left heel and midfoot with unspecified severity; L97.421 Non-pressure chronic ulcer of left heel and midfoot limited to breakdown of skin; L97.416 Non-pressure chronic ulcer of right heel and midfoot with bone involvement without evidence of necrosis; I73.89 Other specified peripheral vascular diseases; I73.9 Peripheral vascular disease, unspecified; L03.116 Cellulitis of left lower limb; L08.9 Local infection of the skin and subcutaneous tissue, unspecified; S90.821A Blister (nonthermal), right foot, initial encounter; A49.8 Other bacterial infections of unspecified site; I10 Essential (primary) hypertension; M14.671 Charcot's joint, right ankle and foot; E78.00 Pure hypercholesterolemia, unspecified; D64.9 Anemia, unspecified; I25.10 Atherosclerotic heart disease of native coronary artery without angina pectoris; Z01.810 Encounter for preprocedural cardiovascular examination | CPT/HCPCS: 99213; G0277 ==

== ENCOUNTER → 2020-07-01 | Outpatient (CLI) | payer BC ==
[~2020-07-01] MED LIST changes: +BENICAR20 MG PO; +BROMFENAC SODI1.7 ML; +BYSTOLIC10 MG PO; +CLONIDINE HCL0.1 MG PO; -HUMALOG KW200 UNIT/1; +HUMALOG KW200 UNIT/1 SC; +HUMALOG100 UNIT/1; +HUMALOG100 UNIT/3; +HYDROCHLOROTHIA25 MG PO; +MEROPENEM-1 GM/50 ML IV; +METOPROLOL SUCC50 MG PO; +ferrous sulfate PO; +rosuvastatin PO
== END ==
LOC: WCC 15:23
PROVIDERS: ATTEND Podiatrist Foot & Ankle Surgery
DX: E11.621 Type 2 diabetes mellitus with foot ulcer (principal); E11.65 Type 2 diabetes mellitus with hyperglycemia; Y84.8 Other medical procedures as the cause of abnormal reaction of the patient, or of later complication, without mention of misadventure at the time of the procedure; A41.9 Sepsis, unspecified organism; M86.172 Other acute osteomyelitis, left ankle and foot; L97.416 Non-pressure chronic ulcer of right heel and midfoot with bone involvement without evidence of necrosis; L97.421 Non-pressure chronic ulcer of left heel and midfoot limited to breakdown of skin; L97.429 Non-pressure chronic ulcer of left heel and midfoot with unspecified severity; L03.116 Cellulitis of left lower limb; I73.9 Peripheral vascular disease, unspecified; I73.89 Other specified peripheral vascular diseases; L08.89 Other specified local infections of the skin and subcutaneous tissue; S90.821A Blister (nonthermal), right foot, initial encounter; I10 Essential (primary) hypertension; A49.8 Other bacterial infections of unspecified site; D64.9 Anemia, unspecified; M14.671 Charcot's joint, right ankle and foot; E78.00 Pure hypercholesterolemia, unspecified; I25.10 Atherosclerotic heart disease of native coronary artery without angina pectoris; Z01.810 Encounter for preprocedural cardiovascular examination; Z01.811 Encounter for preprocedural respiratory examination; Z74.01 Bed confinement status

== ENCOUNTER → 2020-07-01 | Outpatient (CLI) | payer BC ==
[~2020-07-01] MED LIST changes: -BENICAR20 MG PO; -BROMFENAC SODI1.7 ML; -BYSTOLIC10 MG PO; -CLONIDINE HCL0.1 MG PO; +HUMALOG KW200 UNIT/1; -HUMALOG KW200 UNIT/1 SC; -HUMALOG100 UNIT/1; -HUMALOG100 UNIT/3; -HYDROCHLOROTHIA25 MG PO; -MEROPENEM-1 GM/50 ML IV; -METOPROLOL SUCC50 MG PO; -ferrous sulfate PO; -rosuvastatin PO
== END ==
LOC: WCC 15:41
PROVIDERS: ATTEND Podiatrist Foot & Ankle Surgery
DX: E11.621 Type 2 diabetes mellitus with foot ulcer (principal); E11.65 Type 2 diabetes mellitus with hyperglycemia; Y84.8 Other medical procedures as the cause of abnormal reaction of the patient, or of later complication, without mention of misadventure at the time of the procedure; A41.9 Sepsis, unspecified organism; M86.172 Other acute osteomyelitis, left ankle and foot; L97.416 Non-pressure chronic ulcer of right heel and midfoot with bone involvement without evidence of necrosis; L97.421 Non-pressure chronic ulcer of left heel and midfoot limited to breakdown of skin; L97.429 Non-pressure chronic ulcer of left heel and midfoot with unspecified severity; L03.116 Cellulitis of left lower limb; I73.9 Peripheral vascular disease, unspecified; I73.89 Other specified peripheral vascular diseases; L08.89 Other specified local infections of the skin and subcutaneous tissue; S90.821A Blister (nonthermal), right foot, initial encounter; A49.8 Other bacterial infections of unspecified site; I10 Essential (primary) hypertension; D64.9 Anemia, unspecified; I25.10 Atherosclerotic heart disease of native coronary artery without angina pectoris; M14.671 Charcot's joint, right ankle and foot; E78.00 Pure hypercholesterolemia, unspecified; Z01.810 Encounter for preprocedural cardiovascular examination; Z01.811 Encounter for preprocedural respiratory examination; Z74.01 Bed confinement status

== ENCOUNTER → 2020-07-02 | Outpatient (CLI) | payer BC | LOC: WCC 16:24 | PROVIDERS: ATTEND Podiatrist Foot & Ankle Surgery | DX: E11.621 Type 2 diabetes mellitus with foot ulcer (principal); E11.65 Type 2 diabetes mellitus with hyperglycemia; A41.9 Sepsis, unspecified organism; Y84.8 Other medical procedures as the cause of abnormal reaction of the patient, or of later complication, without mention of misadventure at the time of the procedure; L97.429 Non-pressure chronic ulcer of left heel and midfoot with unspecified severity; L97.421 Non-pressure chronic ulcer of left heel and midfoot limited to breakdown of skin; L97.416 Non-pressure chronic ulcer of right heel and midfoot with bone involvement without evidence of necrosis; M86.172 Other acute osteomyelitis, left ankle and foot; L03.116 Cellulitis of left lower limb; I73.9 Peripheral vascular disease, unspecified; I73.89 Other specified peripheral vascular diseases; L08.9 Local infection of the skin and subcutaneous tissue, unspecified; S90.821A Blister (nonthermal), right foot, initial encounter; A49.8 Other bacterial infections of unspecified site; I10 Essential (primary) hypertension; M14.671 Charcot's joint, right ankle and foot; E78.00 Pure hypercholesterolemia, unspecified; D64.9 Anemia, unspecified; I25.10 Atherosclerotic heart disease of native coronary artery without angina pectoris; Z74.01 Bed confinement status; Z01.811 Encounter for preprocedural respiratory examination; Z01.810 Encounter for preprocedural cardiovascular examination | CPT/HCPCS: 97602; 99213; G0277 ==

== ENCOUNTER → 2020-07-04 | Outpatient (CLI) | payer BC | LOC: WCC 15:05 | PROVIDERS: ATTEND Podiatrist Foot & Ankle Surgery | DX: E11.621 Type 2 diabetes mellitus with foot ulcer (principal); E11.65 Type 2 diabetes mellitus with hyperglycemia; M86.172 Other acute osteomyelitis, left ankle and foot; L97.429 Non-pressure chronic ulcer of left heel and midfoot with unspecified severity; L97.416 Non-pressure chronic ulcer of right heel and midfoot with bone involvement without evidence of necrosis; L08.9 Local infection of the skin and subcutaneous tissue, unspecified; L03.116 Cellulitis of left lower limb; I73.9 Peripheral vascular disease, unspecified; I73.89 Other specified peripheral vascular diseases; S90.821A Blister (nonthermal), right foot, initial encounter; A49.8 Other bacterial infections of unspecified site; I10 Essential (primary) hypertension; I25.10 Atherosclerotic heart disease of native coronary artery without angina pectoris; D64.9 Anemia, unspecified; M14.671 Charcot's joint, right ankle and foot; E78.00 Pure hypercholesterolemia, unspecified; Z01.810 Encounter for preprocedural cardiovascular examination ==

== ENCOUNTER → 2020-07-07 | Outpatient (CLI) | payer BC | LOC: WCC 15:17 | PROVIDERS: ATTEND Podiatrist Foot & Ankle Surgery | DX: E11.621 Type 2 diabetes mellitus with foot ulcer (principal); E11.65 Type 2 diabetes mellitus with hyperglycemia; A41.9 Sepsis, unspecified organism; M86.172 Other acute osteomyelitis, left ankle and foot; Y84.8 Other medical procedures as the cause of abnormal reaction of the patient, or of later complication, without mention of misadventure at the time of the procedure; L97.416 Non-pressure chronic ulcer of right heel and midfoot with bone involvement without evidence of necrosis; L97.421 Non-pressure chronic ulcer of left heel and midfoot limited to breakdown of skin; L97.429 Non-pressure chronic ulcer of left heel and midfoot with unspecified severity; L03.116 Cellulitis of left lower limb; L08.89 Other specified local infections of the skin and subcutaneous tissue; I73.9 Peripheral vascular disease, unspecified; I73.89 Other specified peripheral vascular diseases; S90.821A Blister (nonthermal), right foot, initial encounter; A49.8 Other bacterial infections of unspecified site; I10 Essential (primary) hypertension; M14.671 Charcot's joint, right ankle and foot; D64.9 Anemia, unspecified; E78.00 Pure hypercholesterolemia, unspecified; I25.10 Atherosclerotic heart disease of native coronary artery without angina pectoris; Z01.810 Encounter for preprocedural cardiovascular examination; Z01.811 Encounter for preprocedural respiratory examination; Z74.01 Bed confinement status | CPT/HCPCS: 97602; 99213; G0277 ==

== ENCOUNTER → 2020-07-08 | Outpatient (CLI) | payer BC | LOC: WCC 15:34 | PROVIDERS: ATTEND Family Medicine Adult Medicine | DX: E11.621 Type 2 diabetes mellitus with foot ulcer (principal); E11.65 Type 2 diabetes mellitus with hyperglycemia; A41.9 Sepsis, unspecified organism; M86.172 Other acute osteomyelitis, left ankle and foot; Y84.8 Other medical procedures as the cause of abnormal reaction of the patient, or of later complication, without mention of misadventure at the time of the procedure; L97.416 Non-pressure chronic ulcer of right heel and midfoot with bone involvement without evidence of necrosis; L97.421 Non-pressure chronic ulcer of left heel and midfoot limited to breakdown of skin; L97.429 Non-pressure chronic ulcer of left heel and midfoot with unspecified severity; L03.116 Cellulitis of left lower limb; I73.9 Peripheral vascular disease, unspecified; S90.821A Blister (nonthermal), right foot, initial encounter; I73.89 Other specified peripheral vascular diseases; L08.89 Other specified local infections of the skin and subcutaneous tissue; A49.8 Other bacterial infections of unspecified site; I10 Essential (primary) hypertension; M14.671 Charcot's joint, right ankle and foot; D64.9 Anemia, unspecified; I25.10 Atherosclerotic heart disease of native coronary artery without angina pectoris; Z01.810 Encounter for preprocedural cardiovascular examination; Z01.811 Encounter for preprocedural respiratory examination | CPT/HCPCS: 97602; 99213; G0277 ==

== ENCOUNTER → 2020-07-10 | Outpatient (CLI) | payer BC | LOC: WCC 14:54 | PROVIDERS: ATTEND Podiatrist Foot & Ankle Surgery | DX: E11.621 Type 2 diabetes mellitus with foot ulcer (principal); E11.65 Type 2 diabetes mellitus with hyperglycemia; A41.9 Sepsis, unspecified organism; M86.172 Other acute osteomyelitis, left ankle and foot; Y84.8 Other medical procedures as the cause of abnormal reaction of the patient, or of later complication, without mention of misadventure at the time of the procedure; L97.416 Non-pressure chronic ulcer of right heel and midfoot with bone involvement without evidence of necrosis; L97.421 Non-pressure chronic ulcer of left heel and midfoot limited to breakdown of skin; L97.429 Non-pressure chronic ulcer of left heel and midfoot with unspecified severity; L03.116 Cellulitis of left lower limb; I73.9 Peripheral vascular disease, unspecified; I73.89 Other specified peripheral vascular diseases; L08.89 Other specified local infections of the skin and subcutaneous tissue; S90.821A Blister (nonthermal), right foot, initial encounter; I10 Essential (primary) hypertension; A49.8 Other bacterial infections of unspecified site; M14.671 Charcot's joint, right ankle and foot; D64.9 Anemia, unspecified; E78.00 Pure hypercholesterolemia, unspecified; I25.10 Atherosclerotic heart disease of native coronary artery without angina pectoris; Z01.810 Encounter for preprocedural cardiovascular examination; Z01.811 Encounter for preprocedural respiratory examination; Z74.01 Bed confinement status ==

== ENCOUNTER 2020-07-15 22:55 | Emergency (ER) | payer BC ==
[~2020-07-15] VITALS: Ht 172.7 cm; Wt 71.7 kg
[2020-07-16] MEDS ORDERED: ACETAMINOPHEN 325 MG TAB PO ONE
[2020-07-16] MEDS ORDERED: VANCOMYCIN 1GM/NS 250 ML 250 ML IV STA (00:03)
[2020-07-16] MEDS ORDERED: CEFEPIME HCL 1GM 1 GM in SODIUM CHLORIDE 0.9% 50ML 50 ML IV STA (00:03)
[2020-07-16] MEDS ORDERED: ACETAMINOPHEN 325 MG TAB ONE (00:05)
[2020-07-16 00:19] LABS: BASOPHILS # (AUTO) 0.1 (0.0-0.1); BASOPHILS % 0.5 % (0.0-1.0); EOSINOPHILS # (AUTO) 0.1 (0.0-0.4); EOSINOPHILS % 0.4 % (0.0-6.0); HEMATOCRIT 30.1 % (38.2-49.6); HEMOGLOBIN 10.1 g/dL (14.0-18.0); LYMPHOCYTES # (AUTO) 1.5 (1.0-3.2); LYMPHOCYTES % 7.1 % (18.0-39.1); MEAN CORPUSCULAR HEMOGLOBIN 28.6 pg (28-32); MEAN CORPUSCULAR HGB CONC 33.6 g/dL (31-35); MEAN CORPUSCULAR VOLUME 85.3 fL (81-99); MONOCYTES # (AUTO) 0.8 (0.2-0.8); NEUTROPHILS # (AUTO) 17.8 (2.1-6.9); NEUTROPHILS % 86.7 % (38.7-80.0); PLATELET COUNT 378 x10e3/uL (140-360); RED BLOOD COUNT 3.53 x10e6/uL (4.3-5.7); RED CELL DISTRIBUTION WIDTH 12.9 % (11.7-14.4)
[2020-07-16 00:39] LABS: ALBUMIN 2.6 g/dL (3.5-5.0); ALBUMIN/GLOBULIN RATIO 0.4 (0.8-2.0); ANION GAP 19.5 mmol/L (8-16); CALCIUM 9.3 mg/dL (8.4-10.2); CREATININE, SERUM 2.56 mg/dL (0.72-1.25); POTASSIUM 4.5 mmol/L (3.5-5.1)
[2020-07-16] MEDS ORDERED: INSULIN REGULAR, HUMAN 100 UNIT/1 ML 3ML VIAL IV ONE (03:15)
== END 2020-07-16 06:30 | disposition other institution (70) ==
LOC: ER 23:57
DX: R50.9 Fever, unspecified (principal); R65.20 Severe sepsis without septic shock; E11.621 Type 2 diabetes mellitus with foot ulcer; E11.65 Type 2 diabetes mellitus with hyperglycemia; I10 Essential (primary) hypertension; E78.5 Hyperlipidemia, unspecified; Z95.5 Presence of coronary angioplasty implant and graft
CPT/HCPCS: 36415; 71045; 80053; 82948; 83605; 85025; 87040; 87071; 87186; 87205; 99284; J0692; J3370; U0002; J1817

== ENCOUNTER → 2020-07-25 | Outpatient (CLI) | payer BC | LOC: WCC 11:25 | PROVIDERS: ATTEND Podiatrist Foot & Ankle Surgery | DX: E11.621 Type 2 diabetes mellitus with foot ulcer (principal); E11.65 Type 2 diabetes mellitus with hyperglycemia; Y84.8 Other medical procedures as the cause of abnormal reaction of the patient, or of later complication, without mention of misadventure at the time of the procedure; A41.9 Sepsis, unspecified organism; M86.172 Other acute osteomyelitis, left ankle and foot; L97.416 Non-pressure chronic ulcer of right heel and midfoot with bone involvement without evidence of necrosis; L97.421 Non-pressure chronic ulcer of left heel and midfoot limited to breakdown of skin; L97.429 Non-pressure chronic ulcer of left heel and midfoot with unspecified severity; L03.116 Cellulitis of left lower limb; I73.9 Peripheral vascular disease, unspecified; I73.89 Other specified peripheral vascular diseases; S90.821A Blister (nonthermal), right foot, initial encounter; L08.89 Other specified local infections of the skin and subcutaneous tissue; A49.8 Other bacterial infections of unspecified site; I10 Essential (primary) hypertension; I25.10 Atherosclerotic heart disease of native coronary artery without angina pectoris; D64.9 Anemia, unspecified; E78.00 Pure hypercholesterolemia, unspecified; M14.671 Charcot's joint, right ankle and foot; Z01.810 Encounter for preprocedural cardiovascular examination; Z01.811 Encounter for preprocedural respiratory examination; Z74.01 Bed confinement status ==

== ENCOUNTER → 2020-07-28 | Outpatient (CLI) | payer BC | LOC: WCC 11:50 | PROVIDERS: ATTEND Podiatrist Foot & Ankle Surgery | DX: E11.621 Type 2 diabetes mellitus with foot ulcer (principal); E11.65 Type 2 diabetes mellitus with hyperglycemia; Y84.8 Other medical procedures as the cause of abnormal reaction of the patient, or of later complication, without mention of misadventure at the time of the procedure; A41.9 Sepsis, unspecified organism; M86.172 Other acute osteomyelitis, left ankle and foot; L97.421 Non-pressure chronic ulcer of left heel and midfoot limited to breakdown of skin; L97.429 Non-pressure chronic ulcer of left heel and midfoot with unspecified severity; L97.416 Non-pressure chronic ulcer of right heel and midfoot with bone involvement without evidence of necrosis; L03.116 Cellulitis of left lower limb; I73.9 Peripheral vascular disease, unspecified; I73.89 Other specified peripheral vascular diseases; S90.821A Blister (nonthermal), right foot, initial encounter; L08.9 Local infection of the skin and subcutaneous tissue, unspecified; A49.8 Other bacterial infections of unspecified site; D64.9 Anemia, unspecified; I10 Essential (primary) hypertension; I25.10 Atherosclerotic heart disease of native coronary artery without angina pectoris; E78.00 Pure hypercholesterolemia, unspecified; M14.672 Charcot's joint, left ankle and foot; Z74.01 Bed confinement status; Z01.810 Encounter for preprocedural cardiovascular examination; Z01.811 Encounter for preprocedural respiratory examination ==

== ENCOUNTER → 2020-07-29 | Outpatient (CLI) | payer BC | LOC: WCC 13:22 | PROVIDERS: ATTEND Podiatrist Foot & Ankle Surgery | DX: E11.621 Type 2 diabetes mellitus with foot ulcer (principal); E11.65 Type 2 diabetes mellitus with hyperglycemia; Y84.8 Other medical procedures as the cause of abnormal reaction of the patient, or of later complication, without mention of misadventure at the time of the procedure; A41.9 Sepsis, unspecified organism; M86.172 Other acute osteomyelitis, left ankle and foot; L97.416 Non-pressure chronic ulcer of right heel and midfoot with bone involvement without evidence of necrosis; L97.421 Non-pressure chronic ulcer of left heel and midfoot limited to breakdown of skin; L97.429 Non-pressure chronic ulcer of left heel and midfoot with unspecified severity; A49.8 Other bacterial infections of unspecified site; L03.116 Cellulitis of left lower limb; I73.9 Peripheral vascular disease, unspecified; I73.89 Other specified peripheral vascular diseases; S90.821A Blister (nonthermal), right foot, initial encounter; L08.89 Other specified local infections of the skin and subcutaneous tissue; I10 Essential (primary) hypertension; I25.10 Atherosclerotic heart disease of native coronary artery without angina pectoris; D64.9 Anemia, unspecified; E78.00 Pure hypercholesterolemia, unspecified; M14.671 Charcot's joint, right ankle and foot; Z01.810 Encounter for preprocedural cardiovascular examination; Z01.811 Encounter for preprocedural respiratory examination; Z74.01 Bed confinement status ==

== ENCOUNTER → 2020-07-30 | Outpatient (CLI) | payer BC ==
[~2020-07-30] MED LIST changes: +MINERAL OIL/PETROLAT/GLYCERI 6OZ BTL ONE; +TRYPSIN/BALSAM PERU/CASTOR OIL ONE
== END ==
LOC: WCC 09:48
PROVIDERS: ATTEND Podiatrist Foot & Ankle Surgery
DX: E11.621 Type 2 diabetes mellitus with foot ulcer (principal); E11.65 Type 2 diabetes mellitus with hyperglycemia; Y84.8 Other medical procedures as the cause of abnormal reaction of the patient, or of later complication, without mention of misadventure at the time of the procedure; A41.9 Sepsis, unspecified organism; M86.172 Other acute osteomyelitis, left ankle and foot; L97.421 Non-pressure chronic ulcer of left heel and midfoot limited to breakdown of skin; L97.429 Non-pressure chronic ulcer of left heel and midfoot with unspecified severity; L97.416 Non-pressure chronic ulcer of right heel and midfoot with bone involvement without evidence of necrosis; I73.9 Peripheral vascular disease, unspecified; I73.89 Other specified peripheral vascular diseases; L03.116 Cellulitis of left lower limb; A49.8 Other bacterial infections of unspecified site; S90.821A Blister (nonthermal), right foot, initial encounter; L08.9 Local infection of the skin and subcutaneous tissue, unspecified; I10 Essential (primary) hypertension; D64.9 Anemia, unspecified; I25.10 Atherosclerotic heart disease of native coronary artery without angina pectoris; E78.00 Pure hypercholesterolemia, unspecified; M14.671 Charcot's joint, right ankle and foot; Z74.01 Bed confinement status; Z01.810 Encounter for preprocedural cardiovascular examination; Z01.811 Encounter for preprocedural respiratory examination
CPT/HCPCS: 36415; 82948

== ENCOUNTER → 2020-07-31 | Outpatient (CLI) | payer BC ==
[~2020-07-31] MED LIST changes: -MINERAL OIL/PETROLAT/GLYCERI 6OZ BTL ONE; -TRYPSIN/BALSAM PERU/CASTOR OIL ONE
== END ==
LOC: WCC 08:16
PROVIDERS: ATTEND Podiatrist Foot & Ankle Surgery
DX: E11.621 Type 2 diabetes mellitus with foot ulcer (principal); E11.65 Type 2 diabetes mellitus with hyperglycemia; M86.172 Other acute osteomyelitis, left ankle and foot; L97.416 Non-pressure chronic ulcer of right heel and midfoot with bone involvement without evidence of necrosis; L97.421 Non-pressure chronic ulcer of left heel and midfoot limited to breakdown of skin; L97.429 Non-pressure chronic ulcer of left heel and midfoot with unspecified severity; L03.116 Cellulitis of left lower limb; I73.9 Peripheral vascular disease, unspecified; I73.89 Other specified peripheral vascular diseases; A49.8 Other bacterial infections of unspecified site; I10 Essential (primary) hypertension; E78.00 Pure hypercholesterolemia, unspecified; D64.9 Anemia, unspecified; M14.671 Charcot's joint, right ankle and foot; Z01.811 Encounter for preprocedural respiratory examination
CPT/HCPCS: 99213; G0277

== ENCOUNTER → 2020-08-04 | Outpatient (CLI) | payer BC ==
[~2020-08-04] MED LIST changes: +BENICAR20 MG PO; +BROMFENAC SODI1.7 ML; +BYSTOLIC10 MG PO; +CLONIDINE HCL0.1 MG PO; -HUMALOG KW200 UNIT/1; +HUMALOG KW200 UNIT/1 SC; +HUMALOG100 UNIT/1; +HUMALOG100 UNIT/3; +HYDROCHLOROTHIA25 MG PO; +MEROPENEM-1 GM/50 ML IV; +METOPROLOL SUCC50 MG PO; +ferrous sulfate PO; +rosuvastatin PO
== END ==
LOC: WCC 09:18
PROVIDERS: ATTEND Podiatrist Foot & Ankle Surgery
DX: E11.621 Type 2 diabetes mellitus with foot ulcer (principal); E11.65 Type 2 diabetes mellitus with hyperglycemia; Y84.8 Other medical procedures as the cause of abnormal reaction of the patient, or of later complication, without mention of misadventure at the time of the procedure; A41.9 Sepsis, unspecified organism; M86.172 Other acute osteomyelitis, left ankle and foot; L97.421 Non-pressure chronic ulcer of left heel and midfoot limited to breakdown of skin; L97.429 Non-pressure chronic ulcer of left heel and midfoot with unspecified severity; L97.416 Non-pressure chronic ulcer of right heel and midfoot with bone involvement without evidence of necrosis; L03.116 Cellulitis of left lower limb; S90.821A Blister (nonthermal), right foot, initial encounter; I73.9 Peripheral vascular disease, unspecified; L08.9 Local infection of the skin and subcutaneous tissue, unspecified; A49.8 Other bacterial infections of unspecified site; I10 Essential (primary) hypertension; M14.671 Charcot's joint, right ankle and foot; I73.89 Other specified peripheral vascular diseases; D64.9 Anemia, unspecified; E78.00 Pure hypercholesterolemia, unspecified; I25.10 Atherosclerotic heart disease of native coronary artery without angina pectoris; Z01.810 Encounter for preprocedural cardiovascular examination; Z01.811 Encounter for preprocedural respiratory examination; Z74.01 Bed confinement status
CPT/HCPCS: 99213; G0277

== ENCOUNTER → 2020-08-05 | Outpatient (CLI) | payer BC | LOC: WCC 13:42 | PROVIDERS: ATTEND Podiatrist Foot & Ankle Surgery | DX: E11.621 Type 2 diabetes mellitus with foot ulcer (principal); E11.65 Type 2 diabetes mellitus with hyperglycemia; Y84.8 Other medical procedures as the cause of abnormal reaction of the patient, or of later complication, without mention of misadventure at the time of the procedure; L97.416 Non-pressure chronic ulcer of right heel and midfoot with bone involvement without evidence of necrosis; L97.421 Non-pressure chronic ulcer of left heel and midfoot limited to breakdown of skin; L97.429 Non-pressure chronic ulcer of left heel and midfoot with unspecified severity; A41.9 Sepsis, unspecified organism; M86.172 Other acute osteomyelitis, left ankle and foot; L03.116 Cellulitis of left lower limb; S90.821A Blister (nonthermal), right foot, initial encounter; I73.9 Peripheral vascular disease, unspecified; I73.89 Other specified peripheral vascular diseases; A49.8 Other bacterial infections of unspecified site; L08.89 Other specified local infections of the skin and subcutaneous tissue; I10 Essential (primary) hypertension; M14.671 Charcot's joint, right ankle and foot; D64.9 Anemia, unspecified; E78.00 Pure hypercholesterolemia, unspecified; I25.10 Atherosclerotic heart disease of native coronary artery without angina pectoris; Z01.810 Encounter for preprocedural cardiovascular examination; Z01.811 Encounter for preprocedural respiratory examination; Z74.01 Bed confinement status ==

== ENCOUNTER 2020-08-07 09:23 | Inpatient (IN) | payer BC ==
[~2020-08-07] VITALS: Ht 172.7 cm; Wt 71.7 kg
[~2020-08-07 09:23] MED LIST changes: -BENICAR20 MG PO; -BROMFENAC SODI1.7 ML; -BYSTOLIC10 MG PO; -CLONIDINE HCL0.1 MG PO; -HUMALOG100 UNIT/1; -HUMALOG100 UNIT/3; -HYDROCHLOROTHIA25 MG PO; -MEROPENEM-1 GM/50 ML IV; -METOPROLOL SUCC50 MG PO; -ferrous sulfate PO; -rosuvastatin PO
[2020-08-07] MEDS ORDERED: MORPHINE SULFATE INJ 4 MG/ML INJ 1ML IV PRN (09:45)
[2020-08-07] MEDS ORDERED: ONDANSETRON HCL INJ 2MG/ML 2ML 2 MG/ML VIAL IV PRN ×2 (09:45→11:45)
[2020-08-07 10:03] LABS: BASOPHILS # (AUTO) 0.1 (0.0-0.1); BASOPHILS % 0.8 % (0.0-1.0); EOSINOPHILS # (AUTO) 0.4 (0.0-0.4); EOSINOPHILS % 4.5 % (0.0-6.0); HEMATOCRIT 23.8 % (38.2-49.6); HEMOGLOBIN 7.6 g/dL (14.0-18.0); LYMPHOCYTES # (AUTO) 1.3 (1.0-3.2); LYMPHOCYTES % 17.1 % (18.0-39.1); MEAN CORPUSCULAR HEMOGLOBIN 28.1 pg (28-32); MEAN CORPUSCULAR HGB CONC 31.9 g/dL (31-35); MEAN CORPUSCULAR VOLUME 88.1 fL (81-99); MONOCYTES # (AUTO) 0.5 (0.2-0.8); MONOCYTES % 6.8 % (4.4-11.3); NEUTROPHILS # (AUTO) 5.4 (2.1-6.9); NEUTROPHILS % 70.3 % (38.7-80.0); PLATELET COUNT 255 x10e3/uL (140-360); RED CELL DISTRIBUTION WIDTH 13.7 % (11.7-14.4)
[2020-08-07 10:27] LABS: ALBUMIN 2.6 g/dL (3.5-5.0); ALBUMIN/GLOBULIN RATIO 0.5 (0.8-2.0); ANION GAP 14.3 mmol/L (8-16); CALCIUM 8.6 mg/dL (8.4-10.2); CREATININE, SERUM 1.75 mg/dL (0.72-1.25); POTASSIUM 5.3 mmol/L (3.5-5.1)
[2020-08-07] MEDS: SODIUM CHLORIDE 0.9% 1000ML 1,000 ML IV SCH ×2 (10:29→21:11)
[2020-08-07] MEDS ORDERED: rosuvastatin PO (10:34)
[2020-08-07] MEDS ORDERED: CLONIDINE HCL0.1 MG PO (10:36)
[2020-08-07] MEDS ORDERED: METOPROLOL SUCC50 MG PO (10:40)
[2020-08-07] MEDS ORDERED: ferrous sulfate PO (10:40)
[2020-08-07] MEDS ORDERED: BENICAR20 MG PO (10:40)
[2020-08-07] MEDS ORDERED: MEROPENEM-1 GM/50 ML IV (10:43)
[2020-08-07] MEDS ORDERED: HUMALOG100 UNIT/1 (10:43)
[2020-08-07] MEDS ORDERED: HUMALOG100 UNIT/3 (10:43)
[2020-08-07] MEDS ORDERED: DEXTROSE 50% SYRINGE 50 ML IV PRN ×2 (11:45)
[2020-08-07] MEDS ORDERED: DOCUSATE SODIUM 100 MG CAP PO PRN (11:45)
[2020-08-07] MEDS ORDERED: ACETAMINOPHEN 325 MG TAB PO PRN (11:45)
[2020-08-07] MEDS ORDERED: BENZONATATE 100 MG CAP PO PRN (11:45)
[2020-08-07] MEDS ORDERED: ALBUTEROL/IPRATROPIUM 3 ML NEB NEB PRN (11:45)
[2020-08-07] MEDS ORDERED: HYDROCODONE/APAP 5MG-325MG TAB PO PRN (11:45)
[2020-08-07] MEDS ORDERED: DIPHENHYDRAMINE HCL 25 MG CAP PO PRN (11:45)
[2020-08-07] MEDS ORDERED: POTASSIUM CHLORIDE 20 MEQ TAB CR PO PRN (11:45)
[2020-08-07 12:17] VITALS: BP 174/90
[2020-08-07 16:10] VITALS: BP 157/91
[2020-08-07] MEDS ORDERED: ENOXAPARIN SOD INJ 40 MG/0.4 ML SYR SC SCH (17:00)
[2020-08-07] MEDS ORDERED: MEROPENEM 1GM 100 ML IV SCH (17:15)
[2020-08-07] MEDS ORDERED: BYSTOLIC10 MG PO (17:38)
[2020-08-07] MEDS ORDERED: BROMFENAC SODI1.7 ML (17:43)
[2020-08-07] MEDS ORDERED: HYDROCHLOROTHIA25 MG PO (17:43)
[2020-08-07] MEDS ORDERED: TRADJENTA5 MG PO (17:47)
[2020-08-07 18:47] VITALS: BP 157/91
[2020-08-07 20:24] VITALS: BP 169/89
[2020-08-07] MEDS ORDERED: MELATONIN 5 MG TABLET PO PRN (21:00)
[2020-08-07] MEDS ORDERED: MEROPENEM 1GRAM 1 GM in SODIUM CHLORIDE 0.9% 100 ML 100 ML IV SCH (21:00)
[2020-08-07] MEDS: MEROPENEM 1GM 100 ML IV SCH (21:11)
[2020-08-07 21:45] VITALS: BP 169/89
[2020-08-08] VITALS (12 sets, daily range): BP systolic 126–171; BP diastolic 77–100
[2020-08-08] MEDS: SODIUM CHLORIDE 0.9% 1000ML 1,000 ML IV SCH ×2 (05:33→09:45)
[2020-08-08 05:44] LABS: BASOPHILS % 0.7 % (0.0-1.0); EOSINOPHILS # (AUTO) 0.4 (0.0-0.4); EOSINOPHILS % 6.2 % (0.0-6.0); LYMPHOCYTES # (AUTO) 1.6 (1.0-3.2); MEAN CORPUSCULAR HEMOGLOBIN 27.7 pg (28-32); MEAN CORPUSCULAR HGB CONC 31.5 g/dL (31-35); MEAN CORPUSCULAR VOLUME 87.9 fL (81-99); MONOCYTES # (AUTO) 0.5 (0.2-0.8); MONOCYTES % 8.5 % (4.4-11.3); NEUTROPHILS # (AUTO) 3.2 (2.1-6.9); NEUTROPHILS % 55.9 % (38.7-80.0); PLATELET COUNT 209 x10e3/uL (140-360); RED BLOOD COUNT 2.31 x10e6/uL (4.3-5.7); RED CELL DISTRIBUTION WIDTH 13.7 % (11.7-14.4)
[2020-08-08 05:56] LABS: HEMATOCRIT 20.3 % (38.2-49.6); HEMOGLOBIN 6.4 g/dL (14.0-18.0)
[2020-08-08 06:00] LABS: ALBUMIN 2.2 g/dL (3.5-5.0); ALBUMIN/GLOBULIN RATIO 0.5 (0.8-2.0); ANION GAP 11.9 mmol/L (8-16); CALCIUM 8.2 mg/dL (8.4-10.2); CREATININE, SERUM 1.35 mg/dL (0.72-1.25); POTASSIUM 4.9 mmol/L (3.5-5.1)
[2020-08-08 06:15] LABS: MAGNESIUM 1.9 MG/DL (1.3-2.1); PHOSPHORUS 4.8 MG/DL (2.3-4.7)
[2020-08-08] MEDS ORDERED: SODIUM CHLORIDE 0.9% 250ML 250 ML IV ONE (06:45)
[2020-08-08] MEDS: PANTOPRAZOLE SOD 40 MG TABEC PO SCH (07:30)
[2020-08-08] MEDS: MEROPENEM 1GM 100 ML IV SCH ×2 (08:41→20:39)
[2020-08-08] MEDS: OLMESARTAN 20 MG TAB PO SCH (09:00)
[2020-08-08] MEDS: METOPROLOL SUCCINATE 50 MG TAB XL PO SCH (09:00)
[2020-08-08] MEDS ORDERED: SODIUM CHLORIDE 0.9% 250ML 250 ML ONE ×3 (12:25→20:49)
[2020-08-08] MEDS ORDERED: EPHEDRINE SULFATE INJ 50 MG/ML VIAL ONE (13:34)
[2020-08-08] MEDS ORDERED: PROPOFOL IV EMULSION 10 MG/ML 20 ML VIAL ONE (13:34)
[2020-08-08] MEDS ORDERED: POVIDONE IODINE 0.05% 0.05 % ML PO ONE (13:34)
[2020-08-08] MEDS ORDERED: SEVOFLURANE INHAL SOLN 250 ML PEN BTL ONE (13:34)
[2020-08-08] MEDS ORDERED: LIDOCAINE HCL 2% LOCAL INJ 5 ML SDV VIAL INJ ONE (13:34)
[2020-08-08] MEDS ORDERED: ONDANSETRON HCL INJ 2MG/ML 2ML 2 MG/ML VIAL ONE (13:34)
[2020-08-08] MEDS ORDERED: METOCLOPRAMIDE HCL 10 MG/2ML VIAL ONE (13:34)
[2020-08-08] MEDS ORDERED: FENTANYL CITRATE/PF 100MCG/2 ML INJ ONE ×2 (13:39→15:47)
[2020-08-08] MEDS ORDERED: MIDAZOLAM HCL 2 MG/2 ML VIAL ONE (13:39)
[2020-08-08] MEDS ORDERED: HYDROCODONE/APAP 7.5MG-325MG 1 EA TAB PO PRN (15:15)
[2020-08-08] MEDS ORDERED: ACETAMINOPHEN 1000 MG/100 ML IV PRN (15:15)
[2020-08-08] MEDS ORDERED: LABETALOL HCL 20 ML ONE (15:24)
[2020-08-08] MEDS ORDERED: HYDRALAZINE HCL 20 MG/ML VIAL ONE (16:20)
[2020-08-08] MEDS ORDERED: HYDROMORPHONE 2MG/ML 2 MG/ML ML ONE (16:28)
[2020-08-08] MEDS: HYDROMORPHONE 1MG/1ML INJ IV PRN ×2 (17:37→20:49)
[2020-08-08] MEDS: HYDRALAZINE HCL 20 MG/ML VIAL IV PRN (18:10)
[2020-08-08 20:22] LABS: HEMATOCRIT 27.4 % (38.2-49.6); HEMOGLOBIN 8.8 g/dL (14.0-18.0)
[2020-08-09] VITALS (7 sets, daily range): BP systolic 131–172; BP diastolic 67–96
[2020-08-09] MEDS: HYDRALAZINE HCL 20 MG/ML VIAL IV PRN (00:33)
[2020-08-09] MEDS: HYDROMORPHONE 1MG/1ML INJ IV PRN ×6 (02:33→21:05)
[2020-08-09 05:52] LABS: BASOPHILS # (AUTO) 0.1 (0.0-0.1); BASOPHILS % 0.7 % (0.0-1.0); EOSINOPHILS # (AUTO) 0.1 (0.0-0.4); EOSINOPHILS % 1.1 % (0.0-6.0); HEMATOCRIT 25.9 % (38.2-49.6); HEMOGLOBIN 8.5 g/dL (14.0-18.0); LYMPHOCYTES % 11.7 % (18.0-39.1); MEAN CORPUSCULAR HEMOGLOBIN 28.4 pg (28-32); MEAN CORPUSCULAR HGB CONC 32.8 g/dL (31-35); MEAN CORPUSCULAR VOLUME 86.6 fL (81-99); MONOCYTES # (AUTO) 0.6 (0.2-0.8); MONOCYTES % 6.6 % (4.4-11.3); NEUTROPHILS # (AUTO) 6.6 (2.1-6.9); NEUTROPHILS % 79.5 % (38.7-80.0); PLATELET COUNT 215 x10e3/uL (140-360); RED BLOOD COUNT 2.99 x10e6/uL (4.3-5.7)
[2020-08-09 06:19] LABS: ANION GAP 13.1 mmol/L (8-16); CALCIUM 8.3 mg/dL (8.4-10.2); CREATININE, SERUM 1.3 mg/dL (0.72-1.25); POTASSIUM 5.1 mmol/L (3.5-5.1)
[2020-08-09] MEDS: PANTOPRAZOLE SOD 40 MG TABEC PO SCH (07:30)
[2020-08-09] MEDS: OLMESARTAN 20 MG TAB PO SCH (09:00)
[2020-08-09] MEDS: CRESTOR 10MG PO SCH (09:00)
[2020-08-09] MEDS: METOPROLOL SUCCINATE 50 MG TAB XL PO SCH (09:00)
[2020-08-09] MEDS: MEROPENEM 1GM 100 ML IV SCH ×2 (09:00→20:55)
[2020-08-09] MEDS ORDERED: NEBIVOLOL 10 MG TAB PO SCH (09:00)
[2020-08-09 09:28] LABS: BASOPHILS % 0.5 % (0.0-1.0); EOSINOPHILS # (AUTO) 0.1 (0.0-0.4); EOSINOPHILS % 0.9 % (0.0-6.0); HEMATOCRIT 26.4 % (38.2-49.6); HEMOGLOBIN 8.5 g/dL (14.0-18.0); LYMPHOCYTES # (AUTO) 0.7 (1.0-3.2); LYMPHOCYTES % 9.2 % (18.0-39.1); MEAN CORPUSCULAR HEMOGLOBIN 28.1 pg (28-32); MEAN CORPUSCULAR HGB CONC 32.2 g/dL (31-35); MEAN CORPUSCULAR VOLUME 87.4 fL (81-99); MONOCYTES # (AUTO) 0.6 (0.2-0.8); NEUTROPHILS # (AUTO) 6.5 (2.1-6.9); NEUTROPHILS % 82.1 % (38.7-80.0); PLATELET COUNT 221 x10e3/uL (140-360); RED BLOOD COUNT 3.02 x10e6/uL (4.3-5.7); RED CELL DISTRIBUTION WIDTH 14.2 % (11.7-14.4)
[2020-08-09 09:48] LABS: ANION GAP 11.5 mmol/L (8-16); CALCIUM 8.1 mg/dL (8.4-10.2); CREATININE, SERUM 1.32 mg/dL (0.72-1.25)
[2020-08-09 09:50] LABS: POTASSIUM 5.5 mmol/L (3.5-5.1)
[2020-08-09] MEDS ORDERED: DEXTROSE 50% SYRINGE 50 ML IV PRN (11:15)
[2020-08-09] MEDS ORDERED: SOD POLYSTYRENE SULFONATE SUSP 15 GM/60 ML BTL PO NR (11:15)
[2020-08-09] MEDS: INSULIN LISPRO 100 UNIT/1 ML 3ML VIAL SQ SCH ×3 (11:24→20:56)
[2020-08-09] MEDS ORDERED: FUROSEMIDE INJ 10 MG/ML 4 ML VIAL IV NR (13:00)
[2020-08-10] VITALS (7 sets, daily range): BP systolic 134–164; BP diastolic 77–94
[2020-08-10] MEDS: HYDROMORPHONE 1MG/1ML INJ IV PRN ×4 (03:36→21:48)
[2020-08-10 06:52] LABS: BASOPHILS # (AUTO) 0.1 (0.0-0.1); BASOPHILS % 0.6 % (0.0-1.0); EOSINOPHILS # (AUTO) 0.2 (0.0-0.4); EOSINOPHILS % 2.5 % (0.0-6.0); HEMATOCRIT 24.5 % (38.2-49.6); HEMOGLOBIN 7.9 g/dL (14.0-18.0); LYMPHOCYTES # (AUTO) 1.5 (1.0-3.2); LYMPHOCYTES % 17.7 % (18.0-39.1); MEAN CORPUSCULAR HEMOGLOBIN 28.4 pg (28-32); MEAN CORPUSCULAR HGB CONC 32.2 g/dL (31-35); MEAN CORPUSCULAR VOLUME 88.1 fL (81-99); MONOCYTES # (AUTO) 0.7 (0.2-0.8); MONOCYTES % 8.5 % (4.4-11.3); NEUTROPHILS # (AUTO) 5.8 (2.1-6.9); NEUTROPHILS % 70.2 % (38.7-80.0); PLATELET COUNT 201 x10e3/uL (140-360); RED BLOOD COUNT 2.78 x10e6/uL (4.3-5.7); RED CELL DISTRIBUTION WIDTH 14.1 % (11.7-14.4)
[2020-08-10 07:10] LABS: ANION GAP 13.8 mmol/L (8-16); CALCIUM 8.2 mg/dL (8.4-10.2); CREATININE, SERUM 1.39 mg/dL (0.72-1.25); POTASSIUM 4.8 mmol/L (3.5-5.1)
[2020-08-10] MEDS: INSULIN LISPRO 100 UNIT/1 ML 3ML VIAL SQ SCH ×4 (07:30→21:00)
[2020-08-10] MEDS: PANTOPRAZOLE SOD 40 MG TABEC PO SCH (07:30)
[2020-08-10] MEDS: OLMESARTAN 20 MG TAB PO SCH (09:00)
[2020-08-10] MEDS: CRESTOR 10MG PO SCH (09:00)
[2020-08-10] MEDS: MEROPENEM 1GM 100 ML IV SCH (09:00)
[2020-08-10] MEDS: METOPROLOL SUCCINATE 50 MG TAB XL PO SCH (09:00)
[2020-08-10] MEDS: ENOXAPARIN SOD INJ 40 MG/0.4 ML SYR SC SCH (16:32)
[2020-08-11] VITALS (10 sets, daily range): BP systolic 153–170; BP diastolic 84–99
[2020-08-11 04:43] LABS: BASOPHILS # (AUTO) 0.1 (0.0-0.1); BASOPHILS % 0.6 % (0.0-1.0); EOSINOPHILS # (AUTO) 0.3 (0.0-0.4); HEMATOCRIT 24.9 % (38.2-49.6); LYMPHOCYTES # (AUTO) 1.4 (1.0-3.2); LYMPHOCYTES % 16.3 % (18.0-39.1); MEAN CORPUSCULAR HEMOGLOBIN 28.2 pg (28-32); MEAN CORPUSCULAR HGB CONC 32.1 g/dL (31-35); MEAN CORPUSCULAR VOLUME 87.7 fL (81-99); MONOCYTES # (AUTO) 0.6 (0.2-0.8); MONOCYTES % 6.8 % (4.4-11.3); NEUTROPHILS # (AUTO) 6.3 (2.1-6.9); NEUTROPHILS % 73.1 % (38.7-80.0); PLATELET COUNT 215 x10e3/uL (140-360); RED BLOOD COUNT 2.84 x10e6/uL (4.3-5.7); RED CELL DISTRIBUTION WIDTH 13.7 % (11.7-14.4)
[2020-08-11 05:09] LABS: ANION GAP 13.2 mmol/L (8-16); CALCIUM 8.4 mg/dL (8.4-10.2); CREATININE, SERUM 1.37 mg/dL (0.72-1.25); POTASSIUM 4.2 mmol/L (3.5-5.1)
[2020-08-11] MEDS: INSULIN LISPRO 100 UNIT/1 ML 3ML VIAL SQ SCH ×4 (07:30→21:00)
[2020-08-11] MEDS ORDERED: AMLODIPINE BESYLATE 5 MG TAB PO SCH (09:00)
[2020-08-11] MEDS: PANTOPRAZOLE SOD 40 MG TABEC PO SCH (09:07)
[2020-08-11] MEDS: OLMESARTAN 20 MG TAB PO SCH (09:07)
[2020-08-11] MEDS: CRESTOR 10MG PO SCH (09:07)
[2020-08-11] MEDS: METOPROLOL SUCCINATE 50 MG TAB XL PO SCH (09:07)
[2020-08-11] MEDS: ENOXAPARIN SOD INJ 40 MG/0.4 ML SYR SC SCH (17:44)
[2020-08-12] VITALS (8 sets, daily range): BP systolic 137–166; BP diastolic 81–91
[2020-08-12 04:35] LABS: BASOPHILS % 0.5 % (0.0-1.0); EOSINOPHILS # (AUTO) 0.3 (0.0-0.4); EOSINOPHILS % 3.6 % (0.0-6.0); HEMATOCRIT 24.4 % (38.2-49.6); HEMOGLOBIN 8.1 g/dL (14.0-18.0); LYMPHOCYTES # (AUTO) 1.4 (1.0-3.2); LYMPHOCYTES % 16.5 % (18.0-39.1); MEAN CORPUSCULAR HEMOGLOBIN 28.4 pg (28-32); MEAN CORPUSCULAR HGB CONC 33.2 g/dL (31-35); MEAN CORPUSCULAR VOLUME 85.6 fL (81-99); MONOCYTES # (AUTO) 0.6 (0.2-0.8); MONOCYTES % 7.1 % (4.4-11.3); NEUTROPHILS # (AUTO) 6.2 (2.1-6.9); NEUTROPHILS % 71.8 % (38.7-80.0); PLATELET COUNT 216 x10e3/uL (140-360); RED BLOOD COUNT 2.85 x10e6/uL (4.3-5.7); RED CELL DISTRIBUTION WIDTH 13.2 % (11.7-14.4)
[2020-08-12 04:56] LABS: ANION GAP 12.1 mmol/L (8-16); CALCIUM 8.2 mg/dL (8.4-10.2); CREATININE, SERUM 1.36 mg/dL (0.72-1.25); POTASSIUM 4.1 mmol/L (3.5-5.1)
[2020-08-12] MEDS: INSULIN LISPRO 100 UNIT/1 ML 3ML VIAL SQ SCH ×4 (07:30→21:00)
[2020-08-12] MEDS: PANTOPRAZOLE SOD 40 MG TABEC PO SCH (08:56)
[2020-08-12] MEDS: OLMESARTAN 20 MG TAB PO SCH (08:56)
[2020-08-12] MEDS: METOPROLOL SUCCINATE 50 MG TAB XL PO SCH (08:57)
[2020-08-12] MEDS: AMLODIPINE BESYLATE 5 MG TAB PO SCH (08:57)
[2020-08-12] MEDS: CRESTOR 10MG PO SCH (08:57)
[2020-08-12] MEDS ORDERED: MORPHINE SULFATE INJ 4 MG/ML INJ 1ML IV PRN (11:45)
[2020-08-12] MEDS ORDERED: HYDROCODONE/APAP 7.5MG-325MG 1 EA TAB PO PRN (11:45)
[2020-08-12] MEDS ORDERED: MORPHINE SULFATE INJ 2 MG/ML SYR IV PRN (12:00)
[2020-08-12] MEDS: HYDRALAZINE HCL 25 MG TAB PO SCH ×2 (15:14→17:29)
[2020-08-12] MEDS: ENOXAPARIN SOD INJ 40 MG/0.4 ML SYR SC SCH (17:29)
[2020-08-13] VITALS (8 sets, daily range): BP systolic 114–146; BP diastolic 68–83
[2020-08-13 04:49] LABS: BASOPHILS # (AUTO) 0.1 (0.0-0.1); BASOPHILS % 0.7 % (0.0-1.0); EOSINOPHILS # (AUTO) 0.3 (0.0-0.4); EOSINOPHILS % 4.3 % (0.0-6.0); HEMOGLOBIN 7.9 g/dL (14.0-18.0); LYMPHOCYTES # (AUTO) 1.7 (1.0-3.2); LYMPHOCYTES % 23.6 % (18.0-39.1); MEAN CORPUSCULAR HEMOGLOBIN 28.3 pg (28-32); MEAN CORPUSCULAR HGB CONC 32.9 g/dL (31-35); MONOCYTES # (AUTO) 0.5 (0.2-0.8); MONOCYTES % 7.3 % (4.4-11.3); NEUTROPHILS # (AUTO) 4.7 (2.1-6.9); NEUTROPHILS % 63.8 % (38.7-80.0); PLATELET COUNT 244 x10e3/uL (140-360); RED BLOOD COUNT 2.79 x10e6/uL (4.3-5.7); RED CELL DISTRIBUTION WIDTH 13.3 % (11.7-14.4)
[2020-08-13 05:05] LABS: ANION GAP 12.6 mmol/L (8-16); CALCIUM 8.1 mg/dL (8.4-10.2); CREATININE, SERUM 1.57 mg/dL (0.72-1.25); POTASSIUM 3.6 mmol/L (3.5-5.1)
[2020-08-13] MEDS: INSULIN LISPRO 100 UNIT/1 ML 3ML VIAL SQ SCH ×4 (07:30→21:00)
[2020-08-13] MEDS: PANTOPRAZOLE SOD 40 MG TABEC PO SCH (08:51)
[2020-08-13] MEDS: HYDRALAZINE HCL 25 MG TAB PO SCH ×2 (08:56→17:11)
[2020-08-13] MEDS: ASPIRIN 81 MG ENTERIC COATED PO SCH (08:56)
[2020-08-13] MEDS: CLOPIDOGREL BISULFATE 75 MG TAB PO SCH (08:56)
[2020-08-13] MEDS: OLMESARTAN 20 MG TAB PO SCH (08:56)
[2020-08-13] MEDS: AMLODIPINE BESYLATE 5 MG TAB PO SCH (08:56)
[2020-08-13] MEDS: CRESTOR 10MG PO SCH (08:56)
[2020-08-13] MEDS: METOPROLOL SUCCINATE 50 MG TAB XL PO SCH (08:56)
[2020-08-13] MEDS: ENOXAPARIN SOD INJ 40 MG/0.4 ML SYR SC SCH (17:11)
[2020-08-14] VITALS (9 sets, daily range): BP systolic 122–136; BP diastolic 67–77
[2020-08-14] MEDS: ASPIRIN 81 MG ENTERIC COATED PO SCH (08:53)
[2020-08-14] MEDS: CLOPIDOGREL BISULFATE 75 MG TAB PO SCH (08:53)
[2020-08-14] MEDS: PANTOPRAZOLE SOD 40 MG TABEC PO SCH (08:53)
[2020-08-14] MEDS: AMLODIPINE BESYLATE 5 MG TAB PO SCH (08:54)
[2020-08-14] MEDS: METOPROLOL SUCCINATE 50 MG TAB XL PO SCH (08:54)
[2020-08-14] MEDS: CRESTOR 10MG PO SCH (08:55)
[2020-08-14] MEDS: OLMESARTAN 20 MG TAB PO SCH (08:55)
[2020-08-14] MEDS: HYDRALAZINE HCL 25 MG TAB PO SCH ×2 (08:57→17:16)
[2020-08-14] MEDS: BALSAM PERU/CASTOR OIL 60 GM OINT...G. TP SCH (11:19)
[2020-08-14] MEDS: INSULIN LISPRO 100 UNIT/1 ML 3ML VIAL SQ SCH ×4 (11:21→21:00)
[2020-08-14] MEDS: ENOXAPARIN SOD INJ 40 MG/0.4 ML SYR SC SCH (17:16)
[2020-08-15] VITALS: BP 130/77
[2020-08-15 04:20] VITALS: BP 127/70
[2020-08-15 08:51] VITALS: BP 142/79
[2020-08-15] MEDS: METOPROLOL SUCCINATE 50 MG TAB XL PO SCH (08:58)
[2020-08-15] MEDS: ASPIRIN 81 MG ENTERIC COATED PO SCH (08:58)
[2020-08-15] MEDS: OLMESARTAN 20 MG TAB PO SCH (08:58)
[2020-08-15] MEDS: AMLODIPINE BESYLATE 5 MG TAB PO SCH (08:58)
[2020-08-15] MEDS: HYDRALAZINE HCL 25 MG TAB PO SCH ×2 (08:58→17:15)
[2020-08-15] MEDS: PANTOPRAZOLE SOD 40 MG TABEC PO SCH (08:58)
[2020-08-15] MEDS: CLOPIDOGREL BISULFATE 75 MG TAB PO SCH (08:59)
[2020-08-15] MEDS: CRESTOR 10MG PO SCH (08:59)
[2020-08-15] MEDS: BALSAM PERU/CASTOR OIL 60 GM OINT...G. TP SCH (08:59)
[2020-08-15] MEDS: INSULIN LISPRO 100 UNIT/1 ML 3ML VIAL SQ SCH ×3 (09:06→17:38)
[2020-08-15 09:15] VITALS: BP 142/79
[2020-08-15 12:39] VITALS: BP 108/71
[2020-08-15 16:18] VITALS: BP 138/82
[2020-08-15] MEDS: ENOXAPARIN SOD INJ 40 MG/0.4 ML SYR SC SCH (17:16)
== END 2020-08-15 18:45 | disposition short-term general hospital (02) | DRG 240 ==
LOC: ER 10:20 → ERHOLD 10:26 → MED/SURG2 12:02
PROVIDERS: ADMIT Internal Medicine; ATTEND Internal Medicine
PROC: 30233N1 Transfusion of Nonautologous Red Blood Cells into Peripheral Vein, Percutaneous Approach (ICD-10-PCS; 2020-08-08)
PROC: 0Y6J0Z3 Detachment at Left Lower Leg, Low, Open Approach (ICD-10-PCS; principal; 2020-08-08 13:02)
DX: E11.52 Type 2 diabetes mellitus with diabetic peripheral angiopathy with gangrene (principal); N17.9 Acute kidney failure, unspecified; A54.23 Gonococcal infection of other male genital organs; L97.518 Non-pressure chronic ulcer of other part of right foot with other specified severity; M86.8X7 Other osteomyelitis, ankle and foot; E11.65 Type 2 diabetes mellitus with hyperglycemia; D63.8 Anemia in other chronic diseases classified elsewhere; E87.5 Hyperkalemia; E11.621 Type 2 diabetes mellitus with foot ulcer; I25.10 Atherosclerotic heart disease of native coronary artery without angina pectoris; Z95.5 Presence of coronary angioplasty implant and graft; E11.22 Type 2 diabetes mellitus with diabetic chronic kidney disease; I12.9 Hypertensive chronic kidney disease with stage 1 through stage 4 chronic kidney disease, or unspecified chronic kidney disease; N18.30 Chronic kidney disease, stage 3 unspecified; E11.69 Type 2 diabetes mellitus with other specified complication
CPT/HCPCS: 36415; 80048; 80053; 82948; 83735; 84100; 85014; 85018; 85025; 86850; 86900; 86920; 88307; 88311; 96372; 99251; 99284; J0360; J1170; J1650; J1940; J2001; J2250; J2405; J2765; J3010; J7030; J7050; P9016; U0002